=== PATIENT | female | born 1950 | race Caucasian/White ===

== ENCOUNTER → 2017-07-11 15:14 | Outpatient (CLI) | payer MEDICARE, OTHER, SELFPAY ==
--- NOTE | 2017-07-11 15:17 | RAD_ITS ---
STUDY: X-RAY CHEST REASON FOR EXAM: Female, 66 years old. COUGH X 10 WEEKS TECHNIQUE: Frontal and lateral views of the chest. COMPARISON: 03.20.08 FINDINGS: Chronic appearing increased interstitial lung markings. There is no demonstrated pleural abnormality. Scoliosis of the thoracic spine. Normal heart size. Normal mediastinum and kirill. Normal visualized pulmonary arteries. There is atherosclerotic calcification of the aortic arch with tortuosity. There are diffuse degenerative changes of the visualized thoracic spine. There is degenerative osteoarthritis of the bilateral shoulders. There is no demonstrated abnormality of the visualized soft tissue structures of the upper abdomen. RAD/Chest PA and Lateral IMPRESSION: There are no acute findings. Electronically Signed: Sumeet Maldonado MD at 17:58 EDT , Service support ,
== END ==
PROVIDERS: Family Provider Nurse Practitioner; PCP Nurse Practitioner; Visit Provider Nurse Practitioner Gerontology
DX: R05 Cough (principal)
CPT/HCPCS: 71046

== ENCOUNTER → 2017-08-17 14:48 | Outpatient (CLI) | payer MEDICARE, OTHER, SELFPAY ==
[2017-08-17 14:53] LABS: Bacteria 0 SEEN /hpf (None Seen); Mucous, Urine 0 SEEN /hpf (<or=2+)
[2017-08-17 15:44] LABS: Color, Urine Yellow (Yellow); Glucose, Dipstick Normal (Normal); Ketone-Dipstick Negative (Negative); Leukocyte Esterase-Dipstick 25 /ul (Negative); Nitrite-Dipstick Negative (Negative); Occult Blood-Urine 250 /ul (Negative); Protein-Dipstick 15 mg/dl (Negative); Urine Bilirubin Dipstick Negative (Negative); Urine Clarity Sl. Cloudy (Clear); Urine Urobilinogen Normal (Normal); Urine pH 6.5 (5.0 - 8.0)
[2017-08-17 15:51] LABS: Absolute Lymphocyte Count 1.35 X10^3/ul (0.83-4.51); Absolute Neutrophil Count 4.4 X10^3/uL (2.0-7.7); Basophil# 0.03 X10^3/uL; Basophil% 0.4 % (0-1); Eosinophil# 0.45 X10^3/uL; Eosinophils% 6.6 % (0-5); Hematocrit 39.9 % (37-47); Hemoglobin 13.8 g/dl (12.0-15.0); Lymphocyte # 1.35 X10^3/ul (4.0); Lymphocyte % 19.8 % (19-41); Mean Corp Hgb Conc 34.6 g/gl (32-36); Mean Corpuscular Hgb 33.1 pg (27.0-32.0); Mean Corpuscular Volume 95.7 fL (81-99); Mean Platelet Vol. 9.6 fl (6.2-12.0); Monocyte# 0.64 X10^3/uL; Monocyte% 9.4 % (0-10); Neutrophil # 4.35 X10^3/uL (2.7-7.7); Neutrophil % 63.7 % (47-70); Platelet Count 208 K/mm3 (150-450); RBC Distribution Width CV 12.1 % (11.6-14.6); RBC Distribution Width SD 41.2 fl (35.1-43.9); Red Blood Count 4.17 M/mm3 (4.2-5.4); White Blood Count 6.8 K/mm3 (4.4-11.0)
[2017-08-17 15:54] LABS: POSITIVE COUNT NO; POSITIVE DIFFERENTIAL NO; POSITIVE MORPHOLOGY NO
[2017-08-17 16:21] LABS: Red Blood Cells-Urine 25-50 SEEN /hpf (0-5); Squamous Epithelial Cells - UA 0-5 SEEN /hpf (5-10); White Blood Cells 0-5 SEEN /hpf (0-5)
[2017-08-17 16:24] LABS: ALB/GLOB Ratio 1.2 RATIO (0.9-2.4); AST(SGOT) 21 U/L (15-37); Alanine Aminotransfer ALT/SGPT 31 U/L (13-56); Albumin, Serum 3.8 g/dL (3.2-5.0); Alkaline Phosphatase 130 U/L (45-117); Anion Gap 8 (5-15); BUN 19 mg/dL (7-18); BUN/Creat Ratio 17.9 RATIO (10-20); Calcium,Total 8.7 mg/dL (8.5-10.1); Chloride 110 mmol/L (98-107); Cholesterol 211 mg/dL (200); Creatinine, Serum 1.06 mg/dL (0.55-1.02); EST Glomerular Filtration Rate 55 mL/min (>60); Est Glom Filt Rate - Afr Amer 66 mL/min (>60); Globulin 3.1 g/dL (2.2-4.2); Glucose 107 mg/dL (74-106); High Density Lipoprotein 41 mg/dL; Potassium 3.8 mmol/L (3.5-5.1); Protein, Total 6.9 g/dL (6.4-8.2); Sodium Level 143 mmol/L (136-145); Thyroid Stim Hormone (TSH) 1.17 uIU/mL (0.358-3.74); Triglycerides 268 mg/dL; Very Low Density Lipoprotein 54 mg/dL (5-40)
[2017-08-18 08:36] LABS: Vitamin D,25 Hydroxy 32.1 ng/mL (29.95-100.01)
== END ==
PROVIDERS: Family Provider Family Medicine; PCP Family Medicine; Visit Provider Family Medicine
DX: I10 Essential (primary) hypertension (principal); E55.9 Vitamin D deficiency, unspecified; E78.5 Hyperlipidemia, unspecified
CPT/HCPCS: 36415; 80053; 80061; 81001; 82306; 84443; 85025

== ENCOUNTER → 2017-09-14 14:00 | Outpatient (CLI) | payer MEDICARE, OTHER, SELFPAY ==
[2017-09-14 15:43] LABS: Anion Gap 5 (5-15); BUN 18 mg/dL (7-18); BUN/Creat Ratio 16.7 RATIO (10-20); Calcium,Total 8.6 mg/dL (8.5-10.1); Chloride 111 mmol/L (98-107); Creatinine, Serum 1.08 mg/dL (0.55-1.02); EST Glomerular Filtration Rate 54 mL/min (>60); Est Glom Filt Rate - Afr Amer 65 mL/min (>60); Glucose 111 mg/dL (74-106); Potassium 3.8 mmol/L (3.5-5.1); Sodium Level 143 mmol/L (136-145)
== END ==
PROVIDERS: Visit Provider Family Medicine
DX: R94.4 Abnormal results of kidney function studies (principal)
CPT/HCPCS: 36415; 80048

== ENCOUNTER → 2017-09-28 14:18 | Outpatient (CLI) | payer MEDICARE, OTHER, SELFPAY ==
[2017-09-28 15:42] LABS: Anion Gap 8 (5-15); BUN 15 mg/dL (7-18); BUN/Creat Ratio 12.1 RATIO (10-20); Calcium,Total 8.4 mg/dL (8.5-10.1); Chloride 109 mmol/L (98-107); Creatinine, Serum 1.24 mg/dL (0.55-1.02); EST Glomerular Filtration Rate 46 mL/min (>60); Est Glom Filt Rate - Afr Amer 55 mL/min (>60); Glucose 89 mg/dL (74-106); Potassium 3.9 mmol/L (3.5-5.1); Sodium Level 144 mmol/L (136-145)
[2017-09-28 15:57] LABS: Hemoglobin A1c 5.4 % (4.2-6.3)
== END ==
PROVIDERS: Family Provider Family Medicine; PCP Family Medicine; Visit Provider Family Medicine
DX: R73.09 Other abnormal glucose (principal); R94.4 Abnormal results of kidney function studies
CPT/HCPCS: 36415; 80048; 83036

== ENCOUNTER → 2017-10-10 07:43 | Outpatient (CLI) | payer MEDICARE, OTHER, SELFPAY ==
--- NOTE | 2017-10-10 07:46 | RDU_ITS ---
Reason For Study: HYPERTENSION Right Renal Artery Left Renal Artery Right renal artery ostium 76.4/18.3 Left renal artery ostium 113.0/29.2 RSV/EDV. PSV/EDV. Right renal artery proximal Left renal artery proximal PSV/EDV 112.0/32.8 PSV/EDV. 115.0/30.1 . Right renal artery mid 112.0/14.6 Left renal artery mid 109.0/30.5 PSV/EDV. PSV/EDV . Right renal artery distal Left renal artery distal 116.0/33.7 107.0/31.1 PSV/EDV. PSV/EDV. Right Renal Parenchyma Left Renal Parenchyma Upper Pole Medula 38.5/10.1 Left upper pole medulla 47.4/14.6 PSV/EDV. PSV/EDV . Right upper pole medulla EDR .26 . Left upper pole medulla EDR .31 . Right upper pole medulla R.I. .74 . Left upper pole medulla R.I. .69 . Upper Blake Cortx 27.5/6.4 PSV/EDV. UP Cortex 27.5/8.6 PSV/EDV. Right upper pole cortex EDR .23 . Left upper pole cortex EDR .31 . Right upper pole cortex R.I. .77 . Left upper pole cortex R.I. .69 . Right lower Pole medulla 22.2/5.6 Left lower Pole medulla 34.5/10.4 PSV/EDV . PSV/EDV . Right lower pole medulla EDR .25 . Left lower pole medulla EDR .30 . Right lower pole medulla R.I. .75 . Left lower pole medulla R.I. .70 . Lower Pole Cortex 21.3/6.9 PSV/EDV. Lower Pole Cortx 17.2/4.4 PSV/EDV. Right lower pole cortex EDR .32 . Left lower pole cortex EDR .26 . Right lower pole cortex R.I. .68 . Left lower pole cortex R.I. .74 . Right Renal Hilar Left Renal Hilar Right Hilar avg 70.2/19.6 PSV/EDV. LT Hilar avg 46.1/15.0 PSV/EDV . Right hilar acceleration time 66 Left hilar acceleration time 59 m/sec. m/sec. Right Renal Dimensions Left Renal Dimensions Right kidney size 10.3 cm . Left kidney size 9.3 cm . Right cortical dimension 1.6 cm . Left cortical dimension 1.5 cm . Aorta Proximal abdominal aorta 1.3 X 1.3 cm . Distal abdominal aorta 1.3 X 1.3 cm . Proximal abdominal aorta peak systolic velocity is 101.0 cm/sec . Distal abdominal aorta peak systolic velocity is 83.9 cm/sec . Interpretation Summary Dimensions of the intra-abdominal aorta appear normal, without evidence of aneurysmal dilatation. Renal artery velocities are bilaterally normal. Acceleration times are normal bilaterally. There is no evidence of hemodynamically significant renal artery stenosis on either side. The right cortical dimension is increased. The left cortical dimension is normal. Kidneys appear normal in size bilaterally. Ordering Physician: Umer Prajapati Referring Physician: Umer Prajapati Performed By: Neena Leal RVT
--- NOTE | 2017-10-10 08:31 | US_ITS ---
STUDY: RENAL ULTRASOUND - COMPLETE REASON FOR EXAM: Female, 66 years old. Hypertension. TECHNIQUE: Ultrasound evaluation of the kidneys was performed with real-time and static mancia-scale imaging. COMPARISON: None. FINDINGS: RIGHT KIDNEY: Normal location of the right kidney, which is normal in size. The right kidney measures 10.2 cm in length. There is a normal cortex of the right kidney. There is no right renal mass or cyst. There are no right renal calculi. There is no right hydronephrosis. DISTAL RIGHT URETER: There is a visualized right ureteral jet. LEFT KIDNEY: Normal location of the left kidney, which is normal in size. The left kidney measures 9.8 cm in length. There is a normal cortex of the left kidney. There is no left renal mass or cyst. There are no left renal calculi. There is no left hydronephrosis. DISTAL LEFT URETER: There is a visualized left ureteral jet. BLADDER: The distended urinary bladder has a volume of 100 ml. The empty urinary bladder has a volume of 2.5 ml. There is a normal wall thickness of the distended urinary bladder. There is no demonstrated mass within the urinary bladder. There are no demonstrated bladder calculi. US/Kidney and Bladder IMPRESSION: Within normal limits ultrasound of the kidneys and urinary bladder. Electronically Signed: Georgina Sabillon MD at 16:55 EDT Tel , Service support ,
== END ==
PROVIDERS: Family Provider Family Medicine; PCP Family Medicine; Visit Provider Family Medicine
DX: I10 Essential (primary) hypertension (principal)
CPT/HCPCS: 76770; 93975

== ENCOUNTER → 2017-11-08 14:55 | Outpatient (CLI) | payer MEDICARE, OTHER, SELFPAY ==
[2017-11-08 19:10] LABS: Anion Gap 7 (5-15); BUN 16 mg/dL (7-18); BUN/Creat Ratio 14.5 RATIO (10-20); Chloride 109 mmol/L (98-107); EST Glomerular Filtration Rate 52 mL/min (>60); Est Glom Filt Rate - Afr Amer 63 mL/min (>60); Glucose 197 mg/dL (74-106); Potassium 3.9 mmol/L (3.5-5.1); Sodium Level 141 mmol/L (136-145)
== END ==
PROVIDERS: Family Provider Family Medicine; PCP Family Medicine; Visit Provider Family Medicine
DX: R94.4 Abnormal results of kidney function studies (principal)
CPT/HCPCS: 36415; 80048

== ENCOUNTER → 2018-01-12 16:18 | Outpatient (CLI) | payer MEDICARE, OTHER, SELFPAY ==
[2018-01-12 17:33] LABS: Anion Gap 9 (5-15); BUN 17 mg/dL (7-18); BUN/Creat Ratio 14.5 RATIO (10-20); Chloride 108 mmol/L (98-107); Creatinine, Serum 1.17 mg/dL (0.55-1.02); EST Glomerular Filtration Rate 49 mL/min (>60); Est Glom Filt Rate - Afr Amer 59 mL/min (>60); Glucose 138 mg/dL (74-106); Potassium 3.7 mmol/L (3.5-5.1); Sodium Level 143 mmol/L (136-145)
== END ==
PROVIDERS: Family Provider Family Medicine; PCP Family Medicine; Visit Provider Family Medicine
DX: I10 Essential (primary) hypertension (principal)
CPT/HCPCS: 36415; 80048

== ENCOUNTER → 2018-01-18 09:01 | Outpatient (CLI) | payer MEDICARE, OTHER, SELFPAY ==
--- NOTE | 2018-01-18 09:04 | RAD_ITS ---
STUDY: X-RAY - LEFT HAND REASON FOR EXAM: Bilateral hand pain, no specific injury. TECHNIQUE: 3 view(s) of the hand. COMPARISON: None. FINDINGS: There is osteopenia. Normal radiocarpal articulation. Normal distal radioulnar joint. Normal visualized carpal bones. Normal carpal articulations Normal carpometacarpal articulation of the thumb. Normal second through fifth carpometacarpal joints. Normal metacarpi. Normal metacarpophalangeal joint of the thumb. Normal interphalangeal joint of the thumb. Normal proximal and distal phalanges of the thumb. Normal metacarpophalangeal joints of the second through fifth fingers. There is mild arthrosis of the second distal interphalangeal joint with small marginal osteophytes and mild joint space narrowing. Normal phalanges of the second through fifth fingers. There is a small bone island in the fourth distal phalangeal base. The soft tissue structures are unremarkable. 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 Osteopenia. Electronically Signed: Balta Serra MD at 9:32 EDT Tel , Service support ,
--- NOTE | 2018-01-18 09:04 | RAD_ITS ---
STUDY: X-RAY - RIGHT HAND REASON FOR EXAM: Bilateral hand pain, no specific injury. TECHNIQUE: 3 view(s) of the hand. COMPARISON: None. FINDINGS: There is osteopenia. Normal radiocarpal articulation. Normal distal radioulnar joint. Normal visualized carpal bones. Normal carpal articulations Normal carpometacarpal articulation of the thumb. Normal second through fifth carpometacarpal joints. Normal metacarpi. Normal metacarpophalangeal joint of the thumb. Normal interphalangeal joint of the thumb. Normal proximal and distal phalanges of the thumb. Normal metacarpophalangeal joints of the second through fifth fingers. There is mild arthrosis of the second distal interphalangeal joint with small marginal osteophytes and mild joint space narrowing. There is mild arthrosis of the third distal interphalangeal joint with mild joint space narrowing. Normal phalanges of the second through fifth fingers. The soft tissue structures are unremarkable. RAD/Hand Min 3 Views IMPRESSION: Mild arthrosis of the second and third distal interphalangeal joints. Osteopenia. Electronically Signed: Balta Serra MD at 9:33 EDT Tel , Service support ,
== END ==
PROVIDERS: Family Provider Family Medicine; PCP Family Medicine; Referring Provider Orthopaedic Surgery; Visit Provider Orthopaedic Surgery
DX: M79.641 Pain in right hand (principal); M79.642 Pain in left hand
CPT/HCPCS: 73130

== ENCOUNTER → 2018-03-14 14:15 | Outpatient (CLI) | payer MEDICARE, OTHER, SELFPAY ==
[2018-03-14 15:58] LABS: Absolute Lymphocyte Count 1.11 X10^3/ul (0.83-4.51); Absolute Neutrophil Count 3.5 X10^3/uL (2.0-7.7); Basophil# 0.03 X10^3/uL; Basophil% 0.6 % (0-1); Eosinophils% 3.7 % (0-5); Hematocrit 41.5 % (37-47); Lymphocyte # 1.11 X10^3/ul (4.0); Lymphocyte % 20.4 % (19-41); Mean Corp Hgb Conc 33.7 g/gl (32-36); Mean Corpuscular Hgb 32.6 pg (27.0-32.0); Mean Corpuscular Volume 96.7 fL (81-99); Mean Platelet Vol. 9.9 fl (6.2-12.0); Monocyte# 0.55 X10^3/uL; Monocyte% 10.1 % (0-10); Neutrophil # 3.53 X10^3/uL (2.7-7.7); Neutrophil % 64.8 % (47-70); Platelet Count 221 K/mm3 (150-450); RBC Distribution Width CV 12.1 % (11.6-14.6); RBC Distribution Width SD 41.6 fl (35.1-43.9); Red Blood Count 4.29 M/mm3 (4.2-5.4); White Blood Count 5.4 K/mm3 (4.4-11.0)
[2018-03-14 16:02] LABS: POSITIVE COUNT NO; POSITIVE DIFFERENTIAL NO; POSITIVE MORPHOLOGY NO
[2018-03-14 16:23] LABS: ALB/GLOB Ratio 1.2 RATIO (0.9-2.4); AST(SGOT) 22 U/L (15-37); Alanine Aminotransfer ALT/SGPT 32 U/L (13-56); Albumin, Serum 3.9 g/dL (3.2-5.0); Alkaline Phosphatase 158 U/L (45-117); Anion Gap 7 (5-15); BUN 15 mg/dL (7-18); Calcium,Total 8.6 mg/dL (8.5-10.1); Chloride 108 mmol/L (98-107); Cholesterol 225 mg/dL (200); Creatinine, Serum 1.07 mg/dL (0.55-1.02); EST Glomerular Filtration Rate 54 mL/min (>60); Est Glom Filt Rate - Afr Amer 65 mL/min (>60); Globulin 3.2 g/dL (2.2-4.2); Glucose 80 mg/dL (74-106); High Density Lipoprotein 58 mg/dL; Potassium 3.7 mmol/L (3.5-5.1); Protein, Total 7.1 g/dL (6.4-8.2); Sodium Level 141 mmol/L (136-145); Triglycerides 137 mg/dL; Very Low Density Lipoprotein 27 mg/dL (5-40)
[2018-03-14 16:35] LABS: Vitamin D,25 Hydroxy 35.6 ng/mL (29.95-100.01)
--- OUTSIDE RECORDS SUMMARY | 2018-05-09 23:54 | XMS RPT_ITS | Continuity of Care Document ---
:1950 Author Organization [facility] Address [facility] [address] Phone Care Team Providers Name Role Phone Minalveronica SILVIO Kaci Unavailable Edmundo Carrillo Unavailable Rocio Asher Unavailable Irma KIMBROUGH, Dr. Hillary Noriega Unavailable Denia KIMBROUGH, Jeremy Arzate Unavailable Dr. José Chang Unavailable Johnathan KIMBROUGH, Jairo Crow Unavailable Slarb SOLE FILLER, Emily Unavailable Unavailable Maria Guadalupe Baldwin Unavailable Unavailable Long SOLE FILLER, Luisa L Unavailable Unavailable Chantale Javier Unavailable Unavailable Unavailable Unavailable Problems Name Dates Details Abdominal pain, unspecified abdominal location (789.00) Status: Active Abnormal lung sounds (R09.89, 786.7) Status: Active Acute sinusitis (J01.90, 461.9) Comments: Acute sinusitis with asthma exacerbation.Rapid strep negative, cultureFlu test negative., cultureAlbuterol nebulizerDoxycyckline 14 days(on lexapro so cant do levaquin because of QT prolongationm)Predn isone taper.Albuterol INH PRNFolow up 2 days1 week h.o sore throat, runny nose clear nasal drainage, sinus aches,tooth aches, PND, nausea.2 days h/o worsening with dry cough, feelinmg warm, nausea, bod y aches, wheezing last night with SOBPreviously diagnosed with asthma, was put on INH (flovent, proventil and also singulair)but never used them.Vera and mucinx did not help Status: Active Allergic rhinitis (J30.9, 477.9) Comments: stable Status: Active Allergy to Penicillins (Renamed from Penicillins) Status: Active Anxiety (F41.9, 300.00) Status: Active 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, 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) Status: Active BMI 29.0-29.9,adult (Z68.29, V85.25) Status: Active BMI 30.0-30.9,adult (Z68.30, V85.30) Status: Active Bronchitis (J40, 490) Status: Active Bronchitis (J40, 490) Comments: stop wood burning change antibiotic Status: Active Carpal tunnel syndrome (G56.00, 354.0) Status: Active Constipation (K59.00, 564.00) Comments: miralax in apple juice Status: Active Cough (R05, 786.2) Status: Active Cystitis, acute (N30.00, 595.0) Status: Active Deliveries (Parity) Comments: 2 Status: Active Depression (F32.9, 311) Comments: PHQ 9: 14(11/03/15) now 6 (11/30Lexapro 10 mg once a day, incresed to 20 mg once a day 10/30, notices improvement but not completely better.Does not want to do counselling because of cost and does not want to talk to anybodylexapro 10 mg for 3 years ago after , cancer in liver and spine.trouble falling asleep, staying asleep( gomto sleep at 11 and wake up at 2) thinking about stuff.Wo rrying about things, guilt, lack of energy.Concentration: betterfeels sad and deprresed but not every dayExercise:water aerobics 3x/week.Cant work outside in the heat so when weather cools down Status: Active Dysuria (R30.0, 788.1) 7-Dec-2010 Status: Active Elevated blood-pressure reading without diagnosis of hypertension (R03.0, 796.2) Status: Active Encounter for screening mammogram for breast cancer (Renamed from Encounter for screening mammogram for malignant neoplasm of breast) (Z12.31, V76.12) Status: Active Epigastric pain (R10.13, 789.06) Comments: takes meloxicam daily for arthritis x 9months was on once daily protonix but this nothelping, will increase twice daily got BMX in office with some relief Status: Active Fatty liver (K76.0, 571.8) Comments: LFT and lipd panel Q6 monthsUS yearlyLP 120( was 115ALt 29 37(was 33) Status: Active Gall stones (K80.20, 574.20) Status: Active GENERAL SYMPTOMS, OTHER MALAISE AND FATIGUE (780.79) 16-Feb-2010 Status: Active Hypersomnia (G47.10, 780.54) Comments: get sleep study, with abnormal overnight pulse ox Status: Active Hypertension, accelerated (I10, 401.0) Comments: 138/78BP: 124/70 Status: Active Inner ear Status: Active Insomnia (G47.00, 780.52) Status: Active Irritable bowel syndrome (K58.9, 564.1) Status: Active Low Back Pain (Renamed from LBP (low back pain)) (M54.5, 724.2) Comments: Dr. 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 Status: Active Pregnancies () Comments: 2 Status: Active Reactive airway disease (J45.909, 493.90) Comments: reviewed chart with Dr. Castellon labs, tests, etc, 6 minute walk, normal looks like reactive airway disease Status: Active Reactive airway disease (J45.909, 493.90) Status: Active scfreening Status: Active Sciatica (M54.30, 724.3) Comments: left hip Status: Active Seasonal affective disorder (F33.9, 296.99) Comments: lite box, insurance doesnt cover, so cant use it Status: Active Shortness of breath (R06.02, 786.05) Status: Active Shortness of breath on exertion (R06.02, 786.05) Comments: has had cardiac test in past and stress testingneed overnight pulse ox and walk test Status: Active Skin tag (L91.8, 701.9) Comments: 2 removed right neck with scissor technique and 3 left2 treated with cryo for 45 sec - 1 on right on on left Status: Active Unspecified asthma, uncomplicated (J45.909, 493.90) Comments: Dont use flovent unless sick.Father of asthma attackHad acute asthma only once 06/30.SOB: noneWheeze: no Cough: noneGo up and down stair have SOB. Status: Active Unspecified Diagnosis Status: Active Urgency of micturition (R39.15, 788.63) Status: Active Vertigo (R42, 780.4) Status: Active Vertigo, benign positional (H81.10, 386.11) Status: Active Wheezing (R06.2, 786.07) Comments: use alegra and nosonex Status: Active Wheezing (R06.2, 786.07) Comments: suspect asthma component Status: Active Medications Name Dates Details Albuterol Sulfate (2.5 MG/3ML) 0.083% Inhalation Nebulization Solution 1 (one) Milliliter q6hrs prn for 0 days Quantity: 1 {Milliliter} Refills: 0 Ordered:19-Jul-2017 Alethea SILVIO Lani Rezaarleth ANGUIANO Lani Alvarez Start : 19-Jul-2017 Active ALEVE, 220MG (Oral Tablet) 4 Tablet PRN for 0 days Refills: 0 Ordered:03-Nov-2015 Long Luisa HARO Start : 30-Nov-2006 Active Vera 30 MG Oral Tablet 1 Tablet QD for 0 days Refills: 0 Ordered:03-Nov-2015 Maikel Guzman MD Start : 03-Nov-2015 Active Asmanex HFA 200 MCG/ACT Inhalation Aerosol 2 (two) Puff Puff q12 for 0 days Quantity: 1 {Inhalation} Refills: 0 Ordered:19-Jul-2017 Slarb Emily HARO Start : 12-Jul-2017 Active Benzonatate 200 MG Oral Capsule 1 (one) Capsule Capsule PO TID for 0 days Quantity: 21 {Capsule} Refills: 0 Ordered:11-Jul-2017 Jas Alicia Start : 11-Jul-2017 Active Flovent HFA 220 MCG/ACT Inhalation Aerosol 1 (one) Aerosol 2 puffs bid for 0 days Quantity: 3 {Inhalation} Refills: 3 Ordered:19-Jul-2017 Alethea SILVIO Lani Rezaarleth ANGUIANO Lani Alvarez Start : 19-Jul-2017 Active Lexapro 20 MG Oral Tablet 1 (one) Tablet daily for 30 days Quantity: 30 {Tablet} Refills: 11 Ordered:12-Mar-2017 Alethea SILVIO Lani Daniels SILVIO Lani Alvarez Start : 12-Mar-2017 Active Lexapro 20 MG Oral Tablet 1 (one) Tablet daily for 30 days Refills: 0 Ordered:12-Mar-2017 Minalveronica SILVIO Lani Rezaarleth ANGUIANO Lani Alvarez Start : 12-Mar-2017 Active Losartan Potassium 50 MG Oral Tablet 1 (one) Tablet daily for 0 days Quantity: 30 {Tablet} Refills: 2 Ordered:07-Jun-2017 Alethea SILVIO Lani Rezaarleth ANGUIANO Lani Alvarez Start : 07-Jun-2017 Active Meclizine HCl 12.5 MG Oral Tablet 1 (one) Tablet bid prn for 0 days Quantity: 90 {Tablet} Refills: 0 Ordered:10-May-2017 Alethea ANGUIANO, Lani Francis CNP Start : 10-May-2017 Active Nasonex 50 MCG/ACT Nasal Suspension 2 sprays each nostril, prn for 0 days Refills: 0 Ordered:03-Nov-2015 Maikel Guzman MD Start : 03-Nov-2015 Active PredniSONE 10 MG Oral Tablet daily UAD (10 MG) Active Comments:taper, 4x 3d, 3x 3d, 2x 3d, 1 x3d Protonix 20 MG Oral Tablet Delayed Release 1 (one) Tablet DR bid for 0 days Quantity: 60 {Tablet} Refills: 1 Ordered:12-Jul-2017 Alethea ANGUIANO, Lani Daniels CNP Lani Alvarez Start : 12-Jul-2017 Active Proventil HFA 108 (90 Base) MCG/ACT Inhalation Aerosol Solution 1 (one) Aerosol Soln every six hours, as needed for 14 days Quantity: 1 {Canister} Refills: 3 Ordered:13-Feb-2017 Alethea ANGUIANO, Lani Francis CNP Start : 13-Feb-2017 Active Comments:Medication taken as needed. TraZODone HCl 50 MG Oral Tablet 1/2-1 Tablet q hs, prn for 0 days Quantity: 30 {Tablet} Refills: 3 Ordered:13-Mar-2017 Alethea ANGUIANO, Lani Francis CNP Start : 13-Mar-2017 Active VITAMIN D3, 2000UNIT (Oral Capsule) 1 cap qd (2000 UNIT) Active AUGMENTIN, 875-125MG (Oral Tablet) 1 (one) Tablet Twice daily for 10 days Quantity: 20 {Tablet} Refills: 0 Ordered:25-Mar-2008 Ravinder DO, Irma A Start : 25-Mar-2008 End : 08-Apr-2008 Inactive BACTRIM DS, 800-160MG (Oral Tablet) 1 (one) Tablet bid for 3 days Quantity: 6 {Tablet} Refills: 0 Ordered:18-Mar-2008 Alethea ANGUIANO, Lani Francis CNP Start : 18-Mar-2008 End : 25-Mar-2008 Inactive Biaxin 500 MG Oral Tablet 1 (one) Tablet Tablet PO BID for 14 days Quantity: 28 {Tablet} Refills: 0 Ordered:19-Jul-2017 Emily Coombs LPN Start : 11-Jul-2017 End : 19-Jul-2017 Inactive Comments:Take with food BIAXIN XL, 500MG (Oral Tablet Extended Release 24 Hour) 2 (two) Tablet ER 24HR qd for 0 days Quantity: 20 {Tablet_ER_24HR} Refills: 0 Ordered:16-Feb-2010 Delon HARO Latrice Start : 02-Feb-2010 End : 16-Feb-2010 Inactive CIPRO, 500MG (Oral Tablet) 1 (one) Tablet Twice daily for 10 days Quantity: 20 {Tablet} Refills: 0 Ordered:03-Jul-2015 Ravinder DO, Irma A Start : 03-Jul-2015 End : 13-Jul-2015 Inactive Doxycycline Hyclate 100 MG Oral Capsule 1 (one) Capsule bid for 7 days Quantity: 14 {Capsule} Refills: 0 Ordered:12-Jul-2017 Minalharpreetarleth ANGUIANO, Lani Frances ANGUIANO, Kaci Start : 12-Jul-2017 End : 19-Jul-2017 Inactive DOXYCYCLINE HYCLATE, 100MG (Oral Tablet Delayed Release) 1 (one) Tablet DR Tablet DR two times daily for 14 days Quantity: 28 {Tablet} Refills: 0 Ordered:30-Sep-2015 Emily Coombs LPN Start : 30-Sep-2015 End : 14-Oct-2015 Inactive FLECTOR, 1.3% (Transdermal Patch) 1 Patch q12 hrs for 0 days Quantity: 15 {Patch} Refills: 0 Ordered:15-Jun-2012 Magy Winters Start : 30-Nov-2011 End : 15-Jun-2012 Inactive GLUCOSAMINE CHONDR 500 COMPLEX (Oral Capsule) 2 caps qd Inactive Hydrocodone-Acetaminophen 5-325 MG Oral Tablet 1 (one) Tablet q 12 hours prn for 0 days Quantity: 60 {Tablet} Refills: 0 Ordered:15-Feb-2017 Emily Coombs LPN Start : 09-Sep-2014 End : 15-Feb-2017 Inactive Lyrica 100 MG Oral Capsule 1 cap daily (100 MG) Inactive MEDROL (GINA), 4MG (Oral Tablet) 1 Tablet TAD for 0 days Quantity: 1 {Package(s)} Refills: 0 Ordered:15-Jun-2012 Magy Winters Start : 30-Nov-2011 End : 15-Jun-2012 Inactive MYCELEX, 10MG (Mouth/Throat Tony) 1 Tony 5 x daily for 10 days Quantity: 50 {Tony} Refills: 0 Ordered:16-Feb-2010 Alethea ANGUIANO, Lani Francis CNP Start : 16-Feb-2010 End : 26-Feb-2010 Inactive PREDNISONE (GINA), 10MG (Oral Tablet) 1 (one) Tablet Tablet UAD for 10 days Quantity: 20 {Tablet} Refills: 0 Ordered:30-Sep-2015 Emily Coombs LPN Start : 30-Sep-2015 End : 10-Oct-2015 Inactive Comments:20 mg BID 2 days,10 mg BID 4 days10 mg Qd 4 days then stop.20 pills PREDNISONE, 10MG (Oral Tablet) 1 Tablet as directed for 0 days Refills: 0 Ordered:16-Feb-2010 Latrice Jernigan LPN Start : 02-Feb-2010 End : 16-Feb-2010 Inactive Comments:3 pills for 5 days then 2 pills for 5 days then 1 pill for 5 days with food PREVPAC (Oral Miscellaneous) 1 Misc TAD for 14 days Quantity: 1 {Package(s)} Refills: 0 Ordered:09-Jun-2011 Alethea ANGUIANO, Lani Daniels CNP, Lani Alvarez Start : 09-Jun-2011 End : 23-Jun-2011 Inactive Comments:1 twice daily x 14 days PYRIDIUM, 100MG (Oral Tablet) 1 Tablet tid for 2 days Quantity: 6 {Tablet} Refills: 0 Ordered:11-Jan-2010 Alethea ANGUIANO, Lani Francis CNP Start : 11-Jan-2010 End : 13-Jan-2010 Inactive VICODIN, 5-500MG (Oral Tablet) 1 (one) Tablet q hs prn for 0 days Quantity: 30 {Tablet} Refills: 0 Ordered:22-Dec-2009 Latrice Jernigan LPN Start : 17-Mar-2009 Inactive Zithromax Z-Gina 250 MG Oral Tablet daily UAD (250 MG) Inactive Comments:one pack ADVAIR DISKUS, 250-50MCG/DOSE (Inhalation Aerosol Powder Breath Activated) 1 puff Aero Pow Br Act bid for 90 days Quantity: 3 {Aero_Pow_Br_Act} Refills: 3 Ordered:02-Apr-2013 Irma Castellon DO Start : 02-Apr-2013 End : 02-Apr-2013 Discontinued ADVAIR DISKUS, 250-50MCG/DOSE (Inhalation Miscellaneous) 1 (one) Misc 1 twice a day for 0 days Quantity: 1 {Misc} Refills: 3 Ordered:15-May-2009 Magy Winters Start : 15-May-2009 End : 10-Nov-2009 Discontinued Comments:This order discontinued per [facility]. ASMANEX 120 METERED DOSES, 220MCG/INH (Inhalation Aerosol Powder Breath Activated) Aero Pow Br Act 1 puff bid for 0 days Quantity: 1 {Aero_Pow_Br_Act} Refills: 0 Ordered:18-Feb-2008 Alethea ANGUIANO, Lani Daniels CNP, Kaci Start : 18-Feb-2008 End : 18-Feb-2008 Discontinued BUPROPION HCL ER (XL), 300MG (Oral Tablet Extended Release 24 Hour) 1 Tablet ER 24HR qday for 0 days Quantity: 90 {Tablet} Refills: 3 Ordered:24-Feb-2015 Irma Castellon DO Start : 24-Feb-2015 End : 24-Feb-2015 Discontinued Crestor 10 MG Oral Tablet 1 (one) Tablet daily for 30 days Quantity: 30 {Tablet} Refills: 2 Ordered:17-May-2016 Emily Coombs LPN Start : 03-Dec-2015 End : 17-May-2016 Discontinued DARVOCET-N 100, 100-650MG (Oral Tablet) 1 (one) Tablet QID/PRN for 0 days Quantity: 60 {Tablet} Refills: 0 Ordered:29-Dec-2005 Magy Winters Start : 29-Dec-2005 End : 18-Jul-2006 Discontinued Comments:watch for sedation and constipation GABAPENTIN, 100MG (Oral Capsule) 2 caps tid (100 MG) End : 20-Jan-2015 Discontinued LEXAPRO, 20MG (Oral Tablet) 1 (one) Tablet qhs for 0 days Quantity: 30 {Tablet} Refills: 3 Ordered:24-Feb-2015 Irma Castellon DO Start : 24-Feb-2015 End : 24-Feb-2015 Discontinued LEXAPRO, 20MG (Oral Tablet) 1 Tablet QD for 0 days Quantity: 60 {Tablet} Refills: 0 Ordered:18-Sep-2012 Irma Castellon DO Start : 18-Sep-2012 End : 18-Sep-2012 Discontinued Comments:Needs apt MELOXICAM, 7.5MG (Oral Tablet) 1 tab daily (7.5 MG) End : 20-Jan-2015 Discontinued MOBIC, 7.5MG (Oral Tablet) 1 (one) Tablet Twice daily for 0 days Quantity: 60 {Tablet} Refills: 0 Ordered:07-Jun-2006 Magy Winters Start : 07-Jun-2006 End : 18-Jul-2006 Discontinued Comments:with food NASACORT AQ, 55MCG/ACT (Nasal Aerosol Solution) 2 (two) Aerosol Soln PRN for 0 days Refills: 0 Ordered:18-Feb-2008 Magy Winters Start : 18-Feb-2008 End : 28-Apr-2008 Discontinued NEXIUM, 40MG (Oral Capsule Delayed Release) 1 (one) Capsule DR daily,prn for 0 days Quantity: 90 {Capsule} Refills: 3 Ordered:20-Jan-2015 Magy Winters Start : 20-Jan-2015 End : 20-Jan-2015 Discontinued PANTOPRAZOLE SODIUM, 40MG (Oral Tablet Delayed Release) 1 tab q am (40 MG) End : 20-Jan-2015 Discontinued Singulair 10 MG Oral Tablet 1 (one) Tablet daily, prn for 0 days Quantity: 90 {Tablet} Refills: 1 Ordered:17-May-2016 Emily Coombs LPN Start : 04-Apr-2014 End : 17-May-2016 Discontinued ZETIA, 10MG (Oral Tablet) 1 (one) Tablet QD or qod for 0 days Quantity: 90 {Tablet} Refills: 3 Ordered:02-Apr-2013 Irma Castellon DO Start : 02-Apr-2013 End : 02-Apr-2013 Discontinued ZITHROMAX Z-GINA, 250MG (Oral Tablet) 1 Tablet take 2 on day #1 then 1 daily for 0 days Quantity: 1 {Package(s)} Refills: 0 Ordered:06-Feb-2008 Anitha Hernadez Start : 06-Feb-2008 End : 18-Feb-2008 Discontinued ZYRTEC, 10MG (Oral Tablet) 1 QD for 0 days Refills: 0 Ordered:06-Feb-2008 Anitha Hernadez End : 06-Feb-2008 Discontinued Allergies and Adverse Reactions Name Dates Details Allergy to ADVAIR DISKUS, 100-50MCG/DOSE Status: Inactive (Inhalation Miscellaneous) (Renamed from Comments: didnt feel well ADVAIR DISKUS, 100-50MCG/DOSE (Inhalation Miscellaneous)) (Allergy) No Known Drug Allergies (Allergy) Onset: 02-Apr-2013 Status: Active Allergy to Penicillins (Renamed from Status: Inactive Penicillins) (Allergy) Comments: hives Penicillins (Allergy) Status: Active Sulfa Drugs (Allergy) Status: Active Past Medical History Name Dates Details Allergy to ADVAIR DISKUS, 100-50MCG/DOSE (Inhalation Miscellaneous) (Renamed from ADVAIR DISKUS, 100-50MCG/DOSE (Inhalation Miscellaneous)) Status: Inactive as of 15-Jun-2012 Asthma with acute exacerbation (J45.901, 493.92) Comments: was given proventil daily Status: Inactive as of 13-Mar-2017 Asthma, mild intermittent (J45.20, 493.90) Status: Inactive as of 13-Mar-2017 BMI 30.0-30.9,adult (Z68.30, V85.30) Status: Inactive as of 15-Feb-2017 Bronchitis, acute (J20.9, 466.0) Status: Inactive as of 16-Aug-2010 Candidiasis, mouth (B37.0, 112.0) Status: Inactive as of 15-Jun-2012 Chest pain (R07.9, 786.50) Comments: epigastric pain Status: Inactive as of 15-Feb-2017 Cough (R05, 786.2) Status: Resolved as of 22-Sep-2008 diastolic dysfunction Status: Inactive as of 15-Feb-2017 Dysuria (R30.0, 788.1) Status: Resolved as of 22-Sep-2008 hypoxia Status: Resolved as of 22-Sep-2008 INFECTION, BACTERIAL D/T HELICOBACTER PYLORI (041.86) Comments: will treat as if, daughter in law has this Status: Inactive as of 15-Jun-2012 Laryngitis (J04.0, 464.00) Status: Resolved as of 02-Apr-2013 Pain around eye, unspecified laterality (H57.10, 379.91) Comments: and face on right side, chikis rule out trigeminal nerualgia Status: Resolved as of 22-Sep-2008 Pain of toe, unspecified laterality (M79.676, 729.5) Status: Resolved as of 22-Sep-2008 partial tear of achilles/ gastroc- Status: Resolved as of 22-Sep-2008 recent uti- follow up ua Status: Resolved as of 22-Sep-2008 right eye and face pain Status: Resolved as of 22-Sep-2008 right shoulder pain Comments: offered pain meds , pt or ortho none of which she wished to do- she doesnt feel bad enough at this point Status: Resolved as of 22-Sep-2008 trochanteric bursitis Comments: gave stretching exercises- told not better can do pt Status: Resolved as of 23-Feb-2009 Tubal ligation Status: Inactive as of 15-Feb-2017 Unspecified Diagnosis Status: Inactive as of 22-Sep-2008 Upper respiratory infection (J06.9, 465.9) Status: Inactive as of 16-Aug-2010 Urinary frequency (R35.0, 788.41) Status: Resolved as of 22-Sep-2008 Urticaria (L50.9, 708.9) Status: Resolved as of 22-Sep-2008 Vaccine for okvumqkfkz-otidqaa-ekjmnfnji with poliomyelitis (Z23, V06.3) Status: Inactive as of 15-Jun-2012 voice change Comments: chronic hoarse voice Status: Resolved as of 22-Sep-2008 Well woman exam (Z00.00, V70.0) Status: Inactive as of 15-Jun-2012 Procedures Procedure Dates Details Gallbladder Surgery - Laparoscopic Completed Comments: 06/2016 tubal ligation Completed Date Value Details 11-Jul-2017 Chest PA and Lateral Result: Comments: See Note; NOTES: [facility] Imaging Services [address] [place] [address] Chest PA and Lateral MR#: [id number] Acct: [id number] Name: BEATRICE DOUGHERTY Rep #: [id number] : 1950 F 66 From: Sumeet Maldonado MD PCP: Lani Claire NP Status: REG CLI Study: Chest PA and Lateral Date of Exam: 07/11/17 Exam# [id number] Ordering Dr: Maribel Orta PAPER SLITTER-C STUDY: X-RAY CHEST REASON FOR EXAM: Female, 66 years old. COUGH X 10 WEEKS TECHNIQUE: Frontal and lateral views of the chest. COMPARISON: 03.20.08 FINDINGS: Chronic appearing increased interstitial lung markings. There is no demonstrated pleural abnormality. Scoliosis of the thoracic spine. Normal heart size. Normal mediastinum and kirill. Normal visualized pulmonary arterie s. There is atherosclerotic calcification of the aortic arch with tortuosity. There are diffuse degenerative changes of the visualized thoracic spine. There is degenerative osteoarthritis of the bilater al shoulders. There is no demonstrated abnormality of the visualized soft tissue structures of the upper abdomen. RAD/Chest PA and Lateral IMPRE SSION: There are no acute findings. Electronically Signed: Sumeet Maldonado MD at 17:58 EDT , Service support , CC: Lani Claire NP; PAPER SLITTERShawn Orta Mechanical Engineering Officer: Signed 08-Jul-2017 Urgent Care Visit Report Result: Comments: See Note; NOTES: [facility] [address] [place] [address] OFFICE VISIT Date of Service: 07/08/17 MR#: [id number] Acct: [id number] Name: BEATRICE DOUGHERTY Rep #: [id number] : 1950 Provider: Suma Taveras Age/Sex: 66/F Location: [facility] [place] Status: Signed Intake Vital Signs07/08/17 Height 5 ft 3 in 07/08/17 Weight: 159 lb 07/08/17 Body Mass Ind ex (BMI) 28.1 07/08/17 Blood Pressure 118/76 Intake Visit Reasons: COUGH, NAUSEA, ACHY Drapery Estimator Required: No Is patient in pain?: No Allergies Penicillins Allergy (Severe, Verified 07/08/17 10:22) Hives Medications azithromycin 250 mg tablet See Label Instructions PO .COMPLEX #6 tab 07/08/17 [Rx Confirmed 07/08/17] coenzyme Q10 10 mg capsule 10 mg PO ONCE 07/08/17 [History Confirmed 07/08/17] guaifenesin ER 1,200 mg tablet, extended release 12 hr 1,200 mg PO Q12H 07/08/17 [History Confirmed 07/08/17] ibuprofen 100 mg tablet PO 07/08/17 [History Confirmed 07/08/17] prednisone 10 mg tablet Se e Label Instructions PO .COMPLEX #30 tab 07/08/17 [Rx Confirmed 07/08/17] PFSH Medical History Reactive airway disease (Chronic) Other malaise and fatigu e (Chronic) Acute sinusitis (Chronic) Atypical Spitz nevus (Chronic) Hyperlipidemia (Chronic) Vertigo (Chronic) Osteopenia (Chronic) Depression (Chronic) IBS (irritable bowel syndrome) (Chronic) Hyperso mnia (Chronic) Asthma with acute exacerbation in adult (Chronic) Asthma, mild intermittent (Chronic) Shortness of breath on exertion (Chronic) Gall stones (Chronic) BMI 29.0-29.9,adult (Chronic) Fatty l iver (Chronic) Insomnia (Chronic) Anxiety (Chronic) Allergic rhinitis (Chronic) Seasonal affective disorder (Chronic) Low back pain potentially associated with radiculopathy (Chronic) Wheezing (Chronic) Accelerated hypertension (Chronic) Carpal tunnel syndrome (Chronic) 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) Sciatica (Chronic) Surgical History History of laparoscopic cholecystectomy (Resolved) H/O tubal ligation (Resolved) Family History Mother Hypertension Heart disease Thyroid dis order Father Asthma Social History Smoking Status: Former smoker second hand exposure: No alcohol intake: never substance use type: does not use caffeine: Yes (4/day) what type of physical activi ty do you participate in: none HPI HPI Details: BEATRICE DOUGHERTY, is a 66 F who presents to the office today for for an urgent appointment. Patient states that she started with an upper respirato ry infection approximately 3 weeks ago. She has been treating with [id number] medication and has not had any improvement. She does have a cough and chills. She does not think that she is a fever. Her cough is productive it is a clear to yellow sputum. She finds that she is wheezing. She also has a headache. She is also fatigued. She had does have some nausea at this point. She feels that this i s related to her cough. ROS Const Constitutional: Positive for body ache, fatigue, headache(s) and chills; no fever(s) Eyes Eyes: No light sensitivity, discharge or change in vision ENT ENT: Positive for headache(s); no nasal congestion, nasal discharge, sinus pressure, post nasal drip or sore throat Resp Respiratory: Positive for cough, chest congestion and wheezing Cardio Cardiology: No chest pain at rest, chest pain with exertion or shortness of breath Gastro GI: Positive for nausea/dyspepsia; no diarrhea or Vomiting blood/hematemesis Neuro Neurology: Positive for headache(s) Endo Endocrine: Po sitive for fatigue Aller/Imm Allergy/Immunologic: Positive for wheezing Exam Const General: cooperative, no acute distress Nutritional Appearance: average body habitus Orientation: alert, awake, orien pepito x3 HENMT Head: normal to inspection Ears: hearing grossly normal bilaterally Nose: mucous membranes and turbinates abnormal boggy Eyes General: appearance normal, both eyes and all related structure s Eyelids: eyelids normal Conjunctivae: conjunctivae normal Sclera: sclerae normal Cornea: corneas normal Pupils: PERRL Neck Neck: normal visual inspection, no lymphadenopathy Chest Chest palpation AND inspection: normal inspection of the chest Resp Effort AND Inspection: normal respiratory effort, cough Quality of cough: productive Auscultation: Bilateral: Diminished Lung Sounds, Inspiratory Wheezes Cardio Palpation: normal PMI Rate: regular rate Rhythm: regular rhythm Heart Sounds: S1 normal, S2 normal, no gallops, no murmurs, no rubs GI Auscultation: normal bowel sounds Percussion: normal to perc ussion Palpation: soft, no hepatosplenomegaly Neuro General: alert, awake, oriented x3 Cranial Nerves: CN's II-XI intact bilaterally Assessment AND Plan Problems 1. Bronchitis J40 Plan We will treat with antibiotic and steroid. Patient was advised to continue with adequate hydration. She was advised to continue use Advil or Tylenol for aches and chills. She was advised that if not any better she sh ould see her primary care doctor. Medications New: Coding Level of Care Code Off vis,new,level 3 Diagnoses Bronchitis J40 Intake Vital Signs07/08/17 Height 5 ft 3 in 07/08/17 Weight: 159 lb 07/08 Body Mass Index (BMI) 28.1 07/08/17 Blood Pressure 118/76 Intake Visit Reasons: COUGH, NAUSEA, ACHY Drapery Estimator Required: No Is patient in pain?: No Allergies Penicillins Allergy (Severe, Verifie d 07/08/17 10:22) Hives Medications azithromycin 250 mg tablet See Label Instructions PO .COMPLEX #6 tab 07/08/17 [Rx Confirmed 07/08/17] coenzyme Q10 10 mg capsule 10 mg PO ONCE 07/08/17 [History Co nfirmed 07/08/17] guaifenesin ER 1,200 mg tablet, extended release 12 hr 1,200 mg PO Q12H 07/08/17 [History Confirmed 07/08/17] ibuprofen 100 mg tablet PO 07/08/17 [History Confirmed 07/08/17] prednison e 10 mg tablet See Label Instructions PO .COMPLEX #30 tab 07/08/17 [Rx Confirmed 07/08/17] PFSH Medical History Reactive airway disease (Chronic) Other m alaise and fatigue (Chronic) Acute sinusitis (Chronic) Atypical Spitz nevus (Chronic) Hyperlipidemia (Chronic) Vertigo (Chronic) Osteopenia (Chronic) Depression (Chronic) IBS (irritable bowel syndrome) (Chronic) Hypersomnia (Chronic) Asthma with acute exacerbation in adult (Chronic) Asthma, mild intermittent (Chronic) Shortness of breath on exertion (Chronic) Gall stones (Chronic) BMI 29.0-29.9,adult (Chronic) Fatty liver (Chronic) Insomnia (Chronic) Anxiety (Chronic) Allergic rhinitis (Chronic) Seasonal affective disorder (Chronic) Low back pain potentially associated with radiculopathy (Chronic) W heezing (Chronic) Accelerated hypertension (Chronic) Carpal tunnel syndrome (Chronic) 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 Patient states that she started with a n upper respiratory infection approximately 3 weeks ago. She has been treating with sugp-tat-obiszna medication and has not had any improvement. She does have a cough and chills. She does not think felicia t she is a fever. Her cough is productive it is a clear to yellow sputum. She finds that she is wheezing. She also has a headache. She is also fatigued. She had does have some nausea at this point. She feels that this is related to her cough. ROS Const Constitutional: Positive for body ache, fatigue, headache(s) and chills; no fever(s) Eyes Eyes: No light sensitivity, discharge or change in vision E NT ENT: Positive for headache(s); no nasal congestion, nasal discharge, sinus pressure, post nasal drip or sore throat Resp Respiratory: Positive for cough, chest congestion and wheezing Cardio Cardiolo gy: No chest pain at rest, chest pain with exertion or shortness of breath Gastro GI: Positive for nausea/dyspepsia; no diarrhea or Vomiting blood/hematemesis Neuro Neurology: Positive for headache(s) E ndo Endocrine: Positive for fatigue Aller/Imm Allergy/Immunologic: Positive for wheezing Exam Const General: cooperative, no acute distress Nutritional Appearance: average body habitus Orientation: al ert, awake, oriented x3 HENMT Head: normal to inspection Ears: hearing grossly normal bilaterally Nose: mucous membranes and turbinates abnormal boggy Eyes General: appearance normal, both eyes and all related structures Eyelids: eyelids normal Conjunctivae: conjunctivae normal Sclera: sclerae normal Cornea: corneas normal Pupils: PERRL Neck Neck: normal visual inspection, no lymphadenopathy Chest Daphne st palpation AND inspection: normal inspection of the chest Resp Effort AND Inspection: normal respiratory effort, cough Quality of cough: productive Auscultation: Bilateral: Diminished Lung Sounds, Ins piratory Wheezes Cardio Palpation: normal PMI Rate: regular rate Rhythm: regular rhythm Heart Sounds: S1 normal, S2 normal, no gallops, no murmurs, no rubs GI Auscultation: normal bowel sounds Percussio n: normal to percussion Palpation: soft, no hepatosplenomegaly Neuro General: alert, awake, oriented x3 Cranial Nerves: CN's II-XI intact bilaterally Assessment AND Plan Problems 1. Bronchitis J40 Pl an We will treat with antibiotic and steroid. Patient was advised to continue with adequate hydration. She was advised to continue use Advil or Tylenol for aches and chills. She was advised that if not any better she should see her primary care doctor. Medications New: Coding Level of Care Code Off vis,new,level 3 Diagnoses Bronchitis J40 07/08/17 1039 <Electronically signed by Suma BLANCHARD> Date Suma BLANCHARD Cosigner Signature: Date (if applicable) CC: 23-Feb-2017 Pulmonary Function Test Result: Comments: See Note; NOTES: [facility] Pulmonary Services/Neurology [address] [place] [address] MR#: [id number] Acct: [id number] Name: BEATRICE DOUGHERTY Rep #: [id number] DO B: 1950 66 From: Cesar Mobley DO Referring Dr: Lani Claire Status: REG CLI Ordering Dr: Date: Location: [facility] Sex: F C INTRODUCTION: The patient is a 66-year-old female currently being seen by Lani Claire that presents for pulmonary function testing secondary to a diagnosis of asthma. Bronchodilators were used during testing. INTERPRETATION: Forced expiration spirometry demonstrates n o evidence of a large airways obstructive ventilatory defect. There was no significant response to aerosolized bronchodilators, based upon strict ATS criteria. Spirograms of good quality and plateau nor radha. The respiratory flow volume loop appears normal. Lung volumes were measured by determining the functional residual capacity in determining the lung divisions by a vital capacity maneuver (nitroge n washout). It should be noted that lung volumes may be underestimated by this technique in the setting of an obstructive ventilatory defect. The patient was unable to complete the maneuvers associated with obtaining accurate lung volumes, due to a feeling of suffocation. Diffusing capacity by single breath CO is at the lower limits of normal at 68% of predicted. IMPRESSION: Spirome try was normal. There was no significant bronchodilator response. Diffusing capacity is at the lower limits of normal. The patient was unable to complete the maneuvers associated with obtaining lung vol umes. There are no previous pulmonary function studies available for comparison. 02/23/17 1419 <Electronically signed by Cesar Mobley DO> Date Cesar Mobley DO CC: Lani Claire; Cesar Mobley D.O. Date Dictated: 02/23/171413 Date Transcribed: 02/23/171413 Mechanical Engineering Officer: DB Signed 12-Sep-2016 NCS and/or EMG Patient Result: Comments: See Note; NOTES: [facility] Pulmonary Services/Neurology [address] [place] [address] NCS and/or EMG Patient MR#: [id number] Acct: [id number] Name: BEATRICE DOUGHERTY Rep #: [id number] : 1950 65 From: Yunior Serrato MD Referring Dr: Linda Leung DPM Status: REG CLI Ordering Dr: Linda Leung DPM Date: 09/07/16 Location: N Sex: F C DATE OF SERVICE: 0 09/07/2016 The patient presents for electrodiagnostic testing of the lower limb. She has chief complaint of pain in both feet, primarily around the heel. ELECTRODIAGNOSTIC FINDINGS: On nerve conduction study, peroneal motor nerve demonstrates normal distal latency, amplitude, and conduction velocity bilaterally. Normal tibial motor response. Normal tibial and peroneal F wave. Normal H reflex bilatera lly. Sensory responses are within normal limits. On needle EMG, all muscles tested in the lower limbs show no evidence of denervation with normal motor unit action potentials. ELECTRODIAGNOSTIC IMPRES ARACELIS: This is a normal electrodiagnostic study of the lower limbs. There is no electrodiagnostic evidence for peripheral neuropathy or lumbosacral radiculopathy. If there are any questions in regard to this exam, please do not hesitate to contact me. Sincerely. MD Michelle Leavitt C: Dr. Cho T: NTS JOB: [id number] 09/12/16 1858 <Electronically signed by Yunior Serrato MD> Date ___ Yunior Serrato MD CC: Lani Claire; Yunior Serrato; Linda Madhu DPM Date Dictated: 09/07/161529 Date Transcribed: 09/07/161529 Mechanical Engineering Officer: Signed 27-Jun-2016 Esophagus Only Result: Comments: See Note; NOTES: [facility] Imaging Services [address] [place] [address] Verdana 4d Esophagus Only MR#: [id number] Acct: [id number] Name: BEATRICE DOUGHERTY Rep # : [id number] : 1950 F 65 From: Daniel Browning MD PCP: Irma Castellon DO Status: [facility] CL Study: Esophagus Only Date of Exam: 06/27/16 Exam# [id number] Ordering Dr: José Chang MD STUDY: X-R AY - ESOPHAGUS (BARIUM SWALLOW) WITH FLUOROSCOPY REASON FOR EXAM: Female, 65 years old. Chest pain and burning sensation. TECHNIQUE: 22 view(s) of the esophagus were obtained following swallowing of b arium. FLUOROSCOPY TIME (if supplied): (0:20) minutes/seconds COMPARISON: None. FINDINGS: There is no demonstrated esophageal foreign body. There is no demonstrate d stricture or mucosal abnormality. Normal gastroesophageal junction, without a demonstrated hiatal hernia. The patient ingested a 12 mm tablet of barium without difficulty. There is atherosclerotic ca lcification of the aortic arch with tortuosity of the descending aorta. Normal visualized pulmonary parenchyma. There are degenerative changes of the visualized thoracic spine. RAD/Esophagus Only IMPRESSION: Normal plain film x-ray examination (barium swallow) of the esophagus. Electronically Signed: Daniel Browning MD at 15:28 EDT Tel [phone], Service support [phone], CC: Irma Castellon DO; José Chang Mechanical Engineering Officer: Signed 19-May-2016 Gallbladder Result: Comments: See Note; NOTES: [facility] Imaging Services [address] [place] [address] Verdana 4d Gallbladder MR#: [id number] Acct: [id number] Name: BEATRICE DOUGHERTY Rep #: [id number] : 1950 F 65 From: Daniel Browning MD PCP: Irma Castellon DO Status: REG CLI Study: Gallbladder Date of Exam: 05/19/16 Exam# [id number] Ordering Dr: Lani Claire STUDY: ABDOMINAL ULTRAS OUND - RIGHT UPPER QUADRANT REASON FOR VISIT: Female, 65 years old. Epigastric pain. TECHNIQUE: Ultrasound evaluation of the right upper quadrant was performed with real-time and static velázquez-scale amie ging. TECHNICAL QUALITY: Adequate. COMPARISON: None. FINDINGS: Liver: The liver measures 15.1 cm. There is increased echogenicity consistent with fatty infiltrati on. The bile ducts are within normal limits. There is hepatic color flow. The direction of portal flow is hepatopetal. There is no demonstrated mass lesion. Gallbladder: Normal distended gallbladder. T he gallbladder wall is thickened and measures 3.9 mm. There is a negative sonographic Ford's sign. There is no pericholecystic fluid. There are multiple echogenic structures within the gallbladder, co nsistent with multiple gallstones. A small amount of sludge is seen within the gallbladder lumen. Common Bile Duct (C.B.D.): The common bile duct measures 2.0 mm. Pancreas: Normal size of the head, teresa dy and tail of the pancreas. There is normal echogenicity of the pancreas. There is no demonstrated pancreatic mass or cyst. Right Kidney: Normal size of the right kidney. The right kidney measures 9.8 cm x 4.6 cm x 4.9 cm. Normal renal cortex. The right cortex measures 1.6 cm. There is no demonstrated renal mass or cyst. There is no right hydronephrosis. ORDER # : [id number] US/Gallbladder IMPRESSION: Fatty infiltration of the liver. Multiple gallstones. Mild thickening of the gallbladder wall. Electronically Signed: Daniel Browning MD at 10:[address] Tel [phone], Service support [phone], CC: Lani Claire; Irma Castellon DO Mechanical Engineering Officer: Signed 28-May-2015 Bilat Scrn Digital AND CAD Result: Comments: See Note; NOTES: [facility] Imaging Services [address] [place] [address] Verdana 4d Bilat Scrn Digital AND CAD MR#: [id number] Acct: [id number] Name: BEATRICE DOUGHERTY Rep #: [id number] : 1950 F 64 From: Daniel Browning MD PCP: Irma Castellon DO Status: REG CLI Study: Bilat Scrn Digital AND CAD Date of Exam: 05/28/15 Exam# [id number] Ord ering Dr: Irma Castellon DO MAMMOGRAPHY - BILATERAL SCREENING REASON FOR EXAM: Female, 64 years old. Routine annual screening examination. PERTINENT HISTORY: Non-contributory. TECHNIQUE: Digital examination. Mediolateral oblique (MLO) and craniocaudad (CC) views of both breasts were obtained. CAD: CAD was performed on this study. COMPARISON: Comparison is made with prior study dated 2012 and November 09, 2011. FINDINGS: Breast Composition: There are scattered areas of fibroglandular density. There are no dominant masses or suspicious ca lcifications. No other significant abnormalities are identified. There has been no significant change since the prior study. IMPRESSION: Stable bilateral scree loulou mammogram. Yearly follow-up mammogram recommended. (A) ASSESSMENT CATEGORY: BIRADS Category 1: Negative. A letter regarding these results will be sent to the patient by the facility within 30 days. Approximately 10% of breast cancers are not detected by mammography. A normal mammogram should not delay biopsy of a clinically suspicious abnormality. [id number] Electronically Signed: Daniel Browning MD at 15:10 EST Tel [phone], Service support [phone], CC: Irma Castellon DO Mechanical Engineering Officer: Signed 28-May-2015 Dexa Bone Density Study (HP) Result: Comments: See Note; NOTES: [facility] Imaging Services [address] [place] [address] Verda 4d Dexa Bone Density Study (HP) MR#: [id number] Acct: [id number] Name : BEATRICE DOUGHERTY Rep #: [id number] : 1950 F 64 From: Daniel Browning MD PCP: Irma Castellon DO Status: [facility] CLI Study: Dexa Bone Density Study (HP) Date of Exam: 05/28/15 Exam# [id number] Ordering Dr: Irma Castellon DO STUDY: DUAL ENERGY X-RAY ABSORPTIOMETRY / DXA REASON FOR EXAM: Female, 64 years old. The patient is postmenopausal. Loss of height. TECHNIQUE: Bone Mineral Density (BMD) measurements of lumbar spine and bilateral hips were obtained. COMPARISON: Comparison is made with prior study dated November 09, 2011. FINDINGS: Lumbar Spi ne (L1-L4): g/cm2 (0.972) / T-score (-1.7) / Z-score (-0.1) Findings are suggestive of osteopenia with a moderate fracture risk. Left Femur Total: g/cm2 (0.922) / T-score (-0.7) / Z-score (0.6) Left Femoral Neck: g/cm2 (0.808) / T-score (-1.7) / Z-score (-0.1) Right Femur Total: g/cm2 (0.928) / T-score (-0.6) / Z-score (0.6) Right Femoral Neck: g/cm2 (0.877) / T-score (-1.2) / Z-score (0.4) Th e T-Scores on the most recent prior examination were: Lumbar Spine (L1-L4): There has been worsening of bone density since the previous examination. Left Femur Total: which represents a worsening o f 1.4%. Right Femur Total: which represents an improvement of 6.2%. IMPRESSION: The patient is considered osteopenic as outlined below according to World Stefan Organization (WHO) criteria with a moderate fracture risk. There has been worsening of bone density since the previous examination. Reference Information: The T -score is the number of standard deviations above or below the standard which is normal for young adults at their peak bone mineral density. The World Health Organization (WHO) interprets the T-scores as follows: Above -1 Normal bone density Between -1 and -2.5 Osteopenia Equal to / or below -2.5 Osteoporosis As a practical clinical guideline, osteopenia may be graded as follows: Mild -1 thr ough -1.5 Moderate -1.6 through -2.0 Severe -2.1 through -2.4 The Z-score is the number of standard deviations above or below age-matched controls. A Z- score of less than -1.5 would be considered a bnormal. References: 1. NIH Osteoporosis and Related Bone Diseases http://www.osteo.org 2. International Society for Clinical Densitometry http://www.iscd.org 3. National Osteoporosis Foundation ht tp://www.nof.org Electronically Signed: Daniel Browning MD at 11:33 EST Tel [phone], Service support [phone], CC: Irma Castellon DO Mechanical Engineering Officer: Signed 20-Jan-2015 ELECTROCARDIOGRAM, COMPLETE (ECG) (56044) Comments: ekg showed normal sinus rhythym, normal axis, no acute st/t wave changes Result: [MEASUREMENTS ANALYSIS] Date of Test: 01/20/2015 11:36:05; Heart Rate: 80; AK Interval: 180; QRS: 82; QT Interval: 356; Corrected QT Interval (QTc): 391; P Wave [place]: 37; QRS Wave [place]: -10; T Wave [place] : -1; Blood Pressure: 158/100 [ECG DIAGNOSTIC STATEMENTS] Date of Test: 01/20/2015 11:36:05; Summary: Sinus Rhythm WITHIN NORMAL LIMITS 27-May-2014 Spine Lumbar (Routine) Result: Comments: See Note; NOTES: [facility] Imaging Services [address] [place] [address] MRI Report MR#: [id number] Acct: [id number] Name: BEATRICE DOUGHERTY Rep #: [id number] : 1950 F 63 From: Ángela Sharma MD PCP: Irma Castellon DO Status: REG CLI Study: Spine Lumbar (Routine) Date of Exam: 05/27/14 Exam# [id number] Ordering Dr: Irma Castellon DO STUDY: MR I LUMBAR SPINE WITHOUT CONTRAST REASON FOR EXAM: Female, 63 years old low back pain radiation to both legs, right greater than left. TECHNIQUE: Standardized fat and water weighted pulse sequences w ere obtained in the sagittal and axial planes. COMPARISON: None FINDINGS: T12-L1: Normal endplates. Normal disc height, hydration and morphology. Normal bila teral facet joints. Normal central canal and bilateral lateral recesses. Normal bilateral intervertebral neural foramina. Normal lumbar lordosis. There are multilevel juxta cortical endplate Schmorl 's nodes deformities vertebral endplates. There is mild lumbar dextro scoliosis. Normal conus medullaris that terminates at the L1. L1-2: Normal endplates. Normal disc height, hydration and morpholog y. Normal bilateral facet joints. Normal central canal and bilateral lateral recesses. Normal bilateral intervertebral neural foramina. L2-3: There is disc desiccation and normal disc height, hydrat ion and morphology. Normal bilateral facet joints. Normal central canal and bilateral lateral recesses. Normal bilateral intervertebral neural foramina. L3-4: There is disc desiccation and normal d isc height, and morphology. There are degenerative changes of the facet joints. Normal central canal and bilateral lateral recesses. Normal bilateral intervertebral neural foramina. L4-5: Normal en dplates. Normal disc height, hydration and there is mild bulge. There are degenerative changes of the facet joints. Normal central canal and bilateral lateral recesses. Normal bilateral intervertebral neural foramina. L5-S1: There is disc desiccation and normal disc height, with mild bulge and degenerative changes of the facet joints. Normal central canal and bilateral lateral recesses. Normal bilateral intervertebral neural foramina. Normal visualized sacral ala. Normal visualized paraspinous soft tissue structures. IMPRESSION: Multilevel degenera tive facet arthrosis without focal herniation or significant stenosis in the lumbar spine. Electronically Signed: Ángela Sharma MD at 21:43 EST Tel , Service support [phone], CC: Irma Castellon DO Mechanical Engineering Officer: Signed 26-May-2014 PT Discharge Summary Result: Comments: See Note; NOTES: [facility] [address] [place] [address]. [address] [place] [address] Fax REHABILITATION SERVICES DISCHARGE SUMMARY MR#: [id number] Acct: [id number] Name: BEATRICE DOUGHERTY Rep #: [id number] : 1950 63 From: Jennifer Bah Referring Dr.: Irma Castellon DO Status: DIS RCR Eval Date: Disc har Date: 05/20/14 DATE OF SERVICE: 05/20/2014 This patient was referred to physical therapy with a diagnosis of low back pain and arthritis by Dr. Irma Castellon. She has been seen in our clinic times a total of 7 visits. Her physical therapy has mainly consisted of electrical stimulation/cold pack and therapeutic exercise for dynamic lumbar stabilization and lower extremity strengthening. Upon presentation to physical therapy today, she reports all of her pain is much better now. Lifting does still increase her back pain. She reports that she almost always has at least an ache in h er back and this started before physical therapy. She presents with 3/10 low back and right buttock pain and reports 85% improvement overall. She does still take a pain pill to sleep at night. Upon examination, her lumbar movement loss is as follows: Flexion -- nil, extension -- moderate, bilateral side glide -- minimal. She has a negative right Reynold test now. Right hip flexion strength is 4/5 . There is tenderness of the L4, L5, S1, right buttock, sacrum and coccyx areas, but improved compared to the initial evaluation. She has made good progress towards all physical therapy goals; how ever, she continues to have significant symptoms. She is independent with a home exercise program. I recommended followup with Dr. Castellon and she was agreeable. I am discharging her at this time to a [facility] exercise program and follow up with Dr. Castellon, but we would be happy to resume physical therapy in the future as needed/indicated. She was agreeable with discharge. Jennifer Bah, PT T: REED Galindo JOB: [id number] <Electronically signed by Jennifer Bah > 05/26/14 1721 CC: Signed 05-May-2014 Inital Evaluation - PT Result: Comments: See Note; NOTES: [facility] [address] [place] [address] [address] [place], [place] [address] Fax REHABILITATION SERVICES INITIAL EVALUATION MR#: [id number] Acct: [id number] Name: BEATRICE DOUGHERTY Rep #: [id number] : 1950 63 From: Jennifer Bah Referring Dr.: Irma Castellon DO Status: REG RCR Insurance: [facility] [employer] PPO Eval Date: DATE OF SERVICE: 04/18/2014 SUBJECTIVE: This patient was referred to physical therapy by Dr. Irma Castellon with diagnoses of low back pain and arthritis. She presents to physical therapy with complaint of intermittent low back pain 0-4/10, intermittent tail bone and right buttock pain 0-6/10, constant right groin pain 4-8/10, intermittent right anterior and poste rior thigh pain extending into the cifuentes 0-3/10 and intermittent right lateral foot pain 0-4/10. She reports that the pain started in January 2014 when she had a hard fall on concrete at home landing on her tail bone. She reports overall her symptoms are improving. Currently, sometimes sitting, rising from sitting, standing, lying down and walking increase her pain. The pain is disturbing her sleep. She reports decreased pain with heat, ____ and when still in sitting. She does have a history of intermittent low back pain and saw a chiropractor from approximately November 2012 to November and it helped her back. She has home exercises from the chiropractor. Currently, she denies increased pain from coughing, sneezing or straining. She reports abnormal gait ____ and inability to arminda e a full stride. 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 She states that she did have x- rays of her right hip and low back that revealed arthritis. She denies any recent or major surgery, having been in any accidents or any unexplained weight loss. OBJECTIVE: This patient ambulates independently into physical therapy with decreased zachariah and decreased bilateral stride length. She is not using any assistive devices. Her sitting posture is poor. Her standing posture is fair. S he has a reduced lumbar lordosis, but no relevant lateral shift. Active correction of her sitting posture has no effect on her symptoms. Her right hip strength equals 4/5 with manual muscle testing, and testing provokes mild right groin pain. Otherwise, bilateral lower extremity strength is 5/5 with manual muscle testing. Bilateral lower extremity light touch sensation is intact and symmetric al. Bilateral lower extremity dural signs are negative. She has fair core strength. Lumbar movement loss: Flexion -- nil, extension -- moderate, bilateral side gliding -- minimal. The patient has a p ositive Reynold test on the right and negative on the left. Bilateral hip range of motion is within functional limits. She has tenderness with palpation of the right sacrum, coccyx and right buttock r egion, but otherwise there is not tenderness with palpation. ASSESSMENT: This patient is a 63-year-old female with complaint of back and right lower extremity symptoms. She reports that her low b ack pain is intermittent and chronic; however, her hip, thigh, leg and foot symptoms are new since the hard fall on concrete in January 2014. GOALS: 1. Decrease complaint of low back pain. 2. Dec rease complaint of right lower extremity symptoms. 3. Improve sitting, rising from sitting, standing, walking and sleep function. 4. Instruct in prophylaxis. PLAN: We plan to see this patient 2-3 t imes a week x3-4 weeks for lumbosacral and coccyx and right hip modalities as needed, dynamic lumbar stabilization, right lower extremity range of motion, stretching and strengthening, posture corre ction/strengthening and instruction in proper body mechanics to help meet the above goals. She was agreeable with this plan of care. Jennifer Bah, PT T: NTS JOB: [id number] <[facility] signed by Jennifer Bah > 05/05/14 1514 CC: Signed For Medicare only, by signing this I certify the plan of care. Physicians Signature Date 04-Apr-2014 Hip min 2 Views Result: Comments: See Note; NOTES: [facility] Imaging Services [address] [place] [address] Radiology Report MR#: [id number] Acct: [id number] Name: BEATRICE DOUGHERTY Rep #: [id number] : 1950 F 63 From: Sammy Salazar MD PCP: Irma Castellon DO Status: REG CLI Study: Hip min 2 Views Date of Exam: 04/04/14 Exam# [id number] Ordering Dr: Irma Castellon DO STUDY: X-RAY - RIGHT HIP REASON FOR EXAM: Female, 63 years old. Right hip and leg pain, status post fall one month ago TECHNIQUE: 2 view(s) of the hip. COMPARISON: None. FINDINGS: Normal femoral head, neck, intertrochanteric region and visualized proximal femur. Normal acetabulum. Normal hip joint. Normal visualized superior and inferior pubic rami and ischial tub erosities. IMPRESSION: Normal x-ray examination of the hip. Electronically Signed: Sammy Salazar MD, FACR at 21:29 EST , Ser vice support [phone], RAD/Hip min 2 Views IMPRESSION: Normal x-ray examination of the hip. Electronically Signed: Sammy Salazar MD, FACR 9 at 21:29 EST , Service support [phone], CC: Irma Castellon DO Mechanical Engineering Officer: Signed 04-Apr-2014 Lumbar Spine 2 or 3 Views Result: Comments: See Note; NOTES: [facility] Imaging Services [address] [place] [id number] Radiology Report MR#: [id number] Acct: [id number] Name: BEATRICE DOUGHERTY Rep #: [id number] : 1950 F 63 From: Ángela Sharma MD PCP: Irma Castellon DO Status: REG CLI Study: Lumbar Spine 2 or 3 Views Date of Exam: 04/04/14 Exam# [id number] Ordering Dr: Irma Castellon DO STUDY: X-RAY - LUMBAR SPINE REASON FOR EXAM: Female, 63 years old back pain. TECHNIQUE: 3 view(s) of the lumbar spine were obtained. COMPARISON: None FINDING S: Normal lumbar lordosis. There is lumbar dextro scoliosis. There are small Schmorl's node in the lumbar endplates. There is a normal alignment of the vertebrae. Normal vertebral bodies and endpla david. There is multilevel facet arthrosis. Normal disc space heights. The soft tissue structures are unremarkable. IMPRESSION: No acute fracture or subluxation. If symptoms persist, followup exam is suggested. Electronically Signed: Ángela Sharma MD at 22:36 EST Tel , Service support [phone], CC : Irma Castellon DO Mechanical Engineering Officer: Signed Immunization Name Dates Details Pneumococcal (2 years and up) on: Jul-2015 Comments: patient reported Family History Unknown Family Member Name Dates Details Father Comments: Asthma Status: Active Mother Comments: MA, HTN, hypercholesterolemia, thyroid Status: Active Social History Name Dates Details Caffeine Use Comments: 4 QD Status: Active Non Drinker/No Alcohol Use Status: Active Tobacco Use: Former smoker. Comments: Remotely quit tobacco use Status: Active Smoking Status Name Dates Details Former smoker Vital Signs Date Test Result Details [id number] Temperature 97.6 f Pulse 60 /min Comments: Pattern: Regular Respiration Rate 17 /min Comments: Pattern: Unlabored O2 SAT 96 % Comments: Room air BP Systolic 102 mm[Hg] Comments: Patient Position: Sitting; Cuff Location: Left Arm; Cuff Size: Standard BP Diastolic 68 mm[Hg] Comments: Patient Position: Sitting; Cuff Location: Left Arm; Cuff Size: Standard Weight 159 lb Height 60.75 in Body Mass Index Calculated 30.29 kg/m2 Body Surface Area Calculated 1.71 m2 [id number] Temperature 98.6 f Pulse 104 /min Comments: Pattern: Regular Respiration Rate 18 /min Comments: Pattern: Unlabored O2 SAT 96 % Comments: Room air BP Systolic 106 mm[Hg] Comments: Patient Position: Sitting; Cuff Location: Left Arm; Cuff Size: Standard BP Diastolic 68 mm[Hg] Comments: Patient Position: Sitting; Cuff Location: Left Arm; Cuff Size: Standard Weight 159 lb Height 60.75 in Body Mass Index Calculated 30.29 kg/m2 Body Surface Area Calculated 1.71 m2 [id number] Temperature 98.2 f Pulse 107 /min Comments: Pattern: Regular Respiration Rate 18 /min Comments: Pattern: Unlabored O2 SAT 94 % Comments: Room air BP Systolic 128 mm[Hg] Comments: Patient Position: Sitting; Cuff Location: Left Arm; Cuff Size: Standard BP Diastolic 78 mm[Hg] Comments: Patient Position: Sitting; Cuff Location: Left Arm; Cuff Size: Standard Weight 159 lb Height 60.75 in Body Mass Index Calculated 30.29 kg/m2 Body Surface Area Calculated 1.71 m2 :47 Temperature 97.6 f Pulse 89 /min Comments: Pattern: Regular Respiration Rate 18 /min Comments: Pattern: Unlabored O2 SAT 96 % Comments: Room air BP Systolic 158 mm[Hg] Comments: Patient Position: Sitting; Cuff Location: Left Arm; Cuff Size: Standard BP Diastolic 74 mm[Hg] Comments: Patient Position: Sitting; Cuff Location: Left Arm; Cuff Size: Standard Weight 159 lb Height 60.75 in Body Mass Index Calculated 30.29 kg/m2 Body Surface Area Calculated 1.71 m2 :16 Comments: after - sandie scale 11/12 Pulse 84 /min Comments: Pattern: Regular Respiration Rate 16 /min Comments: Pattern: Unlabored O2 SAT 98 % Comments: Room air BP Systolic 128 mm[Hg] Comments: Patient Position: Sitting; Cuff Location: Left Arm; Cuff Size: Standard BP Diastolic 78 mm[Hg] Comments: Patient Position: Sitting; Cuff Location: Left Arm; Cuff Size: Standard Weight 157 lb Height 60.75 in Body Mass Index Calculated 29.91 kg/m2 Body Surface Area Calculated 1.7 m2 :00 Comments: before - sandie scale 8 Temperature 98.1 f Comments: Method: Temporal Pulse 78 /min Comments: Pattern: Regular Respiration Rate 16 /min Comments: Pattern: Unlabored O2 SAT 97 % Comments: Room air BP Systolic 120 mm[Hg] Comments: Patient Position: Sitting; Cuff Location: Left Arm; Cuff Size: Standard BP Diastolic 68 mm[Hg] Comments: Patient Position: Sitting; Cuff Location: Left Arm; Cuff Size: Standard Weight 157 lb Height 60.75 in Body Mass Index Calculated 29.91 kg/m2 Body Surface Area Calculated 1.7 m2 :32 Temperature 97.3 f Pulse 75 /min Comments: Pattern: Regular Respiration Rate 17 /min Comments: Pattern: Unlabored O2 SAT 98 % Comments: Room air BP Systolic 132 mm[Hg] Comments: Patient Position: Sitting; Cuff Location: Left Arm; Cuff Size: Standard BP Diastolic 82 mm[Hg] Comments: Patient Position: Sitting; Cuff Location: Left Arm; Cuff Size: Standard Weight 157 lb Height 60.75 in Body Mass Index Calculated 29.91 kg/m2 Body Surface Area Calculated 1.7 m2 :37 Pulse 102 /min Comments: Pattern: Regular Respiration Rate 16 /min Comments: Pattern: Unlabored BP Systolic 120 mm[Hg] Comments: Patient Position: Sitting; Cuff Location: Left Arm; Cuff Size: Standard BP Diastolic 70 mm[Hg] Comments: Patient Position: Sitting; Cuff Location: Left Arm; Cuff Size: Standard Weight 158 lb Height 60.75 in Body Mass Index Calculated 30.1 kg/m2 Body Surface Area Calculated 1.7 m2 :51 Temperature 97.8 f Pulse 90 /min Comments: Pattern: Regular Respiration Rate 17 /min Comments: Pattern: Unlabored O2 SAT 95 % Comments: Room air BP Systolic 124 mm[Hg] Comments: Patient Position: Sitting; Cuff Location: Left Arm; Cuff Size: Standard BP Diastolic 84 mm[Hg] Comments: Patient Position: Sitting; Cuff Location: Left Arm; Cuff Size: Standard Weight 158 lb Height 60.75 in Body Mass Index Calculated 30.1 kg/m2 Body Surface Area Calculated 1.7 m2 :02 Temperature 98.4 f Comments: Method: Temporal Pulse 72 /min Comments: Pattern: Regular Respiration Rate 16 /min Comments: Pattern: Unlabored O2 SAT 98 % Comments: Room air BP Systolic 134 mm[Hg] Comments: Patient Position: Sitting; Cuff Location: Left Arm; Cuff Size: Standard BP Diastolic 78 mm[Hg] Comments: Patient Position: Sitting; Cuff Location: Left Arm; Cuff Size: Standard Weight 159 lb Height 60.75 in Body Mass Index Calculated 30.29 kg/m2 Body Surface Area Calculated 1.71 m2 :28 Temperature 97.4 f Comments: Method: Tympanic Pulse 76 /min Comments: Pattern: Regular Respiration Rate 18 /min Comments: Pattern: Unlabored O2 SAT 98 % Comments: Room air BP Systolic 138 mm[Hg] Comments: Patient Position: Sitting; Cuff Location: Left Arm; Cuff Size: Standard BP Diastolic 78 mm[Hg] Comments: Patient Position: Sitting; Cuff Location: Left Arm; Cuff Size: Standard Weight 160 lb Height 60.75 in Body Mass Index Calculated 30.48 kg/m2 Body Surface Area Calculated 1.71 m2 :08 Weight 163 lb Height 60.75 in Body Mass Index Calculated 31.05 kg/m2 Body Surface Area Calculated 1.73 m2 :27 Temperature 97.1 f Pulse 83 /min Comments: Pattern: Regular Respiration Rate 18 /min Comments: Pattern: Unlabored O2 SAT 98 % Comments: Room air BP Systolic 122 mm[Hg] Comments: Patient Position: Sitting; Cuff Location: Left Arm; Cuff Size: Standard BP Diastolic 80 mm[Hg] Comments: Patient Position: Sitting; Cuff Location: Left Arm; Cuff Size: Standard Weight 163 lb Height 60.75 in Body Mass Index Calculated 31.05 kg/m2 Body Surface Area Calculated 1.73 m2 :20 Temperature 98.3 f Comments: Method: Temporal Respiration Rate 16 /min Comments: Pattern: Unlabored O2 SAT 97 % Comments: Room air BP Systolic 126 mm[Hg] Comments: Patient Position: Sitting; Cuff Location: Left Arm; Cuff Size: Standard BP Diastolic 74 mm[Hg] Comments: Patient Position: Sitting; Cuff Location: Left Arm; Cuff Size: Standard Weight 163 lb Height 60.75 in Body Mass Index Calculated 31.05 kg/m2 Body Surface Area Calculated 1.73 m2 :55 Temperature 98.9 f Comments: Method: Temporal Pulse 96 /min Comments: Pattern: Regular Respiration Rate 15 /min Comments: Pattern: Unlabored O2 SAT 96 % Comments: Room air BP Systolic 128 mm[Hg] Comments: Patient Position: Sitting; Cuff Location: Left Arm; Cuff Size: Standard BP Diastolic 84 mm[Hg] Comments: Patient Position: Sitting; Cuff Location: Left Arm; Cuff Size: Standard Weight 163 lb Height 60.75 in Body Mass Index Calculated 31.05 kg/m2 Body Surface Area Calculated 1.73 m2 :18 Temperature 98 f Comments: Method: Temporal Pulse 82 /min Comments: Pattern: Regular Respiration Rate 16 /min Comments: Pattern: Unlabored O2 SAT 96 % Comments: Room air BP Systolic 120 mm[Hg] Comments: Patient Position: Sitting; Cuff Location: Left Arm; Cuff Size: Standard BP Diastolic 68 mm[Hg] Comments: Patient Position: Sitting; Cuff Location: Left Arm; Cuff Size: Standard Weight 165 lb Height 60.75 in Body Mass Index Calculated 31.43 kg/m2 Body Surface Area Calculated 1.74 m2 :38 Temperature 96.6 f Comments: Method: Temporal Pulse 80 /min Comments: Pattern: Regular Respiration Rate 18 /min Comments: Pattern: Unlabored O2 SAT 97 % Comments: Room air BP Systolic 158 mm[Hg] Comments: Patient Position: Sitting; Cuff Location: Left Arm; Cuff Size: Large BP Diastolic 100 mm[Hg] Comments: Patient Position: Sitting; Cuff Location: Left Arm; Cuff Size: Large Weight 163 lb Height 60.75 in Body Mass Index Calculated 31.05 kg/m2 Body Surface Area Calculated 1.73 m2 :19 Temperature 97.8 f Comments: Method: Oral Pulse 94 /min Comments: Pattern: Regular Respiration Rate 16 /min Comments: Pattern: Unlabored BP Systolic 146 mm[Hg] Comments: Patient Position: Sitting; Cuff Location: Left Arm; Cuff Size: Large BP Diastolic 84 mm[Hg] Comments: Patient Position: Sitting; Cuff Location: Left Arm; Cuff Size: Large Weight 161 lb Height 60.75 in Body Mass Index Calculated 30.67 kg/m2 Body Surface Area Calculated 1.72 m2 :33 Temperature 98 f Comments: Method: Oral Pulse 96 /min Comments: Pattern: Regular Respiration Rate 16 /min Comments: Pattern: Unlabored BP Systolic 126 mm[Hg] Comments: Patient Position: Sitting; Cuff Location: Left Arm; Cuff Size: Standard BP Diastolic 70 mm[Hg] Comments: Patient Position: Sitting; Cuff Location: Left Arm; Cuff Size: Standard Height 60.75 in :31 Temperature 98.5 f Pulse 74 /min Comments: Pattern: Regular Respiration Rate 16 /min Comments: Pattern: Unlabored BP Systolic 126 mm[Hg] Comments: Patient Position: Sitting; Cuff Location: Left Arm; Cuff Size: Large BP Diastolic 72 mm[Hg] Comments: Patient Position: Sitting; Cuff Location: Left Arm; Cuff Size: Large Weight 147 lb Height 60.75 in Body Mass Index Calculated 28 kg/m2 Body Surface Area Calculated 1.65 m2 :11 Pulse 78 /min Comments: Pattern: Regular Respiration Rate 18 /min Comments: Pattern: Unlabored O2 SAT 97 % Comments: Room air BP Systolic 120 mm[Hg] Comments: Patient Position: Sitting; Cuff Location: Left Arm; Cuff Size: Large BP Diastolic 80 mm[Hg] Comments: Patient Position: Sitting; Cuff Location: Left Arm; Cuff Size: Large Weight 147 lb Height 60.75 in Body Mass Index Calculated 28 kg/m2 Body Surface Area Calculated 1.65 m2 :03 Temperature 97.3 f Pulse 74 /min Comments: Pattern: Regular Respiration Rate 16 /min Comments: Pattern: Unlabored BP Systolic 128 mm[Hg] Comments: Patient Position: Sitting; Cuff Location: Left Arm; Cuff Size: Large BP Diastolic 84 mm[Hg] Comments: Patient Position: Sitting; Cuff Location: Left Arm; Cuff Size: Large Weight 147 lb Height 60.75 in Body Mass Index Calculated 28 kg/m2 Body Surface Area Calculated 1.65 m2 :11 Temperature 97.1 f Pulse 92 /min Comments: Pattern: Regular Respiration Rate 18 /min Comments: Pattern: Unlabored BP Systolic 114 mm[Hg] Comments: Patient Position: Sitting; Cuff Location: Left Arm; Cuff Size: Large BP Diastolic 76 mm[Hg] Comments: Patient Position: Sitting; Cuff Location: Left Arm; Cuff Size: Large Weight 144 lb Height 60.75 in Body Mass Index Calculated 27.43 kg/m2 Body Surface Area Calculated 1.64 m2 :16 Temperature 96.4 f Pulse 80 /min Comments: Pattern: Regular Respiration Rate 16 /min Comments: Pattern: Unlabored BP Systolic 124 mm[Hg] Comments: Patient Position: Sitting; Cuff Location: Left Arm; Cuff Size: Large BP Diastolic 76 mm[Hg] Comments: Patient Position: Sitting; Cuff Location: Left Arm; Cuff Size: Large Weight 146 lb Height 60.75 in Body Mass Index Calculated 27.81 kg/m2 Body Surface Area Calculated 1.65 m2 :01 Temperature 96.8 f Pulse 80 /min Comments: Pattern: Regular Respiration Rate 16 /min Comments: Pattern: Unlabored BP Systolic 120 mm[Hg] Comments: Patient Position: Sitting; Cuff Location: Left Arm; Cuff Size: Large BP Diastolic 80 mm[Hg] Comments: Patient Position: Sitting; Cuff Location: Left Arm; Cuff Size: Large Weight 149 lb Height 60.75 in Body Mass Index Calculated 28.39 kg/m2 Body Surface Area Calculated 1.66 m2 :44 Temperature 97.8 f Pulse 72 /min Comments: Pattern: Regular Respiration Rate 16 /min Comments: Pattern: Unlabored BP Systolic 110 mm[Hg] Comments: Patient Position: Sitting; Cuff Location: Left Arm; Cuff Size: Large BP Diastolic 72 mm[Hg] Comments: Patient Position: Sitting; Cuff Location: Left Arm; Cuff Size: Large Weight 150 lb Height 60.75 in Body Mass Index Calculated 28.58 kg/m2 Body Surface Area Calculated 1.67 m2 :31 Temperature 97.6 f Pulse 72 /min Comments: Pattern: Regular Respiration Rate 16 /min Comments: Pattern: Unlabored BP Systolic 118 mm[Hg] Comments: Patient Position: Sitting; Cuff Location: Left Arm; Cuff Size: Large BP Diastolic 80 mm[Hg] Comments: Patient Position: Sitting; Cuff Location: Left Arm; Cuff Size: Large Weight 152 lb Height 60.75 in Body Mass Index Calculated 28.96 kg/m2 Body Surface Area Calculated 1.68 m2 :38 Temperature 97.8 f Pulse 72 /min Comments: Pattern: Regular Respiration Rate 16 /min Comments: Pattern: Unlabored BP Systolic 126 mm[Hg] Comments: Patient Position: Sitting; Cuff Location: Left Arm; Cuff Size: Large BP Diastolic 74 mm[Hg] Comments: Patient Position: Sitting; Cuff Location: Left Arm; Cuff Size: Large Weight 150 lb Height 60.75 in Body Mass Index Calculated 28.58 kg/m2 Body Surface Area Calculated 1.67 m2 :15 Temperature 98.5 f Comments: Method: Oral Pulse 72 /min Comments: Pattern: Regular Respiration Rate 17 /min Comments: Pattern: Unlabored BP Systolic 116 mm[Hg] Comments: Patient Position: Sitting; Cuff Location: Left Arm; Cuff Size: Standard BP Diastolic 78 mm[Hg] Comments: Patient Position: Sitting; Cuff Location: Left Arm; Cuff Size: Standard Weight 142 lb Height 60.75 in Body Mass Index Calculated 27.05 kg/m2 Body Surface Area Calculated 1.63 m2 :29 Temperature 97.6 f Pulse 68 /min Comments: Pattern: Regular Respiration Rate 16 /min Comments: Pattern: Unlabored BP Systolic 120 mm[Hg] Comments: Patient Position: Sitting; Cuff Location: Left Arm; Cuff Size: Standard BP Diastolic 72 mm[Hg] Comments: Patient Position: Sitting; Cuff Location: Left Arm; Cuff Size: Standard Weight 142 lb Height 60.75 in Body Mass Index Calculated 27.05 kg/m2 Body Surface Area Calculated 1.63 m2 :30 Temperature 97.9 f Pulse 78 /min Comments: Pattern: Regular Respiration Rate 16 /min Comments: Pattern: Unlabored BP Systolic 118 mm[Hg] Comments: Patient Position: Sitting; Cuff Location: Left Arm; Cuff Size: Standard BP Diastolic 80 mm[Hg] Comments: Patient Position: Sitting; Cuff Location: Left Arm; Cuff Size: Standard Weight 141.4375 lb Height 60.75 in Body Mass Index Calculated 26.94 kg/m2 Body Surface Area Calculated 1.63 m2 :49 Comments: patient declines weight today Temperature 98 f Comments: Method: Oral Pulse 74 /min Comments: Pattern: Regular Respiration Rate 16 /min BP Systolic 116 mm[Hg] Comments: Patient Position: Sitting; Cuff Location: Left Arm; Cuff Size: Standard BP Diastolic 74 mm[Hg] Comments: Patient Position: Sitting; Cuff Location: Left Arm; Cuff Size: Standard Weight 134 lb Height 60.75 in Body Mass Index Calculated 25.53 kg/m2 Body Surface Area Calculated 1.59 m2 :35 Temperature 99.4 f Comments: Method: Oral Pulse 76 /min Comments: Pattern: Regular Respiration Rate 94 /min Comments: Pattern: Unlabored BP Systolic 108 mm[Hg] Comments: Patient Position: Sitting; Cuff Location: Left Arm; Cuff Size: Standard BP Diastolic 62 mm[Hg] Comments: Patient Position: Sitting; Cuff Location: Left Arm; Cuff Size: Standard Weight 134 lb Height 60.75 in Body Mass Index Calculated 25.53 kg/m2 Body Surface Area Calculated 1.59 m2 :50 Temperature 98.4 f Pulse 72 /min Comments: Pattern: Regular Respiration Rate 16 /min Comments: Pattern: Unlabored BP Systolic 116 mm[Hg] Comments: Patient Position: Sitting; Cuff Location: Left Arm; Cuff Size: Large BP Diastolic 64 mm[Hg] Comments: Patient Position: Sitting; Cuff Location: Left Arm; Cuff Size: Large Weight 134 lb Height 60.75 in Body Mass Index Calculated 25.53 kg/m2 Body Surface Area Calculated 1.59 m2 :14 Temperature 97.4 f Comments: Method: Oral Pulse 78 /min Comments: Pattern: Regular Respiration Rate 16 /min Comments: Pattern: Unlabored O2 SAT 99 % Comments: Room air BP Systolic 116 mm[Hg] Comments: Patient Position: Sitting; Cuff Location: Left Arm; Cuff Size: Standard BP Diastolic 74 mm[Hg] Comments: Patient Position: Sitting; Cuff Location: Left Arm; Cuff Size: Standard Weight 128.6 lb Height 61 in Body Mass Index Calculated 24.3 kg/m2 Body Surface Area Calculated 1.57 m2 :08 Temperature 98 f Comments: Method: Oral Pulse 70 /min Comments: Pattern: Regular Respiration Rate 18 /min Comments: Pattern: Unlabored BP Systolic 120 mm[Hg] Comments: Patient Position: Sitting; Cuff Location: Left Arm; Cuff Size: Standard BP Diastolic 66 mm[Hg] Comments: Patient Position: Sitting; Cuff Location: Left Arm; Cuff Size: Standard Weight 128.6 lb Height 61 in Body Mass Index Calculated 24.3 kg/m2 Body Surface Area Calculated 1.57 m2 :32 Temperature 96.8 f Comments: Method: Oral Pulse 74 /min Comments: Pattern: Regular Respiration Rate 16 /min Comments: Pattern: Unlabored BP Systolic 110 mm[Hg] Comments: Patient Position: Sitting; Cuff Location: Left Arm; Cuff Size: Standard BP Diastolic 72 mm[Hg] Comments: Patient Position: Sitting; Cuff Location: Left Arm; Cuff Size: Standard Weight 128 lb :42 Temperature 95.5 f Comments: Method: Oral Pulse 72 /min Comments: Pattern: Regular Respiration Rate 16 /min Comments: Pattern: Unlabored BP Systolic 118 mm[Hg] Comments: Patient Position: Sitting; Cuff Location: Left Arm; Cuff Size: Standard BP Diastolic 74 mm[Hg] Comments: Patient Position: Sitting; Cuff Location: Left Arm; Cuff Size: Standard Weight 128 lb :37 Temperature 98 f Pulse 72 /min Comments: Pattern: Regular Respiration Rate 18 /min Comments: Pattern: Unlabored BP Systolic 114 mm[Hg] Comments: Patient Position: Sitting; Cuff Location: Left Arm; Cuff Size: Large BP Diastolic 72 mm[Hg] Comments: Patient Position: Sitting; Cuff Location: Left Arm; Cuff Size: Large Weight 128 lb :28 Temperature 97.5 f Pulse 82 /min Comments: Pattern: Regular Respiration Rate 18 /min Comments: Pattern: Unlabored BP Systolic 130 mm[Hg] Comments: Patient Position: Sitting; Cuff Location: Left Arm; Cuff Size: Standard BP Diastolic 74 mm[Hg] Comments: Patient Position: Sitting; Cuff Location: Left Arm; Cuff Size: Standard Weight 134 lb :20 Temperature 98.3 f Comments: Method: Oral Pulse 84 /min Comments: Pattern: Regular Respiration Rate 14 /min Comments: Pattern: Unlabored BP Systolic 100 mm[Hg] Comments: Patient Position: Sitting; Cuff Location: Left Arm; Cuff Size: Standard BP Diastolic 64 mm[Hg] Comments: Patient Position: Sitting; Cuff Location: Left Arm; Cuff Size: Standard Weight 0 lb Height 0 in Head Circumference 0.00 cm :47 Temperature 97.7 f Comments: Method: Undefined Pulse 72 /min Comments: Pattern: Regular Respiration Rate 18 /min Comments: Pattern: Undefined BP Systolic 126 mm[Hg] Comments: Patient Position: Sitting; Cuff Location: Left Arm; Cuff Size: Standard BP Diastolic 80 mm[Hg] Comments: Patient Position: Sitting; Cuff Location: Left Arm; Cuff Size: Standard Weight 142 lb Height 60.5 in Body Mass Index Calculated 27.28 kg/m2 Body Surface Area Calculated 1.62 m2 Head Circumference 0.00 cm :02 Temperature 96.5 f Comments: Method: Undefined Pulse 66 /min Comments: Pattern: Regular Respiration Rate 16 /min Comments: Pattern: Undefined BP Systolic 126 mm[Hg] Comments: Patient Position: Sitting; Cuff Location: Left Arm; Cuff Size: Standard BP Diastolic 90 mm[Hg] Comments: Patient Position: Sitting; Cuff Location: Left Arm; Cuff Size: Standard Weight 155 lb Height 61 in Body Mass Index Calculated 29.29 kg/m2 Body Surface Area Calculated 1.7 m2 Head Circumference 0.00 cm :46 Temperature 98.1 f Comments: Method: Oral Pulse 78 /min Comments: Pattern: Regular Respiration Rate 18 /min Comments: Pattern: Unlabored BP Systolic 122 mm[Hg] Comments: Patient Position: Sitting; Cuff Location: Left Arm; Cuff Size: Standard BP Diastolic 78 mm[Hg] Comments: Patient Position: Sitting; Cuff Location: Left Arm; Cuff Size: Standard Weight 175 lb Height 0 in Head Circumference 0.00 cm :21 Temperature 98.1 f Comments: Method: Undefined Pulse 84 /min Comments: Pattern: Regular Respiration Rate 16 /min Comments: Pattern: Undefined BP Systolic 122 mm[Hg] Comments: Patient Position: Sitting; Cuff Location: Right Arm; Cuff Size: Large BP Diastolic 60 mm[Hg] Comments: Patient Position: Sitting; Cuff Location: Right Arm; Cuff Size: Large Weight 175 lb Height 0 in Head Circumference 0.00 cm :37 Pulse 78 /min Comments: Pattern: Regular Respiration Rate 16 /min Comments: Pattern: Unlabored BP Systolic 134 mm[Hg] Comments: Patient Position: Sitting; Cuff Location: Left Arm; Cuff Size: Standard BP Diastolic 82 mm[Hg] Comments: Patient Position: Sitting; Cuff Location: Left Arm; Cuff Size: Standard Weight 170 lb Height 0 in Head Circumference 0.00 cm :21 Temperature 96.4 f Comments: Method: Undefined Pulse 76 /min Comments: Pattern: Regular Respiration Rate 16 /min Comments: Pattern: Undefined BP Systolic 138 mm[Hg] Comments: Patient Position: Sitting; Cuff Location: Right Arm; Cuff Size: Large BP Diastolic 86 mm[Hg] Comments: Patient Position: Sitting; Cuff Location: Right Arm; Cuff Size: Large Weight 0 lb Height 0 in Head Circumference 0.00 cm :11 Temperature 97.6 f Comments: Method: Undefined Pulse 84 /min Comments: Pattern: Regular Respiration Rate 18 /min Comments: Pattern: Undefined BP Systolic 126 mm[Hg] Comments: Patient Position: Sitting; Cuff Location: Left Arm; Cuff Size: Large BP Diastolic 84 mm[Hg] Comments: Patient Position: Sitting; Cuff Location: Left Arm; Cuff Size: Large Weight 0 lb Height 0 in Head Circumference 0.00 cm :10 Temperature 96.7 f Comments: Method: Undefined Pulse 84 /min Comments: Pattern: Regular Respiration Rate 16 /min Comments: Pattern: Undefined BP Systolic 118 mm[Hg] Comments: Patient Position: Sitting; Cuff Location: Right Arm; Cuff Size: Large BP Diastolic 72 mm[Hg] Comments: Patient Position: Sitting; Cuff Location: Right Arm; Cuff Size: Large Weight 170 lb Height 0 in Head Circumference 0.00 cm :56 Temperature 97.6 f Comments: Method: Oral Pulse 80 /min Comments: Pattern: Regular Respiration Rate 18 /min Comments: Pattern: Unlabored BP Systolic 128 mm[Hg] Comments: Patient Position: Sitting; Cuff Location: Left Arm; Cuff Size: Standard BP Diastolic 78 mm[Hg] Comments: Patient Position: Sitting; Cuff Location: Left Arm; Cuff Size: Standard Weight 173 lb Height 0 in Head Circumference 0.00 cm :20 Temperature 98.2 f Comments: Method: Oral Pulse 82 /min Comments: Pattern: Regular Respiration Rate 18 /min Comments: Pattern: Unlabored BP Systolic 110 mm[Hg] Comments: Patient Position: Sitting; Cuff Location: Left Arm; Cuff Size: Standard BP Diastolic 72 mm[Hg] Comments: Patient Position: Sitting; Cuff Location: Left Arm; Cuff Size: Standard Weight 173 lb Height 0 in Head Circumference 0.00 cm :07 Temperature 98.3 f Comments: Method: Oral Pulse 84 /min Comments: Pattern: Regular Respiration Rate 20 /min Comments: Pattern: Unlabored BP Systolic 120 mm[Hg] Comments: Patient Position: Sitting; Cuff Location: Left Arm; Cuff Size: Standard BP Diastolic 72 mm[Hg] Comments: Patient Position: Sitting; Cuff Location: Left Arm; Cuff Size: Standard Weight 173 lb Height 0 in Head Circumference 0.00 cm :25 Temperature 98.1 f Comments: Method: Oral Pulse 86 /min Comments: Pattern: Regular Respiration Rate 18 /min Comments: Pattern: Unlabored O2 SAT 98 % Comments: Room air BP Systolic 122 mm[Hg] Comments: Patient Position: Sitting; Cuff Location: Left Arm; Cuff Size: Standard BP Diastolic 82 mm[Hg] Comments: Patient Position: Sitting; Cuff Location: Left Arm; Cuff Size: Standard Weight 173 lb Height 0 in Head Circumference 0.00 cm :00 Temperature 98.3 f Comments: Method: Oral Pulse 82 /min Comments: Pattern: Regular Respiration Rate 18 /min Comments: Pattern: Unlabored BP Systolic 122 mm[Hg] Comments: Patient Position: Sitting; Cuff Location: Left Arm; Cuff Size: Standard BP Diastolic 78 mm[Hg] Comments: Patient Position: Sitting; Cuff Location: Left Arm; Cuff Size: Standard Weight 173.25 lb Height 0 in Head Circumference 0.00 cm :57 Temperature 98.1 f Comments: Method: Oral Pulse 84 /min Comments: Pattern: Regular Respiration Rate 16 /min Comments: Pattern: Unlabored BP Systolic 112 mm[Hg] Comments: Patient Position: Sitting; Cuff Location: Right Arm; Cuff Size: Standard BP Diastolic 76 mm[Hg] Comments: Patient Position: Sitting; Cuff Location: Right Arm; Cuff Size: Standard Weight 0 lb Height 0 in Head Circumference 0.00 cm :59 Temperature 97.8 f Comments: Method: Oral Pulse 84 /min Comments: Pattern: Regular Respiration Rate 20 /min Comments: Pattern: Unlabored BP Systolic 128 mm[Hg] Comments: Patient Position: Sitting; Cuff Location: Right Arm; Cuff Size: Small BP Diastolic 70 mm[Hg] Comments: Patient Position: Sitting; Cuff Location: Right Arm; Cuff Size: Small Weight 160 lb Height 61 in Body Mass Index Calculated 30.23 kg/m2 Body Surface Area Calculated 1.72 m2 Head Circumference 0.00 cm :45 Temperature 97.8 f Comments: Method: Oral Pulse 80 /min Comments: Pattern: Regular Respiration Rate 16 /min Comments: Pattern: Unlabored BP Systolic 108 mm[Hg] Comments: Patient Position: Sitting; Cuff Location: Left Arm; Cuff Size: Standard BP Diastolic 70 mm[Hg] Comments: Patient Position: Sitting; Cuff Location: Left Arm; Cuff Size: Standard Weight 160 lb Height 61 in Body Mass Index Calculated 30.23 kg/m2 Body Surface Area Calculated 1.72 m2 Head Circumference 0.00 cm :29 Temperature 97.5 f Comments: Method: Oral Pulse 84 /min Comments: Pattern: Regular Respiration Rate 16 /min Comments: Pattern: Unlabored BP Systolic 116 mm[Hg] Comments: Patient Position: Sitting; Cuff Location: Left Arm; Cuff Size: Standard BP Diastolic 82 mm[Hg] Comments: Patient Position: Sitting; Cuff Location: Left Arm; Cuff Size: Standard Weight 163 lb Height 0 in Head Circumference 0.00 cm :38 Pulse 60 /min Comments: Pattern: Regular Respiration Rate 16 /min Comments: Pattern: Unlabored BP Systolic 120 mm[Hg] Comments: Patient Position: Sitting; Cuff Location: Left Arm; Cuff Size: Standard BP Diastolic 66 mm[Hg] Comments: Patient Position: Sitting; Cuff Location: Left Arm; Cuff Size: Standard Weight 160 lb Height 0 in Head Circumference 0.00 cm :45 Temperature 98.3 f Comments: Method: Oral Pulse 84 /min Comments: Pattern: Regular Respiration Rate 16 /min Comments: Pattern: Unlabored BP Systolic 118 mm[Hg] Comments: Patient Position: Sitting; Cuff Location: Left Arm; Cuff Size: Standard BP Diastolic 80 mm[Hg] Comments: Patient Position: Sitting; Cuff Location: Left Arm; Cuff Size: Standard Weight 0 lb Height 0 in Head Circumference 0.00 cm :35 Temperature 97.9 f Comments: Method: Oral Pulse 68 /min Comments: Pattern: Regular Respiration Rate 15 /min Comments: Pattern: Unlabored BP Systolic 110 mm[Hg] Comments: Patient Position: Sitting; Cuff Location: Right Arm; Cuff Size: Standard BP Diastolic 70 mm[Hg] Comments: Patient Position: Sitting; Cuff Location: Right Arm; Cuff Size: Standard Weight 160 lb Height 0 in Head Circumference 0.00 cm Results Date Description Value Details :27 AFP, Serum, Tumor 2.4 ng/mL Comments: PATIENT NOT FASTINGPERFORMED BY: [facility]noteJeff[facility][id number] [facility] [id number] Marker (Normal) Range: 0.0-8.3 Comments: Christopher ECLIA methodology :27 Hepatitis Panel (4) Comments: PATIENT NOT FASTINGPERFORMED BY: [facility]Jeff[facility])[id number] [facility] [id number] Hep C Virus Ab <0.1 {s/co_ratio} (Normal) Range: 0.0-0.9 Comments: Negative: < 0.8 Indeterminate: 0.8 - 0.9 Positive: > 0.9 . The CDC recommends that a positive HCV antibody result be followed up with a HCV Nucleic Acid Amplification test (010410). Hep B Core Ab, IgM Negative (Normal) HBsAg Screen Negative (Normal) Hep A Ab, IgM Negative (Normal) 98-Dql-285674:14 URINE PROSPER CULTURE (KIMMIE Comments: PATIENT NOT FASTINGPERFORMED BY: [email or web address] [id number] Information: SRC:AXEL COL COUNT) ([id number]) Result 1 MUG (Normal) Comments: Mixed urogenital flora2,000 Colonies/mL Urine Culture,Comprehensive Final report (Normal) 24-Alj-624689:32 Urinalysis, Office (77325) UA - LEUKOCYTE ESTERASE Small (Normal) UA - NITRITE Negative (Normal) URINE UROBILINGN KIMMIE TIMED Normal mg/dL (Normal) UA - PROTEIN Negative mg/dL (Normal) UA - PH 6.0 (Normal) Comments: 5.5 UA - BLOOD Negative (Normal) UA - SPECIFIC GRAVITY 1.020 (Normal) UA - KETONES Negative mg/dL (Normal) UA - BILIRUBIN Negative (Normal) UA - GLUCOSE Negative (Normal) 32-Tmt-415517:27 MICROALBUMIN: CREATININE RATIO Comments: PATIENT WAS FASTINGPERFORMED BY: [facility] [id number] ([id number]) AND (74783) Microalb/Creat Ratio 7.1 {mg/g_creat} (Normal) Range: 0.0-30.0 Microalbumin, Urine 12.7 ug/mL (Normal) Creatinine, Urine 179.0 mg/dL (Normal) 90-Xtr-952827:27 VITAMIN B12 AND FOLATES Comments: PATIENT WAS FASTINGPERFORMED BY: [email or web address] [id number] (35112) Folate (Folic Acid), Serum 15.8 ng/mL (Normal) Comments: A serum folate concentration of less than 3.1 ng/mL isconsidered to represent clinical deficiency. Vitamin B12 513 pg/mL (Normal) Range: 211-946 47-Uhl-691066:27 CALCIFEDIOL (79009) Comments: PATIENT WAS FASTINGPERFORMED BY: [email or web address] [facility] [id number] Vitamin D, 25-Hydroxy 43.3 ng/mL (Normal) Range: 30.0-100.0 Comments: Vitamin D deficiency has been defined by the [place] ofMedicine and an Endocrine Society practice guideline as alevel of serum 25-OH vitamin D less than 20 ng/mL (1,2).The Endocrine Society went on to further define vitamin Dinsufficiency as a level between 21 and 29 ng/mL (2).1. IOM ([place] of Medicine). 2010. Dietary reference intakes for calcium and D. [place]: The National Academies Press.2. Kendrick MF, Sarah VALDEZ, Sharif MORA, et al. Evaluation, treatment, and prevention of vitamin D deficiency: an Endocrine Society clinical practice guideline. JCEM. 2010; 96(7):1911-30. 09-Maf-867003:27 TSH (THYROID STIMULATING Comments: PATIENT WAS FASTINGPERFORMED BY: [email or web address] [id number] HORMONE) (63890) TSH 2.430 {uIU/mL} (Normal) Range: 0.450-4.500 22-Yfw-244510:27 LIPID PANEL (38045) Comments: PATIENT WAS FASTINGPERFORMED BY: [email or web address] [id number] LDL/HDL Ratio 3.0 {ratio_units} (Normal) Range: 0.0-3.2 Comments: LDL/HDL Ratio Men Women 1/2 Avg.Risk 1.0 1.5 Av g.Risk 3.6 3.2 2X Avg.Risk 6.2 5.0 3X Avg.Risk 8.0 6.1 LDL Cholesterol Calc 133 mg/dL (Abnormal) Range: 0-99 VLDL Cholesterol Ousmane 32 mg/dL (Normal) Range: 5-40 HDL Cholesterol 44 mg/dL (Normal) Triglycerides 158 mg/dL (Abnormal) Range: 0-149 Cholesterol, Total 209 mg/dL (Abnormal) Range: 100-199 57-Jma-852629:27 METABOLIC PANEL, COMPREHENSIVE Comments: PATIENT WAS FASTINGPERFORMED BY: [email or web address] [id number] (45108) ALT (SGPT) 29 [iU]/L (Normal) Range: 0-32 AST (SGOT) 24 [iU]/L (Normal) Range: 0-40 Alkaline Phosphatase, S 109 [iU]/L (Normal) Range: 39-117 Bilirubin, Total 0.5 mg/dL (Normal) Range: 0.0-1.2 A/G Ratio 2.3 (Normal) Range: 1.1-2.5 Globulin, Total 1.9 g/dL (Normal) Range: 1.5-4.5 Albumin, Serum 4.3 g/dL (Normal) Range: 3.6-4.8 Protein, Total, Serum 6.2 g/dL (Normal) Range: 6.0-8.5 Calcium, Serum 9.3 mg/dL (Normal) Range: 8.7-10.3 Carbon Dioxide, Total 24 mmol/L (Normal) Range: 18-29 Chloride, Serum 107 mmol/L (Abnormal) Range: 96-106 Potassium, Serum 4.0 mmol/L (Normal) Range: 3.5-5.2 Sodium, Serum 146 mmol/L (Abnormal) Range: 134-144 BUN/Creatinine Ratio 10 (Abnormal) Range: 11-26 eGFR If Africn Am 81 mL/min/1.73 (Normal) eGFR If NonAfricn Am 70 mL/min/1.73 (Normal) Creatinine, Serum 0.86 mg/dL (Normal) Range: 0.57-1.00 BUN 9 mg/dL (Normal) Range: 8-27 Glucose, Serum 95 mg/dL (Normal) Range: 65-99 56-Pnu-013421:27 CBC, PLATELETS & AUT DIFF Comments: PATIENT WAS FASTINGPERFORMED BY: LabCoJeff[facility])[id number] [facility] [id number] (72891) Immature Grans (Abs) 0.0 {x10E3/uL} (Normal) Range: 0.0-0.1 Immature Granulocytes 0 % (Normal) Baso (Absolute) 0.0 {x10E3/uL} (Normal) Range: 0.0-0.2 Eos (Absolute) 0.2 {x10E3/uL} (Normal) Range: 0.0-0.4 Monocytes(Absolute) 0.4 {x10E3/uL} (Normal) Range: 0.1-0.9 Lymphs (Absolute) 1.1 {x10E3/uL} (Normal) Range: 0.7-3.1 Neutrophils (Absolute) 2.6 {x10E3/uL} (Normal) Range: 1.4-7.0 Basos 1 % (Normal) Eos 6 % (Normal) Monocytes 8 % (Normal) Lymphs 26 % (Normal) Neutrophils 59 % (Normal) Platelets 191 {x10E3/uL} (Normal) Range: 150-379 RDW 12.9 % (Normal) Range: 12.3-15.4 MCHC 34.7 g/dL (Normal) Range: 31.5-35.7 MCH 32.3 pg (Normal) Range: 26.6-33.0 MCV 93 fL (Normal) Range: 79-97 Hematocrit 40.9 % (Normal) Range: 34.0-46.6 Hemoglobin 14.2 g/dL (Normal) Range: 11.1-15.9 RBC 4.39 {x10E6/uL} (Normal) Range: 3.77-5.28 WBC 4.3 {x10E3/uL} (Normal) Range: 3.4-10.8 98-Kvu-481266:05 HgA1C , Office (43122) HgA1C , Office 5.4 % (Normal) Range: 4.6 - 7.1 91-Epb-622782:23 METABOLIC PANEL, Comments: end of november; PATIENT WAS FASTINGPERFORMED BY: LabCoApril [place] [id number] [facility] [id number] Information: [id number] FEE [id number] COMPREHENSIVE (54870) ALT (SGPT) 33 [iU]/L (Abnormal) Range: 0-32 AST (SGOT) 25 [iU]/L (Normal) Range: 0-40 Alkaline Phosphatase, S 101 [iU]/L (Normal) Range: 39-117 Bilirubin, Total 0.5 mg/dL (Normal) Range: 0.0-1.2 A/G Ratio 2.4 (Normal) Range: 1.1-2.5 Globulin, Total 1.8 g/dL (Normal) Range: 1.5-4.5 Albumin, Serum 4.4 g/dL (Normal) Range: 3.6-4.8 Protein, Total, Serum 6.2 g/dL (Normal) Range: 6.0-8.5 Calcium, Serum 9.4 mg/dL (Normal) Range: 8.7-10.3 Carbon Dioxide, Total 24 mmol/L (Normal) Range: 18-29 Chloride, Serum 106 mmol/L (Normal) Range: 97-108 Potassium, Serum 4.4 mmol/L (Normal) Range: 3.5-5.2 Sodium, Serum 146 mmol/L (Abnormal) Range: 134-144 BUN/Creatinine Ratio 12 (Normal) Range: 11-26 eGFR If Africn Am 76 mL/min/1.73 (Normal) eGFR If NonAfricn Am 65 mL/min/1.73 (Normal) Creatinine, Serum 0.91 mg/dL (Normal) Range: 0.57-1.00 BUN 11 mg/dL (Normal) Range: 8-27 Glucose, Serum 94 mg/dL (Normal) Range: 65-99 43-Kke-248590:23 LIPID PANEL (75020) Comments: end november; PATIENT WAS FASTINGPERFORMED BY: [email or web address] [facility]Saint [facility] [id number] LDL/HDL Ratio 0.9 {ratio_units} (Normal) Range: 0.0-3.2 Comments: LDL/HDL Ratio Men Women 1/2 Avg.Risk 1.0 1.5 Av g.Risk 3.6 3.2 2X Avg.Risk 6.2 5.0 3X Avg.Risk 8.0 6.1 LDL Cholesterol Calc 50 mg/dL (Normal) Range: 0-99 VLDL Cholesterol Ousmane 21 mg/dL (Normal) Range: 5-40 HDL Cholesterol 56 mg/dL (Normal) Comments: According to ATP-III Guidelines, HDL-C >59 mg/dL is considered anegative risk factor for CHD. Triglycerides 103 mg/dL (Normal) Range: 0-149 Cholesterol, Total 127 mg/dL (Normal) Range: 100-199 94-Kfu-992452:29 URINE PROSPER CULTURE (KIMMIE Comments: PATIENT NOT FASTINGPERFORMED BY: J[facility]noteJeff[facility])[id number] [facility] [id number] Information: SRC:URC [id number] COL COUNT) (86407) Result 1 MUG (Normal) Comments: Mixed urogenital flora10,000-25,000 colony forming units per mL Urine Final report (Normal) Culture,Comprehensive 06-Xop-947346:22 Influenza A&B Viral Culture (76626) 73-Jiu-117864:14 Throat Culture (58184) Comments: PATIENT NOT FASTINGPERFORMED BY: LabDuane L. Waters Hospital6370 [facility] [id number] Information: SRC:THRT [id number] Result 1 RRF (Normal) Comments: Routine respiratory vivi Upper Respiratory Culture Final report (Normal) 36-Oyf-695920:19 Rapid Flu (25100 x 2) Influenza A Ag neg a and b (Normal) 61-Xca-401771:19 Rapid Strep Test, Office (56704) Rapid Strep Test, Office Negative (Normal) 45-Iot-408893:03 URINE PROSPER CULTURE (KIMMIE Comments: PATIENT NOT FASTINGPERFORMED BY: LabAmanda Ville [id number] [facility] [id number] Information: SRC:URC [id number] COL COUNT) (36276) Result 1 NG36 (Normal) Comments: No growth in 36 - 48 hours. Urine Culture,Comprehensive Final report (Normal) 88-Qqb-553578:17 CBC W/AUTO DIFF WBC Comments: PATIENT WAS FASTINGPERFORMED BY: LabDuane L. [facility] Hospital6370 [facility] [id number] Information: [id number] (88395) Immature Grans (Abs) 0.0 {x10E3/uL} (Normal) Range: 0.0-0.1 Immature Granulocytes 0 % (Normal) Baso (Absolute) 0.0 {x10E3/uL} (Normal) Range: 0.0-0.2 Eos (Absolute) 0.2 {x10E3/uL} (Normal) Range: 0.0-0.4 Monocytes(Absolute) 0.6 {x10E3/uL} (Normal) Range: 0.1-0.9 Lymphs (Absolute) 1.4 {x10E3/uL} (Normal) Range: 0.7-3.1 Neutrophils (Absolute) 4.0 {x10E3/uL} (Normal) Range: 1.4-7.0 Basos 1 % (Normal) Eos 3 % (Normal) Monocytes 10 % (Normal) Lymphs 22 % (Normal) Neutrophils 64 % (Normal) Platelets 215 {x10E3/uL} (Normal) Range: 150-379 RDW 13.2 % (Normal) Range: 12.3-15.4 MCHC 33.7 g/dL (Normal) Range: 31.5-35.7 MCH 32.2 pg (Normal) Range: 26.6-33.0 MCV 96 fL (Normal) Range: 79-97 Hematocrit 43.9 % (Normal) Range: 34.0-46.6 Hemoglobin 14.8 g/dL (Normal) Range: 11.1-15.9 RBC 4.59 {x10E6/uL} (Normal) Range: 3.77-5.28 WBC 6.3 {x10E3/uL} (Normal) Range: 3.4-10.8 20-Bwu-919828:17 METABOLIC PANEL, COMPREHENSIVE Comments: PATIENT WAS FASTINGPERFORMED BY: [facility]CoJeff[facility])[id number] [facility] [id number] (09871) ALT (SGPT) 37 [iU]/L (Abnormal) Range: 0-32 AST (SGOT) 22 [iU]/L (Normal) Range: 0-40 Alkaline Phosphatase, S 120 [iU]/L (Abnormal) Range: 39-117 Bilirubin, Total 0.5 mg/dL (Normal) Range: 0.0-1.2 A/G Ratio 1.9 (Normal) Range: 1.1-2.5 Globulin, Total 2.4 g/dL (Normal) Range: 1.5-4.5 Albumin, Serum 4.5 g/dL (Normal) Range: 3.6-4.8 Protein, Total, Serum 6.9 g/dL (Normal) Range: 6.0-8.5 Calcium, Serum 9.5 mg/dL (Normal) Range: 8.7-10.3 Carbon Dioxide, Total 24 mmol/L (Normal) Range: 18-29 Chloride, Serum 103 mmol/L (Normal) Range: 97-108 Potassium, Serum 4.4 mmol/L (Normal) Range: 3.5-5.2 Sodium, Serum 146 mmol/L (Abnormal) Range: 134-144 BUN/Creatinine Ratio 12 (Normal) Range: 11-26 eGFR If Africn Am 70 mL/min/1.73 (Normal) eGFR If NonAfricn Am 61 mL/min/1.73 (Normal) Creatinine, Serum 0.97 mg/dL (Normal) Range: 0.57-1.00 BUN 12 mg/dL (Normal) Range: 8-27 Glucose, Serum 83 mg/dL (Normal) Range: 65-99 85-Uum-707375:17 LIPID PANEL (98040) Comments: PATIENT WAS FASTINGPERFORMED BY: LetTuba City Regional Health Care CorporationRepeib5155 [facility] [id number] LDL/HDL Ratio 3.3 {ratio_units} (Abnormal) Range: 0.0-3.2 Comments: LDL/HDL Ratio Men Women 1/2 Avg.Risk 1.0 1.5 Av g.Risk 3.6 3.2 2X Avg.Risk 6.2 5.0 3X Avg.Risk 8.0 6.1 LDL Cholesterol Calc 192 mg/dL (Abnormal) Range: 0-99 VLDL Cholesterol Ousmane 34 mg/dL (Normal) Range: 5-40 HDL Cholesterol 59 mg/dL (Normal) Comments: According to ATP-III Guidelines, HDL-C >59 mg/dL is considered anegative risk factor for CHD. Triglycerides 172 mg/dL (Abnormal) Range: 0-149 Cholesterol, Total 285 mg/dL (Abnormal) Range: 100-199 16-Jun-20158:04 Microscopic Examination Comments: PATIENT WAS FASTINGPERFORMED BY: LetJeff[facility])[id number] [facility] [id number] Bacteria Moderate (Abnormal) Mucus Threads Present (Normal) Crystal Type Calcium Oxalate (Normal) Crystals Present (Abnormal) Epithelial Cells (non renal) 0-10 {/hpf} (Normal) Range: 0 - 10 RBC 0-2 {/hpf} (Normal) Range: 0 - 2 WBC 11-30 {/hpf} (Abnormal) Range: 0 - 5 :04 CBC with auto diff Comments: PATIENT WAS FASTINGPERFORMED BY: LetJeff[facility])[id number] [facility] [id number] Information: [id number] (64709) Immature Grans (Abs) 0.0 {x10E3/uL} (Normal) Range: 0.0-0.1 Immature Granulocytes 0 % (Normal) Baso (Absolute) 0.0 {x10E3/uL} (Normal) Range: 0.0-0.2 Eos (Absolute) 0.4 {x10E3/uL} (Normal) Range: 0.0-0.4 Monocytes(Absolute) 0.4 {x10E3/uL} (Normal) Range: 0.1-0.9 Lymphs (Absolute) 0.7 {x10E3/uL} (Normal) Range: 0.7-3.1 Neutrophils (Absolute) 2.7 {x10E3/uL} (Normal) Range: 1.4-7.0 Basos 1 % (Normal) Eos 9 % (Normal) Monocytes 8 % (Normal) Lymphs 17 % (Normal) Neutrophils 65 % (Normal) Platelets 168 {x10E3/uL} (Normal) Range: 150-379 RDW 13.1 % (Normal) Range: 12.3-15.4 MCHC 33.9 g/dL (Normal) Range: 31.5-35.7 MCH 32.4 pg (Normal) Range: 26.6-33.0 MCV 96 fL (Normal) Range: 79-97 Hematocrit 40.4 % (Normal) Range: 34.0-46.6 Hemoglobin 13.7 g/dL (Normal) Range: 11.1-15.9 RBC 4.23 {x10E6/uL} (Normal) Range: 3.77-5.28 WBC 4.2 {x10E3/uL} (Normal) Range: 3.4-10.8 :04 URINALYSIS, W/ MICRO (71647) Comments: PATIENT WAS FASTINGPERFORMED BY: [facility]6370 [facility] [id number] Microscopic Examination See below: (Normal) Comments: Microscopic was indicated and was performed. Nitrite, Urine Negative (Normal) Urobilinogen,Semi-Qn 0.2 mg/dL (Normal) Range: 0.2-1.0 Bilirubin Negative (Normal) Occult Blood Negative (Normal) Ketones Negative (Normal) Glucose Negative (Normal) Protein Negative (Normal) WBC Esterase 2+ (Abnormal) Appearance Clear (Normal) Urine-Color Yellow (Normal) pH 6.0 (Normal) Range: 5.0-7.5 Specific [place] 1.022 (Normal) Range: 1.005-1.030 :04 TSH (82846) Comments: PATIENT WAS FASTINGPERFORMED BY: [facility]6370 [facility] [id number] TSH 1.680 {uIU/mL} (Normal) Range: 0.450-4.500 :04 LIPID PANEL (24610) Comments: PATIENT WAS FASTINGPERFORMED BY: [facility]6370 [facility] [id number] LDL/HDL Ratio 2.5 {ratio_units} (Normal) Range: 0.0-3.2 Comments: LDL/HDL Ratio Men Women 1/2 Avg.Risk 1.0 1.5 Av g.Risk 3.6 3.2 2X Avg.Risk 6.2 5.0 3X Avg.Risk 8.0 6.1 LDL Cholesterol Calc 138 mg/dL (Abnormal) Range: 0-99 VLDL Cholesterol Ousmane 22 mg/dL (Normal) Range: 5-40 HDL Cholesterol 56 mg/dL (Normal) Comments: According to ATP-III Guidelines, HDL-C >59 mg/dL is considered anegative risk factor for CHD. Triglycerides 109 mg/dL (Normal) Range: 0-149 Cholesterol, Total 216 mg/dL (Abnormal) Range: 100-199 :04 METABOLIC PANEL, COMPREHENSIVE Comments: PATIENT WAS FASTINGPERFORMED BY: LabAmanda Ville [id number] [facility] [id number]; non- emergent till apt (18930) ALT (SGPT) 33 [iU]/L (Abnormal) Range: 0-32 AST (SGOT) 19 [iU]/L (Normal) Range: 0-40 Alkaline Phosphatase, S 115 [iU]/L (Normal) Range: 39-117 Bilirubin, Total 0.6 mg/dL (Normal) Range: 0.0-1.2 A/G Ratio 2.2 (Normal) Range: 1.1-2.5 Globulin, Total 1.9 g/dL (Normal) Range: 1.5-4.5 Albumin, Serum 4.2 g/dL (Normal) Range: 3.6-4.8 Protein, Total, Serum 6.1 g/dL (Normal) Range: 6.0-8.5 Calcium, Serum 9.1 mg/dL (Normal) Range: 8.7-10.3 Carbon Dioxide, Total 26 mmol/L (Normal) Range: 18-29 Chloride, Serum 108 mmol/L (Normal) Range: 97-108 Potassium, Serum 4.1 mmol/L (Normal) Range: 3.5-5.2 Sodium, Serum 146 mmol/L (Abnormal) Range: 134-144 BUN/Creatinine Ratio 14 (Normal) Range: 11-26 eGFR If Africn Am 70 mL/min/1.73 (Normal) eGFR If NonAfricn Am 61 mL/min/1.73 (Normal) Creatinine, Serum 0.97 mg/dL (Normal) Range: 0.57-1.00 BUN 14 mg/dL (Normal) Range: 8-27 Glucose, Serum 87 mg/dL (Normal) Range: 65-99 :24 Vitamin D Hydroxy (80410) Comments: PATIENT WAS FASTINGPERFORMED BY: [email or web address] [id number] Vitamin D, 25-Hydroxy 44.5 ng/mL (Normal) Range: 30.0-100.0 Comments: Vitamin D deficiency has been defined by the [place] ofMedicine and an Endocrine Society practice guideline as alevel of serum 25-OH vitamin D less than 20 ng/mL (1,2).The Endocrine Society went on to further define vitamin Dinsufficiency as a level between 21 and 29 ng/mL (2).1. IOM ([place] of Medicine). 2010. Dietary reference intakes for calcium and D. [place]: The National Academies Press.2. Kendrick MF, Sarah NC, Sharif MORA, et al. Evaluation, treatment, and prevention of vitamin D deficiency: an Endocrine Society clinical practice guideline. JCEM. 2010; 96(7):1911-30. :24 TSH (00369) Comments: PATIENT WAS FASTINGPERFORMED BY: [email or web address] [id number] TSH 3.380 {uIU/mL} (Normal) Range: 0.450-4.500 :24 CBC W/AUTO DIFF WBC Comments: PATIENT WAS FASTINGPERFORMED BY: Jellynoterp GrockitCape [facility] [id number] Information: [id number] ([id number]) Immature Grans (Abs) 0.0 {x10E3/uL} (Normal) Range: 0.0-0.1 Immature Granulocytes 0 % (Normal) Baso (Absolute) 0.0 {x10E3/uL} (Normal) Range: 0.0-0.2 Eos (Absolute) 0.8 {x10E3/uL} (Abnormal) Range: 0.0-0.4 Monocytes(Absolute) 0.4 {x10E3/uL} (Normal) Range: 0.1-0.9 Lymphs (Absolute) 1.0 {x10E3/uL} (Normal) Range: 0.7-3.1 Neutrophils (Absolute) 2.9 {x10E3/uL} (Normal) Range: 1.4-7.0 Basos 1 % (Normal) Eos 15 % (Normal) Monocytes 8 % (Normal) Lymphs 20 % (Normal) Neutrophils 56 % (Normal) Platelets 171 {x10E3/uL} (Normal) Range: 150-379 RDW 12.6 % (Normal) Range: 12.3-15.4 MCHC 34.6 g/dL (Normal) Range: 31.5-35.7 MCH 32.8 pg (Normal) Range: 26.6-33.0 MCV 95 fL (Normal) Range: 79-97 Hematocrit 40.5 % (Normal) Range: 34.0-46.6 Hemoglobin 14.0 g/dL (Normal) Range: 11.1-15.9 RBC 4.27 {x10E6/uL} (Normal) Range: 3.77-5.28 WBC 5.1 {x10E3/uL} (Normal) Range: 3.4-10.8 19-Dec-20149:24 LIPID PANEL ([id number]) Comments: PATIENT WAS FASTINGPERFORMED BY: [facility]Pvlrdp1964 [facility] [id number] LDL/HDL Ratio 3.4 {ratio_units} (Abnormal) Range: 0.0-3.2 Comments: LDL/HDL Ratio Men Women 1/2 Avg.Risk 1.0 1.5 Av g.Risk 3.6 3.2 2X Avg.Risk 6.2 5.0 3X Avg.Risk 8.0 6.1 LDL Cholesterol Calc 154 mg/dL (Abnormal) Range: 0-99 VLDL Cholesterol Ousmane 34 mg/dL (Normal) Range: 5-40 HDL Cholesterol 45 mg/dL (Normal) Comments: According to ATP-III Guidelines, HDL-C >59 mg/dL is considered anegative risk factor for CHD. Triglycerides 171 mg/dL (Abnormal) Range: 0-149 Cholesterol, Total 233 mg/dL (Abnormal) Range: 100-199 19-Dec-20149:24 METABOLIC PANEL, COMPREHENSIVE Comments: PATIENT WAS FASTINGPERFORMED BY: [facility][id number] [facility] [id number] ([id number]) ALT (SGPT) 26 [iU]/L (Normal) Range: 0-32 AST (SGOT) 25 [iU]/L (Normal) Range: 0-40 Alkaline Phosphatase, S 117 [iU]/L (Normal) Range: 39-117 Bilirubin, Total 0.4 mg/dL (Normal) Range: 0.0-1.2 A/G Ratio 2.4 (Normal) Range: 1.1-2.5 Globulin, Total 1.8 g/dL (Normal) Range: 1.5-4.5 Albumin, Serum 4.3 g/dL (Normal) Range: 3.6-4.8 Protein, Total, Serum 6.1 g/dL (Normal) Range: 6.0-8.5 Calcium, Serum 9.3 mg/dL (Normal) Range: 8.7-10.3 Carbon Dioxide, Total 24 mmol/L (Normal) Range: 18-29 Chloride, Serum 105 mmol/L (Normal) Range: 97-108 Potassium, Serum 4.3 mmol/L (Normal) Range: 3.5-5.2 Sodium, Serum 146 mmol/L (Abnormal) Range: 134-144 BUN/Creatinine Ratio 15 (Normal) Range: 11-26 eGFR If Africn Am 76 mL/min/1.73 (Normal) eGFR If NonAfricn Am 66 mL/min/1.73 (Normal) Creatinine, Serum 0.91 mg/dL (Normal) Range: 0.57-1.00 BUN 14 mg/dL (Normal) Range: 8-27 Glucose, Serum 87 mg/dL (Normal) Range: 65-99 18-Ntn-036641:36 URINE PROSPER CULTURE (KIMMIE Comments: PATIENT NOT FASTINGPERFORMED BY: BRUNA [facility] Vmczdt0266 Maryse Mcke[place] [id number] Information: SRC:UR [id number] COL COUNT) ([id number]) Result 1 MUG (Normal) Comments: Mixed urogenital flora10,000-25,000 colony forming units per mL Urine Final report (Normal) Culture,Comprehensive 12-Des-035042:11 Urinalysis, Office ([id number]) UA - LEUKOCYTE ESTERASE Negative (Normal) UA - NITRITE Positive (Normal) URINE UROBILINGN KIMMIE TIMED Normal mg/dL (Normal) UA - PROTEIN Negative mg/dL (Normal) UA - PH 5 (Abnormal) UA - BLOOD Negative (Normal) UA - SPECIFIC GRAVITY 1.005 (Normal) UA - KETONES Negative mg/dL (Normal) UA - BILIRUBIN Negative (Normal) UA - GLUCOSE Negative (Normal) 23-Sep-20137:30 CBCD ALC 1.08 {X10_3/ul} (Normal) Range: 0.83-4.51 ANC 3.5 {X10_3/uL} (Normal) Range: 2.0-7.7 IG% 0.200 % (Normal) Range: 0.0-0.9 Comments: IG% - Immature Granulocytes (promyelocytes, myelocytes andmetamyelocytes) > 1% indicates that a LEFT SHIFT is Present. B% 0.5 % (Normal) Range: 0-1 E% 9.3 % (Abnormal) Range: 0-5 M% 8.4 % (Normal) Range: 0-10 L% 19.3 % (Normal) Range: 19-41 N% 62.3 % (Normal) Range: 47-70 MPV 9.3 fL (Normal) Range: 6.2-12.0 PLT 200 K/mm3 (Normal) Range: 150-450 RDWCV 12.7 % (Normal) Range: 11.6-14.6 RDWSD 43.5 fL (Normal) Range: 35.1-43.9 MCHC 35.0 {g/gl} (Normal) Range: 32-36 MCH 33.0 pg (Abnormal) Range: 27.0-32.0 MCV 94.3 fL (Normal) Range: 81-99 HCT 41.4 % (Normal) Range: 37-47 HGB 14.5 g/dL (Normal) Range: 12.0-15.0 RBC 4.39 {M/mm3} (Normal) Range: 4.2-5.4 WBC 5.6 K/mm3 (Normal) Range: 4.4-11.0 :30 CMP GAP 7 (Normal) Range: 5-15 CO2 25.0 mmol/L (Normal) Range: 21.0-32.0 CL 110 mmol/L (Abnormal) Range: 98-107 K 4.0 mmol/L (Normal) Range: 3.5-5.1 NA 142 mmol/L (Normal) Range: 136-145 BIT 0.40 mg/dL (Normal) Range: 0.00-1.00 ALK 121 U/L (Abnormal) Range: 45-117 ALT 28 U/L (Normal) Range: 12-78 AST 20 U/L (Normal) Range: 15-37 CA 8.7 mg/dL (Normal) Range: 8.5-10.1 AG 1.6 {RATIO} (Normal) Range: 0.9-2.4 ALB 4.1 g/dL (Normal) Range: 3.4-5.0 GLOB 2.6 g/dL (Abnormal) Range: 2.7-4.2 TPROT 6.7 g/dL (Normal) Range: 6.4-8.2 BC 20.0 {RATIO} (Normal) Range: 10-20 GFR 67 mL/min (Normal) GFRAA 81 mL/min (Normal) CREAT 0.9 mg/dL (Normal) Range: 0.6-1.0 BUN 18 mg/dL (Normal) Range: 7-18 GLU 86 mg/dL (Normal) Range: 70-110 :21 CMP GAP 7 (Normal) Range: 5-15 CL 110 mmol/L (Abnormal) Range: 98-107 CO2 25.0 mmol/L (Normal) Range: 21.0-32.0 K 4.0 mmol/L (Normal) Range: 3.5-5.1 NA 142 mmol/L (Normal) Range: 136-145 BIT 0.40 mg/dL (Normal) Range: 0.00-1.00 ALT 28 U/L (Normal) Range: 12-78 ALK 121 U/L (Abnormal) Range: 45-117 AST 20 U/L (Normal) Range: 15-37 CA 8.7 mg/dL (Normal) Range: 8.5-10.1 AG 1.6 {RATIO} (Normal) Range: 0.9-2.4 GLOB 2.6 g/dL (Abnormal) Range: 2.7-4.2 ALB 4.1 g/dL (Normal) Range: 3.4-5.0 BC 20.0 {RATIO} (Normal) Range: 10-20 TPROT 6.7 g/dL (Normal) Range: 6.4-8.2 GFRAA 81 mL/min (Normal) GFR 67 mL/min (Normal) CREAT 0.9 mg/dL (Normal) Range: 0.6-1.0 BUN 18 mg/dL (Normal) Range: 7-18 GLU 86 mg/dL (Normal) Range: 70-110 :30 LIPID VLDL 22 mg/dL (Normal) Range: 5-40 HDL 52 mg/dL (Normal) Comments: Reference RangeHDL <40 mg/dL Low HDL CholesterolHDL >or= 60 mg/dL High HDL Cholesterol LDL 138 mg/dL (Abnormal) Range: 0-130 TRIG 112 mg/dL (Normal) Range: 0-199 Comments: Serum Triglycerides Reference IntervalNormal <150 mg/dLBorderline high 150 - 199 mg/dLHigh 200 - 499 mg/ dLVery High > or = 500 mg/dL CHOL 212 mg/dL (Abnormal) Comments: <200 mg/dL Ggncagnef704-530 mg/dL Borderline>240 mg/dL High Risk :30 TSH WCTSH 1.88 {uIU/mL} (Normal) Range: 0.358-3.74 4-Naa-644520:21 VITD 42.7 mg/mL (Normal) Comments: Vitamin D 25(OH) Status RangeDeficiency <20 ng/mL (50nmol/L)Insuffciency 20 - 30 ng/mL (50 - 75 nmol/L)Sufficiency 30 - 100 ng/mL (75 - 250 nmol/L)Toxicity >100 ng/mL (>250 nmol/L) :57 CMP GAP 4 (Abnormal) Range: 5-15 CL 109 mmol/L (Abnormal) Range: 98-107 CO2 28.0 mmol/L (Normal) Range: 21.0-32.0 K 4.0 mmol/L (Normal) Range: 3.5-5.1 BIT 0.40 mg/dL (Normal) Range: 0.00-1.00 NA 141 mmol/L (Normal) Range: 136-145 ALT 34 U/L (Normal) Range: 12-78 ALK 135 U/L (Normal) Range: 50-136 AST 22 U/L (Normal) Range: 15-37 CA 9.1 mg/dL (Normal) Range: 8.5-10.1 AG 1.5 {RATIO} (Normal) Range: 0.9-2.4 GLOB 2.7 g/dL (Normal) Range: 2.7-4.2 ALB 4.0 g/dL (Normal) Range: 3.4-5.0 TPROT 6.7 g/dL (Normal) Range: 6.4-8.2 BC 16.7 {RATIO} (Normal) Range: 10-20 GFRAA 81 mL/min (Normal) CREAT 0.9 mg/dL (Normal) Range: 0.6-1.0 GFR 67 mL/min (Normal) BUN 15 mg/dL (Normal) Range: 7-18 GLU 91 mg/dL (Normal) Range: 70-110 19-Dec-20126:55 BILAT SCRN DIGITAL & CAD Radiology Report See Note Comments: MAMMOGRAPHY - BILATERAL SCREENING REASON FOR EXAM: Female, 62 years old. Routine annual screeningexamination. PERTINENT HISTORY: Non-contributory. TECHNIQUE: Digital examination. Med iolateral ob (Normal) lique (MLO) andcraniocaudad (CC) views of both breasts were obtained. CAD: CAD wasperformed on this study. COMPARISON: Comparison is made with prior study dated November 09, 2011 andSeptember 30, 2010. FINDINGS:The breast composition is heterogeneously dense - ranging from 51% to 75%of the breast tissue. There are no dominant masses or suspicious calcifications. No other si gnificant abnormalities are identified. There has been nosignificant change since the prior study. IMPRESSION:Stable bilateral screening mammogram. Yearly follow-up recommended. (A) ASSESSMENT CATEGORY:BIRADS Category 2: Benign finding(s). A letter regarding these resultswill be sent to the patient by the facility within 30 da ys. Approximately 10% of breast cancers are not detected by mammography. Anormal mammogram should not delay biopsy of a clinically suspiciousabnormality. Signed:Daniel Browning M.D.December 19 at 8:04:49 AM [id number] Signed GP/GP If you are the referring physician and would like to consult with theradiologist who provided this interpretation, please contact Jay olson M.D. at [phone]. If this radiologist is unavailable, youwill be directed to another radiologist to assist. If you are a patient with a question regarding this report, pleasecontactyour referr ing physician directly. Professional Interpretation Provided By: [employer], Phone , These documents contain legally protected and confidential healthinformation intended only for the use of the individual or entity namedabove. If you are not the intended recipient, you are hereby notifiedthatany disclosure, copying, distribution, or other use of these documents isstrict ly prohibited. If you have received this information in error,pleasenotify the sender immediately and arrange for the return or destructionofthese documents. Dictated on 12/19/12803 by Eric Browning MDscribed on 12/19/12809 by ITS IMPORTSign by Daniel Browning MD on 12/19/1211 Sign by: Daniel Browning MD :45 Vitamin D Hydroxy (98933) Comments: PATIENT NOT FASTINGPERFORMED BY: [facility]6370 [facility] [id number] Vitamin D, 25-Hydroxy 77.2 ng/mL (Normal) Range: 30.0-100.0 Comments: Vitamin D deficiency has been defined by the [place] of[place]icine and an Endocrine Society practice guideline as alevel of serum 25-OH vitamin D less than 20 ng/mL (1,2).The Endocrine Society went on to further define vitamin Dinsufficiency as a level between 21 and 29 ng/mL (2).1. IOM ([place] of Medicine). 2010. Dietary reference intakes for calcium and D. [place]: The National Academies Press.2. Kendrick MF, Sarah NC, Sharif MORA, et al. Evaluation, treatment, and prevention of vitamin D deficiency: an Endocrine Society clinical practice guideline. JCEM. 2010; 96(7):1911-30. :45 CBC WITH MANUAL DIFF Comments: PATIENT NOT FASTINGPERFORMED BY: BRUNA [facility] [id number] [facility] [id number] Information: [id number] ([id number]) Immature Grans (Abs) 0.0 {x10E3/uL} (Normal) Range: 0.0-0.1 Immature Granulocytes 0 % (Normal) Range: 0-2 Baso (Absolute) 0.0 {x10E3/uL} (Normal) Range: 0.0-0.2 Eos (Absolute) 0.3 {x10E3/uL} (Normal) Range: 0.0-0.4 Monocytes(Absolute) 0.5 {x10E3/uL} (Normal) Range: 0.1-1.0 Lymphs (Absolute) 0.8 {x10E3/uL} (Normal) Range: 0.7-4.5 Neutrophils (Absolute) 2.7 {x10E3/uL} (Normal) Range: 1.8-7.8 Basos 1 % (Normal) Range: 0-3 Eos 6 % (Normal) Range: 0-7 Monocytes 11 % (Normal) Range: 4-13 Lymphs 18 % (Normal) Range: 14-46 Neutrophils 64 % (Normal) Range: 40-74 Platelets 152 {x10E3/uL} (Normal) Range: 140-415 RDW 12.7 % (Normal) Range: 12.3-15.4 MCHC 33.4 g/dL (Normal) Range: 31.5-35.7 MCH 32.0 pg (Normal) Range: 26.6-33.0 MCV 96 fL (Normal) Range: 79-97 Hematocrit 41.9 % (Normal) Range: 34.0-46.6 Hemoglobin 14.0 g/dL (Normal) Range: 11.1-15.9 RBC 4.38 {x10E6/uL} (Normal) Range: 3.77-5.28 WBC 4.3 {x10E3/uL} (Normal) Range: 4.0-10.5 :45 LIPID PANEL ([id number]) Comments: PATIENT NOT FASTINGPERFORMED BY: [facility][id number] [facility] [id number] LDL/HDL Ratio 1.9 {ratio_units} (Normal) Range: 0.0-3.2 LDL Cholesterol Calc 112 mg/dL (Abnormal) Range: 0-99 VLDL Cholesterol Ousmane 17 mg/dL (Normal) Range: 5-40 HDL Cholesterol 59 mg/dL (Normal) Comments: According to ATP-III Guidelines, HDL-C >59 mg/dL is considered anegative risk factor for CHD. Triglycerides 83 mg/dL (Normal) Range: 0-149 Cholesterol, Total 188 mg/dL (Normal) Range: 100-199 :45 METABOLIC PANEL, COMPREHENSIVE Comments: PATIENT NOT FASTINGPERFORMED BY: [facility][id number] [facility] [id number] ([id number]) ALT (SGPT) 27 [iU]/L (Normal) Range: 0-32 AST (SGOT) 22 [iU]/L (Normal) Range: 0-40 Alkaline Phosphatase, S 106 [iU]/L (Normal) Range: 25-165 Bilirubin, Total 0.6 mg/dL (Normal) Range: 0.0-1.2 A/G Ratio 2.3 (Normal) Range: 1.1-2.5 Globulin, Total 1.9 g/dL (Normal) Range: 1.5-4.5 Albumin, Serum 4.4 g/dL (Normal) Range: 3.6-4.8 Protein, Total, Serum 6.3 g/dL (Normal) Range: 6.0-8.5 Calcium, Serum 9.0 mg/dL (Normal) Range: 8.6-10.2 Carbon Dioxide, Total 24 mmol/L (Normal) Range: 20-32 Chloride, Serum 106 mmol/L (Normal) Range: 97-108 Potassium, Serum 4.2 mmol/L (Normal) Range: 3.5-5.2 Sodium, Serum 143 mmol/L (Normal) Range: 134-144 BUN/Creatinine Ratio 16 (Normal) Range: 11-26 eGFR If Africn Am 82 mL/min/1.73 (Normal) eGFR If NonAfricn Am 71 mL/min/1.73 (Normal) Creatinine, Serum 0.87 mg/dL (Normal) Range: 0.57-1.00 BUN 14 mg/dL (Normal) Range: 8-27 Glucose, Serum 88 mg/dL (Normal) Range: 65-99 34-Yzm-489302:28 FECAL OCCULT HGB ASSAY- tubes sent home (35216) FECAL OCCULT HGB ASSAY, QUAL, 1-3 SIMULTANEOU negative (Normal) 40-Daf-066705:28 HIP, MIN 2 VIEWS Radiology Report See Note (Normal) Comments: PROCEDURE: X-RAY - LEFT HIP REASON FOR EXAM: Female, 61 years old. Pain TECHNIQUE: Two views of the hip. COMPARISON: None. FINDINGS: Normal femoral head, neck, intertrochanteric region and visu alizedproximalfemur. Normal acetabulum. Normal hip joint. Normal visualized superior and inferior pubic rami and ischialtuberosities. IMPRESSION:Normal x- ray examination of the hip. Signed:Melquiades Jiang M.D.December 05, 2011 at 12:10:04 PM [id number] Signed MV/MV If you are the referring physician and would like to consult with theradiologist who provided this interpretation, please contact Melquiades Nye M.D. at . If this radiologist is unavailable, youwillbe directed to another radiologist to assist. If you are a patient with a question regarding this rep ort, pleasecontactyour referring physician directly. Professional Interpretation Provided By: [employer], Phone , These documents contain legally protected and confidentia l healthinformation intended only for the use of the individual or entity namedabove. If you are not the intended recipient, you are hereby notifiedthatany disclosure, copying, distribution, or other us e of these documents isstrictly prohibited. If you have received this information in error,pleasenotify the sender immediately and arrange for the return or destructionofthese documents. Dictated on 12/05/11 1056 by RENEA NYE MDUSTranscribed on 12/05/11 1230 by ITS IMPORTSign by MELQUIADES NYE MD on 12/05/11 1231 Sign by: MELQUIADES NYE MD 18-Nov-2011 VITD 54.3 ng/mL Range: 30.0-100.0 8:00 (Normal) Comments: Vitamin D deficiency has been defined by the [place] of[place]icine and an Endocrine Society practice guideline as alevel of serum 25-OH vitamin D less than 20 ng/mL (1,2).The Endocrine Society went on to further define vitamin Dinsufficiency as a level between 21 and 29 ng/mL (2).1. IOM ([place] of Medicine). 2010. Dietary reference intakes for calcium and D. [place]: The National Academies Press.2. Kendrick MF, Sarah [place], Sharif MORA, et al. Evaluation, treatment, and prevention of vitamin D deficiency: an Endocrine Society clinical practice guideline. JCEM. 2010; 96(7): 1911-30.Performed at: [address] [id number] Director: Lashaun Giron MD, Phone: [phone] 99-Jih-27982:25 BILRUBY SCRN DIGITAL & CAD Radiology Report See Note (Normal) Comments: MAMMOGRAPHY - BILATERAL SCREENING REASON FOR EXAM: Female, 60 years old. Routine annual screeningexamination. PERTINENT HISTORY: Non-contributory. TECHNIQUE: Digital examination. Med iolateral ob lique (MLO) andcraniocaudad (CC) views of both breasts were obtained. CAD: CAD wasperformed on this study. COMPARISON: September 30, 2010, August 13, 2009 FINDINGS:The breast composition is heterogeneously dense. There are no dominant masses or suspicious calcifications. No other significant abnormalities are identified. IMPRESSION:Stable bilateral screening mammogram. Yearly follow-up recommended. (A) ASSESSMENT CATEGORY:BIRADS Category 2: Benign finding(s). A letter regarding these resultswill be sent to the patient by the facility within 30 days. Approximately 10% of breast cancers are not detec pepito by mammography. Anormal mammogram should not delay biopsy of a clinically suspiciousabnormality. Signed:Milagro Jimenez MDJuly 2011 at 12:56:15 PM [id number] Signed TP/TP If you are the referring physician and would like to consult with theradiologist who provided this interpretation, please contact Milagro Jimenez MD at [phone]. If this radiologist is unavailable, you will b edirected to another radiologist to assist. If you are a patient with a question regarding this report, pleasecontactyour referring physician directly. Professional Interpretation Provided By: Marisa shanks, Phone , Dictated on 11/09/11 0954 by Milagro Jimenez MDTranscribed on 11/09/11 161 by ITS IMPORTSign by Milagro Jimenez MD on 11/09/11 161 Sign by: Milagro Jimenez MD 45-Api-78435:00 DEXA BONE DENSITY STUDY (HP) Radiology Report See Note (Normal) Comments: PROCEDURE: DUAL ENERGY X-RAY ABSORPTIOMETRY / DEXA. REASON FOR EXAM: Female, 60 years old. Postmenopausal female. TECHNIQUE: Bone Mineral Density (BMD) measurements of lumbar spine and bilateral hi ps were obtained. COMPARISON: 04/01/2009 FINDINGS: Lumbar Spine (L1-L4): g/cm2 (1.03) / T-score (-1.2) Left Femur Total: g/cm2 (0.892) / T-score (-1.1)Right Femur Total: g/cm2 (0.8) / T-score -1.7 Additional Abnormal T-Scores: L1 T score of -2. IMPRESSION:The patient is considered osteopenic, as outlined below according toWorldHealth Organization (WHO) criteria. Fracture risk is low. The re isworsening of the BMD, as compared to the prior examination. Reference Information:The T-score is the number of standard deviations above or below thestandard which is normal for young adults at the ir peak bone mineraldensity. The World Health Organization (WHO) interprets the T-scores asfollows: Above -1 Normal bone densityBetween -1 and - 2.5 OsteopeniaEqual to / or below -2.5 Osteo porosis As a practical clinical guideline, osteopenia may be graded as follows:Mild -1 through -1.5Moderate -1.6 through -2.0Severe -2.1 through -2.4 The Z- score is the number of standard deviations above or below age-matchedcontrols. A Z-score of less than -1.5 would be considered abnormal. References:1. NIH Osteoporosis and Related Bone Diseases http://www.osteo.org2. International Society for Clinical Densitometry http://www.iscd.org3. National Osteoporosis Foundation http://www.nof.org Signed:Dyllan Aquino M.D.November 09, 2011 at 3:59:07 PM [id number] Signed RB/RB If you are the referring physician and would like to consult with theradiologist who provided this interpretation, please contact Dyllan Aquino M.D. at . If this radiologist is unavailable, you wi ll bedirected to another radiologist to assist. If you are a patient with a question regarding this report, pleasecontactyour referring physician directly. Professional Interpretation Provided By: [employer], Phone , Dictated on 11/09/11922 by Anny Aquino MDribed on 11/09/111699 by ITS IMPORTSign by Dyllan Aquino MD on 11/09/11 170 Sign by: Dyllan Aquino MD 23-Tlx-69233:21 URINE PROSPER CULTURE-KIMMIE COL Comments: PATIENT NOT FASTINGPERFORMED BY: [facility][id number] [facility] [id number] Information: SRC:SANDIP [id number] COUNT ([id number]) Result 1 NG36 (Normal) Comments: No growth in 36 - 48 hours. Urine Culture,Comprehensive Final report (Normal) :34 Urinalysis, Office (85741) UA - BILIRUBIN Small (Normal) UA - BLOOD Negative (Normal) UA - GLUCOSE Negative (Normal) UA - KETONES Negative mg/dL (Normal) UA - LEUKOCYTE ESTERASE Trace (Normal) UA - NITRITE Negative (Normal) UA - PH 6.0 (Normal) UA - PROTEIN Negative mg/dL (Normal) UA - SPECIFIC GRAVITY 1.025 (Normal) URINE UROBILINGN KIMMIE TIMED Normal mg/dL (Normal) 61-Kgv-289884:03 H pylori, IgM, IgG, IgA Ab Comments: PERFORMED BY: [place] [facility] [id number] H.pylori, IgM ABS <0.80 {index} (Normal) Range: 0.00-0.79 Comments: Negative <0.80 Equivocal 0.80 - 1.19 Positive >1.19 . Current studies suggest that H. pylori IgM testing should be performed concomitantly with H. pylori IgA and/or IgG tests to support a diagnosis of Helicobacter pylori infection. . For research use only, not for use in clinical diagnostic procedures. H. pylori, IgA ABS 1.36 {index} (Abnormal) Range: 0.00-0.88 Comments: Negative <0.89 Equivocal 0.89 - 0.99 Positive >0.99 H. pylori IgG, Abs >8.0 U/mL (Abnormal) Range: 0.0-0.8 Comments: Negative <0.9 Indeterminate 0.9 - 1.0 Positive >1.0 10-Fmv-656136:51 BILAT SCRN DIGITAL & CAD Radiology Report See Note (Normal) Comments: MAMMOGRAPHY - BILATERAL SCREENING INDICATION:Female, 59 years old. Routine annual screening examination. PERTINENT HISTORY:Non-contributory. TECHNIQUE:Digital examination. Mediolateral oblique (MLO) a nd craniocaudad (CC)views of both breasts were obtained. CAD: CAD was performed on thisstudy. COMPARISON:Comparison is made with prior study dated August 13, 2009. FINDINGS:The breast composition is hete rogeneously dense. There are no masses or suspicious microcalcifications. No other significant abnormalities are identified. There has been nosignificant change since the prior study. IMPRESSION:Normal bilateral screening mammogram. One year follow-up recommended. (1) ASSESSMENT CATEGORY:BIRADS Category 2: Benign finding(s). A letter regarding these resultswill be sent to the patient [facility] within [facility] days. Approximately 10% of breast cancers are not detected by mammography. Anormal mammogram should not delay biopsy of a clinically suspiciousabnormality. Dictated on 09/30/10 1602 by Loida Browning MDranscribed on 10/01/10 0809 by ITS IMPORTSign by Daniel Browning MD on 10/01/10 0810 Sign by: Daniel Browning MD :44 Vitamin D Hydroxy (73803) Comments: PATIENT WAS FASTINGPERFORMED BY: LabAdataorp [id number] [facility] [id number] Vitamin D, 25-Hydroxy 68.3 ng/mL (Normal) Range: 30.0-100.0 Comments: Vitamin D deficiency has been defined by the [place] of[place]icine and an Endocrine Society practice guideline as alevel of serum 25-OH vitamin D less than 20 ng/mL (1,2).The Endocrine Society went on to further define vitamin Dinsufficiency as a level between 21 and 29 ng/mL (2).1. IOM ([place] of Medicine). 2011. Dietary reference intakes for calcium and D. [place]: The National Academies Press.2. Kendrick MF, Sarah NC, Sharif MORA, et al. Evaluation, treatment, and prevention of vitamin D deficiency: an Endocrine Society clinical practice guideline. JCEM. 2010; 96(7):1911-30. :44 LIPID PANEL (81370) Comments: PATIENT WAS FASTINGPERFORMED BY: [facility] [id number] [facility] [id number] Information: [id number] LDL/HDL Ratio 1.7 {ratio_units} (Normal) Range: 0.0-3.2 LDL Cholesterol Calc 104 mg/dL (Abnormal) Range: 0-99 VLDL Cholesterol Ousmane 17 mg/dL (Normal) Range: 5-40 HDL Cholesterol 63 mg/dL (Normal) Comments: According to ATP-III Guidelines, HDL-C >59 mg/dL is considered anegative risk factor for CHD. Triglycerides 86 mg/dL (Normal) Range: 0-149 Cholesterol, Total 184 mg/dL (Normal) Range: 100-199 5-Fdl-926895:44 FECAL OCCULT HGB ASSAY- tubes sent home (46500) FECAL OCCULT HGB ASSAY, QUAL, 1-3 SIMULTANEOU neg (Normal) 7-Fzb-266929:43 Thin prep Pap Comments: Source.............Cervical;EndocervicalNo. of containers..01 CYTYC Thin Prep VialPATIENT NOT FASTINGPERFORMED BY: Lab[address] [id number] Information: [id number] ([id number]) Note: PAPSMR (Normal) Comments: The Pap smear is a screening test designed to aid in the detection ofpremalignant and malignant conditions of the uterine cervix. It is not adiagnostic procedure and should not be used as the sole mean s of detectingcervical cancer. Both false-positive and false-negative reports do occur. .This liquid based ThinPrep(R) pap test w as screened with theuse of an image guided system.The HPV DNA reflex criteria were not met with this specimen resulttherefore, no HPV testing was performed. . See Note . (Normal) DIAGNOSIS: SPRCS (Normal) Comments: NEGATIVE FOR INTRAEPITHELIAL LESION AND MALIGNANCY.CELLULAR CHANGES ASSOCIATED WITH ATROPHY ARE PRESENT.Satisfactory for evaluation. Endocervical component may not bedistinguished in cases of atrophy.V 72.31 ; Routine gynecological examinationSvicky La Case Hardener (ASCP) :20 COMP METABOLIC GAP 9 (Normal) Range: 5-15 CL 107 mmol/L (Normal) Range: 98-107 CO2 27.0 mmol/L (Normal) Range: 21.0-32.0 K 4.2 mmol/L (Normal) Range: 3.5-5.1 NA 143 mmol/L (Normal) Range: 136-145 T BILI 0.70 mg/dL (Normal) Range: 0.00-1.00 ALT 37 U/L (Normal) Range: 12-78 ALK P 104 U/L (Normal) Range: 50-136 A/G 1.5 {RATIO} (Normal) Range: 0.9-2.4 AST 26 U/L (Normal) Range: 15-37 CA 9.5 mg/dL (Normal) Range: 8.5-10.1 ALB 4.1 g/dL (Normal) Range: 3.4-5.0 BUN/CRE 16.3 {RATIO} (Normal) Range: 10-20 GLOB 2.7 g/dL (Normal) Range: 2.7-4.2 T PROT 6.8 g/dL (Normal) Range: 6.4-8.2 EST GFR - AA 95 mL/min (Normal) EST GFR 78 mL/min (Normal) CREAT,SERUM 0.8 mg/dL (Normal) Range: 0.6-1.0 BUN 13 mg/dL (Normal) Range: 7-18 GLU 82 mg/dL (Normal) Range: 70-110 :20 COMPLETE UA BACTERIA 0 SEEN {/hpf} (Normal) MUCUS, URINE 0 SEEN {/hpf} (Normal) SQUAM EPI SeeNote {/hpf} (Normal) Range: 5-10 Comments: Result: 0-5 SEEN RBC-UA 0 SEEN {/hpf} (Normal) Range: 0-5 WBC SeeNote {/hpf} (Normal) Range: 0-5 Comments: Result: 0-5 SEEN LEUK ESTERASE 2+ (Abnormal) NITRITE UR SeeNote (Normal) Comments: Result: NEGATIVE OCCULT BLOOD-UR SeeNote (Normal) Comments: Result: NEGATIVE PROT DIPSTX SeeNote (Normal) Comments: Result: NEGATIVE UROBILI 0.2 EU/dl (Normal) Range: 0.2 - 1.0 KETONE UR SeeNote mg/dL (Normal) Comments: Result: NEGATIVE pH UR 6.5 (Normal) Range: 5.0-8.0 SP.GR. DIPSTX <=1.005 (Normal) Range: 1.002-1.030 BILIRUBIN URINE SeeNote (Normal) Comments: Result: NEGATIVE GLUCOSE, UR SeeNote (Normal) Comments: Result: NEGATIVE CLARITY CLEAR (Normal) COLOR YELLOW (Normal) 23-Jul-20107:20 VIT D,25 90031 53.7 ng/mL (Normal) Range: 32.0-100.0 Comments: Recent studies consider the lower limit of 32.0 ng/mL to agueda threshold for optimal health.Osiel BONNER. J Nutr. 2004;135(2):317-22.Performed at: [facility] LabDeanna [place] [address]Lab Director: Lashaun Giron MD, Phone: [phone] 1-Dta-686531:27 TRANSVAGINAL NON-PREG US () Radiology Report See Note (Normal) Comments: Exam Number: [id number] LINICAL:Pain, burning during urination. PELVIC ULTRASOUND - COMPLETE TECHNIQUE:Transabdominal and Transvaginal COMPARISON:02/17/05. FINDINGS:Normal urinary bladder contour, without focal or diffuse wall thickening. There are no bladder calculi or intracystic masses. Normal uterine size, measuring 4.9 cm in maximum craniocaudal dimension. There are no myometrial masses. The cher-ae heights daniela is retroverted. The endometrium is mildly heterogeneous, measuring 5 mm.. Some color flow to the endometrium. Normal right ovary measuring 1.8 x 1.2 x 1.2 cm. There are no cystic or solid adnexal masses. Left ovary not visualized. No left adnexal mass. There is no free fluid within the pelvis. IMPRESSION:Mildly heterogeneous endometrium with color flow. No thickening in its unclear. Uterus is retroverted. Right ovary, within normal limits. Left ovary not visualized. Reported By: AVI EH M.D. 4-Zva-993431:50 PELVIC PAPER SLITTER WITH ARTERIAL FLOW Radiology Report See Note (Normal) Comments: Exam Number: [id number] LINICAL:Pain, burning during urination. PELVIC ULTRASOUND - COMPLETE TECHNIQUE:Transabdominal and Transvaginal COMPARISON:02/17/05. FINDINGS:Normal urinary bladder contour, without focal or diffuse wall thickening. There are no bladder calculi or intracystic masses. Normal uterine size, measuring 4.9 cm in maximum craniocaudal dimension. There are no myometrial masses. The cher-ae heights daniela is retroverted. The endometrium is mildly heterogeneous, measuring 5 mm.. Some color flow to the endometrium. Normal right ovary measuring 1.8 x 1.2 x 1.2 cm. There are no cystic or solid adnexal masses. Left ovary not visualized. No left adnexal mass. There is no free fluid within the pelvis. IMPRESSION:Mildly heterogeneous endometrium with color flow. No thickening in its unclear. Uterus is retroverted. Right ovary, within normal limits. Left ovary not visualized. Reported By: AVI HE M.D. 52-Adj-527420:39 URINE PROSPER CULTURE-KIMMIE COL Comments: PATIENT NOT FASTINGPERFORMED BY: Jellynote [id number] SendinBlueNov[facility] [id number] Information: SRC:UR [id number] COUNT ([id number]) Result 1 NG36 (Normal) Comments: No growth in 36 - 48 hours. Urine Culture,Comprehensive Final report (Normal) 39-Igx-234602:21 Urinalysis, Office (53911) UA - LEUKOCYTE ESTERASE Negative (Normal) UA - NITRITE Negative (Normal) URINE UROBILINGN KIMMIE TIMED Normal mg/dL (Normal) UA - PROTEIN Negative mg/dL (Normal) UA - PH 6.5 (Normal) UA - BLOOD Negative (Normal) UA - SPECIFIC GRAVITY 1.010 (Normal) UA - KETONES Negative mg/dL (Normal) UA - BILIRUBIN Negative (Normal) UA - GLUCOSE Negative (Normal) 9-Hxd-222293:10 URINE PROSPER CULTURE-KIMMIE COL Comments: PATIENT NOT FASTINGPERFORMED BY: Let Lgtyhy5441 [facility] [id number] Information: SRC:UR [id number] COUNT ([id number]) Antimicrobial MIHEAD (Normal) Comments: S = Susceptible; I = Intermediate; R = Resistant P = Positive; N = NegativeMICS are expressed in micrograms per mLAntibiotic RSLT#1 RSLT#2 RSLT#3 RSLT#4Am oxicillin/Cl Susceptibility avulanic Acid SAmpicillin SCefepime SCeftriaxone SCefuroxime SCephalothin SCiprofloxacin SESBL NGentamicin SImipenem SLevofloxacin SNitrofurantoin SPiperacillin/Tazobactam Krupa tracycline STobramycin STrimethoprim/Sulfa S Result 1 Escherichia coli Comments: 1,000 Colonies/mL (Normal) Urine Final report (Normal) Culture,Comprehensive 5-Kxn-609424:37 Urinalysis, Office (30088) UA - LEUKOCYTE ESTERASE Moderate (Normal) UA - NITRITE Negative (Normal) URINE UROBILINGN KIMMIE TIMED Normal mg/dL (Normal) UA - PROTEIN Negative mg/dL (Normal) UA - PH 5.0 (Normal) UA - BLOOD Hemolyzed Large (Normal) UA - SPECIFIC GRAVITY 1.005 (Normal) UA - KETONES Negative mg/dL (Normal) UA - BILIRUBIN Negative (Normal) UA - GLUCOSE Negative (Normal) 82-Oau-95705:18 LIPID HDL 52 mg/dL (Normal) Comments: Reference RangeHDL <40 mg/dL Low HDL CholesterolHDL >or= 60 mg/dL High HDL Cholesterol LDL 106 mg/dL (Normal) Range: 0-130 TRIG 61 mg/dL (Normal) Comments: Serum Triglycerides Reference IntervalNormal <150 mg/dLBorderline high 150 - 199 mg/dLHigh 200 - 499 mg/ dLVery High > or = 500 mg/dL VLDL 12 mg/dL (Normal) Range: 5-40 CHOL 170 mg/dL (Normal) Comments: <200 mg/dL Ulhxsumur887-851 mg/dL Borderline>240 mg/dL High Risk :18 VIT D,25 11773 60.5 ng/mL (Normal) Range: 32.0-100.0 Comments: Recent studies consider the lower limit of 32.0 ng/mL to agueda threshold for optimal health.Osiel BONNER. J Nutr. 2004;135(2):317-22.Performed at: - [address] [id number]Lab Director: Lashaun Giron MD, Phone: [phone] 86-Fvo-473447:46 BILAT SCRN DIGITAL & CAD Radiology Report See Note (Normal) Comments: Exam Number: [id number] DIGITAL BILATERAL MAMMOGRAM Digital oblique and craniocaudal views were obtained. Comparison ismade with the prior examination dated July 15, 2008.Interpretation was made with t he benefit of the CAD system. HISTORYThigiuliano is a 58-year-old female patient with history of routine annualscreening. FINDINGSThere is a moderate amount of fibroglandular tissue. No dominant masslesion is seen. No cluster of microcalcification is present. Theoverlying skin is not thickened. There has been no change since priorexamination. IMPRESSION1. There has been no change since prior examination. 2. Routine annual mammographic followup is suggested.3. Negative. BIRADS Category 1. A letter regarding the results has been sent to the patient. This interpretation was rendered by a radiologist cer tified under theMammography Quality Standards Act of 1992 (MQSA). The mammograms werealso examined with computer-aided detection software (ImageCerapedics, StrangeLogic, Atooma.). Reported By: DANIEL BROWNING 22-Xqn-475884:01 Thin prep Pap Comments: Source.............Cervical;EndocervicalNo. of containers..01 CYTYC Thin Prep VialPATIENT NOT FASTINGPERFORMED BY: LabCo[address] [id number] Information: [id number] ([id number]) Note: PAPSMR (Normal) Comments: The Pap smear is a screening test designed to aid in the detection ofpremalignant and malignant conditions of the uterine cervix. It is not adiagnostic procedure and should not be used as the sole mean s of detectingcervical cancer. Both false-positive and false-negative reports do occur..The HPV DNA reflex criteria were not met with this specimen resulttherefore, no HPV testing was performed.. See Note . (Normal) DIAGNOSIS: SPRCS (Normal) Comments: NEGATIVE FOR INTRAEPITHELIAL LESION AND MALIGNANCY.CELLULAR CHANGES ASSOCIATED WITH ATROPHY ARE PRESENT.THIS SPECIMEN WAS RESCREENED PART OF OUR SERVICE ATTENDANT CAFETERIA PROGRAM.Satisfactory for e valuation. Endocervical component may not bedistinguished in cases of atrophy.V72.31 ; Routine gynecological examinationLacey Rojas, Case Hardener ([facility])Judith Maciel, Supervisory Case Hardener ([facility]) 16-Jsb-022511:36 DEXA BONE DENSITY STUDY () Radiology Report See Note (Normal) Comments: Exam Number: [id number] DEXA BONE DENSITY STUDY A dexa study was performed. At the level of the lumbar spine, thepatient's bone mineral density measures 1.069 g per cm2. This givesthe patie nt a T-score of -0.9 and a Z-score of 0.3. This is withinnormal limits. Since prior examination dated February 16, 2004, therehas been a decrease of 3%. At the level of the left femoral neck, the patient's bone m ineraldensity measures 1.015 g per cm2. This gives the patient a T-scoreof 0.1 and a Z-score of 1. This is within normal limits. This isessentially unchanged since prior study. IMPRESSIONNo signifi cant osteopenia. Reported By: DANIEL BROWNING :30 CBCD,SMEAR DIFF CELLS COUNTED 100 (Normal) EOS 10 % (Abnormal) Range: 0-5 HCT 39.0 % (Normal) Range: 37-47 HGB 13.6 g/dL (Normal) Range: 12.0-16.0 LYMPH 30 % (Normal) Range: 19-41 MCH 32.8 pg (Abnormal) Range: 27.0-32.0 MCHC 35.0 g/dL (Normal) Range: 32-36 MCV 93.9 fL (Normal) Range: 81-99 MONOCYTE 1 % (Normal) Range: 0-10 PLT 188 K/mm3 (Normal) Range: 150-450 PLT EST SeeNote (Normal) Comments: Result: ADEQUATE RBC 4.15 {M/mm3} (Abnormal) Range: 4.2-5.4 RDW 12.0 % (Normal) Range: 11.6-14.6 RED CELL MORPH SeeNote {NORMAL} (Normal) Comments: Result: NORM C+C SEGS 59 % (Normal) Range: 47-70 WBC 4.7 K/mm3 (Normal) Range: 4.4-11.0 :30 COMP METABOLIC A/G 1.3 {RATIO} (Normal) Range: 0.9-2.4 ALB 3.7 g/dL (Normal) Range: 3.4-5.0 ALK P 124 U/L (Normal) Range: 50-136 ALT 32 U/L (Normal) Range: 30-65 AST 21 U/L (Normal) Range: 15-37 BUN 11 mg/dL (Normal) Range: 7-18 BUN/CRE 15.7 {RATIO} (Normal) Range: 10-20 CA 8.8 mg/dL (Normal) Range: 8.5-10.1 CL 111 mmol/L (Abnormal) Range: 98-107 CO2 29.0 mmol/L (Normal) Range: 21.0-32.0 CREAT,SERUM 0.7 mg/dL (Normal) Range: 0.6-1.0 EST GFR 91 mL/min (Normal) EST GFR - AA 110 mL/min (Normal) GAP 6 (Normal) Range: 5-15 GLOB 2.9 g/dL (Normal) Range: 2.7-4.2 GLU 84 mg/dL (Normal) Range: 70-110 K 4.0 mmol/L (Normal) Range: 3.5-5.1 NA 146 mmol/L (Abnormal) Range: 136-145 T BILI 0.60 mg/dL (Normal) Range: 0.00-1.00 T PROT 6.6 g/dL (Normal) Range: 6.4-8.2 :30 D BILI 0.16 mg/dL (Normal) Range: 0.00-0.30 :30 LIPID CHOL 157 mg/dL (Normal) Comments: <200 mg/dL Desirable 200-240 mg/dL Borderline >240 mg/dL High Risk HDL 41 mg/dL (Normal) Comments: Reference Range HDL <40 mg/dL Low HDL Cholesterol HDL >or= 60 mg/dL High HDL Cholesterol LDL 95 mg/dL (Normal) Range: 0-130 TRIG 106 mg/dL (Normal) Comments: Serum Triglycerides Reference Interval Normal <150 mg/dL Borderline high 150 - 199 mg/dL High 200 - 499 mg/dL Very High > or = 500 mg/dL VLDL 21 mg/dL (Normal) Range: 5-40 :30 VIT D,25 40484 54.5 ng/mL (Normal) Range: 32.0-100.0 Comments: Recent studies consider the lower limit of 32.0 ng/mL to agueda threshold for optimal health.Osiel BONNER. J Nutr. 2004;135(2):317-22.Performed At: [facility] [place], [place] [id number] 17-Sep-20089:56 URINE PROSPER CULTURE (KIMMIE COL Comments: PATIENT NOT FASTINGClinical Information: SRC:URT ADD [id number] PERFORMED BY: CB [facility] Nckkmj5167 [place] [id number] COUNT) ([id number]) Antimicrobial MIHEAD (Normal) Comments: S = Susceptible; I = Intermediate; R = Resistant P = Positive; N = Negative MICS are expressed in micrograms per mL Antibiotic RSLT#1 RSLT#2 Susceptibility RSLT#3 RSLT#4Amoxicillin/Clavulanic Acid SAmpicillin RCefepime SCeftriaxone SCefuroxime SCephalothin SCiprofloxacin SESBL NGentamicin SImipenem SLevofloxacin SNitrofurantoin S Piperacillin/Tazobactam STetracycline RTobramycin STrimethoprim/Sulfa R Result 1 Escherichia coli Comments: Greater than 100,000 colony forming units per mL (Normal) Urine Final report Culture,Comprehensive (Normal) :42 Urinalysis, Office (31389) Comments: done BC UA - BILIRUBIN Negative (Normal) UA - BLOOD Hemolyzed Large (Normal) UA - GLUCOSE Negative (Normal) UA - KETONES Negative mg/dL (Normal) UA - LEUKOCYTE ESTERASE Moderate (Normal) UA - NITRITE Negative (Normal) UA - PH 6.0 (Normal) UA - PROTEIN Trace mg/dL (Normal) UA - SPECIFIC GRAVITY 1.000 (Normal) URINE UROBILINGN KIMMIE TIMED Normal mg/dL (Normal) 98-Dew-011572:13 BILAT SCRN DIGITAL & CAD Radiology Report See Note (Normal) Comments: Exam Number: [id number] MAMMOGRAM, BILATERAL SCREENING DIGITAL AND CAD HISTORYRoutine screening. Full field digital images were obtained in mediolateral oblique andcraniocaudal projections. CAD images w ere reviewed. A small metalmarker was placed on a mole which projects of the right. The current study is compared to the examinations of March, and September 18, 2006. There is moderately dense fibroglandular parenchyma present. No skinthickening or retraction, architectural distortion, or cluster ofsuspicious microcalcifications is identified. There is no dominantmass or significant interval change seen. If there is no suspiciouspalpable abnormality, followup mammogram in 1 year is recommended. IMPRESSIONThere is no radiographic evidence of malignancy identified. FINAL ASSESSMENTBIRADS cat egory 1 - Negative. A letter regarding these results has been sent to the patient. This interpretation was rendered by a radiologist certified under theMammography Quality Standards Act of 1992 (MQSA). The mammograms werealso examined with computer-aided detection software (BriefMe.). Reported By: CECILIA BRITT M.D. 26-Tbd-61030:21 METABOLIC PANEL, COMPREHENSIVE Comments: PATIENT WAS FASTINGClinical Information: ADD DRAW FEE [id number] ADD J [id number] PERFORMED BY: [facility]Du[facility]6370 [facility] [id number] ([id number]) A/G Ratio 2.0 (Normal) Range: 1.1-2.5 Albumin, Serum 4.3 g/dL (Normal) Range: 3.5-5.5 Alkaline Phosphatase, S 114 [iU]/L (Normal) Range: 25-150 ALT (SGPT) 24 [iU]/L (Normal) Range: 0-40 AST (SGOT) 25 [iU]/L (Normal) Range: 0-40 Bilirubin, Total 0.5 mg/dL (Normal) Range: 0.1-1.2 BUN/Creatinine Ratio 15 (Normal) Range: 8-27 Calcium, Serum 9.4 mg/dL (Normal) Range: 8.5-10.6 Carbon Dioxide, Total 24 mmol/L (Normal) Range: 20-32 Chloride, Serum 110 mmol/L (Abnormal) Range: 97-108 Creatinine, Serum 0.87 mg/dL (Normal) Range: 0.57-1.00 eGFR >59 mL/min/1.73 (Normal) eGFR AfricanAmerican >59 mL/min/1.73 Comments: Note: Persistent reduction for 3 months or more in an eGFR<60 mL/min/1.73 m2 defines CKD. Patients with eGFR values>/=60 mL/min/1.73 m2 may also have CKD if evidence of persistentproteinuria is (Normal) present. Additional information may be found [email or web address]. Globulin, Total 2.2 g/dL (Normal) Range: 1.5-4.5 Potassium, Serum 4.2 mmol/L (Normal) Range: 3.5-5.2 Protein, Total, Serum 6.5 g/dL (Normal) Range: 6.0-8.5 Sodium, Serum 146 mmol/L (Abnormal) Range: 135-145 BUN 13 mg/dL (Normal) Range: 5-26 Glucose, Serum 87 mg/dL (Normal) Range: 65-99 :21 TSH (88545) Comments: PATIENT WAS FASTINGPERFORMED BY: Let Qsswzy0947 [facility] [id number] TSH 1.370 {uIU/mL} (Normal) Range: 0.450-4.500 :21 Vitamin D Hydroxy (25566) Comments: PATIENT WAS FASTINGPERFORMED BY: [facility]Jefferson [facility]Owggit7461 [facility] [id number] Vitamin D, 25-Hydroxy 37.4 ng/mL (Normal) Range: 32.0-100.0 Comments: Recent studies consider the lower limit of 32.0 ng/mL to be athreshold for optimal health.Osiel BONNER. J Nutr. 2004;135(2):317-22. :21 HEPATIC FUNCTION PANEL Comments: PATIENT WAS FASTINGPERFORMED BY: Let Epcpis8609 [facility] [id number] ([id number]) Bilirubin, Direct 0.14 mg/dL (Normal) Range: 0.00-0.40 :21 LIPID PANEL (97690) Comments: PATIENT WAS FASTINGPERFORMED BY: [facility]Jeff[facility]Qykydq5793 [facility] [id number] Cholesterol, Total 167 mg/dL (Normal) Range: 100-199 Comment SPRCS (Normal) Comments: If initial LDL-cholesterol result is >100 mg/dL, assess forrisk factors. HDL Cholesterol 41 mg/dL (Normal) Comments: According to ATP-III Guidelines, HDL-C >59 mg/dL is considered anegative risk factor for CHD. LDL Cholesterol Calc 107 mg/dL (Abnormal) Range: 0-99 LDL/HDL Ratio 2.6 {ratio_units} (Normal) Range: 0.0-3.2 Triglycerides 96 mg/dL (Normal) Range: 0-149 VLDL Cholesterol Ousmane 19 mg/dL (Normal) Range: 5-40 0-Pzo-788442:30 URINE PROSPER CULTURE (KIMMIE COL Comments: PATIENT NOT FASTINGClinical Information: SRC:UR ADD [id number] PERFORMED BY: BRUNA [facility] Yvstfe9935 [facility] [id number] COUNT) ([id number]) Result 1 Lactobacillus species (Normal) Comments: 1,000 Colonies/mL Urine Final report (Normal) Culture,Comprehensive 5-Jqf-399471:25 Urinalysis, Office (52695) UA - BILIRUBIN Negative (Normal) UA - BLOOD Negative (Normal) UA - GLUCOSE Negative (Normal) UA - KETONES Negative mg/dL (Normal) UA - LEUKOCYTE ESTERASE Trace (Normal) UA - NITRITE Negative (Normal) UA - PH 7.0 (Normal) UA - PROTEIN Negative mg/dL (Normal) UA - SPECIFIC GRAVITY 1.010 (Normal) URINE UROBILINGN KIMMIE TIMED Normal mg/dL (Normal) 18-Mar-20087:52 Urinalysis, Office (31192) UA - BILIRUBIN Negative (Normal) UA - BLOOD Hemolyzed Large (Normal) UA - GLUCOSE Negative (Normal) UA - KETONES Negative mg/dL (Normal) UA - LEUKOCYTE ESTERASE Moderate (Normal) UA - NITRITE Negative (Normal) UA - PH 6.5 (Normal) UA - PROTEIN Negative mg/dL (Normal) UA - SPECIFIC GRAVITY 1.000 (Normal) URINE UROBILINGN KIMMIE TIMED Normal mg/dL (Normal) 25-Hss-13168:55 BRAIN/HEAD W/WO CONTRAST Radiology Report See Note (Normal) Comments: Exam Number: [id number] CT SCAN OF BRAIN WITH AND WITHOUT INTRAVENOUS CONTRAST REASON FOR EXAMINATIONTrigeminal neuralgia. TECHNIQUEHelical CT acquisition of the brain both before and after t heintravenou s administration of 100 cc of low osmolar contrast. Imagesare formatted in the axial projection. COMPARISONComparison is made to prior CT scan of brain on August 11, 2007, andCT scan of the brain withou t and with intravenous contrast onMarch 01, 2007. FINDINGSThere is no intracranial hemorrhage, mass effect, or midline shift. No CT scan evidence for acute cerebral infarction. No depressed skullfra cture is demonstrated. There is no abnormal intra or extraaxialfluid collection. No focal abnormal area of contrast enhancement isdemonstrated. An incidental note is made of dense calcificationswithi n the basal ganglia unchanged from the prior studies. IMPRESSIONNo acute intracranial process is demonstrated. Reported By: AVI ANTOINE MD :55 CORONALS,SAG,MULTI,OBL,3-D REC Radiology Report See Note (Normal) Comments: Exam Number: [id number] CT SCAN OF PARANASAL SINUSES WITHOUT INTRAVENOUS CONTRAST REASON FOR EXAMINATIONSinusitis. TECHNIQUEHelical CT acquisition of the paranasal sinuses without intravenouscontrast. I mages are formatted in the axial projection and coronalprojection. COMPARISONComparison is made to prior study of March 01, 2007. FINDINGSThe sphenoid sinuses, ethmoid sinuses, frontal sinuses, and m axillarysinuses are clear. The ostiomeatal complexes are intact bilaterally. There is right convex nasal septal deviation, unchanged from the priorstudy. Pneumatizationof the superior turbinates bilat erally ispresent and unchanged. No bone destruction or expansion is present. IMPRESSIONStable right convex septal deviation. Reported By: AVI ANTOINE MD :55 SINUS/FACIAL BONE WITHOUT CONT Radiology Report See Note (Normal) Comments: Exam Number: [id number] CT SCAN OF PARANASAL SINUSES WITHOUT INTRAVENOUS CONTRAST REASON FOR EXAMINATIONSinusitis. TECHNIQUEHelical CT acquisition of the paranasal sinuses without intravenouscontrast. I mages are formatted in the axial projection and coronalprojection. COMPARISONComparison is made to prior study of March 01, 2007. FINDINGSThe sphenoid sinuses, ethmoid sinuses, frontal sinuses, and m axillarysinuses are clear. The ostiomeatal complexes are intact bilaterally. There is right convex nasal septal deviation, unchanged from the priorstudy. Pneumatizationof the superior turbinates bilat erally ispresent and unchanged. No bone destruction or expansion is present. IMPRESSIONStable right convex septal deviation. Reported By: AVI ANTOINE MD 54-Hep-261681:54 C-Reactive Protein ([id number]) Comments: PATIENT NOT FASTINGPERFORMED BY: [facility] Ksehoj5052 [facility] [id number] C-Reactive Protein, Quant 1.3 mg/L (Normal) Range: 0.0-4.9 06-Jvy-466498:54 Sed Rate Erythrocyte (85447) Comments: PATIENT NOT FASTINGPERFORMED BY: [facility]Jeff[facility]Epohwj3183 [facility] [id number] Sedimentation Rate-Westergren 5 mm/h (Normal) Range: 0-30 :54 CBC with manual diff ([id number]) Comments: PATIENT NOT FASTINGClinical Information: ADD DRAW FEE [id number] ADD J [id number] PERFORMED BY: Let [email or web address] [facility] [id number] Baso (Absolute) 0.0 {x10E3/uL} (Normal) Range: 0.0-0.2 Basos 0 % (Normal) Range: 0-3 Eos 6 % (Normal) Range: 0-7 Eos (Absolute) 0.3 {x10E3/uL} (Normal) Range: 0.0-0.4 Hematocrit 41.9 % (Normal) Range: 34.0-44.0 Hemoglobin 14.5 g/dL (Normal) Range: 11.5-15.0 Lymphs 27 % (Normal) Range: 14-46 Lymphs (Absolute) 1.6 {x10E3/uL} (Normal) Range: 0.7-4.5 MCH 32.8 pg (Normal) Range: 27.0-34.0 MCHC 34.7 g/dL (Normal) Range: 32.0-36.0 MCV 95 fL (Normal) Range: 80-98 Monocytes 7 % (Normal) Range: 4-13 Monocytes(Absolute) 0.4 {x10E3/uL} (Normal) Range: 0.1-1.0 Neutrophils 60 % (Normal) Range: 40-74 Neutrophils (Absolute) 3.5 {x10E3/uL} (Normal) Range: 1.8-7.8 Platelets 227 {x10E3/uL} (Normal) Range: 140-415 RBC 4.43 {x10E6/uL} (Normal) Range: 3.80-5.10 RDW 12.4 % (Normal) Range: 11.7-15.0 WBC 5.8 {x10E3/uL} (Normal) Range: 4.0-10.5 :39 CORONALS,SAG,MULTI,OBL,3-D REC Radiology Report See Note (Normal) Comments: Exam Number: [id number] CT SCAN OF BRAIN HISTORYRight eye and face pain. Scans were obtained at 2.5-mm intervals through the posterior fossaand 5-mm intervals through the remainder of the brain. The s corky wasperformed with and without the intravenous administration of 100milliliters of Isovue 300. There is very dense calcification in the basal ganglia. This isphysiologic for the patient's age. No o ther area of alteredattenuation is seen within the brain parenchyma. Sulci and ventriclesare within normal limits. No shift of midline, mass effect,extra-axial collection or enhancing lesion is identif ied. Bonystructures are grossly intact. IMPRESSIONNo CT abnormality is identified. CT SCAN OF SINUSES AND FACIAL BONES Axial and coronal sections were obtained at 2.5-mm intervals throughthe sinuses and orbits. There is no bony abnormality identified. The paranasal sinuses areclear. There is no focal soft tissue density or air-fluid levelidentified. 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 There i s deviationof the nasal septum to the right. There is evidence of an oldfracture of the left nasal bone with offset of the proximal fragmentmedially. The optic globes, optic nerves and extraocular mus cles aresymmetric and within normal limits. IMPRESSION1. The paranasal sinuses are clear. 2. 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 3. There is deviation of the nasal septum to the right.4. There i s a remote fracture of the left nasal bone. Reported By: CECILIA BRITT M.D. 03-Ndm-[id number]:39 SINUS/FACIAL BONE WITHOUT CONT Radiology Report See Note (Normal) Comments: Exam Number: [id number] CT SCAN OF BRAIN HISTORYRight eye and face pain. Scans were obtained at 2.5-mm intervals through the posterior fossaand 5-mm intervals through the remainder of the brain. The s corky wasperformed with and without the intravenous administration of 100milliliters of Isovue 300. There is very dense calcification in the basal ganglia. This isphysiologic for the patient's age. No o ther area of alteredattenuation is seen within the brain parenchyma. Sulci and ventriclesare within normal limits. No shift of midline, mass effect,extra-axial collection or enhancing lesion is identif ied. Bonystructures are grossly intact. IMPRESSIONNo CT abnormality is identified. CT SCAN OF SINUSES AND FACIAL BONES Axial and coronal sections were obtained at 2.5-mm intervals throughthe sinuses and orbits. There is no bony abnormality identified. The paranasal sinuses areclear. There is no focal soft tissue density or air-fluid levelidentified. 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 There i s deviationof the nasal septum to the right. There is evidence of an oldfracture of the left nasal bone with offset of the proximal fragmentmedially. The optic globes, optic nerves and extraocular mus cles aresymmetric and within normal limits. IMPRESSION1. The paranasal sinuses are clear. 2. 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 3. There is deviation of the nasal septum to the right.4. There i s a remote fracture of the left nasal bone. Reported By: CECILIA BRITT M.D. 78-Sts-[id number]:38 BRAIN/HEAD W/WO CONTRAST Radiology Report See Note (Normal) Comments: Exam Number: [id number] CT SCAN OF BRAIN HISTORYRight eye and face pain. Scans were obtained at 2.5-mm intervals through the posterior fossaand 5-mm intervals through the remainder of the brain. The s tudy wasperformed with and without the intravenous administration of 100milliliters of Isovue 300. There is very dense calcification in the basal ganglia. This isphysiologic for the patient's age. No o ther area of alteredattenuation is seen within the brain parenchyma. Sulci and ventriclesare within normal limits. No shift of midline, mass effect,extra-axial collection or enhancing lesion is identif ied. Bonystructures are grossly intact. IMPRESSIONNo CT abnormality is identified. CT SCAN OF SINUSES AND FACIAL BONES Axial and coronal sections were obtained at 2.5-mm intervals throughthe sinuses and orbits. There is no bony abnormality identified. The paranasal sinuses areclear. There is no focal soft tissue density or air-fluid levelidentified. 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 There i s deviationof the nasal septum to the right. There is evidence of an oldfracture of the left nasal bone with offset of the proximal fragmentmedially. The optic globes, optic nerves and extraocular mus cles aresymmetric and within normal limits. IMPRESSION1. The paranasal sinuses are clear. 2. 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 3. There is deviation of the nasal septum to the right.4. There i s a remote fracture of the left nasal bone. Reported By: CECILIA BRITT M.D. :26 MAMM, BILAT SCRN DIGITAL & CAD Radiology Report See Note (Normal) Comments: Exam Number: [id number] BILATERAL SCREENING MAMMOGRAPHY HISTORYRoutine screening. COMPARISONComparison is made to prior studies of March 29, 2005, andFebruary 19, 2004. TECHNIQUERoutine MLO and CC view s were acquired. FINDINGSThe breast parenchyma is heterogeneously dense. There is a benigncalcification and a benign density associated with the right breastunchanged. No suspicious cluster of microca lcifications, area ofdistortion, or three-dimensional spiculated masses are shown. IMPRESSION1. No mammographic evidence for malignancy.2. BIRADS Code 2. Benign findings.3. Follow up in 1 year. A le tter regarding these results has been sent to the patient. This interpretation was rendered by a radiologist certified underthe Mammography Quality Standards Act of 1992 (MQSA). The mammogramswere also examined with computer-aided detection software(Simphatic.). Reported By: MILAGRO CRABTREE M.D. :33 CBCD,SMEAR DIFF CELLS COUNTED 100 (Normal) EOS 11 % (Abnormal) Range: 0-5 HCT 39.2 % (Normal) Range: 37-47 HGB 13.8 g/dL (Normal) Range: 12.0-16.0 LYMPH 31 % (Normal) Range: 19-41 MCH 32.9 pg (Abnormal) Range: 27.0-32.0 MCHC 35.3 g/dL (Normal) Range: 32-36 MCV 93.3 fL (Normal) Range: 81-99 MONOCYTE 5 % (Normal) Range: 0-10 PLT 200 K/mm3 (Normal) Range: 150-450 PLT EST SeeNote (Normal) Comments: Result: ADEQUATE RBC 4.20 {M/mm3} (Normal) Range: 4.2-5.4 RDW 11.9 % (Normal) Range: 11.6-14.6 RED CELL MORPH SeeNote {NORMAL} (Normal) Comments: Result: NORM C&C SEGS 53 % (Normal) Range: 47-70 WBC 4.2 K/mm3 (Abnormal) Range: 4.4-11.0 :33 COMP METABOLIC A/G 1.3 {RATIO} (Normal) Range: 0.9-2.4 ALB 3.6 g/dL (Normal) Range: 3.4-5.0 ALK P 111 U/L (Normal) Range: 50-136 ALT 45 [iU]/L (Normal) Range: 30-65 AST 22 U/L (Normal) Range: 15-37 BUN 10 mg/dL (Normal) Range: 7-18 BUN/CRE 12.5 {RATIO} (Normal) Range: 10-20 CA 8.4 mg/dL (Abnormal) Range: 8.5-10.1 CL 109 mmol/L (Abnormal) Range: 98-107 CO2 28.1 mmol/L (Normal) Range: 22.0-29.0 CREAT,SERUM 0.8 mg/dL (Normal) Range: 0.6-1.0 GAP 8 (Normal) Range: 5-15 GLOB 2.8 g/dL (Normal) Range: 2.3-3.5 GLU 84 mg/dL (Normal) Range: 70-110 K 3.9 mmol/L (Normal) Range: 3.5-5.1 NA 145 mmol/L (Normal) Range: 136-145 T BILI 0.42 mg/dL (Normal) Range: 0.00-1.00 T PROT 6.4 g/dL (Normal) Range: 6.4-8.2 :33 LIPID CHOL 158 mg/dL (Normal) Comments: <200 mg/dL Desirable 200-240 mg/dL Borderline >240 mg/dL High Risk HDL 39 mg/dL (Normal) Comments: Reference Range HDL <40 mg/dL Low HDL Cholesterol HDL >or= 60 mg/dL High HDL Cholesterol LDL 88 mg/dL (Normal) Range: 0-130 TRIG 153 mg/dL (Normal) Comments: Serum Triglycerides Reference Interval Normal <150 mg/dL Borderline high 150 - 199 mg/dL High 200 - 499 mg/dL Very High > or = 500 mg/dL VLDL 31 mg/dL (Normal) Range: 5-40 :33 ROUTINE UA BILIRUBIN URINE SeeNote (Normal) Comments: Result: NEGATIVE CLARITY CLOUDY (Normal) COLOR YELLOW (Normal) GLUCOSE, UR SeeNote (Normal) Comments: Result: NEGATIVE KETONE UR SeeNote mg/dL (Normal) Comments: Result: NEGATIVE LEUK ESTERASE 1+ (Abnormal) NITRITE UR SeeNote (Normal) Comments: Result: NEGATIVE OCCULT BLOOD-UR SeeNote (Normal) Comments: Result: NEGATIVE pH UR 5.0 (Normal) Range: 5.0-8.0 PROT DIPSTX SeeNote (Normal) Comments: Result: NEGATIVE SP.GR. DIPSTX >=1.030 (Normal) Range: 1.002-1.030 UROBILI 0.2 EU/dl (Normal) Range: 0.2 - 1.0 :33 TSH 2.01 {uIU/mL} (Normal) Range: 0.34-4.82 :23 Urinalysis, Office ([id number]) UA - BILIRUBIN Negative (Normal) UA - BLOOD Negative (Normal) UA - GLUCOSE Negative (Normal) UA - KETONES Negative mg/dL (Normal) UA - LEUKOCYTE ESTERASE Small (Normal) UA - NITRITE Negative (Normal) UA - PH 6.0 (Normal) UA - PROTEIN Negative mg/dL (Normal) UA - SPECIFIC GRAVITY 1.005 (Normal) URINE UROBILINGN KIMMIE TIMED Normal mg/dL (Normal) :20 CULTURE, URINE URINE CULTURE See Note {CFU/mL} (Normal) Comments: COLONY COUNT 1000-10,000 ORGANISM 1: MIXED GRAM POSITIVE ORGANISMS :39 Urinalysis, Office (85660) UA - BILIRUBIN Negative (Normal) UA - BLOOD Negative (Normal) UA - GLUCOSE Negative (Normal) UA - KETONES Negative mg/dL (Normal) UA - LEUKOCYTE ESTERASE Trace (Normal) UA - NITRITE Negative (Normal) UA - PH 5.0 (Normal) UA - PROTEIN Negative mg/dL (Normal) UA - SPECIFIC GRAVITY 1.005 (Normal) URINE UROBILINGN KIMMIE TIMED 2 mg/dL (Normal) :00 CULTURE, URINE URINE CULTURE See Note {CFU/mL} Comments: COLONY COUNT 25,000- 50,000 ORGANISM 1: MIXED GRAM POSITIVE ORGANISMS (Normal) 36-Uyt-23117:00 CULTURE, THROAT See Note (Normal) Comments: Normal throat vivi isolated. No beta-hemolyticstreptococcus isolated. Plan of Care Name Dates Details Instructions BMI 30.0-30.9,adult : Follow up if no improvement or if symptoms worsen Indication: BMI 30.0-30.9,adult Cough : Eprescribed prescriptions (G8553) Indication: Cough Bronchitis : Follow up if no improvement or if symptoms worsen Indication: Bronchitis Wheezing : Eprescribed prescriptions (G8553) Indication: Wheezing Shortness of breath : Follow up tomorrow, as needed Indication: Shortness of breath Cough : Continue Current Prescription(s) Indication: Cough BMI 30.0-30.9,adult : Eprescribed prescriptions (G8553) Indication: BMI 30.0-30.9,adult Nonsmoker : Follow up if no improvement or if symptoms worsen Indication: Nonsmoker Reactive airway disease : Eprescribed prescriptions (G8553) Indication: Reactive airway disease Asthma with acute exacerbation : Eprescribed prescriptions (G8553) Indication: Asthma with acute exacerbation BMI 29.0-29.9,adult : Follow up in 3 weeks Indication: BMI 29.0-29.9,adult Asthma with acute exacerbation : Eprescribed prescriptions (G8553) Indication: Asthma with acute exacerbation BMI 30.0-30.9,adult : Follow up after consult Indication: BMI 30.0-30.9,adult BMI 30.0-30.9,adult : Eprescribed prescriptions (G8553) Indication: BMI 30.0-30.9,adult Epigastric pain : Follow up in 2 weeks Indication: Epigastric pain Epigastric pain : Gastritis *: dyspepsia Indication: Epigastric pain Chest pain : Eprescribed prescriptions (G8553) Indication: Chest pain Depression : Follow up in 4 months Indication: Depression Other hyperlipidemia : Eprescribed prescriptions (G8553) Indication: Other hyperlipidemia Depression : Follow up in 1 month Indication: Depression Depression : Eprescribed prescriptions (G8553) Indication: Depression Asthma with acute exacerbation : Follow up if no improvement or if symptoms worsen Indication: Asthma with acute exacerbation Asthma with acute exacerbation : Follow up in 3 days Indication: Asthma with acute exacerbation Acute sinusitis : Eprescribed prescriptions (G8553) Indication: Acute sinusitis Hypertension, 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) Indication: Hypertension, accelerated Other hyperlipidemia : Diet, Exercise, and Wt loss Indication: Other hyperlipidemia Other hyperlipidemia : Eprescribed prescriptions (G8553) Indication: Other hyperlipidemia Low back pain potentially associated with radiculopathy : Low Back Pain Exercises *: back exercises Indication: Low back pain potentially associated with radiculopathy Low Back Pain (Renamed from LBP (low back pain)) : Eprescribed prescriptions (G8553) Indication: Low Back Pain (Renamed from LBP (low back pain)) Cystitis, acute : Water in diet, brief version Indication: Cystitis, acute Dysuria : Eprescribed prescriptions (G8553) Indication: Dysuria Dysuria : Urinary Tract Infection in Women *: bladder infection Indication: Dysuria Other hyperlipidemia : Diet, Exercise, and Wt loss Indication: Other hyperlipidemia Other hyperlipidemia : Diet, Exercise, and Wt loss Indication: Other hyperlipidemia Depression : Depression: Brief Version *: depression Indication: Depression Depression : *Antidepressant Usage Indication: Depression Epigastric pain : Abdominal Pain: symptoms Indication: Epigastric pain Sciatica : Follow up if no improvement or if symptoms worsen Indication: Sciatica Well woman exam : *Well Female Maintenance (KF) Indication: Well woman exam Well woman exam : /Pelvic/Bimanual/Rectal/Breast Exam was done. Indication: Well woman exam Epigastric pain : follow up for recheck urine 1 week after complete antibiotic Indication: Epigastric pain Epigastric pain : Follow up in 3 weeks Indication: Epigastric pain INFECTION, BACTERIAL D/T HELICOBACTER PYLORI : Helicobacter Pylori *: helicobacter pylori Indication: INFECTION, BACTERIAL D/T HELICOBACTER PYLORI INFECTION, BACTERIAL D/T HELICOBACTER PYLORI : Reviewed Lab Indication: INFECTION, BACTERIAL D/T HELICOBACTER PYLORI Vaccine for kjtoxusitn-qxhovhl-iayrxlydw with poliomyelitis : Follow up in 2 weeks Indication: Vaccine for bwtvivyibp-pcghlwa-ioxffpkdd with poliomyelitis Well woman exam : *Well Female Maintenance (KF) Indication: Well woman exam Well woman exam : Pap/Pelvic/Bimanual/Rectal/Breast Exam was done. Indication: Well woman exam GENERAL SYMPTOMS, OTHER MALAISE AND FATIGUE : *fatigue education Indication: GENERAL SYMPTOMS, OTHER MALAISE AND FATIGUE Upper respiratory infection : *Antibiotic Usage Education - Female Indication: Upper respiratory infection Abdominal pain, unspecified abdominal location : FOLLOW UP IN 2 WEEKS Indication: Abdominal pain, unspecified abdominal location Dysuria : follow up for recheck urine 1 week after complete antibiotic Indication: Dysuria Dysuria : follow up for recheck urine 1 week after complete antibiotic Indication: Dysuria Well woman exam : *Well Female Maintenance (KF) Indication: Well woman exam Well woman exam : Pap/Pelvic/Bimanual/Rectal/Breast Exam was done. Indication: Well woman exam Dysuria : Antibiotic Usage Education - Female Indication: Dysuria Dysuria : Antibiotic Usage Education - Female Indication: Dysuria Dysuria : Follow up for recheck urine 1 week after complete antibiotic Indication: Dysuria Unspecified asthma, uncomplicated : FOLLOW UP IN 2 WEEKS Indication: Unspecified asthma, uncomplicated Unspecified asthma, uncomplicated : FOLLOW UP IN 1 WEEK Indication: Unspecified asthma, uncomplicated Bronchitis : *Antibiotic Usage Education - Female Indication: Bronchitis Bronchitis : *URI Treatment Indication: Bronchitis Bronchitis : URI Symptoms Indication: Bronchitis Pain around eye, unspecified laterality : FOLLOW UP IN 1 WEEK Indication: Pain around eye, unspecified laterality Acute sinusitis : *URI Treatment Indication: Acute sinusitis Acute sinusitis : URI Symptoms Indication: Acute sinusitis Acute sinusitis : Antibiotic Usage Education - Female Indication: Acute sinusitis Acute sinusitis : URI Symptoms Indication: Acute sinusitis Acute sinusitis : Antibiotic Usage Education - Female Indication: Acute sinusitis Urinary frequency : increase fluids and decrease caffiene Indication: Urinary frequency Urinary frequency : follow up for recheck urine 1 week after complete antibiotic Indication: Urinary frequency GENERAL SYMPTOMS, OTHER MALAISE AND FATIGUE : FOLLOW UP IN 3 WEEKS Indication: GENERAL SYMPTOMS, OTHER MALAISE AND FATIGUE Planned Observations FECAL OCCULT- Tubes sent home (36262)Indication: Fatty liver On: :13 Request HEPATITIS PANEL (74147)Indication: Fatty liver On: :10 Request UNCMO-BPDKGBGABRF-WGZOE (30957)Indication: Fatty liver On: :09 Request FECAL OCCULT- Tubes sent home (64743)Indication: Epigastric pain On: 17-Ywn-741023:54 Request Influenza A&B Viral Culture (97229)Indication: Acute sinusitis On: 84-Apd-649952:22 Request URINALYSIS, W/ MICRO (58462)Indication: Elevated blood-pressure reading without diagnosis of hypertension On: 41-Evv-172844:48 Request TSH (10444)Indication: Osteopenia On: :35 Request CBC WITH MANUAL DIFF (87099)Indication: Osteopenia On: :34 Request METABOLIC PANEL, COMPREHENSIVE (47907)Indication: Osteopenia On: :34 Request LIPID PANEL (61762)Indication: Other hyperlipidemia On: :34 Request Vitamin D Hydroxy (82322)Indication: Osteopenia On: :34 Request TSH (71380)Indication: Osteopenia On: :43 Request CBC WITH MANUAL DIFF (80973)Indication: Abdominal pain, unspecified abdominal location On: :42 Request METABOLIC PANEL, COMPREHENSIVE (97155)Indication: Abdominal pain, unspecified abdominal location On: :42 Request LIPID PANEL (55404)Indication: Other hyperlipidemia On: :42 Request CALCIFEDIOL (32517)Indication: Osteopenia On: 22-Zww-03255:51 Request Vitamin D Hydroxy (40176)Indication: Osteopenia On: 6-Wnn-495619:56 Request TSH (10762)Indication: Depression On: 6-Bzv-952632:55 Request METABOLIC PANEL, COMPREHENSIVE (34723)Indication: Osteopenia On: 1-Fjs-304580:55 Request LIPID PANEL (19169)Indication: Other hyperlipidemia On: 8-Duq-267036:55 Request FECAL OCCULT HGB ASSAY- tubes sent home (60117)Indication: Well woman exam On: 4-Dpw-712804:26 Request H. PYLORI ANALYSIS UREASE ACTIVITY (07530)Indication: Epigastric pain On: 59-Fdv-209437:58 Request URINALYSIS, W/ MICRO (98889)Indication: Osteopenia On: :57 Request TSH (65354)Indication: Osteopenia On: 5-Omn-553105:57 Request CBC WITH MANUAL DIFF (92566)Indication: Osteopenia On: 9-Szp-888961:57 Request METABOLIC PANEL, COMPREHENSIVE (56797)Indication: Osteopenia On: :57 Request Vitamin D Hydroxy (04809)Indication: Osteopenia On: 1-Qpf-966431:57 Request LIPID PANEL (69940)Indication: Other hyperlipidemia On: 1-Lru-126186:57 Request Vitamin D Hydroxy (73920)Indication: Osteopenia On: 01-Wzv-123766:10 Request LIPID PANEL (88280)Indication: Other hyperlipidemia On: 53-Tqh-091738:10 Request METABOLIC PANEL, COMPREHENSIVE (82143)Indication: diastolic dysfunction On: :28 Request CBC WITH MANUAL DIFF (07436)Indication: diastolic dysfunction On: :27 Request Vitamin D Hydroxy (99588)Indication: Osteopenia On: :27 Request HEPATIC FUNCTION PANEL (62602)Indication: Other hyperlipidemia On: : Request LIPID PANEL (02964)Indication: Other hyperlipidemia On: : Request URINE PROSPER CULTURE (KIMMIE COL COUNT) (36495)Indication: recent uti- follow up ua On: :29 Request URINE PROSPER CULTURE-IDENTIFICATN (44978)Indication: Dysuria On: 91-Lsv-40473:52 Request Planned Procedures Aerosol Treatment (45840)By: Alethea On: 19-Jul-2017 Intent Lani ANGUIANO CNP, Mary E AEROSOL THERAPY (41931)By: Ravin On: 12-Jul-2017 Intent Jas Solu -Medrol Injection, 125 mg On: 11-Jul-2017 Intent (J2930)By: Maribel Orta Comments: solumedrol 125mg injection lot:[id number]: GM pt tolerated well MSMITH,SOLE FILLER CHEST XRAY, PA & LATERAL (61341)By: On: 11-Jul-2017 Intent Maribel Orta Aerosol Treatment (23930)By: On: 11-Jul-2017 Intent Maribel Orta Comments: After aerosol treatment inspiratory and expiratory wheeze both lungs. ATTENDED SLEEP STUDY (55798)By: On: 13-Mar-2017 Intent Lani Claire CNP, CNP, Mary E Spirometry (54337)By: Visit, Nurse On: 07-Mar-2017 Intent Spirometry (05146)By: Visit, Nurse On: 07-Mar-2017 Intent Six Minute Walk Assessment On: 07-Mar-2017 Intent (60672)By: Visit, Nurse ELECTROCARDIOGRAM, COMPLETE (ECG) On: 15-Feb-2017 Intent (06744)By: Lani Claire CNP Comments: normal Lani ANGUIANO SIX MINUTE WALK TEST (19870)By: On: 15-Feb-2017 Intent Alethea UNDER PRESSERLani Minalharpreetarleth ANGUIANO Lani Alvarez Comments: Please schedule CONTINUOUS OVERNIGHT PULSE OXIMETRY On: 15-Feb-2017 Intent (07590)By: Alethea ANGUIANO KaciAntonio Claire CNP Kaci PFT - CompleteBy: Lani Claire CNP On: 15-Feb-2017 Intent Alethea ANGUIANOLani SPIROMETRY (21558)By: Alethea ANGUIANO, On: 15-Feb-2017 Intent Lani Alvarez Alethea ANGUIANO Kaci Comments: normal Ultrasound - GallbladderBy: Alethea On: 17-May-2016 Intent SILVIO Lani Alvarez Alethea ANGUIANO Kaci Endoscopy - Small Bowel SeriesBy: On: 17-May-2016 Intent Alethea ANGUIANO Lani Alvarez Alethea ANGUIANO Kaci ELECTROCARDIOGRAM, COMPLETE (ECG) On: 17-May-2016 Intent (86936)By: Alethea ANGUIANO KaciAntonio Claire CNP Lani Alvarez Aerosol Treatment (27410)By: Alethea On: 02-Oct-2015 Intent SILVIO Lani Alvarez Alethea ANGUIANO Lani Alvarez Solu -Medrol Injection, 125 mg On: 02-Oct-2015 Intent (J2930)By: Alethea ANGUIANO Kaci Ciesarleth Comments: lot: [id number]: 05/05site/route: RGM/IMamt: 2mLVIS signed when applicableCECILE Lerma CNP Lani Alvarez Aerosol Treatment (26172)By: Megan On: 30-Sep-2015 Intent Maikel KIMBROUGH DEXA SCAN AXIAL SKELETON (09743)By: On: 24-Feb-2015 Intent Irma Castellon DO MAMMOGRAM, SCREENING, BOTH BREAST On: 24-Feb-2015 Intent (11336)By: Irma Castellon DO Flu Vaccine (Quadrivalent) 39940Eg: On: 20-Jan-2015 Intent Irma Castellon DO Comments: Lot #:[id number] date: 09/2015Amount given:prefilled syringeSite given:L Dltd, IMGiven by: ALISSA Mccabe and ABN signed ADMINISTRATION OF INFLUENZA VIRUS On: 20-Jan-2015 Intent VACCINE (G0008)By: Irma Castellon DO MRI - Lumbar SpineBy: Ravinder MARSH, On: 23-May-2014 Intent Irma A Radiology - Hip - RightBy: Ravinder MARSH, On: 04-Apr-2014 Intent Irma Murdock Radiology - Lumbar SpineBy: Fast On: 04-Apr-2014 Irma Abreu DO Comments: sacrum and coccyx as well Eprescribed prescriptions On: 05-Jul-2013 Intent (G8553)By: Irma Casetllon DO DXA, BONE DENSITY, AXIAL SKELETON On: 05-Jul-2013 Intent (13374)By: Irma Castellon DO Comments: october Eprescribed prescriptions On: 17-May-2013 Intent (G8553)By: Magy Winters Eprescribed prescriptions On: 07-Dec-2012 Intent (G8553)By: Irma Castellon DO MAMMOGRAM, SCREENING, BOTH BREASTS On: 07-Dec-2012 Intent (25401)By: Irma Castellon DO Eprescribed prescriptions On: 18-Sep-2012 Intent (G8553)By: Magy Winters Eprescribed prescriptions On: 07-Aug-2012 Intent (G8553)By: Magy Winters Eprescribed prescriptions On: 15-Jun-2012 Intent (G8553)By: Magy Winters Toradol Injection, 30 mg On: 30-Nov-2011 Intent (J1885)By: Lani Claire CNP Comments: Lot: [id number]: mt: .75ml/22.5mg (only available dose in office)Route: IMSite: L GlutealGiven by: ESTRELLITA Posey CNP, Mary E Radiology - Hip - LeftBy: Alethea On: 30-Nov-2011 Intent Lani ANGUIANO CNP, Mary E DXA, BONE DENSITY, AXIAL SKELETON On: 24-Aug-2011 Intent ([id number])By: Irma Castellon DO Comments: september MAMMOGRAM, SCREENING, BOTH BREASTS On: 24-Aug-2011 Intent (32328)By: Irma Castellon DO Comments: september TDAP VACCINE >7 IM (93406)By: Rodrick On: 07-Jun-2011 Intent Luisa HARO Comments: Lot:[id number]:03/10/13Route:IMSite:LT DeltoidAmt: Prefilled syringeARiding SOLE FILLER MAMMOGRAM, SCREENING, BOTH BREASTS On: 16-Aug-2010 Intent (56539)By: Magy Winters Aerosol Treatment (70170)By: Ravinder On: 02-Feb-2010 Intent Irma MARSH Ultrasound - PelvisBy: Alethea ANGUIANO, On: 18-Jan-2010 Intent Lani Hodges CNP Ultrasound - Abdomen (Limited Area On: 11-Jan-2010 Intent or Organs)By: Lani Claire CNP Comments: pelvic ultrasound Lani Claire CNP MAMMOGRAM, SCREENING, BOTH BREASTS On: 11-Aug-2009 Intent ([id number])By: Magy Winters DXA, BONE DENSITY, AXIAL SKELETON On: 23-Feb-2009 Intent ([id number])By: Irma Castellon DO EKG ([id number])By: Magy Winters On: 23-Feb-2009 Intent Comments: ekg showed normal sinus rhythym, normal axis, no acute st/t wave changes MAMMOGRAM, SCREENING, BOTH BREASTS On: 18-Jun-2008 Intent ([id number])By: Luz Weaver Overnight pulse ox([id number])By: Delon On: 19-May-2008 Intent ESTRELLITA, Latrice Echo CompleteBy: Irma Castellon DO On: 28-Apr-2008 Intent Solu -Medrol Injection, 125 mg On: 08-Apr-2008 Intent ([id number])By: Irma Castellon DO Comments: Amt: 2mlLot: [id number]: 10/2010Route: IMSite: right hipTolerated: wellGiven By: ESTRELLITA Benoit Solu -Medrol Injection, 125 mg On: 06-Feb-2008 Intent ([id number])By: Lani Claire CNP Comments: Amt: 2mlLot: [id number]: 09/2010Route: IMSite: left deltoidTolerated: wellGiven By: ESTRELLITA Benoit CNP, Mary E Spirometry with Bronchodilator On: 06-Feb-2008 Intent ([id number])By: Lani Claire CNP, CNP, Mary E Inhaler Demonstration ([id number])By: On: 06-Feb-2008 Intent Lani Claire CNP, CNP, Mary E Pulse Oximetry ([id number])By: Alethea On: 06-Feb-2008 Intent Lani ANGUIANO CNP Lani Alvarez Comments: done BC Aerosol Treatment ([id number])By: Alethea On: 06-Feb-2008 Intent Lani ANGUIANO CNP, Mary E Comments: done BC CT - Sinuses CompleteBy: Alethea ANGUIANO, On: 30-Jan-2008 Intent Lani Fuchsarleth ANGUIANO Lani Alvarez CT - Brain/HeadBy: Alethea ANGUIANOLani On: 30-Jan-2008 [address] - Sinuses CompleteBy: Fast DO, On: 28-Feb-[address] - Brain/HeadBy: Fast DO, Irma A On: 28-Feb-2007 Intent EKG ([id number])By: Magy Winters On: 07-Sep-2006 Intent Comments: ekg showed normal sinus rhythym, normal axis, no acute st/t wave changes Planned Medications INJECTION, KETOROLAC TROMETHAMINE, PER 15 MG Ordered: 30-Nov-2011 Pending Jefarleth ANGUIANO Lani Claire CNP Lani Alvarez INJECTION, METHYLPREDNISOLONE SODIUM SUCCINATE, UP TO 125 MG Ordered: 02-Oct-2015 Pending Jefarleth ANGUIANO Lani Hodges CNP INJECTION, METHYLPREDNISOLONE SODIUM SUCCINATE, UP TO 125 MG Ordered: 11-Jul-2017 Pending Maribel Orta Instructions Name Dates Details Cough : How to access health information online Indication: Cough Cough : How to access health information online - Detail Indication: Cough Cough : Patient Instructions Indication: Cough Wheezing : How to access health information online Indication: Wheezing Wheezing : How to access health information online - Detail Indication: Wheezing Wheezing : Patient Instructions Indication: Wheezing BMI 30.0-30.9,adult : How to access health information online Indication: BMI 30.0-30.9,adult BMI 30.0-30.9,adult : How to access health information online - Detail Indication: BMI 30.0-30.9,adult Wheezing : Patient Instructions Indication: Wheezing Reactive airway disease : How to access health information online Indication: Reactive airway disease Reactive airway disease : How to access health information online - Detail Indication: Reactive airway disease Reactive airway disease : Patient Instructions Indication: Reactive airway disease Asthma with acute exacerbation : How to access health information online Indication: Asthma with acute exacerbation Asthma with acute exacerbation : How to access health information online - Detail Indication: Asthma with acute exacerbation Asthma with acute exacerbation : Patient Instructions Indication: Asthma with acute exacerbation Asthma with acute exacerbation : How to access health information online Indication: Asthma with acute exacerbation Asthma with acute exacerbation : How to access health information online - Detail Indication: Asthma with acute exacerbation Asthma with acute exacerbation : Patient Instructions Indication: Asthma with acute exacerbation BMI 30.0-30.9,adult : How to access health information online Indication: BMI 30.0-30.9,adult BMI 30.0-30.9,adult : How to access health information online - Detail Indication: BMI 30.0-30.9,adult BMI 30.0-30.9,adult : Patient Instructions Indication: BMI 30.0-30.9,adult Epigastric pain : Patient Instructions Indication: Epigastric pain Chest pain : How to access health information online Indication: Chest pain Chest pain : How to access health information online - Detail Indication: Chest pain Chest pain : Patient Instructions Indication: Chest pain Other hyperlipidemia : How to access health information online Indication: Other hyperlipidemia Other hyperlipidemia : How to access health information online - Detail Indication: Other hyperlipidemia Other hyperlipidemia : Patient Instructions Indication: Other hyperlipidemia Depression : How to access health information online Indication: Depression Depression : How to access health information online - Detail Indication: Depression Depression : Patient Instructions Indication: Depression Acute sinusitis : How to access health information online Indication: Acute sinusitis Acute sinusitis : How to access health information online - Detail Indication: Acute sinusitis Acute sinusitis : Patient Instructions Indication: Acute sinusitis Hypertension, accelerated : How to access health information online Indication: Hypertension, accelerated Hypertension, accelerated : How to access health information online - Detail Indication: Hypertension, accelerated Hypertension, accelerated : Patient Instructions Indication: Hypertension, accelerated Hypertension, accelerated : How to access health information online Indication: Hypertension, accelerated Hypertension, accelerated : How to access health information online - Detail Indication: Hypertension, accelerated Hypertension, accelerated : Patient Instructions Indication: Hypertension, accelerated Other hyperlipidemia : How to access health information online Indication: Other hyperlipidemia Other hyperlipidemia : How to access health information online - Detail Indication: Other hyperlipidemia Other hyperlipidemia : Patient Instructions Indication: Other hyperlipidemia Skin tag : How to access health information online Indication: Skin tag Skin tag : How to access health information online - Detail Indication: Skin tag Skin tag : Patient Instructions Indication: Skin tag Low back pain potentially associated with radiculopathy : How to access health information online Indication: Low back pain potentially associated with radiculopathy Low back pain potentially associated with radiculopathy : How to access health information online - Detail Indication: Low back pain potentially associated with radiculopathy Low back pain potentially associated with radiculopathy : Patient Instructions Indication: Low back pain potentially associated with radiculopathy Low Back Pain (Renamed from LBP (low back pain)) : Patient Instructions Indication: Low Back Pain (Renamed from LBP (low back pain)) Dysuria : Patient Instructions Indication: Dysuria Anxiety : Patient Instructions Indication: Anxiety GENERAL SYMPTOMS, OTHER MALAISE AND FATIGUE : Patient Instructions Indication: GENERAL SYMPTOMS, OTHER MALAISE AND FATIGUE Abdominal pain, unspecified abdominal location : Patient Instructions Indication: Abdominal pain, unspecified abdominal location scfreening : Patient Instructions Indication: scfreening Depression : Patient Instructions Indication: Depression Epigastric pain : Patient Instructions Indication: Epigastric pain Epigastric pain : Patient Instructions Indication: Epigastric pain Encounters Review On: 30-Jan-2018 10:52 [facility] Visit On: 19-Jul-2017 11:11 Encounter Reason: Cough - Management changes made at the last visit include adding medication. Symptoms include cough, dyspnea and wheezing, while symptoms do not include chills or fever. The cough is described as barky End: 19-Jul-2017 12:48 and moist. Cough onset was sudden 10 day(s) ago. Symptoms are described as worsening. Note for Cough: Symptoms started about 17 days ago with cough, chills, nasal drainage-clear, states she feels like she had a fever, facial pressure, wheezing, SOB, chest tightness. ??No headaches, ??pressure or pain in ears, CP. Went to urgent care 4 days ago- was put on zpack, prednisone, and has inhaler at home-n othing working and states feels like getting worse.on nasocort, inhaler, antibiotic, prednisoneOld inhaler helped more vs asthmanexEncounter Diagnosis: Cough, Nonsmoker, BMI 30.0-30.9,adult, Bronchitis [facility] Office Visit On: 12-Jul-2017 10:37 Encounter Reason: Cough - Symptoms include cough, dyspnea and wheezing, while symptoms do not include chills or fever. The cough is described as barky and moist. Cough onset was sudden 10 day(s) ago. Symptoms are describ End: 12-Jul-2017 11:33 ed as worsening. Associated symptoms include eye itching and headache (and sinus pain). Note for Cough: Symptoms started about 10 days ago with cough, chills, nasal drainage-clear, states she feels li ke she had a fever, facial pressure, wheezing, SOB, chest tightness. ??No headaches, ??pressure or pain in ears, CP. Went to urgent care 4 days ago- was put on zpack, prednisone, and has inhaler at home -nothing working and states feels like getting worse.on nasocort, inhaler, antibiotic, prednisoneEncounter Diagnosis: Cough, BMI 30.0-30.9,adult, Nonsmoker, Wheezing, Bronchitis [facility] Office Visit On: 11-Jul-2017 14:24 Encounter Reason: Cough - Symptoms include cough, dyspnea, wheezing, runny nose and stuffy nose, while symptoms do not include chills or fever. The cough is described as barky and moist. Cough onset was sudden 10 day(s) End: 11-Jul-2017 15:19 ago. Symptoms are described as worsening. Associated symptoms include eye itching and headache (and sinus pain). Note for Cough: Symptoms started about 10 days ago with cough, chills, nasal drainage-c lear, states she feels like she had a fever, facial pressure, wheezing, SOB, chest tightness. No headaches, pressure or pain in ears, CP. Went to urgent care 4 days ago- was put on zpack, prednisone, and has inhaler at home-nothing working and states feels like getting worse.Encounter Diagnosis: Nonsmoker, BMI 30.0-30.9,adult, Wheezing, Shortness of breath, Abnormal lung sounds, Cough, Reactive airway disease [facility] Office Visit On: 13-Mar-2017 14:37 Encounter Reason: Follow up acute care visit - The medical issues the patient is following up for include URI., [ADDITIONAL REASON] Follow up tests - Diagnostic tests include overnight pulse ox (6 min. walk assessment) and PFTS. End: 13-Mar-2017 15:12 Encounter Diagnosis: Shortness of breath on exertion, Nonsmoker, Reactive airway disease, Hypersomnia [facility] Annotation/Addendum On: 07-Mar-2017 12:59 Encounter Reason: Nurse procedure visitEncounter Diagnosis: Asthma with acute exacerbation, Reactive airway disease End: 07-Mar-2017 14:54 [facility] Annotation/Addendum On: 24-Feb-2017 15:36 Encounter Diagnosis: Hypersomnia, Reactive airway disease End: 24-Feb-2017 15:39 [facility] Annotation/Addendum On: 20-Feb-2017 9:39 Encounter Diagnosis: Asthma, mild intermittent End: 20-Feb-2017 9:41 [facility] Office Visit On: 15-Feb-2017 10:24 Encounter Reason: Asthma - Note for Asthma : Here to clarify asthma vs reactive airway wtih URI. But nightly has whistling sound. Has ongoing SOB with exertion. Has had stress test and cath.Had testing for novelty lui End: 15-Feb-2017 12:11 dy on Monday and started coughing used inhalerEncounter Diagnosis: Nonsmoker, BMI 29.0-29.9,adult, Asthma with acute exacerbation, Shortness of breath on exertion [facility] Office Visit On: 25-May-2016 14:36 Encounter Reason: Follow up tests - Date: (05/19/16 abdomen).Encounter Diagnosis: Nonsmoker, BMI 30.0-30.9,adult, Fatty liver, Gall stones End: 25-May-2016 15:14 [facility] Office Visit On: 17-May-2016 9:53 Encounter Reason: Follow up for chronic medical issues - The patient does not feel well (getting epigastric and shoulder pains with vomiting), has good energy level and is sleeping poorly. Patient has been compliant with End: 17-May-2016 11:56 instructions. Current medication use: compliant with dosing regimen and not considered effective by patient. Patient sleeps 4 hours per night. Impact of disease: emotional impact-moderate. Nutrition: b alanced diet, supplemental vitamins and low salt diet. The medical issues the patient is following up for include All identified problems below, asthma, depression, high cholesterol, osteoporosis/osteopenia and other (vertigo-inner ear). weight :., [ADDITIONAL REASON] Chest Pain - Symptoms include chest pain. The pain is located in the epigastrium. The pain radiates to the back. The patient describes the pain as sharp. The symptoms occur constant ly. Note for Chest pain: At 2 im am 2 weeks ago terrible chest pain midsternal extreme like driving a nail, vomited than felt better. Encounter Diagnosis: BMI 30.0-30.9,adult, Nonsmoker, Chest pain, Vertigo, benign positional, Epigastric pain (789.06), Urgency of micturition [facility] Office Visit On: 03-Dec-2015 11:01 Encounter Reason: Follow up acute care visitEncounter Diagnosis: Other hyperlipidemia, Depression, Fatty liver End: 03-Dec-2015 16:07 [facility] Office Visit On: 03-Nov-2015 11:08 Encounter Reason: Follow up tests - Diagnostic tests include other (labs). Date: (10.24.15). There is no family history of breast cancer, cardiovascular disease, cystic fibrosis, Down's syndrome, mental retardation or myoc End: 03-Nov-2015 22:38 ardial infarction before age 55. Past medical history includes asthma, emotional problems (depression) and other (CHO)., [ADDITIONAL REASON] Follow up for chronic medical issues - The patient feels well with no complaints , has good energy level and is sleeping well. Patient has been compliant with instructions. Current medication use: compliant with dosing regimen and not considered effective by patient. Patient sleeps 6 hours per night. Nutrition: balanced diet, supplemental vitamins and low salt diet. The medical issues the patient is following up for include All identified problems below, asthma, depression, high c holesterol, osteoporosis/osteopenia and other (vertigo-inner ear). weight : (127). Encounter Diagnosis: Depression, Nonsmoker, BMI 30.0-30.9,adult, Hypertension, accelerated, Other hyperlipidemia, Unspecified asthma, uncomplicated, Allergic rhinitis , Seasonal affective disorder, Osteopenia (733.90), Vertigo, benign positional, diastolic dysfunction, Fatty liver, Sciatica (724.3), Low Back Pain (Renamed from LBP (low back pain)), Insomnia, Constipation [facility] Phone Encounter On: 29-Oct-2015 11:24 Encounter Diagnosis: Dysuria (788.1) End: 29-Oct-2015 11:26 [facility] Office Visit On: 02-Oct-2015 11:22 Encounter Reason: Follow up acute care visit - The patient feeling better since last seen (improved but not completely better). Patient has been compliant with instructions. Current medication use: no side effects (tired End: 02-Oct-2015 14:19 ). The medical issues the patient is following up for include asthma.Encounter Diagnosis: Asthma with acute exacerbation, Wheezing (786.07) [facility] Office Visit On: 30-Sep-2015 10:20 Encounter Reason: Cold Symptoms - Onset was 1 week(s) ago (with sore throat).Encounter Diagnosis: Acute sinusitis (461.9), Asthma with acute exacerbation End: 30-Sep-2015 14:49 [facility] Phone Encounter On: 16-Sep-2015 15:30 [facility] End: 16-Sep-2015 15:33 Office Visit On: 03-Jul-2015 13:32 Encounter Reason: Follow up for chronic medical issues - The patient feels well with minor complaints (losartan causing her dizziness and fatigue so has been taking it at hs), has good energy level and is sleeping well ( End: 05-Jul-2015 20:27 not always but most of the time). Patient has been compliant with instructions. Current medication use: experiencing side effects (dizziness and fatigue from losartan) and compliant with dosing regimen. Patient sleeps 7 hours per night. Nutrition: balanced diet, supplemental vitamins and low salt diet. The medical issues the patient is following up for include All identified problems below, asthma, de pression, high cholesterol, osteoporosis/osteopenia and other (vertigo-inner ear). weight : (127). Note for Follow up for chronic medical issues: she tolerates much better if takes losarten at night a nd bp is good - and mood is ok- her back is doing better and sheis doing more exercise ===saw Dr Cho and these have helped- breathing pretty good -will get vertigo with weather change but ok now, [ADDITIONAL REASON] Follow up, Laboratory Test Results - Date: (06/16/15). Encounter Diagnosis: Hypertension, accelerated, Anxiety, Dysuria (788.1), Other hyperlipidemia, Depression [facility] Office Visit On: 24-Feb-2015 11:14 Encounter Reason: Follow up Hypertension - The patient has experienced follow up hypertension for weeks. The symptoms have been associated with anxiety and family history of hypertension, while the symptoms have not been End: 24-Feb-2015 21:49 associated with excessive caffeine intake, obesity, use of nasal decongestants or use of steroids. blood pressure range : (reading high at home: 120's/80's are the average). Note for Follow up Hyperte nsion: she is doing aquaaerobics at [facility] in [facility]- and thinks this is helping and she feels good- she is tolerating meds acceptable maybe little lightheaded- and so discussed 1/2 bid if wishes -- mood is good and likes lexapro and just feels goodEncounter Diagnosis: Hypertension, accelerated, Depression, Hyperlipemia, Encounter for screening mammogram for breast cancer (Renamed from Encounter for screening mammogram f or malignant neoplasm of breast), Osteopenia (733.90) [facility] Office Visit On: 20-Jan-2015 10:33 Encounter Reason: Follow up for chronic medical issues - The patient feels well with no complaints, has good energy level and is sleeping well. Patient has been compliant with instructions. Current medication use: no dean End: 20-Jan-2015 19:18 e effects and compliant with dosing regimen. Patient sleeps 8 hours per night. Nutrition: balanced diet, supplemental vitamins and low salt diet. The medical issues the patient is following up for inclu de All identified problems below, asthma, depression, high cholesterol, osteoporosis/osteopenia and other (vertigo-inner ear). weight : (127). Note for Follow up for chronic medical issues: she starte d taking lyrica and has helped some but seeingmarkerian end of month-skin tag healed- getting steroid shots in ack month ago- she noteating good and not walking due to back and bp is up- feelingmore hea dache and feels warm- no cp sob - no leg swelling- she having alot of anxiety off the anxiety meds so wants to go back on -, [ADDITIONAL REASON] Follow up, Laboratory Test Results - Date: (01/08/15). Encounter Diagnosis: Hyperlipemia, Need for prophylactic vaccination and inoculation against influenza (Renamed from Need for immunization against influenza), Hypertension, accelerated, Anxiety, Vertigo, benign positional [facility] Office Visit On: 01-Dec-2014 14:15 Encounter Reason: Skin Tag Removal - several skin tags on neck to be removed, [ADDITIONAL REASON] Back Pain - Note for Back pain: she did pt then did pain managment and not bet End: 01-Dec-2014 22:11 ter she thiks this hy bp up also needs to get rid of caffeine but willing to get surgical opinion- Encounter Diagnosis: Skin Tag, Irritated (701.9), LOW BACK PAIN WITH RADICULOPATHY (724.4), Elevated Blood Pressure without diagnosis of Hypertension (796.2), Hyperlipidemia, Unspecified (272.4), Osteopenia (733.90) [facility] Office Visit On: 23-May-2014 7:29 Encounter Reason: Follow up acute care visit - The patient feeling better since last seen (Feeling better after the physical therapy, completed 6 weeks, but the back is still pretty painful. The pain in the leg is much b End: 23-May-2014 8:07 jose miguel. Still having to take the pain meds. ) and improving. Patient has been compliant with instructions. Current medication use: no side effects, compliant with dosing regimen and considered effective by patient (has to take 2 at a time, takes before bed). The medical issues the patient is following up for include other (back pain). Note for Follow up acute care visit: taking aleve may or may not h elp - had therapy and had some improvemnt not having the hip pain like was - still low back and depending on activiity sometimes right leg pain- right leg feels heavy not weak or numb- still needing pain meds at [facility] Diagnosis: LOW BACK PAIN WITH RADICULOPATHY (724.4) [facility] Office Visit On: 04-Apr-2014 12:26 Encounter Reason: Falls, Geriatric - Symptoms include recent fall. The patient describes the symptoms as moderate in severity and worsening. Associated symptoms include pain from the injury. The patient is not currently End: 06-Apr-2014 21:49 being treated for this problem. Note for Falls: Pt was in the garage with a wheel barrel and it tipped and then she fell on her tailbone. Now buttocks and groin hurting on right, radiates down right l eg.- this was mechanical fall- going all the way down right - both buttocks hurt- worse with laying- - not as bad standing and walking- she has been doing therapy exercises at home for sciatic- no weak or numb in leg - takes aleve not much help Encounter Diagnosis: Depression (311.), Inner ear, Low Back Pain (Renamed from LBP (low back pain)), LOW BACK PAIN WITH RADICULOPATHY (724.4) [facility] Office Visit On: 09-Jan-2014 11:09 Encounter Reason: UTI - The urinary symptoms are described as painful urination, frequency and burning. The symptoms have been occurring for 2 days and have been constant. The urine is described as clear. The symptoms h End: 09-Jan-2014 12:07 ave been associated with abdominal pain and low back pain. There is a medical history of recurrent urinary tract infections, while there is no history of diabetes or kidney stones. The patient has been using pyridium/uristat, while the patient denies the use of oral contraceptives, antibiotics or hormone replacement therapy.Encounter Diagnosis: Dysuria (788.1), Cystitis,Acute (595.0) [facility] Office Visit On: 05-Jul-2013 7:57 Encounter Reason: Follow up Meds - The patient feels well with no complaints (lexapro is helping a lot with her anxiety. Still has it off and on but much improved.), has good energy level and is sleeping well. Patient mora End: 07-Jul-2013 22:19 s been compliant with instructions. Current medication use: no side effects and compliant with dosing regimen. Patient sleeps 6 hours per night. Note for Follow up Meds: she feels like better but stil l could be improved- she is going to reconsider going back to counseling she feels like still grieveing issues and stress at workEncounter Diagnosis: Anxiety, Depression (311.), Osteopenia (733.90), Hyperlipidemia, Unspecified (272.4) [facility] Office Visit On: 17-May-2013 7:06 Encounter Reason: Follow up Meds - The patient feels well with minor complaints (stomach still bothers her a little but the ache is gone in her throat. Had colonoscopy yesterday.), has good energy level and is sleeping w End: 17-May-2013 7:39 ell. Patient has been compliant with instructions. Current medication use: no side effects and compliant with dosing regimen. Patient sleeps 6 hours per night. Note for Follow up Meds: stomach is bett er in general and chol up off zetia- hoarseness better - mood still issue alot of anger and difficutly with anxiety and feels like weather and seasonplaying role- she wants to try diet and ex for cholEncounter Diagnosis: GENERAL SYMPTOMS, OTHER MALAISE AND FATIGUE (780.79), Hyperlipidemia, Unspecified (272.4), Depression (311.), Anxiety, Seasonal affective disorder, Osteopenia (733.90) [facility] Office Visit On: 02-Apr-2013 8:15 Encounter Reason: Follow up Meds - The patient feels well with minor complaints (pt thinks the zetia is causing her gastric issues, dry mouth, muscle pain and hoarseness. Pt seen Tala and he did a esoophagram and cooki End: 02-Apr-2013 23:08 e swallow which came out normal. ), has good energy level and is sleeping well. Patient has been compliant with instructions. Current medication use: experiencing side effects and compliant with dosing regimen. Patient sleeps 6 hours per night. Note for Follow up Meds: she saw Johnathan and he scoped her -no find anything and suggested speech therapy- her laryngitis is better- still having abd bloating and wonders Encounter Diagnosis: Abdominal Pain,Unspecified Site (789.00), Hyperlipidemia, Unspecified (272.4), Laryngitis (464.00), Osteopenia (733.90) [facility] Office Visit On: 07-Dec-2012 9:56 Encounter Reason: Follow up Meds - The patient feels well with minor complaints (still taking wellbutrin, off lexapro- doesnt want to go back on it either), has good energy level and is sleeping poorly. Patient has been End: 07-Dec-2012 10:38 compliant with instructions. Current medication use: no side effects, compliant with dosing regimen and considered effective by patient. Patient sleeps 6 hours per night. Note for Follow up Meds: Pt a lso needs an order for mammogram. doing fine off lexapro and doesnt want to go back on but struggling with laryngitis intermittently and her ashtma- saw jalil- when her allergies flare gets her vertigo so wants antivertEncounter Diagnosis: Allergic Rhinitis(477.9), Laryngitis (464.00), Asthma, unspecified type, without mention of status asthmaticus (493.90), Vertigo (780.4), Depression (311.), scfreening [facility] Office Visit On: 18-Sep-2012 11:44 Encounter Reason: Follow up Meds - The patient feels well with minor complaints (no better no worse on the increase of wellbutrin- weaned off the lexapro), has decreased energy level (maybe a little better) and is sleepi End: 18-Sep-2012 23:31 ng poorly. Patient has been compliant with instructions. Current medication use: no side effects, compliant with dosing regimen and considered effective by patient. Patient sleeps 6 hours per night. Not e for Follow up Meds: she has done some counseling- just finished up - did some grief counselor with hospice- and feel this helped- but not sleeping well- cant stay asleep- mood thinks would be better if not tired in the am- her epigastric pain gone - she wants to try to get off lexapro, [ADDITIONAL REASON] Follow up, Laboratory Test Results - Date: (08/16/12). Encounter Diagnosis: Depression (311.), Hyperlipidemia, Unspecified (272.4), Epigastric pain (789.06) [facility] Office Visit On: 07-Aug-2012 9:27 Encounter Reason: Follow up Meds - The patient feels well with minor complaints (epigastric pain has resolved and depression has improved but not resolved), has decreased energy level and is sleeping poorly. Patient has End: 07-Aug-2012 10:13 been compliant with instructions. Current medication use: no side effects, compliant with dosing regimen and considered effective by patient. Patient sleeps 6 hours per night. Note for Follow up Meds: still waking up in middle of night- - not alot more motivation- less feelings of blue- she is doing counseling with hospice and really helping feels like could go up on buproprion-- no major side effects from medEncounter Diagnosis: Depression (311.), Epigastric pain (789.06), Hyperlipidemia, Unspecified (272.4), Osteopenia (733.90) [facility] Office Visit On: 15-Jun-2012 11:15 Encounter Reason: Abdominal pain - The onset of the pain has been gradual and has been occurring in a persistent pattern for 4 months. The course has been increasing. The pain is described as burning and dull ache. The p End: 17-Jun-2012 16:20 ain is described as being located in the epigastrium. The pain radiates to the periumbilical area. The symptoms are aggravated by coughing (and caffeine and ibuprofen). The symptoms are relieved by anta cids. The symptoms have been associated with heartburn and nausea, while the symptoms have not been associated with bloating, bloody stools, chest pain, constipation, dark urine, diarrhea, dysuria, fev er or vomiting. Note for Pain: a month ago - had cancer- her kids are around- son is supportive- he was in hospice - feels down and doing cousneling- taking lexapro- no anxiety- mora s to avoid coffee and whole grains- sometimes food comes back up- food doesnt always irritate it though- maalox hleps=not tkaing the nexium- no blood in stool or relation to exertion Encounter Diagnosis: Epigastric pain (789.06), Depression (311.) [facility] Office Visit On: 02-May-2012 17:26 Encounter Diagnosis: Well Woman Exam (V72.31) (Pap,Mammo,Routine Female) (Renamed from Well Woman V72.31 (p,m)) End: 03-May-2012 19:24 [facility] Office Visit On: 30-Nov-2011 11:03 Encounter Reason: Hip Problem - Symptoms include hip problem. The symptoms are located in the left hip. The patient describes the hip problem as difficulty bearing weight and difficulty ambulating. Onset was gradual. The End: 30-Nov-2011 12:16 symptoms occur constantly. The patient describes symptoms as moderate in severity and worsening. Symptoms are exacerbated by weight bearing, walking, sitting and lying on the affected side. Associated symptoms do not include numbness in the leg. Encounter Diagnosis: Sciatica (724.3) [facility] Annotation/Addendum On: 11-Nov-2011 7:44 Encounter Diagnosis: Osteopenia (733.90) End: 11-Nov-2011 12:32 [facility] Office Visit On: 24-Aug-2011 10:24 Encounter Reason: Well Women Exam - The patient feels well with no complaints, has good energy level and is sleeping well. Pap smear: date of last pap: (08/16/2010). Contraceptive history: The patient is not using any meth End: 25-Aug-2011 22:03 od of contraception at this time. Patient exercises a weekly. The patient's libido is absent. The patient reports that she performs monthly self breast exam. Calcium intake includes 1200 mg with Vit D d aily supplement. Previous evaluations: cervical treatment (unspecified) (cauterized something in vaginal area many many years ago but dont remember the name of procedure). The patient denies the use of oral contraceptives or hormone replacement therapy. Menstruation: Last menstrual period date: (post-ofelia).Encounter Diagnosis: Well Woman Exam (V72.31) (Pap,Mammo,Routine Female) (Renamed from Well Woman V72.31 (p,m)), Hyperlipidemia, Unspecified (272.4), Depression (311.), Osteopenia (733.90), Atypical Nevus(238.2) [facility] Office Visit On: 01-Jul-2011 7:24 Encounter Reason: Follow up acute care visit - The patient feeling better since last seen. Patient has been compliant with instructions. Current medication use: experiencing side effects (bitter taste in mouth) and compl End: 01-Jul-2011 13:35 iant with dosing regimen. Patient sleeps 7 hours per night. Impact of disease: no overall impact. Nutrition: balanced diet. The medical issues the patient is following up for include UTI (beginning stages).Encounter Diagnosis: Epigastric pain (789.06), INFECTION, BACTERIAL D/T HELICOBACTER PYLORI (041.86), Dysuria (788.1) [facility] Phone Encounter On: 10-Jun-2011 15:15 [facility] End: 10-Jun-2011 15:17 Office Visit On: 09-Jun-2011 8:44 Encounter Reason: Follow up tests - Diagnostic tests include other (labs). Date: (06/07/11). Follow up visit with no current symptoms. There is no family history of breast cancer, cardiovascular disease, cystic fibrosis, End: 09-Jun-2011 14:24 Down's syndrome, mental retardation or myocardial infarction before age 55. Past medical history includes asthma, emotional problems (depression) and other (CHO).Encounter Diagnosis: INFECTION, BACTERIAL D/T HELICOBACTER PYLORI (041.86), Epigastric pain (789.06) [facility] Office Visit On: 07-Jun-2011 10:35 Encounter Reason: Abdominal pain - The pain has been occurring for 1 week (bad for the last week or so and nauseating and then just goes away but kind of on and off over all for the last few months just been bad these last few weeks or week or so). End: 07-Jun-2011 11:10 Encounter Diagnosis: Epigastric pain (789.06), PREVENTION OF TETANUS (V03.7) [facility] Office Visit On: 30-Dec-2010 14:00 [facility] End: 30-Dec-2010 22:23 Office Visit On: 16-Aug-2010 10:42 Encounter Reason: Well Women Exam - The patient feels well with no complaints, has good energy level and is sleeping well. Pap smear: date of last pap: (08/11/09). Contraceptive history: The patient is not using any metho End: 16-Aug-2010 11:24 d of contraception at this time. Patient exercises every other day. The patient's libido is absent. The patient reports that she performs monthly self breast exam. Calcium intake includes 1200 mg with V it D daily supplement. Previous evaluations: cervical treatment (unspecified) (cauterized something in vaginal area many many years ago but dont remember the name of procedure). The patient denies the u se of oral contraceptives or hormone replacement therapy. Menstruation: Last menstrual period date: (post-ofelia)., [ADDITIONAL REASON] Follow up, Laboratory Test Results - Date: (07/23/10). Note for Follow up, Damien lai Test Results: chol went up and ist due tolack of exercise so she will get back on bandwagn Encounter Diagnosis: Well Woman Exam (V72.31) (Pap,Mammo,Routine Female) (Renamed from Well Woman V72.31 (p,m)), Hyperlipidemia, Unspecified (272.4), Osteopenia (733.90) [facility] Office Visit On: 16-Feb-2010 11:10 Encounter Reason: Follow up acute care visit - The patient does not feel well, has decreased energy level and worsening. Patient has been compliant with instructions. Current medication use: no side effects, compliant wi End: 16-Feb-2010 11:35 th dosing regimen and not considered effective by patient. Patient sleeps 4 hours per night. Nutrition: balanced diet. The medical issues the patient is following up for include All identified problems below and URI.Encounter Diagnosis: CANDIDIASIS, MOUTH (THRUSH) (112.0), GENERAL SYMPTOMS, OTHER MALAISE AND FATIGUE (780.79) [facility] Office Visit On: 02-Feb-2010 8:02 Encounter Reason: Cold Symptoms - Symptoms include sneezing, nasal congestion, runny nose, postnasal drainage, scratchy throat, sore throat, hoarseness, productive cough (clear), facial pressure, facial pain and headache End: 02-Feb-2010 9:39 . Onset was sudden 5 day(s) ago. The symptoms occur constantly. Note for Cold Symptoms: no fever no body aches- using advair daily- and proventilEncounter Diagnosis: Upper respiratory infection (465.9), Bronchitis,Acute (466.0) [facility] Historical Summary On: 18-Jan-2010 17:10 Encounter Diagnosis: Abdominal Pain,Unspecified Site (789.00) End: 18-Jan-2010 17:17 [facility] Office Visit On: 11-Jan-2010 11:21 Encounter Reason: Follow up acute care visit - The patient does not feel well ,has decreased energy level and worsening. Patient has been compliant with instructions. Current medication use: no side effects ,compliant wi End: 11-Jan-2010 12:16 th dosing regimen and considered effective by patient. Nutrition: balanced diet. The medical issues the patient is following up for include All identified problems below and UTI. Encounter Diagnosis: Dysuria (788.1), Abdominal Pain,Unspecified Site (789.00) [facility] Office Visit On: 22-Dec-2009 11:32 Encounter Reason: Dysuria - The onset of the dysuria has been sudden and has been occurring in a persistent pattern for 1 days. The course has been increasing. The dysuria is described as moderate. The quality of the nazario End: 22-Dec-2009 12:04 n is described as a burning sensation The dysuria radiates to the left flank and right flank. The symptoms have been associated with flank pain ,frequency ,hematuria and nocturia, while the symptoms hav e not been associated with chills ,fever ,history of passing a stone or incontinence. Encounter Diagnosis: Dysuria (788.1) [facility] Office Visit On: 16-Nov-2009 15:31 Encounter Reason: Follow up for chronic medical issues - The patient feels well with no complaints ,has good energy level and is sleeping well. Patient has been compliant with instructions. Current medication use: no dean End: 16-Nov-2009 16:02 e effects and compliant with dosing regimen. Patient sleeps 8 hours per night. Nutrition: balanced diet ,supplemental vitamins and low salt diet. The medical issues the patient is following up for inclu de All identified problems below ,asthma ,depression ,high cholesterol ,osteoporosis/osteopenia and other (vertigo-inner ear). weight : (127). Note for Follow up for chronic medical issues: not sob - not isues- no back issues- weight still coming down and trying- and mood is good- - bp is great- not using advair routinely and doesnt feel needs to, [ADDITIONAL REASON] Follow up, Laboratory Test Results - Date: (10/05/09). Encounter Diagnosis: Hyperlipidemia, Unspecified (272.4), Depression (311.), Osteopenia (733.90), LOW BACK PAIN WITH RADICULOPATHY (724.4), Irritable bowel syndrome (564.1), Asthma, unspecified type, without mention of status asthmaticus (493.90) [facility] Historical Summary On: 10-Nov-2009 17:23 [facility] End: 10-Nov-2009 17:24 Office Visit On: 11-Aug-2009 10:28 Encounter Reason: Well Women Exam - The patient feels well with no complaints ,has good energy level and is sleeping well. Pap smear: date of last pap: (over 4 years ago). Contraceptive history: The patient is not using End: 11-Aug-2009 11:12 any method of contraception at this time. Patient exercises every other day. The patient's libido is absent. The patient reports that she performs monthly self breast exam. Calcium intake includes 1200 mg with Vit D daily supplement. Previous evaluations: cervical treatment (unspecified) (cauterized something in vaginal area many many years ago but dont remember the name of procedure). The patient den ies the use of oral contraceptives or hormone replacement therapy. Encounter Diagnosis: Well Woman Exam (V72.31) (Pap,Mammo,Routine Female) (Renamed from Well Woman V72.31 (p,m)), Hyperlipidemia, Unspecified (272.4), Osteopenia (733.90) [facility] Office Visit On: 17-Mar-2009 10:16 Encounter Reason: Knee Pain - The onset of the knee pain has been acute and has been occurring in a persistent pattern for 2 weeks. The course has been increasing. The knee pain is severe. The knee pain is characterized End: 19-Mar-2009 22:20 as a dull aching. The knee pain is described as being located in the anterior knee and entire leg (left hip down through knee (says that the pain is the worse in the knee/anterior patella)). The knee pa in is aggravated by physical activity. The knee pain is relieved by medications (Advil). The symptoms have been associated with painful ROM. There were no previous diagnostic tests. There were no previo us evaluations. Previous physical therapy includes stretching exercises and active range of motion exercises. There has been no previous surgeries. Assistive devices include bracing. Previous medication s include Ibuprofen. Note for Knee Pain: leg hurts all the time - hurts when sitting - not worse with laying on - steps hurts hip - knee hurts inferior to patella- - she doesnt want pt- taking 4-6 adv il a day- leg is deep and achey and leg feels heavy no weakness- not losing bowel or bladder controlEncounter Diagnosis: LOW BACK PAIN WITH RADICULOPATHY (724.4) [facility] Office Visit On: 23-Feb-2009 15:42 Encounter Reason: Follow up for chronic medical issues - The patient feels well with no complaints ,has good energy level and is sleeping well. Patient has been compliant with instructions. Current medication use: no dean End: 23-Feb-2009 16:42 e effects and compliant with dosing regimen. Patient sleeps 8 hours per night. Nutrition: balanced diet ,supplemental vitamins and low salt diet. The medical issues the patient is following up for inclu de All identified problems below ,asthma ,depression ,high cholesterol ,osteoporosis/osteopenia and other (vertigo-inner ear). blood pressure range : and weight :. Note for Follow up for chronic medica l issues: she is doing well- really working hard on diet and exercise and has lost 30 pounds and feels really good- her breathing issues are better significantly- and her bp is good- bursitis is improved with stretching exercises, [ADDITIONAL REASON] Follow up, Laboratory Test Results - Date: (01/08/09). Encounter Diagnosis: Hyperlipidemia, Unspecified (272.4), Depression (311.), Inner ear, Osteopenia (733.90), Skin Tag, Irritated (701.9), Asthma, unspecified type, without mention of status asthmaticus (493.90) [facility] Office Visit On: 22-Sep-2008 17:03 Encounter Reason: Follow up for chronic medical issues - The patient feels well with no complaints ,has good energy level and is sleeping well. Patient has been compliant with instructions. Current medication use: no dean End: 22-Sep-2008 21:31 e effects and compliant with dosing regimen. Patient sleeps 8 hours per night. Nutrition: balanced diet ,supplemental vitamins and low salt diet. The medical issues the patient is following up for inclu de All identified problems below ,asthma ,depression ,high cholesterol ,osteoporosis/osteopenia and other (ibs, fatigue, allergic rhinitis). blood pressure range : (110's/70's) and weight :. Note for Chelo brown up for chronic medical issues: she did some bps in am- and were good- but concerned still -so will do variable times during the day- and send in to- flovent doing well and no cough- less sob with exertion- really has helped-- and mood is good and her uti sx are gone- has been really working on weight loss and has really helped her mood-- she says she feels the best she has in along time- also c omplains of left hip pain- hurts to sleep on or walk- no trauma, [ADDITIONAL REASON] Follow up, Laboratory Test Results - Date: (09/12/08). Encounter Diagnosis: Hyperlipidemia, Unspecified (272.4), trochanteric bursitis, Osteopenia (733.90), Asthma, unspecified type, without mention of status asthmaticus (493.90), diastolic dysfunction, Toe pain (729.5), GENERAL SYMPTOMS, OTHER MALAISE AND FATIGUE (780.79), Urticaria (708.9), hypoxia, partial tear of achilles/ gastroc- [facility] Office Visit On: 17-Sep-2008 8:41 Encounter Reason: Dysuria - The onset of the dysuria has been acute and has been occurring in a persistent pattern for 6 hours. The course has been constant. The dysuria is described as moderate. The quality of the pain End: 17-Sep-2008 9:14 is described as a burning sensation The dysuria is described as being located in the vaginal area. The dysuria does not radiate. The symptoms have been associated with frequency ,hematuria and urgency. Note for Dysuria: urinating after intercourse- and wiping front to back- not wearing pads or soaking in tub- weight down 15 pounds and tryingEncounter Diagnosis: Dysuria (788.1) [facility] Phone Encounter On: 18-Jun-2008 8:44 Encounter Diagnosis: Unspecified Diagnosis End: 18-Jun-2008 8:47 [facility] Office Visit On: 17-Jun-2008 15:21 Encounter Reason: Follow up, Diagnostic Procedure Results - Diagnostic tests include ECHO. Date: (05/06/08). Note for Follow up, Diagnostic Procedure Results: she decided to stay on lexapro because she really was short End: 17-Jun-2008 15:46 fused on lower dose- and adv didnt agree with her made her sick- so went back to flovent-- she is instructed to take daily Encounter Diagnosis: Asthma, unspecified type, without mention of status asthmaticus (493.90), diastolic dysfunction, Hyperlipidemia, Unspecified (272.4), Osteopenia (733.90), hypoxia [facility] Office Visit On: 19-May-2008 16:34 Encounter Diagnosis: hypoxia End: 19-May-2008 17:24 [facility] Office Visit On: 28-Apr-2008 17:21 Encounter Reason: Follow up, Diagnostic Procedure Results - Diagnostic tests include other (sleep study- on paper). Date: (04/24/08). Note for Follow up, Diagnostic Procedure Results: hives 95 % gone- occ still on feet-- End: 28-Apr-2008 21:15 didnt finish the pred because hurt her esophagus-it was gone with some tagamet- she saw Sibilia- and he did chest xray- he agreed with flovent- - and he did pfts-- father from asthma-- she feels good moodwise and wants to wean her lexapro Encounter Diagnosis: Hyperlipidemia, Unspecified (272.4), Depression (311.), Asthma, unspecified type, without mention of status asthmaticus (493.90), hypoxia [facility] Office Visit On: 08-Apr-2008 15:11 Encounter Diagnosis: Urticaria (708.9) End: 08-Apr-2008 22:04 [facility] Office Visit On: 25-Mar-2008 13:10 Encounter Reason: Follow up acute care visit - The patient does not feel well (still dysuria and frequency) and feels the same. Patient has been compliant with instructions. Current medication use: no side effects and co End: 25-Mar-2008 13:50 mpliant with dosing regimen. The medical issues the patient is following up for include UTI. Note for Follow up acute care visit: not much caffeine-- -- no fever- some low back pain- got some better n ever went away- urinating after intercourse- no pads - not sitting in bathtub- anf wiping front to back-- breathing is not too bad-- she saw Jalil- and had pfts which she said was normal- and had cxr- - the inhalers have helped significantly - she is having snoring and apnea-- with daytime fatigue - the inhalers have helped a littleEncounter Diagnosis: Dysuria (788.1), GENERAL SYMPTOMS, OTHER MALAISE AND FATIGUE (780.79), Asthma, unspecified type, without mention of status asthmaticus (493.90) [facility] Office Visit On: 18-Mar-2008 7:49 Encounter Reason: Dysuria - The onset of the dysuria has been acute and has been occurring in a persistent pattern for 1 days. The course has been constant. The dysuria is described as moderate. The quality of the pain i End: 18-Mar-2008 8:05 s described as a burning sensation (pressure) The dysuria is described as being located in the vaginal area. The dysuria does not radiate. The symptoms have been associated with frequency ,nocturia ,pas t history of urinary tract infections and urgency, while the symptoms have not been associated with chills ,fever ,flank pain or hematuria. Encounter Diagnosis: Dysuria (788.1) [facility] Office Visit On: 25-Feb-2008 12:03 Encounter Reason: Follow up acute care visit - The patient feeling better since last seen. Patient has been compliant with instructions. Current medication use: no side effects and compliant with dosing regimen. Patient End: 25-Feb-2008 13:59 sleeps 7 hours per night. Nutrition: balanced diet. The medical issues the patient is following up for include other (bronchitis, asthma). Encounter Diagnosis: voice change, Asthma, unspecified type, without mention of status asthmaticus (493.90) [facility] Historical Summary On: 18-Feb-2008 16:41 [facility] End: 18-Feb-2008 16:43 Office Visit On: 18-Feb-2008 15:00 Encounter Reason: Follow up acute care visit - The patient feels the same. Patient has been compliant with instructions. Current medication use: no side effects and compliant with dosing regimen. Patient sleeps 8 hours p End: 18-Feb-2008 16:36 er night. Nutrition: balanced diet. The medical issues the patient is following up for include other (bronchitis, wheezing, cough, asthma). Encounter Diagnosis: BRONCHITIS, NOT SPECIFIED ACUTE OR CHRONIC (490.), Allergic Rhinitis(477.9), Asthma, unspecified type, without mention of status asthmaticus (493.90) [facility] Office Visit On: 06-Feb-2008 8:39 Encounter Reason: Follow up acute care visit - The patient does not feel well. Patient has been compliant with instructions. Current medication use: no side effects and compliant with dosing regimen. Patient sleeps 4 chinyere End: 06-Feb-2008 12:02 rs per night. Nutrition: balanced diet. The medical issues the patient is following up for include other (acute sinusitis, pain around eye). Encounter Diagnosis: BRONCHITIS, NOT SPECIFIED ACUTE OR CHRONIC (490.), Allergic Rhinitis(477.9), Wheezing (786.07), Cough (786.2), Asthma, unspecified type, without mention of status asthmaticus (493.90) [facility] Office Visit On: 30-Jan-2008 9:32 Encounter Reason: Facial Pain - The onset of the pain has been acute and has been occurring in a persistent pattern for 3 weeks. The course has been increasing. The pain is described as severe. Encounter Diagnosis: Acute sinusitis (461.9), End: 30-Jan-2008 11:26 Pain in or around eye (379.91) [facility] Office Visit On: 28-Feb-2007 11:56 Encounter Reason: Eye pain - The onset of the pain has been gradual and has been occurring in a persistent pattern for weeks. The course has been increasing. The pain is described as severe. Note for Eye pain: Pt also End: 01-Mar-2007 22:12 having cheek pain and pain above eye.- was on plain amoxil and didnt help-- pain is behind the eye-- no change in vision- and mora above the eye--- no temporal pain-- but pain in the right cheek and sometimes cheek feels numby - no wear contacts Encounter Diagnosis: right eye and face pain [facility] Historical Summary On: 30-Nov-2006 10:02 Encounter Diagnosis: Toe pain (729.5) End: 30-Nov-2006 10:04 [facility] Office Visit On: 30-Nov-2006 8:59 Encounter Reason: Follow up ER - Reason for hospitalization note: (went sat to er I slipped and fell off of the ladder 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 They said I sprained my right ankle really bad. I was told to follow up End: 30-Nov-2006 9:52 and I have alot of pain. They gave me Vicodin but it made me sick. I take Advil and it dulls the pain.). Hospitalization details include: fall Patient has been compliant with instructions. Current medi cation use: experiencing side effects (nausea). The patient feels well with minor complaints ,has good energy level and is sleeping poorly. Nutrition: balanced diet. Encounter Diagnosis: Toe pain (729.5) [facility] Office Visit On: 06-Sep-2006 11:45 Encounter Reason: Follow up for chronic medical issues - The patient feels well with minor complaints (shoulder pain) ,has decreased energy level and is sleeping well. Patient has been compliant with instructions. Dayami End: 07-Sep-2006 21:55 t medication use: no side effects and compliant with dosing regimen. Nutrition: balanced diet and no supplemental vitamins & iron. The medical issues the patient is following up for include All iden tified problems below ,depression ,high cholesterol ,osteoporosis/osteopenia and other (sciatica, allergic rhinitis, ibs). weight :. Note for Follow up for chronic medical issues: ankle better -- sinu s better and urine no sx--mood not great the last couple weeks-- feels more nervous about whatever- she doesnt want to change or add meds, [ADDITIONAL REASON] Follow up, Laboratory Test Results - Date: (08/14/06- on face sheet). Note for F kevin up, Laboratory Test Results: hasnt been exercising due to ankle- so get back on track , [ADDITIONAL REASON] Shoulder Pain - The onset of the shoulder pain has been gradual following no spe cific incident and has been occurring in a persistent pattern for months. The course has been gradually worsening. The shoulder pain is moderate. The shoulder pain is characterized as a dull aching (and sharp). The shoulder pain is described as being located in the right shoulder and right side of the neck. The shoulder pain is aggravated by physical activity ,overhead activity and lifting. Relieving factors include heat. Associated features include: painful ROM ,difficulty overhead activities ,difficulty with pulling and difficulty with lifting, but not muscle stiffness ,muscle swelling ,joint swel ling ,decreased ROM ,difficulty dressing oneself ,difficulty combing hairs ,difficulty hooking bra or difficulty with pushing. Note for Shoulder Pain: advil some help but urts stomach- last week painf ul to sleep on --no radicular pain or weakness- but a little numbness in 2 lat fingers- neck some pain Encounter Diagnosis: Hyperlipidemia, Unspecified (272.4), Depression (311.), right shoulder pain, partial tear of achilles/ gastroc- , Osteopenia (733.90), Irritable bowel syndrome (564.1) [facility] Office Visit On: 18-Jul-2006 16:29 Encounter Reason: Sinus pain - The onset of the pain has been gradual and has been occurring in a persistent pattern for 3 weeks. The course has been recurrent and increasing in severity. The pain is characterized as a d End: 18-Jul-2006 22:14 ull ache ,tightness ,a pressure sensation and burning (nasal). The pain is experienced any time of the day (no diurnal variation). The pain is described as being located in the frontal area. The symptom s have been associated with eye pain (pressure) and nausea, while the symptoms have not been associated with ear pain ,fever ,nasal discharge/stuffy nose ,sore throat or vomiting. Note for Sinus pain: alot of facial pressure and chills Encounter Diagnosis: partial tear of achilles/ gastroc- , Acute sinusitis (461.9), recent uti- follow up [facility] Refill Request On: 06-Jul-2006 15:42 [facility] End: 06-Jul-2006 15:44 Office Visit On: 13-Jun-2006 9:37 Encounter Reason: UTI nurse visit - for days. There has been associated frequency and dysuria. Note for UTI nurse visit: no fever or flank painEncounter Diagnosis: URINARY FREQUENCY (788.41), DYSURIA, NOS (788.1) End: 13-Jun-2006 9:54 [facility] Office Visit On: 07-Jun-2006 14:45 Encounter Reason: Leg pain - The leg pain began suddenly and has been occurring for 1 days. The symptoms are described as a burning sensation ,discomfort ,tightness ,ache and sharp, stabbing pain and are severe. The symp End: 07-Jun-2006 15:27 toms occur at rest (noticable discomfort all the time). There is involvement of the left lower extremity and buttocks. Precipitating factors include exertion (exercising). There are no relieving factors . Note for Leg pain: felt a pop and severe pain in calf- cant walk now - no bruiseEncounter Diagnosis: partial tear of achilles/ gastroc- [facility] Historical Summary On: 03-Feb-2006 14:31 [facility] End: 03-Feb-2006 14:32 Historical Summary On: 02-Feb-2006 11:47 [facility] End: 02-Feb-2006 11:52 Office Visit On: 29-Dec-2005 10:35 Encounter Reason: Back pain - The onset of the pain has been gradual and has been occurring in a persistent pattern for months (2 months). The course has been increasing. The pain is characterized as a dull ache and burn End: 29-Dec-2005 22:40 ing. The pain is described as being located in the lower back. The pain radiates to the right thigh. The pain is precipitated by heavy weight lifting (pt thinks may be d/t lifting heavy weight, though s he cannot actually pinpoint any one incident.). The symptoms are aggravated by exertion. The symptoms are relieved by anti-inflammatory use (takes Aleve prn). , [ADDITIONAL REASON] Paresthesia - The onset of the paresthesia has been gradual and has been occurring in an intermittent pattern for 2 months. The course has been recurrent. The paresthesia is describ ed as mild. Note for Paresthesia: notes sx of the right hand 4th-5th digit,left hand 2nd-3rd digit primarily in the morning and can shake it out - no arm pain or weakness Encounter Diagnosis: Other and unspecified disc disorder of lumbar region (722.93), Carpal tunnel syndrome (354.0), GENERAL SYMPTOMS, OTHER MALAISE AND FATIGUE (780.79) [facility] Payers MedicareHum[employer]/Supplement Dominick murdock guarantor
--- OUTSIDE RECORDS SUMMARY | 2018-05-09 23:55 | XMS RPT_ITS ---
:1950 Author Organization [place] Support Name Relationship Address Phone JOHNNY JACOB Unavailable [address] + [place] [address] R Unavailable Unavailable Unavailable JACOB TURNER Unavailable [address] + [place] [address] R Unavailable Unavailable Unavailable JACOB TURNER Unavailable [address] + [place] [address] R Unavailable Unavailable Unavailable JACOB TURNER Unavailable [address] + [place] [address] R Unavailable Unavailable Unavailable JACOB TURNER Unavailable [address] + [place] [address] R Unavailable Unavailable Unavailable JACOB TURNER Unavailable [address] + [place] [address] R Unavailable Unavailable Unavailable JACOB TURNER Unavailable [address] + [place] [address] R Unavailable Unavailable Unavailable JACOB TURNER Unavailable [address] [phone] [place] [address] R Unavailable Unavailable Unavailable JACOB TURNER Unavailable [address] [phone] [place] [address] R Unavailable Unavailable Unavailable JACOB TURNER Unavailable [address] [phone] [place] [address] R Unavailable Unavailable Unavailable JACOB TURNER Unavailable [address] [phone] [place] [address] R Unavailable Unavailable Unavailable JACOB TURNER Unavailable [address] [phone] [place] [address] R Unavailable Unavailable Unavailable Care Team Providers Name Role Phone Suma Taveras Attending Unavailable Lani Claire Referring Unavailable Lani Claier Primary Care Unavailable Maribel Orta AIRCRAFT MAINTENANCE MANAGER-C Attending Unavailable Jefa, Lani Primary Care Unavailable Schinner, Umer E Attending Unavailable Schinner, Umer E Primary Care Unavailable Schinner, Umer E Attending Unavailable Schinner, Umer E Attending Unavailable Schinner, Umer E Primary Care Unavailable Schinner, Umer E Attending Unavailable Schinner, Umer E Referring Unavailable Schinner, Umer E Primary Care Unavailable Schinner, Umer E Attending Unavailable Schinner, Umer E Primary Care Unavailable Schinner, Umer E Attending Unavailable Schinner, Umer E Primary Care Unavailable Schinner, Umer E Attending Unavailable Schinner, Umer E Primary Care Unavailable Schinner, Umer E Referring Unavailable ChicorelliAngelae Attending Unavailable Schinner, Umer E Referring Unavailable ChicorelliAngelae Attending Unavailable Chicorelli, Winnie Referring Unavailable Schinner, Umer E Primary Care Unavailable Schinner, Umer E Attending Unavailable Schinner, Umer E Primary Care Unavailable PROBLEMS PROBLEMS DATE TYPE CONDITION / CODE ATTENDING STATUS SOURCE 03/30/2018 Unknown H81.10 - Benign Umer Prajapati Active [place] paroxysmal E [facility] vertigo, Hospital unspecified ear / Repository H81.10(ICD-10) 01/18/2018 Unknown M79.641 - [facility] [place] right hand / [facility] M79.641(ICD-10) Hospital Repository 01/18/2018 Unknown M79.642 - Pain in [facility], Active [place] left hand / [facility] M79.642(ICD-10) Hospital Repository 01/18/2018 Unknown M65.332 - Trigger Chicorelli, Active [place] finger, left [facility] middle finger / Hospital M65.332(ICD-10) Repository 01/18/2018 Unknown M65.331 - Trigger Chicorelli, Active [place] finger, right [facility] middle finger / Hospital M65.331(ICD-10) Repository 07/31/2017 Unknown R05 - Cough / Maribel Orta Active [place] R05(ICD-10) AIRCRAFT MAINTENANCE MANAGER-C [facility] Hospital Repository 08/15/2017 Unknown J40 - Bronchitis, Nitin, Active [place] not specified as Suma Noriega [facility] acute or chronic Hospital / J40(ICD-10) Repository PROCEDURES PROCEDURES No Procedure Records FoundRESULTS RESULTS CBC W/DIFF, AUTOMATED Collected: 03/14/2018 Status: F Source: [place] 2:16 PM [facility] REPOSITORY TYPE CODE TESTS RESULT OUT OF RANGE REFERENCE UNITS LAB L100.1000 4.4-11.0 K/mm3 Normal WBC 5.4 LAB L100.1200 4.2-5.4 M/mm3 Normal RBC 4.29 LAB L100.1300 12.0-15.0 g/dl Normal HGB 14.0 LAB L100.1400 37-47 % Normal HCT 41.5 LAB L100.1500 81-99 fL Normal MCV 96.7 LAB L100.1600 27.0-32.0 pg High MCH 32.6 LAB L100.1700 32-36 g/gl Normal MCHC 33.7 LAB L100.1810 11.6-14.6 % Normal RDW CV 12.1 LAB L100.1820 35.1-43.9 fl Normal RDW SD 41.6 LAB L100.1900 150-450 K/mm3 Normal PLT 221 LAB L100.2000 6.2-12.0 fl Normal MPV 9.9 LAB L100.2100 47-70 % Normal NEUT% 64.8 LAB L100.2200 19-41 % Normal LY% 20.4 LAB L100.2300 0-10 % High MONO% 10.1 LAB L100.2400 0-5 % Normal EO% 3.7 LAB L100.2500 0-1 % Normal BASO% 0.6 LAB L100.2550 0.0-0.9 % Normal IM GRAN % 0.400 Result Comment: IG% - Immature Granulocytes (promyelocytes, myelocytes and metamyelocytes) > 1% indicates that a LEFT SHIFT is Present. LAB L100.2620 2.0-7.7 X10 3/uL Normal Absolute Neut 3.5 LAB L100.2720 0.83-4.51 X10 3/ul Normal Absolute Lymph 1.11 Performed By: #### L100.0100, L500.4050, L500.4100, L506.1000 #### [facility] [address] [place], [address] COMPREHENSIVE METABOLIC Collected: 03/14/2018 Status: F Source: [place] VELEZ 2:16 PM [facility] REPOSITORY TYPE CODE TESTS RESULT OUT OF RANGE REFERENCE UNITS LAB L501.0100 74-106 mg/dL Normal GLU 80 Result Comment: Please note revised GLUCOSE reference range effective 2017. LAB L501.1000 7-18 mg/dL Normal BUN 15 LAB L501.1100 0.55-1.02 mg/dL High CREAT,SERUM 1.07 Result Comment: The validity of the calculated GFR AND GFRAA in patients over 70 years has not been determined. Clinical correlation is essential. LAB L501.1110 >60 mL/min Low EST GFR 54 Result Comment: Non- GFR Calc LAB L501.1115 >60 mL/min Normal EST GFR - AA 65 Result Comment: GFR Calc LAB L501.1300 10-20 RATIO Normal BUN/CRE 14.0 LAB L501.1500 6.4-8.2 g/dL T Normal PROT 7.1 LAB L501.1800 3.2-5.0 g/dL Normal ALB 3.9 LAB L501.1950 2.2-4.2 g/dL Normal GLOB 3.2 LAB L501.2000 0.9-2.4 RATIO Normal A/G 1.2 LAB L501.2200 8.5-10.1 mg/dL CA Normal 8.6 LAB L501.4100 15-37 U/L Normal AST 22 LAB L501.4305 45-117 U/L High ALK P 158 LAB L501.4405 13-56 U/L Normal ALT 32 LAB L501.4600 0.20-1.00 mg/dL T Normal BILI 0.30 LAB L501.5300 136-145 mmol/L NA Normal 141 LAB L501.5600 3.5-5.1 mmol/L K Normal 3.7 LAB L501.5900 98-107 mmol/L High CL 108 LAB L501.6100 21.0-32.0 mmol/L Normal CO2 26.0 LAB L501.6200 5-15 Normal GAP 7 Performed By: #### L100.0100, L500.4050, L500.4100, L506.1000 #### [facility] [address] [place], [place], [id number] LIPID PROFILE Collected: 03/14/2018 Status: F Source: [place] 2:16 PM [facility] REPOSITORY TYPE CODE TESTS RESULT OUT OF RANGE REFERENCE UNITS LAB L501.4900 200 mg/dL High CHOL 225 Result Comment: <200 mg/dL Desirable 200-240 mg/dL Borderline >240 mg/dL High Risk LAB L501.5000 mg/dL Normal TRIG 137 Result Comment: The drugs N-Acetylcysteine and Metamizole may falsely depress this assay. Serum Triglycerides Reference Interval Normal <150 mg/dL Borderline high 150 - 199 mg/dL High 200 - 499 mg/dL Very High > or = 500 mg/dL LAB L501.6400 mg/dL Normal HDL 58 Result Comment: The drugs N-Acetylcysteine and Metamizole may falsely depress this assay. Reference Range HDL <40 mg/dL Low HDL Cholesterol HDL >or= 60 mg/dL High HDL Cholesterol LAB L501.6500 0-130 mg/dL High LDL 140 LAB L501.6600 5-40 mg/dL Normal VLDL 27 Performed By: #### L100.0100, L500.4050, L500.4100, L506.1000 #### [facility] [address] [place], [place], [id number] VITAMIN D,25 HYDROXY Collected: 03/14/2018 Status: F Source: [place] 2:16 PM [facility] REPOSITORY TYPE CODE TESTS RESULT OUT OF RANGE REFERENCE UNITS LAB L506.1000 29.95-100.01 ng/mL Normal Vitamin D 35.6 25-OH Result Comment: Vitamin D 25(OH) Status Range Deficiency <20 ng/mL (50nmol/L) Insuffciency 20 - 30 ng/mL (50 - 75 nmol/L) Sufficiency 30 - 100 ng/mL (75 - 250 nmol/L) Toxicity >100 ng/mL (>250 nmol/L) Performed By: #### L100.0100, L500.4050, L500.4100, L506.1000 #### [facility] [address] [place], [address] Observed: 03/14/2018 Status: F Source: [place] CULTURE, URINE 2:16 PM [facility] REPOSITORY Urine Culture ORGANISM 1: Mixed Gram Pos AND Gram Neg Org [place] Count 1000-10,000 MIX CULTURE Mixed contaminants. Submit a new specimen if indicated. Performed By: #### M100.0650 #### [facility] [address] [place], [address] INITAL EVALUATION (1) Observed: 02/14/2018 Status: F Source: [place] - PT 5:02 PM [facility] REPOSITORY [facility] [address] [place] [address] Fax REHABILITATION SERVICES INITIAL EVALUATION MR#: [id number] Acct: [id number] Name: LORENZO TURNER Rep #: [id number] : 1950 67 From: Emily Khan MPT Referring Dr.: Umer Prajapati MD Status: REG RCR Insurance: MEDICARE PART A B [employer] Patient's Visit Information LORENZO TURNER is a 67 year old F referred to Physical Therapy by Umer Prajapati MD with a diagnosis of BPPV. Date of Evaluation: 02/14/18 Physical Therapist: Emily Khan - Visit Plan Frequency: 1-2x /Week Duration: 4-6 Weeks Plan: 1-2X/ week for 4-8 weeks for re-testing and treatment for positional vertigo, VOR and balance screen and treatment based upon any residula symptoms with HEP - Subjective Subjective: Pt reports that she is dizzy. It started 30 years ago. It is constant but sometimes it is worse than others. She describes it If she lays down, turns her head, or stands up she will get dizzy to the point that she will throw up. Sometimes it can last for hours and other times it could last minutes. It can be rolling either direction in bed that can cause the dizziness. There are times if she stands and turns her head the room will spin. She has been seen by a specialist that she had an inner ear disturbance and does not go anywhere without Meclazene. Sometimes it can be bad enough that she has to sit all day. When the seasons change it gets really bad. She reports that her balance is ok. She has a sore neck currently cause she was doing somethings she was not able to do. She has some trouble with some stores with the lights or the carpet. Pt says that she can not walk and turn her head to say hi to someone. She reports that she has to stop and turn body. - Pain neck pain Pain Intensity (Out of 10): 2 - Objective + L Hallpike for positive upward torsional nystagmus that lasted approx 25 seconds. Treated from that position with the Eply. -L Hallpike on second attempt for nystagmus but pt felt a slight weird feeling but subsided quickly. Did the L Eply again and pt did have a little dizziness when rolled pts head from the L Hallpike position to the R. Pt left feeling a little foggy in her head. - Goals Goal 1:: I HEP Goal Time Frame: 4-6 Weeks Goal 2:: Abolish dizziness when rolling over in bed Goal Time Frame: 4-6 Weeks Goal 3:: Test VOR ability Goal Time Frame: 4-6 Weeks Goal 4:: Subjective dizziness improved to be able to walk and turn head without dizziness - Rehabilitation Potential Rehabilitation Potential: Good - Anticipated Interventions Patient/Client Instruction: Educate patient on: Condition, Plan of Care For the Purpose of:: To improve nutrient delivery to tissue, To improve muscle performance and motor function, To improve ability to perform ADL's, To increase tolerance to activity/condition/position, To improve performance and independence with ADL's Therapeutic Exercise to Include: Strength training, Balance training, Coordination, Postural training, Flexibilty training, Gait and locomotor training, Neuromotor development, via Neurocom Balance Mas For the Purpose of:: To improve nutrient delivery to tissue, To improve muscle performance and motor function, To improve ability to perform ADL's, To increase tolerance to activity/condition/position, To improve performance and independence with ADL's, To improve ability of physical actions for home/community/work/leisure Manual Therapy Techniques to Include: Other For the Purpose of:: To improve ability to perform ADL's, To increase tolerance to activity/condition/position Thank you for the opportunity to evaluate your patient. For Medicare and Medicare HMO plans, please review the plan of care and approve it. It will need to be FAXED BACK to us at [phone] for Medicare purposes. Please let me know if there are questions or concerns regarding this plan of care. Physician Signature: Date: <Electronically signed by Emily Khan MPT> 02/14/18 1702 CC: Umer Prajapati MD Signed For Medicare only, by signing this I certify the plan of care. Physicians Signature Date ORTHOPEDIC VISIT Observed: 01/18/2018 Status: F Source: [place] REPORT 12:43 PM [facility] REPOSITORY [facility] [address] [place] [address] OFFICE VISIT Date of Service: 01/18/18 MR#: [id number] Acct: [id number] Name: LORENZO TURNER Rep #: [id number] : 1950 Provider: Winnie De La O DO Age/Sex: 67/F Location: [facility] [place].[facility] [place] Status: Signed Intake Intake Visit Reasons: RT AND LT TRIGGER FINGERS Is patient in pain?: Yes Allergies Penicillins Allergy (Severe, Verified 01/18/18 08:57) Hives Sulfa (Sulfonamide Antibiotics) Allergy (Verified 01/18/18 08:57) Unknown Medications azithromycin 250 mg tablet See Rx Instructions PO .COMPLEX #6 tab 07/08/17 [Rx Confirmed 07/08/17] coenzyme Q 10 10 mg capsule 10 mg PO ONCE 07/08/17 [History Confirmed 07/08/17] guaifenesin ER 1,200 mg tablet, extended release 12 hr 1,200 mg PO Q12H 07/08/17 [History Confirmed 07/08/17] ibuprofen 100 mg tablet PO 07/08/17 [History Confirmed 07/08/17] prednisone 10 mg tablet See Rx Instructions PO .COMPLEX #30 tab 07/08/17 [Rx Confirmed 07/08/17] PFSH Medical History Reactive airway disease (Chronic) Other malaise and fatigue (Chronic) Acute sinusitis (Chronic) Atypical [...] disorder of lumbar region (Chronic) Sciatica (Chronic) Histoplasmosis (Chronic) Surgical History History of laparoscopic cholecystectomy (Resolved) H/O tubal ligation (Resolved) Family History Mother Hypertension Heart disease Thyroid disorder Father Asthma Social History Smoking Status: Former smoker second hand exposure: No alcohol intake: never substance use type: does not use caffeine: Yes (4/day) what type of physical activity do you participate in: none HPI RT AND LT TRIGGER FINGERS: Details: LORENZO TURNER is a 67 year old F here today for left and right middle fingers. Patient notes that she has had right triggering for many years and her left hand started a few months ago. Patient notes that she has had 2 injections on her right hand which was helpful. Her most recent injection was about 3 years ago. Patient notes that her right hand locks and she has to physically move her finger to straighten. She notes that her left hand is painful. Patient had xrays which she did not bring with her.She denies any therapy. ROS Const Reports system reviewed and no additional complaints, except as docu Eyes Reports system reviewed and no additional complaints, except as docu ENT Reports system reviewed and no additional complaints, except as docu Card Reports system reviewed and no additional complaints, except as docu Resp Reports system reviewed and no additional complaints, except as docu GI Reports system reviewed and no additional complaints, except as docu Reports system reviewed and no additional complaints, except as docu Musc Reports joint pain, Reports stiffness Skin/Breast Reports system reviewed and no additional complaints, except as docu Neuro Yes system reviewed and no additional complaints, except as docu Psych Reports system reviewed and no additional complaints, except as docu Endo Reports system reviewed and no additional complaints, except as docu Ortho Exam Right Wrist/Hand Skin/Wound: Yes CDI Contralateral Normal: No A1 troy trigger: Yes (3rd) Right Wrist: Yes ROM-Extension 0-60, ROM-Supination 0-90, ROM-Flexion 0-80 and ROM-Pronation 0-80 Left Wrist/Hand Skin/Wound: Yes CDI Contralateral Normal: No A1 troy trigger: Yes (3rd) Left Wrist: Yes ROM-Extension 0-60, Yes ROM-Supination 0-90, Yes ROM-Flexion 0-80 and Yes ROM-Pronation 0-80 Office Procedures Ortho Injections Injections Yes Trigger Finger Injection (3rd) Bilateral Details: Obtained consent for injection. Under sterile conditions, injected the patients bilat 3rd A1 pulleys with 1cc bupivacaine and 1/2cc kenalog. The patient tolerated the injection well without any noted complication. Patient should call our office if redness develops, pain worsens or if they have any concerns. Office Meds Kenalog Performing Provider: Winnie De La O DO Administered by: Winnie De La O DO on 01/18/18 09:21 Dose Route Admin Location Lot Number Expiration DateNDC [employer]usement [employer] Card Checker 20 mg Tendon Sheath Ibilat 3rd A1 [id number] 03/17/19 [id number] [facility]. daisy FRANCES Assessment AND Plan 1. Trigger finger, left middle finger M65.332 Plan Personally reviewed the patient's medical history, medications, surgeries and recent exams if available. X-rays were reviewed. There is no obvious fracture, dislocation, or lucency noted. Educated on the anatomy of the hand and troy system. Explained that there is a release procedure that can be done if the injections fail to limit the locking. If she needs more than 2 injections in a 6month period we would want to release. Today treatment option is injection into A1 troy. She can also try band aids over the joint at night to limit locking. Follow up in 3-4 months prn or sooner if pain, swelling, numbness or associated symptoms, or concerns develop. All questions answered. Patient in agreement of plan. Orders Orders: Medications Discontinued: Kenalog (triamcinolone acetonide) Mgsrskzb35 mg (0.5 mL) Tendon Sheath Inj. ONCE 0.5 mL nued Reason: Office Medication has been Docu 0RF NS mented as given 2. Trigger finger, right middle finger M65.331 Orders Orders: Medications Discontinued: Kenalog (triamcinolone acetonide) Leourzlm70 mg (0.5 mL) Tendon Sheath Inj. ONCE 0.5 mL nued Reason: Office Medication has been Docu 0RF NS mented as given Plan Detail Other Orders Orders: Coding Level of Care Code Off vis,new,level 3 Diagnoses Trigger finger, left middle finger M65.332 Trigger finger, right middle finger M65.331 Additional Codes playground director.trig ([id number]) 01/18/18 1243 <Electronically signed by Winnie De La O DO> Date Winnie De La O DO Cosigner Signature: Date (if applicable) CC: HAND MIN 3 VIEWS Observed: 01/18/2018 Status: F Source: [place] 9:04 AM [facility] REPOSITORY [facility] Imaging Services [address] [place] [address] Hand Min 3 Views MR#: [id number] Acct: [id number] Name: LORENZO TURNER Rep #: [id number] : 1950 F 67 From: Balta Serra MD PCP: Umer Prajapati MD Status: REG CLI Study: Hand Min 3 Views Date of Exam: 01/18/18 Exam# [id number] Ordering Dr: Winnie De La O DO STUDY: X-RAY - LEFT HAND REASON FOR EXAM: Bilateral hand pain, no specific injury. TECHNIQUE: 3 view(s) of the hand. COMPARISON: None. FINDINGS: There is osteopenia. Normal radiocarpal articulation. Normal distal radioulnar joint. Normal visualized carpal bones. Normal carpal articulations Normal carpometacarpal articulation of the thumb. Normal second through fifth carpometacarpal joints. Normal metacarpi. Normal metacarpophalangeal joint of the thumb. Normal interphalangeal joint of the thumb. Normal proximal and distal phalanges of the thumb. Normal metacarpophalangeal joints of the second through fifth fingers. There is mild arthrosis of the second distal interphalangeal joint with small marginal osteophytes and mild joint space narrowing. Normal phalanges of the second through fifth fingers. There is a small bone island in the fourth distal phalangeal base. The soft tissue structures are unremarkable. 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 Osteopenia. Electronically Signed: Balta Serra MD at 9:32 EDT Tel , Service support , CC: Winnie De La O DO; Umer Prajapati MD Orange Picker: Signed HAND MIN 3 VIEWS Observed: 01/18/2018 Status: F Source: [place] 9:04 AM [facility] REPOSITORY [facility] Imaging Services [address] [place] [address] Hand Min 3 Views MR#: [id number] Acct: [id number] Name: LORENZO TURNER Rep #: [id number] : 1950 F 67 From: Balta Serra MD PCP: Umer Prajapati MD Status: REG CLI Study: Hand Min 3 Views Date of Exam: 01/18/18 Exam# [id number] Ordering Dr: Winnie De La O DO STUDY: X-RAY - RIGHT HAND REASON FOR EXAM: Bilateral hand pain, no specific injury. TECHNIQUE: 3 view(s) of the hand. COMPARISON: None. FINDINGS: There is osteopenia. Normal radiocarpal articulation. Normal distal radioulnar joint. Normal visualized carpal bones. Normal carpal articulations Normal carpometacarpal articulation of the thumb. Normal second through fifth carpometacarpal joints. Normal metacarpi. Normal metacarpophalangeal joint of the thumb. Normal interphalangeal joint of the thumb. Normal proximal and distal phalanges of the thumb. Normal metacarpophalangeal joints of the second through fifth fingers. There is mild arthrosis of the second distal interphalangeal joint with small marginal osteophytes and mild joint space narrowing. There is mild arthrosis of the third distal interphalangeal joint with mild joint space narrowing. Normal phalanges of the second through fifth fingers. The soft tissue structures are unremarkable. RAD/Hand Min 3 Views IMPRESSION: Mild arthrosis of the second and third distal interphalangeal joints. Osteopenia. Electronically Signed: Balta Serra MD at 9:33 EDT Tel , Service support , CC: Winnie De La O DO; Umer Prajapati MD Orange Picker: Signed BASIC METABOLIC Collected: 01/12/2018 Status: F Source: [place] PROFILE (BMP) 4:19 PM [facility] REPOSITORY TYPE CODE TESTS RESULT OUT OF RANGE REFERENCE UNITS LAB L501.0100 74-106 mg/dL High GLU 138 Result Comment: Fasting Glucose result greater than or equal to 126 mg/dL suggests DIABETES MELLITUS per A.D.A. criteria. Please note revised GLUCOSE reference range effective 2017. LAB L501.1000 7-18 mg/dL Normal BUN 17 LAB L501.1100 0.55-1.02 mg/dL High CREAT,SERUM 1.17 Result Comment: The validity of the calculated GFR AND GFRAA in patients over 70 years has not been determined. Clinical correlation is essential. LAB L501.1110 >60 mL/min Low EST GFR 49 Result Comment: Non- GFR Calc LAB L501.1115 >60 mL/min Low EST GFR - AA 59 Result Comment: GFR Calc LAB L501.1300 10-20 RATIO Normal BUN/CRE 14.5 LAB L501.2200 8.5-10.1 mg/dL CA Normal 9.0 LAB L501.5300 136-145 mmol/L NA Normal 143 LAB L501.5600 3.5-5.1 mmol/L K Normal 3.7 LAB L501.5900 98-107 mmol/L High CL 108 LAB L501.6100 21.0-32.0 mmol/L Normal CO2 26.0 LAB L501.6200 5-15 Normal GAP 9 Performed By: #### L500.2500 #### [facility] [address] [place], [address] BASIC METABOLIC Collected: 11/08/2017 Status: F Source: [place] PROFILE (BMP) 2:57 PM [facility] REPOSITORY Order Comment: Order Date: 11/08/17 Order Info: 0667-1 - [facility] TYPE CODE TESTS RESULT OUT OF RANGE REFERENCE UNITS LAB L501.0100 74-106 mg/dL High GLU 197 Result Comment: Fasting Glucose result greater than or equal to 126 mg/dL suggests DIABETES MELLITUS per A.D.A. criteria. Please note revised GLUCOSE reference range effective 2017. LAB L501.1000 7-18 mg/dL Normal BUN 16 LAB L501.1100 0.55-1.02 mg/dL High CREAT,SERUM 1.10 Result Comment: The validity of the calculated GFR AND GFRAA in patients over 70 years has not been determined. Clinical correlation is essential. LAB L501.1110 >60 mL/min Low EST GFR 52 Result Comment: Non- GFR Calc LAB L501.1115 >60 mL/min Normal EST GFR - AA 63 Result Comment: GFR Calc LAB L501.1300 10-20 RATIO Normal BUN/CRE 14.5 LAB L501.2200 8.5-10.1 mg/dL CA Normal 9.0 LAB L501.5300 136-145 mmol/L NA Normal 141 LAB L501.5600 3.5-5.1 mmol/L K Normal 3.9 LAB L501.5900 98-107 mmol/L High CL 109 LAB L501.6100 21.0-32.0 mmol/L Normal CO2 25.0 LAB L501.6200 5-15 Normal GAP 7 Performed By: #### L500.2500 #### [facility] [address] [place], [address] RENAL ARTERY DUPLEX Observed: 10/10/2017 Status: F Source: ANCHORAGE 2:25 PM [facility] REPOSITORY [facility] Cardiovascular Services [address] [place] [address] Renal Artery Duplex Ultrasound 10/10/17 0758 MR#: [id number] Acct: [id number] Name: LORENZO TURNER Rep #: [id number] : 1950 66 From: Kishan Ho MD Attending Dr: Umer Prajapati MD Status: REG CLI Ordering Dr: Umer Prajapati MD Date: 10/10/17 Location: CVS Sex: F C Admitted: Reason For Study: HYPERTENSION Right Renal Artery Left Renal Artery Right renal artery ostium 76.4/18.3 Left renal artery ostium 113.0/29.2 RSV/EDV. PSV/EDV. Right renal artery proximal Left renal artery proximal PSV/EDV 112.0/32.8 PSV/EDV. 115.0/30.1 . Right renal artery mid 112.0/14.6 Left renal artery mid 109.0/30.5 PSV/EDV. PSV/EDV . Right renal artery distal Left renal artery distal 116.0/33.7 107.0/31.1 PSV/EDV. PSV/EDV. Right Renal Parenchyma Left Renal Parenchyma Upper Pole Medula 38.5/10.1 Left upper pole medulla 47.4/14.6 PSV/EDV. PSV/EDV . Right upper pole medulla EDR .26 . Left upper pole medulla EDR .31 . Right upper pole medulla R.I. .74 . Left upper pole medulla R.I. .69 . Upper Blake Cortx 27.5/6.4 PSV/EDV. UP Cortex 27.5/8.6 PSV/EDV. Right upper pole cortex EDR .23 . Left upper pole cortex EDR .31 . Right upper pole cortex R.I. .77 . Left upper pole cortex R.I. .69 . Right lower Pole medulla 22.2/5.6 Left lower Pole medulla 34.5/10.4 PSV/EDV . PSV/EDV . Right lower pole medulla EDR .25 . Left lower pole medulla EDR .30 . Right lower pole medulla R.I. .75 . Left lower pole medulla R.I. .70 . Lower Pole Cortex 21.3/6.9 PSV/EDV. Lower Pole Cortx 17.2/4.4 PSV/EDV. Right lower pole cortex EDR .32 . Left lower pole cortex EDR .26 . Right lower pole cortex R.I. .68 . Left lower pole cortex R.I. .74 . Right Renal Hilar Left Renal Hilar Right Hilar avg 70.2/19.6 PSV/EDV. LT Hilar avg 46.1/15.0 PSV/EDV . Right hilar acceleration time 66 Left hilar acceleration time 59 m/sec. m/sec. Right Renal Dimensions Left Renal Dimensions Right kidney size 10.3 cm . Left kidney size 9.3 cm . Right cortical dimension 1.6 cm . Left cortical dimension 1.5 cm . Aorta Proximal abdominal aorta 1.3 X 1.3 cm . Distal abdominal aorta 1.3 X 1.3 cm . Proximal abdominal aorta peak systolic velocity is 101.0 cm/sec . Distal abdominal aorta peak systolic velocity is 83.9 cm/sec . Interpretation Summary Dimensions of the intra-abdominal aorta appear normal, without evidence of aneurysmal dilatation. Renal artery velocities are bilaterally normal. Acceleration times are normal bilaterally. There is no evidence of hemodynamically significant renal artery stenosis on either side. The right cortical dimension is increased. The left cortical dimension is normal. Kidneys appear normal in size bilaterally. Ordering Physician: Umer Prajapati Referring Physician: Umer Prajapati Performed By: Neena Leal RVT 10/10/17 1425 Date Kishan Ho MD CC: Umer Prajapati MD Date Dictated: 10/10/17 0758 Date Transcribed: 10/10/171424 Orange Picker: Signed KIDNEY AND BLADDER Observed: 10/10/2017 Status: F Source: ANCHORAGE 8:31 AM [facility] REPOSITORY [facility] Imaging Services [address] [place] [address] [place] [address] Kidney and Bladder MR#: [id number] Acct: [id number] Name: LORENZO TURNER Rep #: [id number] : 1950 F 66 From: Georgina Sabillon MD PCP: Umer Prajapati MD Status: REG CLI Study: Kidney and Bladder Date of Exam: 10/10/17 Exam# [id number] Ordering Dr: Umer Prajapati MD STUDY: RENAL ULTRASOUND - COMPLETE REASON FOR EXAM: Female, 66 years old. Hypertension. TECHNIQUE: Ultrasound evaluation of the kidneys was performed with real-time and static mancia-scale imaging. COMPARISON: None. FINDINGS: RIGHT KIDNEY: Normal location of the right kidney, which is normal in size. The right kidney measures 10.2 cm in length. There is a normal cortex of the right kidney. There is no right renal mass or cyst. There are no right renal calculi. There is no right hydronephrosis. DISTAL RIGHT URETER: There is a visualized right ureteral jet. LEFT KIDNEY: Normal location of the left kidney, which is normal in size. The left kidney measures 9.8 cm in length. There is a normal cortex of the left kidney. There is no left renal mass or cyst. There are no left renal calculi. There is no left hydronephrosis. DISTAL LEFT URETER: There is a visualized left ureteral jet. BLADDER: The distended urinary bladder has a volume of 100 ml. The empty urinary bladder has a volume of 2.5 ml. There is a normal wall thickness of the distended urinary bladder. There is no demonstrated mass within the urinary bladder. There are no demonstrated bladder calculi. US/Kidney and Bladder IMPRESSION: Within normal limits ultrasound of the kidneys and urinary bladder. Electronically Signed: Georgina Sabillon MD at 16:55 EDT Tel , Service support , CC: Umer Prajapati MD Orange Picker: Signed BASIC METABOLIC Collected: 09/28/2017 Status: F Source: DEBBIE PROFILE (BMP) 2:19 PM [facility] REPOSITORY TYPE CODE TESTS RESULT OUT OF RANGE REFERENCE UNITS LAB L501.0100 74-106 mg/dL Normal GLU 89 Result Comment: Please note revised GLUCOSE reference range effective 2017. LAB L501.1000 7-18 mg/dL Normal BUN 15 LAB L501.1100 0.55-1.02 mg/dL High CREAT,SERUM 1.24 Result Comment: The validity of the calculated GFR AND GFRAA in patients over 70 years has not been determined. Clinical correlation is essential. LAB L501.1110 >60 mL/min Low EST GFR 46 Result Comment: Non- GFR Calc LAB L501.1115 >60 mL/min Low EST GFR - AA 55 Result Comment: GFR Calc LAB L501.1300 10-20 RATIO Normal BUN/CRE 12.1 LAB L501.2200 8.5-10.1 mg/dL Low CA 8.4 LAB L501.5300 136-145 mmol/L NA Normal 144 LAB L501.5600 3.5-5.1 mmol/L K Normal 3.9 LAB L501.5900 98-107 mmol/L High CL 109 LAB L501.6100 21.0-32.0 mmol/L Normal CO2 27.0 LAB L501.6200 5-15 Normal GAP 8 Performed By: #### L500.2500 #### [facility] [address] [place], [address] HEMOGLOBIN A1C Collected: 09/28/2017 Status: F Source: DEBBIE 2:19 PM [facility] REPOSITORY TYPE CODE TESTS RESULT OUT OF RANGE REFERENCE UNITS LAB L501.9985 4.2-6.3 % Normal HGB A1C 5.4 Performed By: #### L501.9985 #### [facility] [address] [place], [address] BASIC METABOLIC Collected: 09/14/2017 Status: F Source: DEBBIE PROFILE (BMP) 2:02 PM [facility] REPOSITORY Order Comment: EXTRA LAVENDER AND SST DRAWN Order Date: 09/14/17 Order Info: 0667-1 - BMP TYPE CODE TESTS RESULT OUT OF RANGE REFERENCE UNITS LAB L501.0100 74-106 mg/dL High GLU 111 Result Comment: Fasting Glucose result from 100 to 125 mg/dL suggests IMPAIRED HOMEOSTASIS per A.D.A. criteria. Please note revised GLUCOSE reference range effective 2017. LAB L501.1000 7-18 mg/dL Normal BUN 18 LAB L501.1100 0.55-1.02 mg/dL High CREAT,SERUM 1.08 Result Comment: The validity of the calculated GFR AND GFRAA in patients over 70 years has not been determined. Clinical correlation is essential. LAB L501.1110 >60 mL/min Low EST GFR 54 Result Comment: Non- GFR Calc LAB L501.1115 >60 mL/min Normal EST GFR - AA 65 Result Comment: GFR Calc LAB L501.1300 10-20 RATIO Normal BUN/CRE 16.7 LAB L501.2200 8.5-10.1 mg/dL CA Normal 8.6 LAB L501.5300 136-145 mmol/L NA Normal 143 LAB L501.5600 3.5-5.1 mmol/L K Normal 3.8 LAB L501.5900 98-107 mmol/L High CL 111 LAB L501.6100 21.0-32.0 mmol/L Normal CO2 27.0 LAB L501.6200 5-15 Normal GAP 5 Performed By: #### L500.2499 #### [facility] [address] [place], [address] CBC W/DIFF, AUTOMATED Collected: 08/17/2017 Status: F Source: DEBBIE 2:50 PM [facility] REPOSITORY Order Comment: Order Date: 08/17/17 Order Info: 0184-1 - CBCD TYPE CODE TESTS RESULT OUT OF RANGE REFERENCE UNITS LAB L100.1000 4.4-11.0 K/mm3 Normal WBC 6.8 LAB L100.1200 4.2-5.4 M/mm3 Low RBC 4.17 LAB L100.1300 12.0-15.0 g/dl Normal HGB 13.8 LAB L100.1400 37-47 % Normal HCT 39.9 LAB L100.1500 81-99 fL Normal MCV 95.7 LAB L100.1600 27.0-32.0 pg High MCH 33.1 LAB L100.1700 32-36 g/gl Normal MCHC 34.6 LAB L100.1810 11.6-14.6 % Normal RDW CV 12.1 LAB L100.1820 35.1-43.9 fl Normal RDW SD 41.2 LAB L100.1900 150-450 K/mm3 Normal PLT 208 LAB L100.2000 6.2-12.0 fl Normal MPV 9.6 LAB L100.2100 47-70 % Normal NEUT% 63.7 LAB L100.2200 19-41 % Normal LY% 19.8 LAB L100.2300 0-10 % Normal MONO% 9.4 LAB L100.2400 0-5 % High EO% 6.6 LAB L100.2500 0-1 % Normal BASO% 0.4 LAB L100.2550 0.0-0.9 % Normal IM GRAN % 0.100 Result Comment: IG% - Immature Granulocytes (promyelocytes, myelocytes and metamyelocytes) > 1% indicates that a LEFT SHIFT is Present. LAB L100.2620 2.0-7.7 X10 3/uL Normal Absolute Neut 4.4 LAB L100.2720 0.83-4.51 X10 3/ul Normal Absolute Lymph 1.35 Performed By: #### L100.0100, L500.4050, L500.4100, L501.9520, L506.1000 #### [facility] [address] [place], [address] COMPREHENSIVE METABOLIC Collected: 08/17/2017 Status: F Source: DEBBIE VELEZ 2:50 PM [facility] REPOSITORY Order Comment: Order Date: 08/17/17 Order Info: 0786-1 - CMP Order Info: 86739-2 - LIPID Order Info: 3016-3 - TSH TYPE CODE TESTS RESULT OUT OF RANGE REFERENCE UNITS LAB L501.0100 74-106 mg/dL High GLU 107 Result Comment: Fasting Glucose result from 100 to 125 mg/dL suggests IMPAIRED HOMEOSTASIS per A.D.A. criteria. Please note revised GLUCOSE reference range effective 2017. LAB L501.1000 7-18 mg/dL High BUN 19 LAB L501.1100 0.55-1.02 mg/dL High CREAT,SERUM 1.06 Result Comment: The validity of the calculated GFR AND GFRAA in patients over 70 years has not been determined. Clinical correlation is essential. LAB L501.1110 >60 mL/min Low EST GFR 55 Result Comment: Non- GFR Calc LAB L501.1115 >60 mL/min Normal EST GFR - AA 66 Result Comment: GFR Calc LAB L501.1300 10-20 RATIO Normal BUN/CRE 17.9 LAB L501.1500 6.4-8.2 g/dL T Normal PROT 6.9 LAB L501.1800 3.2-5.0 g/dL Normal ALB 3.8 LAB L501.1950 2.2-4.2 g/dL Normal GLOB 3.1 LAB L501.2000 0.9-2.4 RATIO Normal A/G 1.2 LAB L501.2200 8.5-10.1 mg/dL CA Normal 8.7 LAB L501.4100 15-37 U/L Normal AST 21 LAB L501.4305 45-117 U/L High ALK P 130 LAB L501.4405 13-56 U/L Normal ALT 31 LAB L501.4600 0.20-1.00 mg/dL T Normal BILI 0.30 LAB L501.5300 136-145 mmol/L NA Normal 143 LAB L501.5600 3.5-5.1 mmol/L K Normal 3.8 LAB L501.5900 98-107 mmol/L High CL 110 LAB L501.6100 21.0-32.0 mmol/L Normal CO2 25.0 LAB L501.6200 5-15 Normal GAP 8 Performed By: #### L100.0100, L500.4050, L500.4100, L501.9520, L506.1000 #### [facility] [address] [place], [place], [address] LIPID PROFILE Collected: 08/17/2017 Status: F Source: DEBBIE 2:50 PM [facility] REPOSITORY Order Comment: Order Date: 08/17/17 Order Info: 0786-1 - CMP Order Info: 40873-5 - LIPID Order Info: 3016-3 - TSH TYPE CODE TESTS RESULT OUT OF RANGE REFERENCE UNITS LAB L501.4900 200 mg/dL High CHOL 211 Result Comment: <200 mg/dL Desirable 200-240 mg/dL Borderline >240 mg/dL High Risk LAB L501.5000 mg/dL High TRIG 268 Result Comment: The drugs N-Acetylcysteine and Metamizole may falsely depress this assay. Serum Triglycerides Reference Interval Normal <150 mg/dL Borderline high 150 - 199 mg/dL High 200 - 499 mg/dL Very High > or = 500 mg/dL LAB L501.6400 mg/dL Normal HDL 41 Result Comment: The drugs N-Acetylcysteine and Metamizole may falsely depress this assay. Reference Range HDL <40 mg/dL Low HDL Cholesterol HDL >or= 60 mg/dL High HDL Cholesterol LAB L501.6500 0-130 mg/dL Normal LDL 116 LAB L501.6600 5-40 mg/dL High VLDL 54 Performed By: #### L100.0100, L500.4050, L500.4100, L501.9520, L506.1000 #### [facility] [address] [place], [place], [address] THYROID STIM HORMONE Collected: 08/17/2017 Status: F Source: DEBBIE (TSH) 2:50 PM [facility] REPOSITORY Order Comment: Order Date: 08/17/17 Order Info: 0786-1 - CMP Order Info: [id number] - LIPID Order Info: 3016-3 - TSH TYPE CODE TESTS RESULT OUT OF RANGE REFERENCE UNITS LAB L501.9520 0.358-3.74 uIU/mL Normal TSH 1.17 Performed By: #### L100.0100, L500.4050, L500.4100, L501.9520, L506.1000 #### [facility] [address] [place], [address] VITAMIN D,25 HYDROXY Collected: 08/17/2017 Status: F Source: ANCHORAGE 2:50 PM [facility] REPOSITORY Order Comment: Order Date: 08/17/17 Order Info: 35082-0 - VITD25 TYPE CODE TESTS RESULT OUT OF RANGE REFERENCE UNITS LAB L506.1000 29.95-100.01 ng/mL Normal Vitamin D 32.1 25-OH Result Comment: Vitamin D 25(OH) Status Range Deficiency <20 ng/mL (50nmol/L) Insuffciency 20 - 30 ng/mL (50 - 75 nmol/L) Sufficiency 30 - 100 ng/mL (75 - 250 nmol/L) Toxicity >100 ng/mL (>250 nmol/L) Performed By: #### L100.0100, L500.4050, L500.4100, L501.9520, L506.1000 #### [facility] [address] [place], [address] URINALYSIS, COMPLETE Collected: 08/17/2017 Status: F Source: ANCHORAGE 2:50 PM [facility] REPOSITORY Order Comment: How was Urine Obtained? CLEAN CATCH TYPE CODE TESTS RESULT OUT OF RANGE REFERENCE UNITS LAB L400.3000 Yellow COLOR Normal Yellow LAB L400.3050 Clear Normal CLARITY Sl. Cloudy LAB L400.3200 Normal mg/dl Normal GLUCOSE, UR Normal LAB L400.3300 Negative mg/dL Normal BILIRUBIN URINE Negative LAB L400.3400 Negative mg/dl Normal KETONE UR Negative LAB L400.3465 1.002-1.030 Normal SP.GR. DIPSTX 1.020 LAB L400.3550 5.0 - 8.0 pH UR Normal 6.5 LAB L400.3600 Negative mg/dl High PROT 15 DIPSTX LAB L400.3700 Normal mg/dl Normal UROBILI Normal LAB L400.3750 Negative Normal NITRITE UR Negative LAB L400.3780 Negative /ul High OCCULT BLOOD-UR 250 LAB L400.3800 Negative /ul High LEUK 25 ESTERASE LAB L400.4050 0-5 /hpf WBC Normal 0-5 SEEN LAB L400.4100 0-5 /hpf Normal RBC-UA 25-50 SEEN LAB L400.4150 5-10 /hpf SQUAM Normal EPI 0-5 SEEN LAB L400.4300 None Seen /hpf 0 Normal BACTERIA SEEN LAB L400.4350 <or=2+ /hpf 0 Normal MUCUS, URINE SEEN Performed By: #### L400.0001 #### [facility] [address] [facility] [place], [address] CHEST PA AND LATERAL Observed: 07/11/2017 Status: F Source: ANCHORAGE 3:17 PM [facility] REPOSITORY [facility] Imaging Services [address] [place] [address] Chest PA and Lateral MR#: [id number] Acct: [id number] Name: KEAGANANAColletteLORENZO Hari Rep #: [id number] : 1950 F 66 From: Sumeet Maldonado MD PCP: Lani Claire NP Status: REG CLI Study: Chest PA and Lateral Date of Exam: 07/11/17 Exam# [id number] Ordering Dr: Maribel Orta AIRCRAFT MAINTENANCE MANAGER-C STUDY: X-RAY CHEST REASON FOR EXAM: Female, 66 years old. COUGH X 10 WEEKS TECHNIQUE: Frontal and lateral views of the chest. COMPARISON: 03.20.08 FINDINGS: Chronic appearing increased interstitial lung markings. There is no demonstrated pleural abnormality. Scoliosis of the thoracic spine. Normal heart size. Normal mediastinum and kirill. Normal visualized pulmonary arteries. There is atherosclerotic calcification of the aortic arch with tortuosity. There are diffuse degenerative changes of the visualized thoracic spine. There is degenerative osteoarthritis of the bilateral shoulders. There is no demonstrated abnormality of the visualized soft tissue structures of the upper abdomen. RAD/Chest PA and Lateral IMPRESSION: There are no acute findings. Electronically Signed: Sumeet Maldonado MD at 17:58 EDT , Service support , CC: Lani Claire NP; TERRY Orta Orange Picker: Signed URGENT CARE VISIT Observed: 07/08/2017 Status: F Source: ANCHORAGE REPORT 10:39 AM [facility] REPOSITORY [facility] [address] [place] [address] [address] [place] [address] OFFICE VISIT Date of Service: 07/08/17 MR#: [id number] Acct: [id number] Name: LORENZO TURNER Rep #: [id number] : 1950 Provider: Suma Taveras Age/Sex: 66/F Location: [facility] Status: Signed Intake Vital Signs07/08/17 Height 5 ft 3 in 07/08/17 Weight: 159 lb 07/08/17 Body Mass Index (BMI) 28.1 07/08/17 Blood Pressure 118/76 Intake Visit Reasons: COUGH, NAUSEA, ACHY Visitor Service Assistant Required: No Is patient in pain?: No [...] [History Confirmed 07/08/17] prednisone 10 mg tablet See Label Instructions PO .COMPLEX #30 tab 07/08/17 [Rx Confirmed 07/08/17] PFSH Medical History Reactive airway disease (Chronic) Other malaise and fatigue (Chronic) Acute sinusitis (Chronic) Atypical [...] Family History Mother Hypertension Heart disease Thyroid disorder Father Asthma Social History Smoking Status: Former smoker second hand exposure: No alcohol intake: never substance use type: does not use caffeine: Yes (4/day) what type of physical activity do you participate in: none HPI HPI Details: LORENZO TURNER, is a 66 F who presents to the office today for for an urgent appointment. Patient states that she started with an upper respiratory infection approximately 3 weeks ago. She has been treating with acsq-zde-skyxxju medication and has not had any improvement. [...] Neuro Neurology: Positive for headache(s) Endo Endocrine: Positive for fatigue Aller/Imm Allergy/Immunologic: Positive for wheezing Exam Const General: cooperative, no acute distress Nutritional Appearance: average body habitus Orientation: alert, awake, oriented x3 HENMT Head: normal to [...] Auscultation: normal bowel sounds Percussion: normal to percussion Palpation: soft, no hepatosplenomegaly [...] 07/08/17 Weight: 159 lb 07/08/17 Body Mass Index (BMI) 28.1 07/08/17 Blood Pressure 118/76 Intake Visit Reasons: COUGH, NAUSEA, ACHY Visitor Service Assistant Required: No Is patient in pain?: No [...] [History Confirmed 07/08/17] prednisone 10 mg tablet See Label Instructions PO .COMPLEX #30 tab 07/08/17 [Rx Confirmed 07/08/17] [facility] Medical History Reactive airway disease (Chronic) Other malaise and fatigue (Chronic) Acute sinusitis (Chronic) Atypical [...] Family History Mother Hypertension Heart disease Thyroid disorder Father Asthma Social History Smoking Status: Former smoker second hand exposure: No alcohol intake: never substance use type: does not use caffeine: Yes (4/day) what type of physical activity do you participate in: none HPI HPI Details: LORENZO TURNER, is a 66 F who presents to the office today for for an urgent appointment. Patient states that she started with an upper respiratory infection approximately 3 weeks ago. She has been treating with ncca-zqf-vkemveh medication and has not had any improvement. [...] Neuro Neurology: Positive for headache(s) Endo Endocrine: Positive for fatigue Aller/Imm Allergy/Immunologic: Positive for wheezing Exam Const General: cooperative, no acute distress Nutritional Appearance: average body habitus Orientation: alert, awake, oriented x3 HENMT Head: normal to [...] Auscultation: normal bowel sounds Percussion: normal to percussion Palpation: soft, no hepatosplenomegaly [...] BLANCHARD Cosigner Signature: Date (if applicable) CC: ALLERGIES ALLERGIES DATE TYPE / CODE NAME / CODE REACTION SEVERITY SOURCE 01/18/2018 Drug Penicillins/F Hives [facility] [place] [facility] All[facility]160 [id number](RXN [facility] [address](SNOMED ORM) Repository CT) 01/18/2018 Drug Sulfa Unknown Unknown [place] [facility] Allergy/4160 (Sulfonamide Hospital 04016(SNOMED Antibiotics)/ Repository CT) [id number](RX NORM) ENCOUNTERS ENCOUNTERS ADMIT/DISCHARGE ACCOUNT ADMITTING ENCOUNTER LOCATION SOURCE NUMBER CLASS 03/28/2018 [id number] Ambulatory [place] 3 [facility] ing:PT Repository 03/14/2018 [id number] Ambulatory [place] 6 [facility] ing:MFPLAB Repository 01/18/2018 [id number] Ambulatory [place] 7 [facility] ing:HPRAD Repository 01/18/2018/ [id number] Ambulatory BMSBuilding:B [place] [facility] 1 [facility] Repository 01/12/2018 [id number] Ambulatory [place] 4 [facility] ing:MFPLAB Repository 11/08/2017 [id number] Ambulatory [place] 0 [facility] ing:MFPLAB Repository 10/10/2017 [id number] [facility] [place] [facility] Repository 09/28/2017 [id number] Ambulatory [place] 4 [facility] ing:MFPLAB Repository 09/14/2017 [id number] Ambulatory [place] 2 [facility] ing:MFPLAB Repository 08/17/2017 [id number] Ambulatory [place] 5 [facility] ing:MFPLAB Repository 07/11/2017 [id number] Ambulatory [place] 4 [facility] ing:HPRAD Repository 07/08/2017/ [id number] Ambulatory BMSBuilding:B [place] [address] 6 [facility] Repository PAYERS PAYERS ENCOUNTER GUARANTOR PAYER SUBSCRIBER SOURCE 03/28/2018 L[place]ZO M Primary LORENZO M [place] [id number] Insurance:MEDICARE CHIZMADIADOB: Community [facility] PART [facility] BPolicy Number: [id number] [id number] Repository 90265Drp: (330) Date:2013-10-15 [id number] () 03/28/2018 Secondary LORENZO M [place] Insurance:HUMANA CHIZMADIADOB: [facility] COMMERCIALPolicy [id number] Hospital Number: Repository [id number] Date:[id number] [address] [place] [id number]: 03/28/2018 Tertiary NOT GIVENUNK [place] Insurance:SELF PAY [facility] Number: Effective Repository Date:2018-01-17 03/14/2018 LORENZO M Primary LORENZO M [place] [id number] Insurance:MEDICARE CHIZMADIADOB: [facility] PART A BPolicy Number: [id number], [place] [id number] Repository [address]Brc: 330) Date:2018-03-14 [id number] () 03/14/2018 Secondary LORENZO M [place] Insurance:HUMANA CHIZMADIADOB: [facility] [id number] Hospital Number: Repository [id number] Date:[id number] [address] [place] [phone]: 03/14/2018 Tertiary NOT GIVENUNK [place] Insurance:SELF PAY [facility] Number: Effective Repository Date:2018-03-14 01/18/2018 LORENZO M Primary LORENZO M [place] [id number] Insurance:MEDICARE CHIZMADIADOB: [facility] PART A BPolicy Number: [id number], [place] [id number] Repository [address]Grz: (330) Date:2018-01-18 [id number] () 01/18/2018 Secondary LORENZO M [place] Insurance:HUMANA CHIZMADIADOB: [facility] COMMERCIALPolicy [id number] Hospital Number: Repository [id number] Date:1970-76-17LP [address] [phone]: 01/18/2018 Tertiary NOT GIVENUNK [place] Insurance:SELF PAY [facility] Number: Effective Repository Date:2018-01-18 01/18/2018 LORENZO M Primary LORENZO M [place] [id number] Insurance:MEDICARE CHIZMADIADOB: Community [facility] PART A BPolicy Number: [id number], [place] [id number] Repository [address]Vvp: 330) Date:2018-01-02 [phone] () 01/18/2018 Secondary LORENZO M [place] Insurance:HUMANA CHIZMADIADOB: [facility] [id number] Hospital Number: Repository [id number] Date:[id number] [address] [address]DK: 01/18/2018 Tertiary NOT GIVENUNK [place] Insurance:SELF PAY [facility] Number: Effective Repository Date:2018-01-18 01/12/2018 LORENZO M Primary LORENZO M [place] [id number] Insurance:MEDICARE CHIZMADIADOB: [facility] PART A BPolicy Number: [id number], [place] [id number] Repository [address]Tja: 330) Date:2018-01-12 [phone] () 01/12/2018 Secondary LORENZO M [place] Insurance:HUMANA CHIZMADIADOB: [facility] [id number] Hospital Number: Repository [id number] Date:[id number] [address] [address]MA: 01/12/2018 Tertiary NOT GIVENUNK [place] Insurance:SELF PAY [facility] Hospital Number: Effective Repository Date:2018-01-12 11/08/2017 LORENZO M Primary LORENZO M Debbie [id number] Insurance:MEDICARE CHIZMADIADOB: Community [facility] PART [facility] BPolicy Number: [id number], [place] [id number] Repository [address]58[address]Ksl: (330) Date:2017-11-08 46 () 11/08/2017 Secondary LORENZO M [place] Insurance:HUMANA CHIZMADIADOB: [facility] COMMERCIALPolicy [id number] Hospital Number: Repository [id number] Date:9849-23-05ER [address] [place] [id number]: 11/08/2017 Tertiary NOT GIVENUNK [place] Insurance:SELF PAY [facility] Number: Effective Repository Date:2017-11-08 10/10/2017 LORENZO M Primary LORENZO M [place] [id number] Insurance:MEDICARE CHIZMADIADOB: [facility] PART [facility] BPolicy Number: [id number], [place] [id number] Repository [address]Cwe: 330) Date:2017-10-02 46 () 10/10/2017 Secondary LORENZO M [place] Insurance:HUMANA CHIZMADIADOB: [facility] [id number] Hospital Number: Repository [id number] Date:[id number] [address] [place] [id number]: 10/10/2017 Tertiary NOT GIVENUNK [place] Insurance:SELF PAY [facility] Hospital Number: Effective Repository Date:2017-10-02 09/28/2017 LORENZO M Primary LORENZO M [place] [id number] Insurance:MEDICARE CHIZMADIADOB: [facility] PART [facility] BPolicy Number: [id number], [place] [id number] Repository [address]Hcc: (330) Date:2017-09-28 46 () 09/28/2017 Secondary LORENZO M [place] Insurance:HUMANA CHIZMADIADOB: Community COMMERCIALPolicy [id number] Hospital Number: Repository [id number] Date:[id number] [address]EW: 09/28/2017 Tertiary NOT GIVENUNK Debbie Insurance:SELF PAY [facility] Number: Effective Repository Date:2017-09-28 09/14/2017 LORENZO M Primary LORENZO M Debbie [id number] Insurance:MEDICARE CHIZMADIADOB: Community [facility] PART [facility] BPolicy Number: [id number], [place] [id number] Repository [address]Jbr: 330) Date:2017-09-14 461 () 09/14/2017 Secondary LORENZO M [place] Insurance:HUMANA CHIZMADIADOB: [facility] [id number] Hospital Number: Repository [id number] Date:[id number] [address] [address]VQ: 09/14/2017 Tertiary NOT GIVENUNK Debbie Insurance:SELF PAY [facility] Hospital Number: Effective Repository Date:2017-09-14 08/17/2017 LORENZO M Primary LORENZO M Debbie [id number] Insurance:MEDICARE CHIZMADIADOB: [facility] PART [facility] BPolicy Number: [id number], [place] [id number] Repository [address]Jit: 330) Date:2017-08-17 468 (HP) 08/17/2017 Secondary LORENZO M Debbie Insurance:HUMANA CHIZMADIADOB: [facility] [id number] Hospital Number: Repository [id number] Date:[id number] [address]EC: 08/17/2017 Tertiary NOT GIVENUNK [place] Insurance:SELF PAY [facility] Hospital Number: Effective Repository Date:2017-08-17 07/11/2017 LORENZO M Primary LORENZO M Debbie [id number] Insurance:MEDICARE CHIZMADIADOB: Community [facility] PART [facility] BPolicy Number: [id number], [place] [id number] Repository [address]Qha: (330) Date:2017-07-11 46 () 07/11/2017 Secondary LORENZO M [place] Insurance:HUMANA CHIZMADIADOB: Community COMMERCIALPolicy [id number] Hospital Number: Repository [id number] Date:6630-02-14SL [address] [place] [address]DQ: 07/11/2017 Tertiary NOT GIVENUNK Debbie Insurance:SELF PAY [facility] Hospital Number: Effective Repository Date:2017-07-11 07/08/2017 LORENZO M Primary LORENZO M Debbie [id number] Insurance:MEDICARE CHIZMADIADOB: Community [facility] PART [facility] BPolicy Number: [id number], [place] [id number] Repository [address]Moe: (330) Date:2017-07-08 46 () 07/08/2017 Secondary LORENZO M Debbie Insurance:HUMANA CHIZMADIADOB: [facility] COMMERCIALPolicy [id number] Hospital Number: Repository [id number] Date:[id number] [address] [place] [id number]: 07/08/2017 Tertiary NOT GIVENUNK [place] Insurance:SELF PAY [facility] Number: Effective Repository Date:2017-07-08
== END ==
PROVIDERS: Family Provider Family Medicine; PCP Family Medicine; Visit Provider Family Medicine
DX: E55.9 Vitamin D deficiency, unspecified (principal); N39.0 Urinary tract infection, site not specified; I10 Essential (primary) hypertension; E78.5 Hyperlipidemia, unspecified
CPT/HCPCS: 36415; 80053; 80061; 82306; 85025; 87086; 87088

== ENCOUNTER 2018-06-04 11:07 | Emergency (ER) | payer MEDICARE, OTHER, SELFPAY ==
[2018-06-04 11:08] VITALS: BP 116/79; PULSE 113; RESP 16; TEMP 36.7; O2SAT 95; BMI 28.8
--- NOTE | 2018-06-04 11:50 | CT_ITS ---
STUDY: CT ABDOMEN AND PELVIS WITH CONTRAST REASON FOR EXAM: Female, 67 years old. RADIATION DOSAGE (If Supplied By Facility): CTDIvol = ( 14.01 ) mGy, DLP = ( 738.69 ) mGycm TECHNIQUE: Transaxial images were obtained from the dome of the diaphragm to the symphysis pubis without oral contrast. Isovue 300 100 IV was administered. Sagittal and coronal images were reconstructed. Individualized dose optimization techniques were used for this CT. COMPARISON: None. FINDINGS: The visualized lung bases are unremarkable. The visualized portions of the heart are within normal limits. Normal liver. There is non-visualization of the gallbladder, which may be secondary to either contraction or a prior cholecystectomy. There are multiple benign calcified granulomata of the spleen. Normal pancreas. Normal bilateral adrenal glands. Normal right kidney. Normal left kidney. Normal visualized stomach. Normal small intestine. There are a few scattered sigmoid diverticula without acute diverticulitis. Appendix best seen on coronal recon image 60. Normal abdominal aorta. Normal inferior vena cava. Normal retroperitoneum. Normal urinary bladder. Uterus is still present, there is a suggestion of endometrial thickening on coronal recon image 89 measuring 1.1 cm. but this would need to be confirmed with dedicated pelvic ultrasound. Normal abdominal wall. Normal osseous structures. CT/Abdomen/Pelvis W IV Cont ONLY IMPRESSION: Uterus is still present, there is a suggestion on coronal recon image 89 of endometrial stripe thickening at 1.1 cm. Dedicated pelvic ultrasound needed for more thorough evaluation. Sigmoid diverticulosis Electronically Signed: Marlo Weathers MD at 14:13 EST , Service support ,
--- NOTE | 2018-06-04 11:54 | ED.VISSUMM ---
- ER Visit Summary Date of Service: 06/04/18 Chief Complaint: Vomiting and diarrhea History of Present Illness: The patient is a 67 F who presents for 4 days of vomiting and diarrhea. Patient has had multiple episodes of vomiting and diarrhea over the last 4 days. Her last oral intake was 2 days ago and was a saltine cracker. She has been unable to tolerate even water. She has associated cough and nausea. Patient denies any abdominal pain. Also subjective fever, as patient states she has been hot and sweaty but has not taken her temperature. Last vomiting and diarrhea over this morning. There is no blood in it. Patient has hypertension and cholecystectomy. Physical Examination: Vital signs: afebrile, hemodynamically stable, tachycardic, no hypoxia on room air General: well nourished, well developed, in no distress Skin: warm, dry, no rash, no pallor HEENT: normocephalic and atraumatic; PERRL, EOMI, dry mucous membranes Cardiovascular: Tachycardic rate and rhythm without murmurs, no peripheral edema, 2+ pulses all distal extremities Respiratory: No increased work of breathing, lungs are clear to auscultation bilaterally, no rales, rhonchi or wheezing Abdominal: Abdomen is soft, nontender with normoactive bowel sounds, no guarding or rebound, no masses MSK: Moves all extremities, no deformities, normal strength Neuro: Awake and alert, oriented ?4. No facial droop, sensation and motor function intact and symmetric Test Results: Abnormal Lab Results 06/04/18 06/04/18 06/04/18 12:10 12:10 12:10 WBC 6.8 RBC 5.14 Hgb 16.1 H Hct 48.8 H MCV 94.9 MCH 31.3 MCHC 33.0 RDW 12.2 RDW Differential 42.0 Plt Count 176 MPV 9.7 Immature Gran % (Auto) 0.300 Neut % (Auto) 78.5 H Lymph % (Auto) 14.2 L Worth % (Auto) 5.1 Eos % (Auto) 1.8 Baso % (Auto) 0.1 Absolute Neuts (auto) 5.4 Absolute Lymphs (auto) 0.97 Total Counted Not Reportable Sodium 139 Potassium 3.7 Chloride 108 H Carbon Dioxide 23.0 Anion Gap 8 BUN 16 Creatinine 1.16 H Estim Creat Clear Calc 34.54 Est GFR (MDRD) Af Amer 60 Est GFR (MDRD) Non-Af 49 L BUN/Creatinine Ratio 13.8 Glucose 94 Lactic Acid 1.2 Calcium 9.1 Total Bilirubin 0.70 AST 35 ALT 51 Alkaline Phosphatase 161 H Total Protein 7.9 Albumin 4.2 Globulin 3.7 Albumin/Globulin Ratio 1.1 Lipase 143 Urine Color Urine Clarity Urine pH Ur Specific [place] Urine Protein Urine Glucose (UA) Urine Ketones Urine Occult Blood Urine Nitrite Urine Bilirubin Urine Urobilinogen Ur Leukocyte Esterase Urine RBC Urine WBC Ur Squamous Epith Cells Urine Bacteria Hyaline Casts Urine Mucus 06/04/18 13:25 WBC RBC Hgb Hct MCV MCH MCHC RDW RDW Differential Plt Count MPV Immature Gran % (Auto) Neut % (Auto) Lymph % (Auto) Worth % (Auto) Eos % (Auto) Baso % (Auto) Absolute Neuts (auto) Absolute Lymphs (auto) Total Counted Sodium Potassium Chloride Carbon Dioxide Anion Gap BUN Creatinine Estim Creat Clear Calc Est GFR (MDRD) Af Amer Est GFR (MDRD) Non-Af BUN/Creatinine Ratio Glucose Lactic Acid Calcium Total Bilirubin AST ALT Alkaline Phosphatase Total Protein Albumin Globulin Albumin/Globulin Ratio Lipase Urine Color Yellow Urine Clarity Clear Urine pH 5.0 Ur Specific [place] 1.020 Urine Protein 15 H Urine Glucose (UA) Normal Urine Ketones 50 H Urine Occult Blood Negative Urine Nitrite Negative Urine Bilirubin Negative Urine Urobilinogen Normal Ur Leukocyte Esterase 25 H Urine RBC 0 SEEN Urine WBC 0-5 SEEN Ur Squamous Epith Cells 0-5 SEEN Urine Bacteria RARE Hyaline Casts 25-50 SEEN Urine Mucus 1+ Clinical Impression(s) from Imaging Studies Abdomen/Pelvis CT 06/04/18 11:50 IMPRESSION: Uterus is still present, there is a suggestion on coronal recon image 89 of endometrial stripe thickening at 1.1 cm. Dedicated pelvic ultrasound needed for more thorough evaluation. Sigmoid diverticulosis Electronically Signed: Marlo Weathers MD at 14:13 EST , Service support , Medications Given Discontinued Medications Sodium Chloride () 1,000 mls @ 1,000 mls/hr IV .Q1H ONE Stop: 06/04/18 12:49 Last Admin: 06/04/18 12:15 Dose: 1,000 mls/hr Ondansetron HCl (Zofran) 4 mg IV X1 ONE Stop: 06/04/18 11:51 Last Admin: 06/04/18 12:15 Dose: 4 mg Emergency Department Course and Treatment: Patient was given Zofran and IV fluids. Because of her age, and duration of symptoms, workup was performed to look for underlying pathology causing her vomiting and diarrhea. Patient's urine was positive for ketones, concerning for dehydration. Labs showed no leukocytosis. Patient had renal function at baseline. Hepatic function was within normal limits with nonspecific mild elevation of the alkaline phosphatase at 161. CT of the abdomen and pelvis was performed that showed diverticulosis without diverticulitis. There was also no other acute findings to explain patient's symptoms. After receiving IV hydration, patient felt much better and felt well enough to go home. She was given a prescription for Zofran to help her with nausea and to help her tolerate fluids at home. Patient discharged in improved condition. Treatment Plan: [] Disposition: [] Impression: Dehydration, diarrheal illness This note was generated with [employer] dictation software. It may contain incorrect words, spelling, and punctuation that were not noted in review of the chart prior to signing ED Disposition - Plan for ED Patient: Disposition: Home or Assisted Living Instructions: ED Dehydration, ED Vomiting Diarrhea Nonspecific Ad Prescriptions: Ondansetron [Zofran Odt] 4 mg PO Q8H PRN PRN #10 tab PRN Reason: Nausea Referrals: Umer Prajapati MD [Primary Care Provider] - 3-5 Days if not improving Additional Instructions: Use ondansetron as needed to help with nausea. Make sure to drink plenty of fluids to stay hydrated. Gatorade and Powerade are good choices if you are not eating or drinking much of anything else. If you have any worsening of your condition or any new concerning symptoms, please return immediately to the emergency department for another evaluation.
[2018-06-04] MEDS: 0.9% Normal Saline 1,000 ML 1000 ML IV (12:15)
[2018-06-04] MEDS: Ondansetron 4 MG/2 ML Vial IV (12:15)
[2018-06-04 12:25] LABS: Absolute Lymphocyte Count 0.97 X10^3/ul (0.83-4.51); Absolute Neutrophil Count 5.4 X10^3/uL (2.0-7.7); Basophil# 0.01 X10^3/uL; Basophil% 0.1 % (0-1); Eosinophil# 0.12 X10^3/uL; Eosinophils% 1.8 % (0-5); Hematocrit 48.8 % (37-47); Hemoglobin 16.1 g/dl (12.0-15.0); Lymphocyte # 0.97 X10^3/ul (4.0); Lymphocyte % 14.2 % (19-41); Mean Corpuscular Hgb 31.3 pg (27.0-32.0); Mean Corpuscular Volume 94.9 fL (81-99); Mean Platelet Vol. 9.7 fl (6.2-12.0); Monocyte# 0.35 X10^3/uL; Monocyte% 5.1 % (0-10); Neutrophil # 5.36 X10^3/uL (2.7-7.7); Neutrophil % 78.5 % (47-70); POSITIVE COUNT NO; POSITIVE DIFFERENTIAL NO; POSITIVE MORPHOLOGY NO; Platelet Count 176 K/mm3 (150-450); RBC Distribution Width CV 12.2 % (11.6-14.6); Red Blood Count 5.14 M/mm3 (4.2-5.4); White Blood Count 6.8 K/mm3 (4.4-11.0)
[2018-06-04 12:41] LABS: ALB/GLOB Ratio 1.1 RATIO (0.9-2.4); AST(SGOT) 35 U/L (15-37); Alanine Aminotransfer ALT/SGPT 51 U/L (13-56); Albumin, Serum 4.2 g/dL (3.2-5.0); Alkaline Phosphatase 161 U/L (45-117); Anion Gap 8 (5-15); BUN 16 mg/dL (7-18); BUN/Creat Ratio 13.8 RATIO (10-20); Calcium,Total 9.1 mg/dL (8.5-10.1); Chloride 108 mmol/L (98-107); Creatinine, Serum 1.16 mg/dL (0.55-1.02); EST Glomerular Filtration Rate 49 mL/min (>60); Est Glom Filt Rate - Afr Amer 60 mL/min (>60); Estimated Creatinine Clearance 34.54 ml/min; Globulin 3.7 g/dL (2.2-4.2); Glucose 94 mg/dL (74-106); Lipase 143 U/L (73-393); Potassium 3.7 mmol/L (3.5-5.1); Protein, Total 7.9 g/dL (6.4-8.2); Sodium Level 139 mmol/L (136-145)
[2018-06-04 12:49] LABS: Lactic Acid 1.2 mmol/L (0.4-2.0)
[2018-06-04 13:32] LABS: Red Blood Cells-Urine 0 SEEN /hpf (0-5)
[2018-06-04 13:36] LABS: Color, Urine Yellow (Yellow); Glucose, Dipstick Normal (Normal); Ketone-Dipstick 50 mg/dl (Negative); Leukocyte Esterase-Dipstick 25 /ul (Negative); Nitrite-Dipstick Negative (Negative); Occult Blood-Urine Negative /ul (Negative); Protein-Dipstick 15 mg/dl (Negative); Urine Bilirubin Dipstick Negative (Negative); Urine Clarity Clear (Clear); Urine Urobilinogen Normal (Normal)
[2018-06-04 13:37] VITALS: BP 129/73; PULSE 96
[2018-06-04 13:50] LABS: White Blood Cells 0-5 SEEN /hpf (0-5)
[2018-06-04 13:51] LABS: Bacteria RARE /hpf (None Seen); Hyaline Cast 25-50 SEEN /lpf (0-5); Mucous, Urine 1+ /hpf (<or=2+); Squamous Epithelial Cells - UA 0-5 SEEN /hpf (5-10)
== END 2018-06-04 15:17 | disposition home or self-care (01) ==
PROVIDERS: Emergency Provider Emergency Medicine; Family Provider Family Medicine; PCP Family Medicine
DX: E86.0 Dehydration (principal); R19.7 Diarrhea, unspecified; K57.30 Diverticulosis of large intestine without perforation or abscess without bleeding; I10 Essential (primary) hypertension; Z90.49 Acquired absence of other specified parts of digestive tract
CPT/HCPCS: 74177; 80053; 81001; 83605; 83690; 85025; 87040; 96361; 96374; 99283; J7030; Q9967; A4216; J2405

== ENCOUNTER 2018-06-13 10:00 | Outpatient (RCR) | payer MEDICARE, OTHER, SELFPAY ==
--- NOTE | 2018-02-14 17:01 | HP.PTEVAL_ITS ---
Patient's Visit Information LORENZO TURNER is a 67 year old F referred to Physical Therapy by Umer Parjapati MD with a diagnosis of BPPV. Date of Evaluation: 02/14/18 Physical Therapist: Emily Khan - Visit Plan Frequency: 1-2x /Week Duration: 4-6 Weeks Plan: 1-2X/ week for 4-8 weeks for re-testing and treatment for positional vertigo, VOR and balance screen and treatment based upon any residula symptoms with HEP - Subjective Subjective: Pt reports that she is dizzy. It started 30 years ago. It is constant but sometimes it is worse than others. She describes it If she lays down, turns her head, or stands up she will get dizzy to the point that she will throw up. Sometimes it can last for hours and other times it could last minutes. It can be rolling either direction in bed that can cause the d izziness. There are times if she stands and turns her head the room will spin. She has been seen by a specialist that she had an inner ear disturbance and does not go anywhere without Meclazene. Sometimes it can be bad enough that she has to sit all day. When the seasons change it gets really bad. She reports that her balance is ok. She has a sore neck currently cause she was doing somethings she was not able to do. She has some trouble with some stores with the lights or the carpet. Pt says that she can not walk and turn her head to say hi to someone. She reports that she has to stop and turn body. - Pain neck pain Pain Intensity (Out of 10): 2 - Objective + L Hallpike for positive upward torsional nystagmus that lasted approx 25 seconds. Treated from that position with the Eply. -L Hallpike on second attempt for nystagmus but pt felt a slight weird feeling but subsided quickly. Did the L Eply again and pt did have a little dizziness when rolled pts head from the L Hallpike position to the R. Pt left feeling a little foggy in her head. - Goals Goal 1:: I HEP Goal Time Frame: 4-6 Weeks Goal 2:: Abolish dizziness when rolling over in bed Goal Time Frame: 4-6 Weeks Goal 3:: Test VOR ability Goal Time Frame: 4-6 Weeks Goal 4:: Subjective dizziness improved to be able to walk and turn head without dizziness - Rehabilitation Potential Rehabilitation Potential: Good - Anticipated Interventions Patient/Client Instruction: Educate patient on: Condition, Plan of Care For the Purpose of:: To improve nutrient delivery to tissue, To improve muscle performance and motor function, To improve ability to perform ADL's, To increase tolerance to activity/condition/position, To improve performance and independence with ADL's Therapeutic Exercise to Include: Strength training, Balance training, Coordination, Postural training, Flexibilty training, Gait and locomotor training, Neuromotor development, via [employer] Balance Mas For the Purpose of:: To improve nutrient delivery to tissue, To improve muscle performance and motor function, To improve ability to perform ADL's, To increase tolerance to activity/condition/position, To improve performance and independence with ADL's, To improve ability of physical actions for home/community/work/leisure Manual Therapy Techniques to Include: Other For the Purpose of:: To improve ability to perform ADL's, To increase tolerance to activity/condition/position Thank you for the opportunity to evaluate your patient. For Medicare and Medicare HMO plans, please review the plan of care and approve it. It will need to be FAXED BACK to us at [phone] for Medicare purposes. Please let me know if there are questions or concerns regarding this plan of care. Physician Signature: Date:
--- NOTE | 2018-05-16 15:44 | HP.PTREVAL_ITS ---
Umer Prajapati MD, It has been my pleasure to treat LORENZO TURNER over the last 10 visits for BPPV. Please see the progress note below for an update on the physical therapy plan of care! Subjective: Pt reports that she felt good at the time of the with the Hallpike correction but she started to not feel good Monday when she woke up....she was a little dizzy a couple of times in bed but not bad. Bending down or turning her head quick made her dizzy. She took a meclazene on Monday and it settled it down a little. When it comes on it, it is pretty strong and then when that goes away she has a little bit of dizzy. Objective/Function: Pt felt off after treatment but the longer that she sat there, the better she felt. Plan Plan: Re-Check R and L Hallpike next visit. If no symptoms, start head turns and VOR exercises. Goals Goal 1:: I HEP Goal Time Frame: 4-6 Weeks Goal 2:: Abolish dizziness when rolling over in bed Goal Time Frame: 4-6 Weeks Goal 3:: Test VOR ability Goal Time Frame: 4-6 Weeks Goal 4:: Subjective dizziness improved to be able to walk and turn head without dizziness Anticipated Interventions Patient/Client Instruction: Educate patient on: Condition, Plan of Care For the Purpose of:: To improve nutrient delivery to tissue, To improve muscle performance and motor function, To improve ability to perform ADL's, To increase tolerance to activity/condition/position, To improve performance and independence with ADL's Therapeutic Exercise to Include: Strength training, Balance training, Coordination, Postural training, Flexibilty training, Gait and locomotor ronald loulou, Neuromotor development, via Neurocom Balance Mas For the Purpose of:: To improve nutrient delivery to tissue, To improve muscle performance and motor function, To improve ability to perform ADL's, To increase tolerance to activity/condition/position, To improve performance and independence with ADL's, To improve ability of physical actions for home/community/work/leisure Manual Therapy Techniques to Include: Other For the Purpose of:: To improve ability to perform ADL's, To increase tolerance to activity/condition/position Please do not hesitate to contact me at [phone] by phone or if you have questions or concerns regarding this new plan of care! Sincerely, Emily Khan, MPT
--- NOTE | 2018-06-13 10:35 | HP.PTDCSUM ---
HP - PT D/C Summary It has been my pleasure to treat LORENZO TURNER under orders from Umer Prajapati MD, for the diagnosis of BPPV for a total of 12 visit(s). Discharge Date: 06/13/18 Please see the following information for a summary of their discharge status. - Subjective Subjective: Doing head movements twice a day and eye movements and has not made her dizzy. Balance she is doing good. Pt reports that she can read much easier as well. - Pain neck pain Pain Intensity (Out of 10): 8 FITZPATRICK Pain Intensity (Out of 10): 8 - Overall Improvement % Improvement: 99 - Objective Objective/Function: + R hallpike for some spinning dizziness lasted less than 20 seconds... very slight nystagmus seen if any. Second attempt at R Hallpike was negative for nystagmus and dizziness. -L Hallpike was negative for nystagmus and dizziness. FGA: - Goals Goal 1:: I HEP Goal Progress: Goal Met Goal 2:: Abolish dizziness when rolling over in bed Goal Progress: Goal Met Goal 3:: Test VOR ability Goal Progress: Goal Met Goal 4:: Subjective dizziness improved to be able to walk and turn head without dizziness Goal Progress: Goal Met - Plan Plan: DC PT to HEP - D/C Information Discharge Comments: DC PT to HEP If there are questions or concerns regarding this patient's physical therapy, please feel free to call me at [phone]. Thank you for the referral of this patient. Sincerely, Emily Khan, MPT
== END 2018-06-13 17:52 | disposition home or self-care (01) ==
LOC: PT 10:00
PROVIDERS: Family Provider Family Medicine; PCP Family Medicine; Referring Provider Family Medicine; Visit Provider Family Medicine
DX: H81.10 Benign paroxysmal vertigo, unspecified ear (principal)
CPT/HCPCS: 97162; 97530

== ENCOUNTER → 2018-06-27 11:15 | Outpatient (CLI) | payer MEDICARE, OTHER, SELFPAY ==
[2018-06-04 11:08] VITALS: BMI 28.8
== END ==
PROVIDERS: Family Provider Family Medicine; PCP Family Medicine; Referring Provider Family Medicine; Visit Provider Family Medicine
DX: Z00.00 Encounter for general adult medical examination without abnormal findings (principal)

== ENCOUNTER → 2018-07-04 07:23 | Outpatient (CLI) | payer MEDICARE, OTHER, SELFPAY ==
[2018-06-27 14:32] VITALS: BMI 28.8
--- NOTE | 2018-07-04 07:27 | US_ITS ---
STUDY: ULTRASOUND OF THE FEMALE PELVIS - COMPLETE REASON FOR EXAM: Female, 67 years old. Suspicious endometrium on CT scan. LMP: TECHNIQUE: Transabdominal and Transvaginal TECHNICAL QUALITY: Adequate. COMPARISON: CT scan 06/04/2018. FINDINGS: The uterus is retroverted and is in a midline position. The uterus measures 5.2 x 4.3 x 2.7 cm. Normal uterine cervix. The endometrium measures 11 mm in thickness, and is heterogeneous and has tiny cystic structures. There is no demonstrated endometrial mass. There is no demonstrated myometrial mass. The right ovary is visualized. The right ovary measures 1.6 x 1.5 x 0.8 cm. There is no right ovarian cyst or ovarian mass. There is no visualized right adnexal mass or complex lesion. There is normal arterial and normal venous vascularity. The left ovary is visualized. The left ovary measures 1.5 x 1.3 x 1.0 cm. There is no left ovarian cyst or ovarian mass. There is no visualized left adnexal mass or complex lesion. There is normal arterial and normal venous vascularity. There is no fluid in the cul-de-sac. The pre void volume of the bladder was 453 ml. US/Pelvic (Non ) IMPRESSION: Endometrial echoes are thickened and heterogeneous for a patient of this age. Consider further evaluation including sampling. No other significant findings. Electronically Signed: Willam García MD at 13:33 EDT , Service support ,
--- NOTE | 2018-07-04 07:27 | US_ITS ---
STUDY: ULTRASOUND OF THE FEMALE PELVIS - COMPLETE REASON FOR EXAM: Female, 67 years old. Suspicious endometrium on CT scan. LMP: TECHNIQUE: Transabdominal and Transvaginal TECHNICAL QUALITY: Adequate. COMPARISON: CT scan 06/04/2018. FINDINGS: The uterus is retroverted and is in a midline position. The uterus measures 5.2 x 4.3 x 2.7 cm. Normal uterine cervix. The endometrium measures 11 mm in thickness, and is heterogeneous and has tiny cystic structures. There is no demonstrated endometrial mass. There is no demonstrated myometrial mass. The right ovary is visualized. The right ovary measures 1.6 x 1.5 x 0.8 cm. There is no right ovarian cyst or ovarian mass. There is no visualized right adnexal mass or complex lesion. There is normal arterial and normal venous vascularity. The left ovary is visualized. The left ovary measures 1.5 x 1.3 x 1.0 cm. There is no left ovarian cyst or ovarian mass. There is no visualized left adnexal mass or complex lesion. There is normal arterial and normal venous vascularity. There is no fluid in the cul-de-sac. The pre void volume of the bladder was 453 ml. US/Transvaginal Non- IMPRESSION: Endometrial echoes are thickened and heterogeneous for a patient of this age. Consider further evaluation including sampling. No other significant findings. Electronically Signed: Willam García MD at 13:33 EDT , Service support ,
--- NOTE | 2018-07-04 07:29 | BI_ITS ---
MAMMOGRAPHY - BILATERAL SCREENING 3-D MIKE SYNTHESIS REASON FOR EXAM: Female, 67 years old. Bilateral Screening 3-D tomosynthesis PERTINENT HISTORY: No significant family history. TECHNIQUE: 2-D mammograms and 3-D Mike synthesis of the breast (s) were performed. CAD was performed. COMPARISON: May 28, 2015, December 19, 2012 FINDINGS: The breast composition is almost entirely fat. Scattered benign calcifications are stable. There are normal-appearing lymph nodes bilaterally unchanged. No dense spiculated masses or suspicious microcalcifications are identified. No architectural distortion is identified. There is no skin thickening or retraction. There has been no significant change since the prior study. BI/SCREENING MAMM (CAD), BILAT IMPRESSION: No mammographic signs of malignancy. Routine yearly mammograms recommended. ASSESSMENT CATEGORY: BIRADS Category 2: Benign. A letter regarding these results will be sent to the patient by the facility within 30 days. FOLLOW UP RECOMMENDATION: Yearly follow up mammogram recommended. (A) Approximately 10% of breast cancers are not detected by mammography. A normal mammogram should not delay biopsy of a clinically suspicious abnormality. Electronically Signed: Yo Jimenez MD at 12:55 EDT , Service support ,
--- NOTE | 2018-07-04 08:51 | BD_ITS ---
STUDY: DUAL ENERGY X-RAY ABSORPTIOMETRY / DXA REASON FOR EXAM: Female, 67 years old. The patient is postmenopausal. Loss of height. TECHNIQUE: Bone Mineral Density (BMD) measurements of lumbar spine and bilateral hips were obtained. COMPARISON: Comparison is made with prior study dated May 28, 2015. FINDINGS: Lumbar Spine (L1-L4): g/cm2 (0.911) / T-score (-2.2) / Z-score (-0.6) Findings are suggestive of osteopenia with a moderate fracture risk. Left Femur Total: g/cm2 (0.889) / T-score (-0.9) / Z-score (0.5) Left Femoral Neck: g/cm2 (0.823) / T-score (-1.5) / Z-score (0.1) Right Femur Total: g/cm2 (0.895) / T-score (-0.9) / Z-score (0.5) Right Femoral Neck: g/cm2 (0.837) / T-score (-1.4) / Z-score (0.2) The T-Scores on the most recent prior examination were: Lumbar Spine (L1-L4): There has been worsening of bone density since the previous examination. Left Femur Total: which represents a worsening of 3.6%. Right Femur Total: which represents a worsening of 3.6%. BD/Dexa Bone Density Study IMPRESSION: The patient is considered osteopenic as outlined below according to World Stefan Organization (WHO) criteria with a moderate fracture risk. There has been worsening of bone density since the previous examination. Reference Information: The T-score is the number of standard deviations above or below the standard which is normal for young adults at their peak bone mineral density. The World Health Organization (WHO) interprets the T-scores as follows: Above -1 Normal bone density Between -1 and -2.5 Osteopenia Equal to / or below -2.5 Osteoporosis As a practical clinical guideline, osteopenia may be graded as follows: Mild -1 through -1.5 Moderate -1.6 through -2.0 Severe -2.1 through -2.4 The Z-score is the number of standard deviations above or below age-matched controls. A Z-score of less than -1.5 would be considered abnormal. References: 1. NIH Osteoporosis and Related Bone Diseases http://www.osteo.org 2. International Society for Clinical Densitometry http://www.iscd.org 3. National Osteoporosis Foundation http://www.nof.org Electronically Signed: Daniel Medina, at 10:46 EDT , Service support ,
== END ==
PROVIDERS: Family Provider Family Medicine; PCP Family Medicine; Referring Provider Nurse Practitioner Women's Health; Visit Provider Family Medicine
DX: Z12.31 Encounter for screening mammogram for malignant neoplasm of breast (principal); R93.89 Abnormal findings on diagnostic imaging of other specified body structures; M85.89 Other specified disorders of bone density and structure, multiple sites
CPT/HCPCS: 76830; 76856; 77063; 77067; 77080

== ENCOUNTER → 2018-07-05 15:48 | Outpatient (CLI) | payer MEDICARE, OTHER, SELFPAY ==
--- NOTE | 2018-07-05 | EMB_PTH ---
PATIENT: LORENZO TURNER LOC: [facility] U#:[id number] AGE/SX: 74/F ROOM: RE07/05/[address]: TERRY Houser : 1950 BED: DIS: SPEC #: [id number] RECD: 07/05/18 15:41 STATUS: PRATEEK JOSELIN #: [id number] YAQUELIN: 07/05/18 00:[address]: Blanka Desir NP DEPT: SURGICAL PATHOLOGY RECD BY: Rajan Mosher ENTERED: 07/06/18 10:00 SP TYPE: ENDOM BX/C PAIGE DR: Dr. Umer Prajapati MD Tissues: Endometrium, NOS Procedures: Surgery Specimen Level IV HEADER OPERATION: Endometrial biopsy PRE-OP DIAGNOSIS: Thickened endometrium TISSUE SUBMITTED: Endometrial biopsy MICROSCOPIC DIAGNOSIS Endometrium, biopsy: Scant strips of benign glandular mucosa. AM:rad 07/09/18 MICROSCOPIC DESCRIPTION Slides are reviewed. GROSS DESCRIPTION Received is one container labeled with the patient's name and not further designated. The specimen consists of multiple minute fragments of light zheng soft tissue that in aggregate measure 1 x 0.3 x <0.1 cm. The specimen is totally submitted in one cassette. / AM:rad 07/06/18 TC:5 CPT: 06032
[2018-07-05 10:33] VITALS: BMI 29.8
[2018-07-13 17:12] LABS: HPV APTIMA, High Risk Negative (Negative)
== END ==
PROVIDERS: Family Provider Family Medicine; PCP Family Medicine; Referring Provider Nurse Practitioner Women's Health; Visit Provider Nurse Practitioner Women's Health
DX: Z12.4 Encounter for screening for malignant neoplasm of cervix (principal); R93.89 Abnormal findings on diagnostic imaging of other specified body structures
CPT/HCPCS: 87624; 88175; 88305; G0145

== ENCOUNTER → 2018-07-25 19:56 | Outpatient (CLI) | payer MEDICARE, OTHER, SELFPAY ==
[2018-07-05 10:33] VITALS: BMI 29.8
[2018-07-25] MEDS: Zolpidem Tartrate 5 MG Tablet PO (21:30)
== END ==
PROVIDERS: Family Provider Family Medicine; PCP Family Medicine; Visit Provider Internal Medicine Critical Care Medicine
DX: G47.33 Obstructive sleep apnea (adult) (pediatric) (principal)
CPT/HCPCS: 95810

== ENCOUNTER → 2018-08-23 20:00 | Outpatient (CLI) | payer MEDICARE, OTHER, SELFPAY ==
[2018-07-05 10:33] VITALS: BMI 29.8
[2018-08-23] MEDS: Zolpidem Tartrate 5 MG Tablet PO (21:30)
== END ==
PROVIDERS: Family Provider Family Medicine; PCP Family Medicine; Referring Provider Nurse Practitioner Acute Care; Visit Provider Nurse Practitioner Acute Care
DX: G47.33 Obstructive sleep apnea (adult) (pediatric) (principal)
CPT/HCPCS: 95811

== ENCOUNTER 2018-08-30 09:50 | Day surgery (SDC) | payer MEDICARE, OTHER, SELFPAY ==
[2018-07-05 10:33] VITALS: BMI 29.8
[2018-08-20 08:19] VITALS: BMI 29.8
--- NOTE | 2018-08-20 09:09 | HP.PCM_ITS ---
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 Is patient in pain?: No Allergies Penicillins Allergy (Severe, Verified 08/20/18 08:18) Hives Sulfa (Sulfonamide Antibiotics) Allergy (Verified 08/20/18 08:18) Unknown Medications Amlodipine [Norvasc] 10 mg PO DAILY 06/04/18 [History Confirmed 08/20/18] Omeprazole [Prilosec] 20 mg PO DAILY PRN 06/04/18 [History Confirmed 08/20/18] buspirone 5 mg tablet 5 mg PO BID 07/05/18 [History Confirmed 08/20/18] cholecalciferol (vitamin D3) 1,000 unit capsule 1,000 unit PO DAILY 07/05/18 [History Confirmed 08/20/18] escitalopram 10 mg tablet 10 mg PO DAILY 07/05/18 [History Confirmed 08/20/18] flaxseed oil 5 ml MISCELLANEOUS BID 07/05/18 [History Confirmed 08/20/18] fluticasone propionate 220 mcg/actuation HFA aerosol inhaler 2 puff INHALATION ONCE PRN g 07/05/18 [History Confirmed 08/20/18] meclizine 12.5 mg tablet 12.5 mg PO BID-TID PRN 07/05/18 [History Confirmed 08/20/18] mometasone 50 mcg/actuation nasal spray 2 spray INTRANASAL DAILY 07/05/18 [History Confirmed 08/20/18] oxybutynin chloride 5 mg tablet 5 mg PO ONCE tab 07/05/18 [History Confirmed 08/20/18] trazodone 50 mg tablet 50 mg PO QHS PRN 07/05/18 [History Confirmed 08/20/18] Is last menstrual period known: No Post menopausal: Yes Patient : No : No PFSH Medical History Reactive airway disease (Chronic) Other malaise and fatigue (Chronic) Acute sinusitis (Chronic) Atypical Spitz nevus (Chronic) Hyperlipidemia (Chronic) Vertigo (Chronic) Osteopenia (Chronic) Depression (Chronic) IBS (irritable bowel syndrome) (Chronic) Hypersomnia (Chronic) Asthma with acute exacerbation in adult (Chronic) Asthma, mild intermittent (Chronic) Shortness of breath on exertion (Chronic) Gall stones (Chronic) BMI 29.0-29.9,adult (Chronic) Fatty liver (Chronic) Insomnia (Chronic) Anxiety (Chronic) Allergic rhinitis (Chronic) Seasonal affective disorder (Chronic) Low back pain potentially associated with radiculopathy (Chronic) Wheezing (Chronic) Accelerated hypertension (Chronic) Carpal tunnel syndrome (Chronic) 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) Sciatica (Chronic) Histoplasmosis (Chronic) Surgical History History of laparoscopic cholecystectomy (Resolved) H/O tubal ligation (Resolved) Family History Mother Hypertension Heart disease Thyroid disorder Father Asthma Social History Smoking Status: Former smoker how long ago did patient quit smokin, 1ppd second hand exposure: No alcohol intake: never substance use type: does not use caffeine: Yes (4/day) what type of physical activity do you participate in: none frequency: daily seatbelt use: always do you feel safe at home: Yes additional social history: -Retired HPI Pre-op: Details: LORENZO TURNER is a 67 year old who presents for preop exam. she had a thickened endometrial lining on CT scn and US and cervical polyp seen on physical exam. normal emb. 11 mm lining. she denies any bleding or pain. Female Reproductive History Menopausal Symptoms: No night sweats Pregancy History 2 Elective abortions Hx Para 2 Spontaneous abortions Hx # Term Pregnancies Ectopic pregnancies Hx # Pregnancies Multiple births # of living children Past Pregnancies Del. Date Name GA/Weeks Outcome Route Bth Weight Gen Labor Lgth Anesthesia Del Locatn Provider FOB Unknown Umer-1973 Unknown Mary-1978 ROS Const Constitutional: Denies fatigue, night sweats, weight gain or weight loss ENT ENT: Reports system reviewed and no additional complaints, except as docu Cardio Card: Denies chest pain Resp Resp: Denies cough or dyspnea GI GI: Reports as per HPI; denies abdominal pain, constipation, nausea or vomiting : Denies nipple discharge, urinary frequency, urinary incontinence, urinary hesitancy, urinary urgency, vaginal discharge, vaginal dryness, vaginal odor or vaginal itching Musc Musc: Denies joint pain, back pain or muscle weakness Skin Skin/Breast: Denies hair loss, change in hair, dry skin, breast lump, breast pain, breast skin changes or nipple discharge Neuro Neuro: Reports system reviewed and no additional complaints, except as docu Psych Psych: Reports system reviewed and no additional complaints, except as docu Endo Endo: Denies cold intolerance, excessive sweating, heat intolerance or increased thirst Naga/Lymph Hematologic/Lymphatic: Denies easy bleeding, Denies easy bruising, Denies enlarged lymph nodes Exam Const General: cooperative, healthy appearing, comfortable, no acute distress, well developed Orientation: alert [facility] Head: normal to inspection, normocephalic Ears: hearing grossly normal bilaterally, external ears normal Nose: external nose normal, nares normal Face and sinus: normal facial exam Neck Neck: normal visual inspection, no lymphadenopathy Thyroid: thyroid normal Chest Chest palpation & inspection: normal inspection of the chest Resp Effort & Inspection: normal respiratory effort Cardio Rate: regular rate Rhythm: regular rhythm GI Inspection: normal to inspection, non-distended Palpation: soft, no hepatosplenomegaly Musc Other: gross motor intact no deficits, full bilateral strength Skin General: no rashes or lesions noted Neuro General: alert, awake, moves all extremities, no focal motor deficits Motor: muscle tone normal throughout Extrem General: normal to inspection, no pedal edema Psych Appearance: grossly normal Mental Status: mental status grossly normal Affect: normal affect Speech and Movement: speech and movement normal Assessment & Plan Problems 1. Thickened endometrium R93.89 d and c hysteroscopy symphion 2. Cervical polyp N84.1 Plan discussed surgical risks including risks of anesthesia, infection, bleeding, injury to bowel, bladder or blood vessels, and patient wishes to proceed with surgery. Coding Level of Care Code No Charge Diagnoses Thickened endometrium R93.89 Cervical polyp N84.1 UPDATE- I have seen the patient and performed any clinically relevant updates to the history and physical exam. Shea Grissom MD
--- NOTE | 2018-08-27 11:25 | EKG12_ITS ---
Test Reason : PRE OP Blood Pressure : / mmHG Vent. Rate : 070 BPM Atrial Rate : 070 BPM P-R Int : 184 ms QRS Dur : 074 ms QT Int : 394 ms P-R-T Axes : 062 -27 053 degrees QTc Int : 425 ms Normal sinus rhythm Low voltage QRS Borderline ECG Confirmed by YASH KIMBROUGH, ELYSSA ([id number]), movie editor JANNET FLORES ([id number]) on 08/28/2018 9:15:56 AM Referred By: Shea Grissom Confirmed By:ELYSSA BERRIOS MD
[2018-08-27 11:47] LABS: Hematocrit 41.9 % (37-47); Hemoglobin 14.5 g/dl (12.0-15.0); Mean Corp Hgb Conc 34.6 g/gl (32-36); Mean Corpuscular Hgb 32.4 pg (27.0-32.0); Mean Corpuscular Volume 93.7 fL (81-99); Mean Platelet Vol. 9.7 fl (6.2-12.0); Platelet Count 201 K/mm3 (150-450); RBC Distribution Width CV 12.3 % (11.6-14.6); RBC Distribution Width SD 41.6 fl (35.1-43.9); Red Blood Count 4.47 M/mm3 (4.2-5.4); Scan Indicated on CBC? Y/N NO; White Blood Count 5.3 K/mm3 (4.4-11.0)
[2018-08-27 12:09] LABS: Anion Gap 2 (5-15); BUN 13 mg/dL (7-18); BUN/Creat Ratio 12.6 RATIO (10-20); Calcium,Total 8.8 mg/dL (8.5-10.1); Chloride 111 mmol/L (98-107); Creatinine, Serum 1.03 mg/dL (0.55-1.02); EST Glomerular Filtration Rate 56 mL/min (>60); Est Glom Filt Rate - Afr Amer 68 mL/min (>60); Glucose 102 mg/dL (74-106); Potassium 4.1 mmol/L (3.5-5.1); Sodium Level 143 mmol/L (136-145)
[2018-08-30] VITALS (8 sets, daily range): BP systolic 108–141; BP diastolic 60–86; PULSE 73–84; RESP 15–16; TEMP 36.1–36.8; O2SAT 90–98; BMI 29.9
--- NOTE | 2018-08-30 | EMB_PTH ---
PATIENT: LORENZO TURNER LOC: [facility] [place] U#:[id number] AGE/SX: 67/F ROOM: RE08/30/[address]: Dr. Shea Grissom MD : 1950 BED: DIS: 08/30/2018 SPEC #: [id number] RECD: 08/31/18 09:10 STATUS: PRATEEK REZaida #: [id number] YAQUELIN: 08/30/18 00:[address]: Shea Grissom DEPT: SURGICAL PATHOLOGY RECD BY: Jimmy Pham ENTERED: 08/31/18 09:11 SP TYPE: ENDOM BX/C OTHR DR: Dr. Umer Prajapati MD Tissues: Endometrium, NOS Procedures: Surgery Specimen Level IV HEADER OPERATION: Hysteroscopy, D & C, Symphion PRE-OP DIAGNOSIS: Thickened endometrium; cervical polyp TISSUE SUBMITTED: Endometrial polyp and curettings MICROSCOPIC DIAGNOSIS Endometrial polyp and curettings: Endometrial polyp - benign endometrial polyp with simple cystic change. Endometrium - polypoid fragments of simple cystic change consistent with atrophy. Fragments of benign myometrial tissue with focal changes suggestive of adenomyosis. AM:rad 09/03/18 MICROSCOPIC DESCRIPTION Slides are reviewed. GROSS DESCRIPTION Received in fixative is one container labeled with the patient's name and designated endometrial polyp and curettings. The specimen consists of a zheng-brown polypoid shaped portion of soft tissue measuring 2 x 0.8 x 0.4 cm. The polyp is entirely submitted in block 1. Also received within the same specimen container are multiple irregular fragments of zheng soft tissue that in aggregate measure 2 x 1.5 x 0.6 cm. The specimen is totally submitted in block 2. / CE:rad 08/31/18 TC:5 CPT: 39032
--- NOTE | 2018-08-30 11:54 | PCM.OPRPT ---
Problem List (1) Cervical polyp Status: Acute (2) Thickened endometrium Status: Acute Comment: d and c hysteroscopy symphion Report of Operation Date of Procedure: 08/30/18 Pre-Operative Diagnosis: Endocervical polyp thickened endometrial lining Post-Operative Diagnosis: Endocervical polyp and thickened endometrial lining Surgery/Procedure Performed:: D&C hysteroscopy resection of endometrial pathology Description of Surgical Findings:: Large endometrial and endocervical polyp Type of Anesthesia:: Local MAC Special Medications: None Specimen's removed: Endometrial and endocervical polyp Drains: None Estimated Blood Loss (mL): Minimal Fluids Replaced: Crystalloid Description of Procedure: Patient was prepped and draped in a normal sterile fashion under MAC anesthesia. A weighted speculum was placed in the vagina and the anterior lip of the cervix was grasped with a single-tooth tenaculum. A paracervical block was placed with 1% lidocaine. Cervix was progressively dilated to allow passage of a 5 mm hysteroscope. The lining was fully visualized and noted to have a large endometrial polyp filling the entire cavity extending down into the cervix. Uterine sounded to 7 cm. Using the symphion device, the entire endometrial polyp was prgoressively removed without complications. Direct visual curettage was performed using the device , and all specimens were sent to pathology. All instruments were removed from the vagina and excellent hemostasis was noted. Patient was awoken and taken to recovery in stable condition. Grafts/Implants Used: None - Complications None
--- NOTE | 2018-08-30 11:55 | DCINST_ITS ---
Discharge Diet: No Restrictions Discharge Activity: Return to Normal Activity, May Shower, May Take a Tub Bath Allergies/Adverse Reactions: Allergies Penicillins Allergy (Severe, Verified 08/30/18 10:09) Hives Sulfa (Sulfonamide Antibiotics) Allergy (Verified 08/30/18 10:09) Unknown Medications to take at Discharge Amlodipine [Norvasc] 10 mg PO DAILY 06/04/18 Omeprazole [Prilosec] 20 mg PO DAILY PRN 06/04/18 buspirone 5 mg tablet 5 mg PO BID 07/05/18 cholecalciferol (vitamin D3) 1,000 unit capsule 1,000 unit PO DAILY 07/05/18 escitalopram 10 mg tablet 10 mg PO DAILY 07/05/18 fluticasone propionate 220 mcg/actuation HFA aerosol inhaler 2 puff INHALATION ONCE PRN g 07/05/18 meclizine 12.5 mg tablet 12.5 mg PO BID-TID PRN 07/05/18 mometasone 50 mcg/actuation nasal spray 2 spray INTRANASAL DAILY PRN 07/05/18 oxybutynin chloride 5 mg tablet 5 mg PO DAILY PRN tab 07/05/18 trazodone 50 mg tablet 50 mg PO QHS PRN 07/05/18 Calcium (Elemental) [Os-Ousmane 500] 500 mg PO DAILY@0800 08/23/18 Flaxseed Oil 1,000 mg PO DAILY 08/23/18 Primary Care Physician: Umer Prajapati MD [Primary Care Provider] - Test Results: Test results from this visit will be discussed in further detail at your follow- up appointment, if applicable. Please Follow Up With: Shea Grissom MD - [phone]
[2018-08-30] MEDS: HYDROcodone Bitartrate/Apap 5/325 Tablet PO (13:43)
== END 2018-08-30 14:26 | disposition home or self-care (01) ==
LOC: SDC 09:51 → AC 09:51
PROVIDERS: Family Provider Family Medicine; PCP Family Medicine; Referring Provider Obstetrics & Gynecology; Visit Provider Obstetrics & Gynecology
PROC: 0UB98ZZ Excision of Uterus, Via Natural or Artificial Opening Endoscopic (ICD-10-PCS; CPT 58558; principal; 2018-08-30 11:15)
DX: N84.0 Polyp of corpus uteri (principal); N80.0 Endometriosis of uterus; R93.89 Abnormal findings on diagnostic imaging of other specified body structures; E78.5 Hyperlipidemia, unspecified; K21.9 Gastro-esophageal reflux disease without esophagitis; N18.3 Chronic kidney disease, stage 3 (moderate); I12.9 Hypertensive chronic kidney disease with stage 1 through stage 4 chronic kidney disease, or unspecified chronic kidney disease; Z88.0 Allergy status to penicillin; Z88.2 Allergy status to sulfonamides; Z87.891 Personal history of nicotine dependence; J45.909 Unspecified asthma, uncomplicated
CPT/HCPCS: 58558; 36415; 80048; 85027; 86850; 86900; 88305; 93005; J7120; J2405

== ENCOUNTER → 2018-11-26 12:14 | Outpatient (CLI) | payer MEDICARE, OTHER, SELFPAY ==
[2018-10-17 09:14] VITALS: BMI 30.6
--- NOTE | 2018-11-26 12:19 | RAD_ITS ---
STUDY: X-RAY - PELVIS AND LEFT HIP REASON FOR EXAM: Female, 68 years old. Left hip pain TECHNIQUE: 3 views of the pelvis and hip. COMPARISON: CT abdomen and pelvis 06/04/2018 FINDINGS: Normal visualized soft tissue structures. Normal bilateral iliac wings, sacroiliac joints and visualized sacrum. Normal bilateral superior and inferior pubic rami. Normal pubic symphysis. Normal bilateral ischial tuberosities. The hip joint is preserved. There are small subchondral geodes within both acetabula and left greater than right. There is minimal osteophyte involving the greater trochanter.. There is moderate colonic fecal load within the rectosigmoid region RAD/HIP, UNI W/ Pelvis 2-3 Views IMPRESSION: There are degenerative changes, small subchondral geodes within bilateral acetabulum left greater than right indicating articular and small osteochondral defects, this can also be associated with labral degeneration and/or tear Minimal left greater trochanteric spur No acute fractures Moderate colonic fecal load within the rectosigmoid region Electronically Signed: Ga Walker, at 7:26 EDT Tel , Service support ,
== END ==
PROVIDERS: Family Provider Family Medicine; PCP Family Medicine; Referring Provider Family Medicine; Visit Provider Family Medicine
DX: M25.552 Pain in left hip (principal)
CPT/HCPCS: 73502

== ENCOUNTER → 2019-01-14 11:50 | Outpatient (CLI) | payer MEDICARE, OTHER, SELFPAY ==
[2018-10-17 09:14] VITALS: BMI 30.6
[2019-01-14 15:22] LABS: Anion Gap 3 (5-15); BUN 18 mg/dL (7-18); BUN/Creat Ratio 17.8 RATIO (10-20); Calcium,Total 8.8 mg/dL (8.5-10.1); Chloride 109 mmol/L (98-107); Creatinine, Serum 1.01 mg/dL (0.55-1.02); EST Glomerular Filtration Rate 58 mL/min (>60); Est Glom Filt Rate - Afr Amer 70 mL/min (>60); Glucose 86 mg/dL (74-106); Potassium 4.1 mmol/L (3.5-5.1); Sodium Level 140 mmol/L (136-145)
== END ==
PROVIDERS: Family Provider Family Medicine; PCP Family Medicine; Referring Provider Family Medicine; Visit Provider Family Medicine
DX: N18.3 Chronic kidney disease, stage 3 (moderate) (principal)
CPT/HCPCS: 36415; 80048

== ENCOUNTER → 2019-02-04 08:39 | Outpatient (CLI) | payer MEDICARE, OTHER, SELFPAY ==
[2018-10-17 09:14] VITALS: BMI 30.6
[2019-02-04 08:43] LABS: Mucous, Urine 0 SEEN /hpf (<or=2+); Red Blood Cells-Urine 0 SEEN /hpf (0-5)
[2019-02-04 10:02] LABS: Absolute Lymphocyte Count 0.85 X10^3/uL (0.83-4.51); Absolute Neutrophil Count 2.5 X10^3/uL (2.0-7.7); Basophil# 0.04 X10^3/uL; Eosinophil# 0.25 X10^3/uL; Eosinophils% 6.2 % (0-5); Hematocrit 40.6 % (37-47); Hemoglobin 13.7 g/dL (12.0-15.0); Lymphocyte # 0.85 X10^3/ul (4.0); Lymphocyte % 21.2 % (19-41); Mean Corp Hgb Conc 33.7 g/dL (32-36); Mean Corpuscular Hgb 32.8 pg (27.0-32.0); Mean Corpuscular Volume 97.1 fL (81-99); Mean Platelet Vol. 9.5 fl (6.2-12.0); Monocyte# 0.41 X10^3/uL; Monocyte% 10.2 % (0-10); NRBC Flagged by Analyzer 0 % (0-5); Neutrophil # 2.45 X10^3/uL (2.7-7.7); Neutrophil % 61.2 % (47-70); Platelet Count 192 K/mm3 (150-450); RBC Distribution Width SD 42.8 fl (35.1-43.9); Red Blood Count 4.18 M/mm3 (4.2-5.4)
[2019-02-04 10:08] LABS: Color, Urine Yellow (Yellow); Glucose, Dipstick Normal (Normal); Ketone-Dipstick Negative (Negative); Leukocyte Esterase-Dipstick 500 /ul (Negative); Nitrite-Dipstick Negative (Negative); Occult Blood-Urine Negative /ul (Negative); Protein-Dipstick Negative (Negative); Specific Gravity, Urine 1.025 (1.002-1.030); Urine Bilirubin Dipstick Negative (Negative); Urine Clarity Sl. Cloudy (Clear); Urine Urobilinogen Normal (Normal)
[2019-02-04 10:15] LABS: Bacteria 1+ /hpf (None Seen); Squamous Epithelial Cells - UA 0-5 SEEN /hpf (5-10); White Blood Cells 25-50 SEEN /hpf (0-5)
[2019-02-04 10:28] LABS: Vitamin D,25 Hydroxy 39.1 ng/mL (29.95-100.01)
[2019-02-04 10:50] LABS: ALB/GLOB Ratio 1.2 RATIO (0.9-2.4); AST(SGOT) 22 U/L (15-37); Alanine Aminotransfer ALT/SGPT 37 U/L (13-56); Albumin, Serum 3.8 g/dL (3.2-5.0); Alkaline Phosphatase 128 U/L (45-117); Anion Gap 7 (5-15); BUN 15 mg/dL (7-18); BUN/Creat Ratio 13.3 RATIO (10-20); Calcium,Total 8.9 mg/dL (8.5-10.1); Chloride 110 mmol/L (98-107); Cholesterol 204 mg/dL (200); Creatinine, Serum 1.13 mg/dL (0.55-1.02); EST Glomerular Filtration Rate 51 mL/min (>60); Est Glom Filt Rate - Afr Amer 61 mL/min (>60); Globulin 3.1 g/dL (2.2-4.2); Glucose 93 mg/dL (74-106); High Density Lipoprotein 55 mg/dL; Phosphorus 3.3 mg/dL (2.5-4.9); Potassium 3.9 mmol/L (3.5-5.1); Protein, Total 6.9 g/dL (6.4-8.2); Sodium Level 143 mmol/L (136-145); Triglycerides 117 mg/dL; Very Low Density Lipoprotein 23 mg/dL (5-40)
== END ==
PROVIDERS: Family Provider Family Medicine; PCP Family Medicine; Referring Provider Family Medicine; Visit Provider Family Medicine
DX: E55.9 Vitamin D deficiency, unspecified (principal); M85.80 Other specified disorders of bone density and structure, unspecified site; N18.3 Chronic kidney disease, stage 3 (moderate); I10 Essential (primary) hypertension
CPT/HCPCS: 36415; 80053; 80061; 81001; 82306; 84100; 85025

== ENCOUNTER → 2019-06-05 13:37 | Outpatient (CLI) | payer MEDICARE, OTHER, SELFPAY ==
[2019-06-05 12:49] VITALS: BMI 30.6
--- NOTE | 2019-06-05 14:00 | RAD_ITS ---
STUDY: X-RAY CHEST REASON FOR EXAM: Female, 68 years old. Chest discomfort TECHNIQUE: PA and lateral views of the chest. COMPARISON: None. FINDINGS: The lungs are clear and expanded. There is no demonstrated pleural abnormality. Normal size heart. Normal mediastinum and kirill. Normal visualized pulmonary arteries. There is atherosclerotic calcification of the aortic arch with tortuosity. There is demineralization of the osseous structures. Normal visualized ribs, clavicles, and shoulders. There is no demonstrated abnormality of the visualized soft tissue structures of the upper abdomen. RAD/Chest PA and Lateral IMPRESSION: No acute abnormality is seen. Electronically Signed: Daniel Medina, at 13:13 EST , Service support ,
[2019-06-05 14:45] LABS: Absolute Lymphocyte Count 1.29 X10^3/uL (0.83-4.51); Basophil# 0.03 X10^3/uL; Basophil% 0.6 % (0-1); Eosinophil# 0.23 X10^3/uL; Eosinophils% 4.6 % (0-5); Hematocrit 37.6 % (37-47); Hemoglobin 12.6 g/dL (12.0-15.0); Lymphocyte # 1.29 X10^3/ul (4.0); Lymphocyte % 25.9 % (19-41); Mean Corp Hgb Conc 33.5 g/dL (32-36); Mean Corpuscular Hgb 32.2 pg (27.0-32.0); Mean Corpuscular Volume 96.2 fL (81-99); Mean Platelet Vol. 9.4 fl (6.2-12.0); Monocyte# 0.42 X10^3/uL; Monocyte% 8.4 % (0-10); NRBC Flagged by Analyzer 0 % (0-5); Neutrophil # 2.99 X10^3/uL (2.7-7.7); Neutrophil % 60.1 % (47-70); Platelet Count 196 K/mm3 (150-450); RBC Distribution Width CV 12.3 % (11.6-14.6); RBC Distribution Width SD 42.8 fl (35.1-43.9); Red Blood Count 3.91 M/mm3 (4.2-5.4)
== END ==
PROVIDERS: Nurse Practitioner Acute Care; PCP Family Medicine; Referring Provider Internal Medicine Critical Care Medicine; Visit Provider Internal Medicine Critical Care Medicine
DX: R09.89 Other specified symptoms and signs involving the circulatory and respiratory systems (principal); R93.89 Abnormal findings on diagnostic imaging of other specified body structures
CPT/HCPCS: 36415; 71046; 85025

== ENCOUNTER → 2019-06-06 08:07 | Outpatient (CLI) | payer MEDICARE, OTHER, SELFPAY ==
[2019-06-05 12:49] VITALS: BMI 30.6
[2019-06-06 08:10] LABS: Bacteria 0 SEEN /hpf (None Seen); Mucous, Urine 0 SEEN /hpf (<or=2+)
[2019-06-06 10:02] LABS: Color, Urine Yellow (Yellow); Glucose, Dipstick Normal (Normal); Ketone-Dipstick Negative (Negative); Leukocyte Esterase-Dipstick 25 /ul (Negative); Nitrite-Dipstick Negative (Negative); Occult Blood-Urine 10 /ul (Negative); Protein-Dipstick Negative (Negative); Urine Bilirubin Dipstick Negative (Negative); Urine Clarity Clear (Clear); Urine Urobilinogen Normal (Normal)
[2019-06-06 10:05] LABS: Absolute Lymphocyte Count 1.04 X10^3/uL (0.83-4.51); Absolute Neutrophil Count 2.1 X10^3/uL (2.0-7.7); Basophil# 0.03 X10^3/uL; Basophil% 0.8 % (0-1); Eosinophil# 0.18 X10^3/uL; Eosinophils% 4.9 % (0-5); Hematocrit 38.4 % (37-47); Hemoglobin 12.9 g/dL (12.0-15.0); Lymphocyte # 1.04 X10^3/ul (4.0); Mean Corp Hgb Conc 33.6 g/dL (32-36); Mean Corpuscular Hgb 32.6 pg (27.0-32.0); Mean Platelet Vol. 9.5 fl (6.2-12.0); Monocyte# 0.34 X10^3/uL; Monocyte% 9.2 % (0-10); NRBC Flagged by Analyzer 0 % (0-5); Neutrophil % 56.6 % (47-70); Platelet Count 188 K/mm3 (150-450); RBC Distribution Width CV 12.1 % (11.6-14.6); RBC Distribution Width SD 42.7 fl (35.1-43.9); Red Blood Count 3.96 M/mm3 (4.2-5.4); White Blood Count 3.7 K/mm3 (4.4-11.0)
[2019-06-06 10:21] LABS: ALB/GLOB Ratio 1.2 RATIO (0.9-2.4); AST(SGOT) 19 U/L (15-37); Alanine Aminotransfer ALT/SGPT 40 U/L (13-56); Albumin, Serum 3.5 g/dL (3.2-5.0); Alkaline Phosphatase 115 U/L (45-117); Anion Gap 4 (5-15); BUN 15 mg/dL (7-18); BUN/Creat Ratio 13.9 RATIO (10-20); Calcium,Total 8.7 mg/dL (8.5-10.1); Chloride 115 mmol/L (98-107); Cholesterol 220 mg/dL (200); Creatinine, Serum 1.08 mg/dL (0.55-1.02); EST Glomerular Filtration Rate 53 mL/min (>60); Est Glom Filt Rate - Afr Amer 64 mL/min (>60); Globulin 2.9 g/dL (2.2-4.2); Glucose 98 mg/dL (74-106); High Density Lipoprotein 53 mg/dL; Phosphorus 2.9 mg/dL (2.5-4.9); Potassium 4.3 mmol/L (3.5-5.1); Protein, Total 6.4 g/dL (6.4-8.2); Sodium Level 145 mmol/L (136-145); Triglycerides 115 mg/dL; Very Low Density Lipoprotein 23 mg/dL (5-40)
[2019-06-06 10:22] LABS: Red Blood Cells-Urine 0-5 SEEN /hpf (0-5); Squamous Epithelial Cells - UA 0-5 SEEN /hpf (5-10); White Blood Cells 0-5 SEEN /hpf (0-5)
[2019-06-06 10:38] LABS: Vitamin D,25 Hydroxy 37.4 ng/mL (29.95-100.01)
== END ==
PROVIDERS: PCP Family Medicine; Referring Provider Family Medicine; Visit Provider Family Medicine
DX: I10 Essential (primary) hypertension (principal); E55.9 Vitamin D deficiency, unspecified; E78.5 Hyperlipidemia, unspecified; M85.80 Other specified disorders of bone density and structure, unspecified site
CPT/HCPCS: 36415; 80053; 80061; 81001; 82306; 84100; 85025

== ENCOUNTER → 2019-10-04 08:02 | Outpatient (CLI) | payer MEDICARE, OTHER, SELFPAY ==
[2019-06-05 12:49] VITALS: BMI 30.6
[2019-10-04 10:20] LABS: Absolute Lymphocyte Count 1.03 X10^3/uL (0.83-4.51); Absolute Neutrophil Count 2.9 X10^3/uL (2.0-7.7); Basophil# 0.03 X10^3/uL; Basophil% 0.7 % (0-1); Eosinophil# 0.26 X10^3/uL; Eosinophils% 5.7 % (0-5); Hematocrit 41.4 % (37-47); Hemoglobin 13.6 g/dL (12.0-15.0); Lymphocyte # 1.03 X10^3/ul (4.0); Lymphocyte % 22.4 % (19-41); Mean Corp Hgb Conc 32.9 g/dL (32-36); Mean Corpuscular Hgb 32.3 pg (27.0-32.0); Mean Corpuscular Volume 98.3 fL (81-99); Mean Platelet Vol. 9.9 fl (6.2-12.0); Monocyte# 0.34 X10^3/uL; Monocyte% 7.4 % (0-10); NRBC Flagged by Analyzer 0 % (0-5); Neutrophil # 2.91 X10^3/uL (2.7-7.7); Neutrophil % 63.4 % (47-70); Platelet Count 200 K/mm3 (150-450); RBC Distribution Width CV 11.4 % (11.6-14.6); RBC Distribution Width SD 41.4 fl (35.1-43.9); Red Blood Count 4.21 M/mm3 (4.2-5.4); White Blood Count 4.6 K/mm3 (4.4-11.0)
[2019-10-04 10:28] LABS: PTHIN 41.4 pg/mL (18.4-80.1)
[2019-10-04 10:31] LABS: Protein, Urine (Random) 6.6 mg/dL (<11.9); Protein:Creat Ratio 54 mg/g CRE (0-200)
[2019-10-04 10:32] LABS: Vitamin D,25 Hydroxy 66.3 ng/mL
[2019-10-04 10:40] LABS: ALB/GLOB Ratio 1.3 RATIO (0.9-2.4); AST(SGOT) 22 U/L (15-37); Alanine Aminotransfer ALT/SGPT 40 U/L (13-56); Albumin, Serum 3.9 g/dL (3.2-5.0); Alkaline Phosphatase 109 U/L (45-117); Anion Gap 5 (5-15); BUN 17 mg/dL (7-18); Calcium,Total 8.9 mg/dL (8.5-10.1); Chloride 111 mmol/L (98-107); Creatinine, Serum 1.06 mg/dL (0.55-1.02); EST Glomerular Filtration Rate 54 mL/min (>60); Est Glom Filt Rate - Afr Amer 66 mL/min (>60); Globulin 2.9 g/dL (2.2-4.2); Glucose 91 mg/dL (74-106); Potassium 4.2 mmol/L (3.5-5.1); Protein, Total 6.8 g/dL (6.4-8.2); Sodium Level 143 mmol/L (136-145)
== END ==
PROVIDERS: PCP Family Medicine; Visit Provider Family Medicine
DX: I12.9 Hypertensive chronic kidney disease with stage 1 through stage 4 chronic kidney disease, or unspecified chronic kidney disease (principal); N18.3 Chronic kidney disease, stage 3 (moderate); E55.9 Vitamin D deficiency, unspecified
CPT/HCPCS: 36415; 80053; 82306; 82570; 83970; 84156; 85025

== ENCOUNTER → 2019-10-09 11:19 | Outpatient (CLI) | payer MEDICARE, OTHER, SELFPAY ==
[2019-06-05 12:49] VITALS: BMI 30.6
[2019-10-09 13:14] LABS: Vitamin B12 443 pg/mL (211-911)
[2019-10-09 13:20] LABS: Thyroid Stim Hormone (TSH) 1.38 uIU/mL (0.358-3.74)
== END ==
PROVIDERS: PCP Family Medicine; Visit Provider Family Medicine
DX: R53.83 Other fatigue (principal)
CPT/HCPCS: 36415; 82607; 84443

== ENCOUNTER → 2019-11-19 23:35 | Outpatient (CLI) | payer MEDICARE, OTHER, SELFPAY ==
[2019-06-05 12:49] VITALS: BMI 30.6
== END ==
PROVIDERS: PCP Family Medicine; Referring Provider Internal Medicine Critical Care Medicine; Visit Provider Internal Medicine Critical Care Medicine
DX: G47.33 Obstructive sleep apnea (adult) (pediatric) (principal)
CPT/HCPCS: 95811

== ENCOUNTER → 2019-11-20 06:00 | Outpatient (CLI) | payer MEDICARE, OTHER, SELFPAY ==
[2019-06-05 12:49] VITALS: BMI 30.6
== END ==
PROVIDERS: PCP Family Medicine; Referring Provider Internal Medicine Critical Care Medicine; Visit Provider Internal Medicine Critical Care Medicine
DX: G47.10 Hypersomnia, unspecified (principal)
CPT/HCPCS: 95805

== ENCOUNTER → 2020-04-23 13:34 | Outpatient (CLI) | payer MEDICARE, OTHER, SELFPAY ==
[2020-01-10 09:00] VITALS: BMI 31.1
--- NOTE | 2020-04-23 13:36 | CT_ITS ---
STUDY: LOW DOSE CT LUNG CANCER SCREENING REASON FOR EXAM: Female, 69 years old. Hx tobacco abuse, smoked 1 pack/day x 20+ years, quit 38 years ago, denies chest pain or SOB. Hx hypertension. RADIATION DOSAGE (If Supplied By Facility): CTDIvol = ( 3.02 ) mGy, DLP = ( 92.14 ) mGycm TECHNIQUE: No contrast was administered. Low dose technique was utilized (average mAS-38 and kVp 120). 1.25 mm axial source images with a slice interval of 1.25-mm were reconstructed in lung windows. 2.5 mm axial source images with a slice interval of 2.5-mm were reconstructed in lung windows. 5.0 mm axial source images with a slice interval of 5.0-mm were reconstructed in soft tissue windows. Nodule measured using lung windows on PACS and/or independent workstation with automated measurement of minimum and maximum diameter. Nodule measurement reported as average diameter rounded to the nearest whole number. Growth is defined as an increase ins size of greater than 1.5 mm. COMPARISON: None. NODULES: No suspicious nodules are seen. Emphysema: Mild degree of diffuse bilateral groundglass appearance although no focal infiltrate is seen. Endobronchial lesion: None Aorta: Atherosclerotic plaque formation of the aortic arch. Coronary arteries: Coronary artery calcification. Heart: Unremarkable Other chest and abdominal findings: CT/Low Dose CT Lung Screening IMPRESSION: Lung-RADS category 2 - Continue annual screening with LDCT in 12 months. IMPORTANT NOTES FOR USE: ACR Lung-RADS Version 1.0 Assessment Categories Release Date: August 12, 2013 Category: Coded 0-4 bases on nodule(s) with highest degree of suspicion. Negative screen is defined as categories 1 and 2; a positive screen is defined as categories 3 and 4. Category 3 and 4A nodules that are unchanged on interval CT should be coded as category 2, and individuals returned to screening in 12 months. Category 4X: Category 3 or 4 nodules with additional imaging findings that increase the suspicion of lung cancer, such as spiculation, GGN that doubles in size in 1 year, enlarged lymph notes, etc. Category Modifiers: S (significant finding unrelated to lung cancer) and C (prior history of treated lung cancer) may be added to the 0-4 Lung-RADS Electronically Signed: Daniel Medina, at 15:14 EST , Service support ,
== END ==
PROVIDERS: PCP Family Medicine; Referring Provider Family Medicine; Visit Provider Family Medicine
DX: Z12.2 Encounter for screening for malignant neoplasm of respiratory organs (principal); Z87.891 Personal history of nicotine dependence
CPT/HCPCS: 71271

== ENCOUNTER 2020-06-03 17:30 | Observation (INO) | payer MEDICARE, OTHER, SELFPAY ==
[2020-01-10 09:00] VITALS: BMI 31.1
[2020-06-03] VITALS (9 sets, daily range): BP systolic 114–145; BP diastolic 67–75; PULSE 68–89; RESP 16–18; TEMP 35.8–36.7; O2SAT 95–98; BMI 31.3; BMI 30.9
--- NOTE | 2020-06-03 18:47 | EKG12_ITS ---
Test Reason : CP ADMIT Blood Pressure : / mmHG Vent. Rate : 068 BPM Atrial Rate : 068 BPM P-R Int : 198 ms QRS Dur : 068 ms QT Int : 400 ms P-R-T Axes : 038 -23 010 degrees QTc Int : 425 ms Sinus rhythm with frequent Premature ventricular complexes Nonspecific T wave abnormality Abnormal ECG When compared with ECG of 03-JUN-2020 17:41, MANUAL COMPARISON REQUIRED, DATA IS UNCONFIRMED Confirmed by YASH KIMBROUGH, ELYSSA ([id number]), editor department KEYON FRANCISCO ([id number]) on 06/05/2020 8:19:31 AM Referred By: DR HERNÁNDEZ Confirmed By:ELYSSA BERRIOS MD
--- NOTE | 2020-06-03 18:47 | ED.DCSUM_ITS ---
History of Present Illness Chief Complaint: Chest Pain Informant: Patient Narrative: 69-year-old female presenting with chest pain which is intermittent for the last 4 days. She describes it as aching in nature. She also states she gets a feeling on her heart is rapidly beating and feels irregular. After the episodes of palpitation she feels fatigued. She denies lightheadedness or dizziness. She states she has not had a cardiac evaluation in years. Denies history of DVT/PE. Past Medical History - Allergies and Home Meds Allergies/Adverse Reactions: Allergies Penicillins Allergy (Severe, Verified 01/10/20 13:06) Hives Sulfa (Sulfonamide Antibiotics) Allergy (Verified 01/10/20 13:06) Unknown Prior records reviewed: Yes Past Medical History: - - Hypertension, hyperlipidemia, depression Lives: Alone Smoking Status: Former smoker Alcohol: None Drugs: None - Family History Maternal Family History: Family History (Last Reviewed 06/03/20 @ 22:[address] Melquiades Laura MD) Mother Hypertension Heart disease Thyroid disorder Father Asthma Review of Systems General: Denies: Chills, Fever, Sweats Eyes: Reports: Visual changes - left ENT: Denies: Rhinorrhea, Sore throat Cardiovascular: Reports: Chest pain, Palpitations, Heart racing Respiratory: Denies: Dyspnea, Cough Gastrointestinal: Denies: Abdominal pain, Nausea Genitourinary: Denies: Dysuria, Hematuria Musculoskeletal: Denies: Myalgias, Arthralgias, Neck pain Skin: Denies: Rash, Abscess Neurological: Denies: Headache, Weakness, Parasthesia Psych: Denies: Depression, Anxiety Physical Exam Vital Signs/Narrative: Vital Signs Temp Pulse Resp BP Pulse Ox 06/03/20 17:33 96.5 F L 82 16 137/67 H 96 06/03/20 17:31 96.5 F L 80 16 137/67 H 96 Inital Vital Signs reviewed: Yes General: Well nourished, No Acute Distress Head: Normocephalic, Atraumatic Eyes: Perrl, EOMI ENT: Moist mucous membranes, No rhinorrhea Cardiovascular: Regular rate, Regular rhythm Respiratory: No distress, CTA bilaterally, Chest nontender Back: Nontender, Normal Inspection Extremities: Nontender, No edema Skin: Normal color, No rash. Negative for: Cyanosis, Diaphoresis Neurological: Alert, Oriented x3, Cranial nerves II-XII grossly intact Psychological: Normal affect, Normal Mood Diagnostic/Tx/Re-eval Clinical Impression(s) from Imaging Studies Chest X-Ray 06/03/20 18:56 IMPRESSION: No acute cardiopulmonary pathology. Electronically Signed: Best Mina MD at 19:17 EST , Service support , Chest CTA 06/03/20 19:37 IMPRESSION: ASHD and old granulomatous disease. No acute abnormalities. No evidence for pulmonary embolus aortic aneurysm periaortic leak or dissection Electronically Signed: Best Mina MD at 20:16 EST , Service support , Laboratory Data 06/03/20 06/03/20 06/03/20 18:20 18:20 18:20 WBC 7.4 RBC 4.13 L Hgb 13.4 Hct 39.5 MCV 95.6 MCH 32.4 H MCHC 33.9 RDW Std Deviation 41.0 RDW Coeff of Zahida 11.9 Plt Count 183 MPV 9.4 Immature Gran % (Auto) 0.400 Neut % (Auto) 72.0 H Lymph % (Auto) 16.4 L [place] % (Auto) 7.4 Eos % (Auto) 3.1 Baso % (Auto) 0.7 Absolute Neuts (auto) 5.4 Absolute Lymphs (auto) 1.22 Nucleated RBC % 0 D-Dimer Quant (PE/DVT) 6.34 H* Sodium 143 Potassium 4.0 Chloride 111 H Carbon Dioxide 28.0 Anion Gap 4 L BUN 21 H Creatinine 1.17 H Estim Creat Clear Calc 33.28 Est GFR (MDRD) Af Amer 59 L Est GFR (MDRD) Non-Af 48 L BUN/Creatinine Ratio 17.9 Glucose 83 Calcium 9.1 Magnesium 2.1 Troponin I < 0.015 - Rhythm Strip Rhythm Strip: Sinus Rhythm Rate: 75 - EKG Initial EKG Interpretation: Sinus Rhythm, No Acute Injury Pattern, - - PVCs - Medical Decision Making 69-year-old female presenting with chest pain which is intermittent for the last 4 days. She states that she gets runs of palpitations as well and then feels fatigued. EKG performed on arrival shows a sinus rhythm 75 bpm with few PVCs without signs of ischemic change as interpreted by myself. Chest x-ray is interpreted by myself shows no acute cardiopulmonary process. Patient CBC shows a stable hemoglobin and no leukocytosis. Patient's renal function is near baseline. Troponin is negative. Patient's D-dimer is higher than 6 and she had CTA of the chest which did not of identify any pulmonary emboli or dissections. Radiologist does see signs of ASHD and old granulomatous disease. Patient's heart score is 5 and I will have her admitted to the hospital for further monitoring and evaluation. Patient was given aspirin prior to admission. Impression: 1. Chest pain 2. Palpitations ED Disposition - Plan for ED Patient:
--- NOTE | 2020-06-03 18:56 | RAD_ITS ---
STUDY: X-RAY CHEST REASON FOR EXAM: Female, 69 years old. STERNAL CHEST PAIN AND PALPITATIONS TECHNIQUE: AP portable COMPARISON: 06/05/2019 FINDINGS: The lungs are clear and expanded. There is no demonstrated pleural abnormality. Normal size heart. Normal mediastinum and kirill. Normal visualized pulmonary arteries. Mildly calcified aortic arch and descending thoracic aorta. Dorsal spine and shoulders demonstrate degenerative change Normal visualized ribs and ribs. There is no demonstrated abnormality of the visualized soft tissue structures of the upper abdomen. No significant change since prior exam RAD/Chest 1 View (Portable) IMPRESSION: No acute cardiopulmonary pathology. Electronically Signed: Best Mina MD at 19:17 EST , Service support ,
[2020-06-03 18:58] LABS: Absolute Lymphocyte Count 1.22 X10^3/uL (0.83-4.51); Absolute Neutrophil Count 5.4 X10^3/uL (2.0-7.7); Basophil# 0.05 X10^3/uL; Basophil% 0.7 % (0-1); Eosinophil# 0.23 X10^3/uL; Eosinophils% 3.1 % (0-5); Hematocrit 39.5 % (37-47); Hemoglobin 13.4 g/dL (12.0-15.0); Lymphocyte # 1.22 X10^3/ul (4.0); Lymphocyte % 16.4 % (19-41); Mean Corp Hgb Conc 33.9 g/dL (32-36); Mean Corpuscular Hgb 32.4 pg (27.0-32.0); Mean Corpuscular Volume 95.6 fL (81-99); Mean Platelet Vol. 9.4 fl (6.2-12.0); Monocyte# 0.55 X10^3/uL; Monocyte% 7.4 % (0-10); NRBC Flagged by Analyzer 0 % (0-5); Neutrophil # 5.35 X10^3/uL (2.7-7.7); Platelet Count 183 K/mm3 (150-450); RBC Distribution Width CV 11.9 % (11.6-14.6); Red Blood Count 4.13 M/mm3 (4.2-5.4); White Blood Count 7.4 K/mm3 (4.4-11.0)
[2020-06-03 19:12] LABS: Anion Gap 4 (5-15); BUN 21 mg/dL (7-18); BUN/Creat Ratio 17.9 RATIO (10-20); Calcium,Total 9.1 mg/dL (8.5-10.1); Chloride 111 mmol/L (98-107); Creatinine, Serum 1.17 mg/dL (0.55-1.02); EST Glomerular Filtration Rate 48 mL/min (>60); Est Glom Filt Rate - Afr Amer 59 mL/min (>60); Estimated Creatinine Clearance 33.28 ml/min; Glucose 83 mg/dL (74-106); Magnesium 2.1 mg/dL (1.6-2.6); Sodium Level 143 mmol/L (136-145)
[2020-06-03] MEDS: Aspirin 81 MG TAB.CHEW 324 MG PO (19:17)
[2020-06-03 19:29] LABS: D-Dimer Quantitative (DVT/PE) 6.34 FEU/ug/m (0.27-0.49)
--- NOTE | 2020-06-03 19:37 | CT_ITS ---
STUDY: CTA CHEST REASON FOR EXAM: Female, 69 years old. CP X 4 DAYS WITH IRREGULAR HEART RATE AT PCP RADIATION DOSAGE (If Supplied By Facility): CTDIvol = ( 12.79 ) mGy, DLP = ( 436.73 ) mGycm TECHNIQUE: The examination was performed with the intravenous administration of IV 75mL Isovue-370. Post-processing of the angiographic images was performed, with multiplanar reformation and 3D reconstruction. Individualized dose optimization techniques were used for this CT. COMPARISON: Chest x-ray 06/03/2020 FINDINGS: Normal enhancement of the main pulmonary artery and right and left pulmonary arteries. Normal enhancement of the bilateral peripheral pulmonary arteries. There is no demonstrated pulmonary embolism. Minor atherosclerotic changes of the aorta without evidence for aneurysm There is no demonstrated aortic dissection. Heart is normal size and there is minor coronary artery calcification Tiny calcified mediastinal nodes.. Tiny calcified right hilar nodes Normal visualized trachea and bronchi. The lungs are well expanded. Normal pulmonary parenchyma. Normal pleura. Normal chest wall structures. Normal osseous structures. Tiny granulomatous calcifications are seen in the normal-sized spleen. CT/CTA Chest W/WO Contrast IMPRESSION: ASHD and old granulomatous disease. No acute abnormalities. No evidence for pulmonary embolus aortic aneurysm periaortic leak or dissection Electronically Signed: Best Mina MD at 20:16 EST , Service support ,
[2020-06-03] MEDS: 0.9% Normal Saline 1,000 ML 999 ML IV (20:15)
--- NOTE | 2020-06-03 21:12 | HP.PCM_ITS ---
Problem List (1) Chest pain Status: Acute (2) SANTIAGO (obstructive sleep apnea) Status: Chronic Comment: AHI 9.7 controlled with BiPAP 13/7 centimeters of water by nasal interface (3) Reactive airway disease Status: Chronic Qualifiers: Asthma severity: mild Asthma persistence: persistent Asthma complication type: uncomplicated Qualified Code(s): J45.30 - Mild persistent asthma, uncomplicated (4) H/O tubal ligation Status: Chronic (5) Other malaise and fatigue Status: Chronic (6) Acute sinusitis Status: Chronic (7) Atypical Spitz nevus Status: Chronic (8) Hyperlipidemia Status: Chronic (9) Vertigo Status: Chronic (10) Osteopenia Status: Chronic (11) Depression Status: Chronic Qualifiers: Depression Type: unspecified Qualified Code(s): F32.9 - Major depressive disorder, single episode, unspecified (12) IBS (irritable bowel syndrome) Status: Chronic (13) Hypersomnia Status: Chronic (14) Asthma with acute exacerbation in adult Status: Chronic (15) Asthma, mild intermittent Status: Chronic Qualifiers: Asthma complication type: uncomplicated Qualified Code(s): J45.20 - Mild intermittent asthma, uncomplicated (16) Shortness of breath on exertion Status: Chronic (17) Gall stones Status: Chronic (18) BMI 29.0-29.9,adult Status: Chronic (19) Fatty liver Status: Chronic (20) Insomnia Status: Chronic (21) Anxiety Status: Chronic (22) Allergic rhinitis Status: Chronic (23) Seasonal affective disorder Status: Chronic (24) Low back pain potentially associated with radiculopathy Status: Chronic (25) Wheezing Status: Chronic (26) Accelerated hypertension Status: Chronic (27) Carpal tunnel syndrome Status: Chronic (28) Other and unspecified disc disorder of lumbar region Status: Chronic (29) Sciatica Status: Chronic History of Present Illness Date of Admission: 06/03/20 Chief Complaint: Chest pain The patient is a 69 year old F with a significant history of asthma variant; anxiety and depression; formal smoker; and obstructive sleep apnea who presents emergency department with 4 to 5 days history of a persistent chest pain. Her chest pain has a constant severity but occasionally the severity increases. There worse severity is 6 on a scale of 1-10. She described the chest pain as dull aching. The chest pain is substernal and it radiates to her bilateral shoulder blades. Associated with her chest pain is palpitations. After the palpitation patient feels weak and fatigue. Patient went to see her PCP who said that patient is having a skipped heartbeat and was referred to the emergency department. Past Medical History Past Medical History (Chronic Problems): Chronic Problems (Last Reviewed 06/03/20 @ 22:[address] Melquiades Laura MD) SANTIAGO (obstructive sleep apnea) (Chronic) AHI 9.7 controlled with BiPAP 13/7 centimeters of water by nasal interface Reactive airway disease (Chronic) H/O tubal ligation (Chronic) Other malaise and fatigue (Chronic) Acute sinusitis (Chronic) Atypical Spitz nevus (Chronic) Hyperlipidemia (Chronic) Vertigo (Chronic) Osteopenia (Chronic) Depression (Chronic) IBS (irritable bowel syndrome) (Chronic) Hypersomnia (Chronic) Asthma with acute exacerbation in adult (Chronic) Asthma, mild intermittent (Chronic) Shortness of breath on exertion (Chronic) Gall stones (Chronic) BMI 29.0-29.9,adult (Chronic) Fatty liver (Chronic) Insomnia (Chronic) Anxiety (Chronic) Allergic rhinitis (Chronic) Seasonal affective disorder (Chronic) Low back pain potentially associated with radiculopathy (Chronic) Wheezing (Chronic) Accelerated hypertension (Chronic) Carpal tunnel syndrome (Chronic) 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) Sciatica (Chronic) Medical History: Medical History (Last Reviewed 06/03/20 @ 22:[address] Melquiades Laura MD) Reactive airway disease (Chronic) J45.909 Other malaise and fatigue (Chronic) R53.81, R53.83 Acute sinusitis (Chronic) J01.90 Atypical Spitz nevus (Chronic) D48.5 Hyperlipidemia (Chronic) E78.5 Vertigo (Chronic) R42 Osteopenia (Chronic) M85.80 Depression (Chronic) F32.9 IBS (irritable bowel syndrome) (Chronic) K58.9 Hypersomnia (Chronic) G47.10 Asthma with acute exacerbation in adult (Chronic) J45.901 Asthma, mild intermittent (Chronic) J45.20 Shortness of breath on exertion (Chronic) R06.02 Gall stones (Chronic) K80.20 BMI 29.0-29.9,adult (Chronic) Z68.29 Fatty liver (Chronic) K76.0 Insomnia (Chronic) G47.00 Anxiety (Chronic) F41.9 Allergic rhinitis (Chronic) J30.9 Seasonal affective disorder (Chronic) F33.9 Low back pain potentially associated with radiculopathy (Chronic) M54.5 Wheezing (Chronic) R06.2 Accelerated hypertension (Chronic) I10 Carpal tunnel syndrome (Chronic) G56.00 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) M51.9 Sciatica (Chronic) M54.30 Histoplasmosis B39.9 Allergies Penicillins Allergy (Severe, Verified 01/10/20 13:06) Hives Sulfa (Sulfonamide Antibiotics) Allergy (Verified 01/10/20 13:06) Unknown Home Medications: Ambulatory Orders Medication Instructions Recorded Amlodipine [Norvasc] 10 mg PO DAILY 06/04/18 buspirone 5 mg tablet 5 mg PO BID 07/05/18 cholecalciferol (vitamin D3) 25 1,000 unit PO DAILY 07/05/18 mcg (1,000 unit) capsule escitalopram oxalate 10 mg tablet 10 mg PO DAILY 07/05/18 fluticasone propionate 220 2 puff INHALATION ONCE PRN g 07/05/18 mcg/actuation HFA aerosol inhaler meclizine 12.5 mg tablet 12.5 mg PO BID-TID PRN 07/05/18 mometasone 50 mcg/actuation nasal 2 spray INTRANASAL DAILY PRN 07/05/18 spray oxybutynin chloride 5 mg tablet 5 mg PO DAILY PRN PRN tab 07/05/18 trazodone 50 mg tablet 50 mg PO QHS PRN 07/05/18 Calcium (Elemental) [Os-Ousmane 500] 500 mg PO DAILY@0800 08/23/18 Flaxseed Oil 1,000 mg PO DAILY 08/23/18 albuterol sulfate 90 mcg/actuation 2 puff INHALATION Q4H PRN #18 g 01/10/20 aerosol inhaler Lisinopril 5 mg PO DAILY 06/03/20 Meloxicam 15 mg PO DAILY 06/03/20 Surgical History: Surgical History (Last Reviewed 06/03/20 @ 22:[address] Melquiades Laura MD) History of laparoscopic cholecystectomy (Inactive) Z98.890, Z90.49 H/O tubal ligation (Chronic) Z98.51 Status post hysteroscopy Onset Date: ~08/30/18 Z98.890 D&C, symphion, polyp negative Lives: Alone Smoking Status: Former smoker Alcohol: None Drugs: None - *Family History Maternal Family History: Family History (Last Reviewed 06/03/20 @ 22:[address] Melquiades Laura MD) Mother Hypertension Heart disease Thyroid disorder Father Asthma Review of Systems Constitutional: Denies: Chills, Fever, Weight Change HEENT: Denies: Head Aches, Sinus Congestion, Sinus Drainage Cardiovascular: Reports: Chest Pain, Palpitations Respiratory: Denies: Cough, Shortness of breath at rest, Sputum production Gastrointestinal: Denies: Abdominal Pain, Nausea, Vomiting Genitourinary: Denies: Dysuria Musculoskeletal: Denies: Joint Pain, Joint Tenderness Skin: Denies: Rash, Wounds Neurological: Denies: Numbness, Tingling, Focal weakness Psychiatric: Reports: Anxiety. Denies: Depression, Homicidal Ideations, Suicidal Ideations Hematologic/ Lymphatic: Denies: Easy Bruising, Easy Bleeding VTE Information - Inpt Only VTE Present on Admission: No VTE Mechan Device Prophylaxis: SCD's VTE Pharm Prophylaxis ordered?: No Patient Problems: Active and Suspected Problems (Last Reviewed 06/03/20 @ 22:[address] Melquiades Laura MD) Chest pain (Acute) - Physical Exam Vitals/I&O's: Vital Signs Temp Pulse Resp BP Pulse Ox 96.5 F L 76 17 145/67 H 98 06/03/20 17:33 06/03/20 20:00 06/03/20 20:00 06/03/20 20:00 06/03/20 20:00 Oxygen Delivery Method Room Air Weight: 75.2 kg Body Mass Index (BMI) 31.3 General: Alert, Oriented x3, Cooperative HEENT: Atraumatic, PERRLA, EOMI, Normocephalic Neck: Supple, No JVD, Negative Carotid Bruits Lungs: Clear to auscultation, Normal air movement Cardiovascular: Regular rate, No murmurs Abdomen: Bowel Sounds Present, Soft, Non Tender Extremities: No edema, Capillary Refill Less than 3 Seconds Skin: No rashes, No breakdown Musculoskeletal: No Tenderness to Palpation of Joints or Extremities Neurological: Cranial nerves II-XII grossly intact Psych/Mental Status: Normal Affect, Appropriate Laboratory Results 06/03/20 18:20: WBC 7.4, RBC 4.13 L, Hgb 13.4, Hct 39.5, MCV 95.6, MCH 32.4 H, MCHC 33.9, RDW Std Deviation 41.0, RDW Coeff of Zahida 11.9, Plt Count 183, MPV 9.4, Immature Gran % (Auto) 0.400, Neut % (Auto) 72.0 H, Lymph % (Auto) 16.4 L, [place] % (Auto) 7.4, Eos % (Auto) 3.1, Baso % (Auto) 0.7, Absolute Neuts (auto) 5.4, Absolute Lymphs (auto) 1.22, Nucleated RBC % 0 06/03/20 18:20: Sodium 143, Potassium 4.0, Chloride 111 H, Carbon Dioxide 28.0, Anion Gap 4 L, BUN 21 H, Creatinine 1.17 H, Estim Creat Clear Calc 33.28, Est GFR (MDRD) Af Amer 59 L, Est GFR (MDRD) Non-Af 48 L, BUN/Creatinine Ratio 17.9, Glucose 83, Calcium 9.1, Magnesium 2.1, Troponin I < 0.015 06/03/20 18:20: D-Dimer Quant (PE/DVT) 6.34 H* Assessment/Plan All Active Problems (Last Reviewed 06/03/20 @ 22:[address] Melquiades Laura MD) Chest pain (Acute) Cervical polyp (Resolved) The patient is a 69 year old F with a significant history of asthma variant; anxiety and depression; formal smoker; and obstructive sleep apnea who presents emergency department with 4 to 5 days history of a persistent chest pain and palpitations. Chest pain Place on a monitored bed at progressive care unit Impression of chest x-ray by radiologist: No acute cardiopulmonary pathology. Actual CXR image was independently visualized. No acute cardiopulmonary process was noted. Actual EKG tracing was independently visualized. EKG tracing showed sinus rhythm with PVCs ASA 81 mg p.o. daily ordered SL NTG 0.4 mg prn as needed for chest pain ordered Morphine as needed for pain ordered Lisinopril continued We will check lipid panel. Serial cardiac enzymes ordered Stat EKG as needed for chest pain Chemical stress test in the AM if the cardiac enzymes are negative. Patient report that because of history of arthritis should not be able to do treadmill stress test. Palpitations EKG sinus rhythm with PVCs Potassium is normal. Check magnesium. Check TSH. Placed on telemetry Hypertension Blood pressure is stable in regards to her age Lisinopril continued. Trend blood pressure and adjust blood pressure medications. Obstructive sleep apnea Home BiPAP continued History of asthma Stable Fluticasone as needed continued. Albuterol inhaler. Continued Arthritis NSAIDs continued Depression anxiety Buspirone continued Citalopram continued Trazodone continued DVT prophylaxis ordered. SCD ordered OBSV E&M: [id number] Initial observation care L2
--- NOTE | 2020-06-03 22:57 | EKG12_ITS ---
Test Reason : CP Blood Pressure : / mmHG Vent. Rate : 075 BPM Atrial Rate : 075 BPM P-R Int : 176 ms QRS Dur : 076 ms QT Int : 382 ms P-R-T Axes : 044 -17 064 degrees QTc Int : 426 ms Sinus rhythm with occasional Premature ventricular complexes Otherwise normal ECG Confirmed by YASH KIMBROUGH, ELYSSA ([id number]), manuscript editor KEYON FRANCISCO ([id number]) on 06/08/2020 10:46:39 AM Referred By: FRANCISCA/KAYLA Confirmed By:ELYSSA BERRIOS MD
[2020-06-04] MEDS: MELATONIN 3 MG TABLET PO (00:11)
[2020-06-04] MEDS: busPIRone 5 MG Tablet PO (00:11)
--- NOTE | 2020-06-04 05:55 | EKG12_ITS ---
Test Reason : AM EKG Blood Pressure : / mmHG Vent. Rate : 068 BPM Atrial Rate : 068 BPM P-R Int : 188 ms QRS Dur : 070 ms QT Int : 378 ms P-R-T Axes : 006 -22 008 degrees QTc Int : 401 ms Sinus rhythm with occasional Premature ventricular complexes Otherwise normal ECG When compared with ECG of 03-JUN-2020 23:35, MANUAL COMPARISON REQUIRED, DATA IS UNCONFIRMED Confirmed by YASH KIMBROUGH, ELYSSA ([id number]), deputy editor in chief KEYON FRANCISCO ([id number]) on 06/05/2020 8:17:42 AM Referred By: DR HERNÁNDEZ Confirmed By:ELYSSA BERRIOS MD
[2020-06-04 06:05] VITALS: BP 123/63; PULSE 69; RESP 16; TEMP 36.7; O2SAT 95
[2020-06-04] MEDS: Lisinopril 5 MG Tablet PO (06:05)
[2020-06-04] MEDS: Aspirin E.C. 81 MG Tablet PO (06:05)
[2020-06-04 06:09] LABS: Absolute Lymphocyte Count 1.16 X10^3/uL (0.83-4.51); Basophil# 0.04 X10^3/uL; Basophil% 0.8 % (0-1); Eosinophil# 0.36 X10^3/uL; Eosinophils% 7.2 % (0-5); Hematocrit 37.2 % (37-47); Hemoglobin 12.5 g/dL (12.0-15.0); Lymphocyte # 1.16 X10^3/ul (4.0); Lymphocyte % 23.2 % (19-41); Mean Corp Hgb Conc 33.6 g/dL (32-36); Mean Corpuscular Hgb 32.2 pg (27.0-32.0); Mean Corpuscular Volume 95.9 fL (81-99); Mean Platelet Vol. 9.6 fl (6.2-12.0); Monocyte# 0.46 X10^3/uL; Monocyte% 9.2 % (0-10); NRBC Flagged by Analyzer 0 % (0-5); Neutrophil # 2.96 X10^3/uL (2.7-7.7); Neutrophil % 59.2 % (47-70); Platelet Count 203 K/mm3 (150-450); RBC Distribution Width CV 11.8 % (11.6-14.6); RBC Distribution Width SD 41.3 fl (35.1-43.9); Red Blood Count 3.88 M/mm3 (4.2-5.4)
[2020-06-04 06:40] LABS: Anion Gap 5 (5-15); BUN 19 mg/dL (7-18); BUN/Creat Ratio 20.6 RATIO (10-20); Calcium,Total 8.5 mg/dL (8.5-10.1); Chloride 114 mmol/L (98-107); Cholesterol 208 mg/dL (200); Creatinine, Serum 0.92 mg/dL (0.55-1.02); EST Glomerular Filtration Rate 64 mL/min (>60); Est Glom Filt Rate - Afr Amer 77 mL/min (>60); Estimated Creatinine Clearance 42.32 ml/min; Glucose 88 mg/dL (74-106); High Density Lipoprotein 46 mg/dL; Magnesium 2.1 mg/dL (1.6-2.6); Potassium 4.1 mmol/L (3.5-5.1); Sodium Level 144 mmol/L (136-145); Thyroid Stim Hormone (TSH) 5.43 uIU/mL (0.358-3.74); Triglycerides 109 mg/dL; Very Low Density Lipoprotein 22 mg/dL (5-40)
[2020-06-04 07:22] VITALS: PULSE 68
--- NOTE | 2020-06-04 09:05 | CPS ---
patient has own bipap, does not want to bring in, hoping to leave today
[2020-06-04 12:05] VITALS: BP 118/60; PULSE 65; RESP 18; TEMP 36.7; O2SAT 97
--- NOTE | 2020-06-04 12:30 | STRESSREP_ITS ---
Stress Test Report Pharmacologic myocardial perfusion stress test. 69-year-old lady with a history of chest pain. Stress protocol: Resting EKG demonstrates normal sinus rhythm with a rate of 73 bpm normal intervals are noted occasional premature ventricular complexes present. Resting blood pressure is 116/70 mmHg. 0.4 mg of regadenoson was infused per usual protocol followed by rapid intravenous saline flush injection continuous EKG monitoring was performed. The maximum heart rate attained was 93 bpm which was 62% of maximum predicted heart rate the maximum workload was 1 metabolic equivalent. At rest there were no ST or T wave changes noted to suggest abnormal flow reserve at peak infusion nonspecific ST-T wave changes were noted. No clinical angina was noted. Myocardial perfusion protocol. 12.0 mCi of technetium 99m sestamibi was injected at rest. 0.4 mg of regadenoson was infused per usual protocol. At peak infusion 33.7 mCi of tech netium 99m sestamibi was injected stress images were obtained stress and rest images were reconstructed and compared in the short axis vertical long horizontal long axis. Gated images were also obtained Perfusion SPECT analysis: Review of the stress images demonstrate normal uptake of tracer noted in all areas of the myocardium the resting images similarly demonstrate normal uptake of tracer noted in all areas of myocardium. No areas of reversibility are noted suggest ischemia no previous infarct is noted. Gated SPECT analysis: The gated ejection fraction is 80%. Conclusion: Normal pharmacologic myocardial perfusion stress test. Preserved ejection fraction.
--- NOTE | 2020-06-04 12:34 | DCINST_ITS ---
- Discharge Diagnoses Current Active Problems: Current Active and Chronic Problems (Last Updated 06/04/20 @ 07:[address] Fortino Almazan MD) SANTIAGO (obstructive sleep apnea) (Chronic) AHI 9.7 controlled with BiPAP 13/7 centimeters of water by nasal interface Chest pain (Acute) Reactive airway disease (Chronic) Hyperlipidemia (Chronic) Vertigo (Chronic) Osteopenia (Chronic) Depression (Chronic) IBS (irritable bowel syndrome) (Chronic) Asthma, mild intermittent (Chronic) Gall stones (Chronic) BMI 29.0-29.9,adult (Chronic) Insomnia (Chronic) Anxiety (Chronic) Seasonal affective disorder (Chronic) Low back pain potentially associated with radiculopathy (Chronic) Accelerated hypertension (Chronic) Carpal tunnel syndrome (Chronic) 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) Sciatica (Chronic) You will use the following diet at home:: Cardiac Your food should be the consistency of: Regular Discharge Activity: Return to Normal Activity Weight Bearing Status: Weight bearing as tolerated Call your doctor if you observe: Fever of 101 or Higher, Shortness of breath, Dizziness, Fainting spells, Chest pain, Increased palpitations (irregular heartbeat), Uncontrolled pain Allergies/Adverse Reactions: Allergies Penicillins Allergy (Severe, Verified 01/10/20 13:06) Hives Sulfa (Sulfonamide Antibiotics) Allergy (Verified 01/10/20 13:06) Unknown Medications to take at Discharge Amlodipine [Norvasc] 10 mg PO DAILY 06/04/18 buspirone 5 mg tablet 5 mg PO BID 07/05/18 cholecalciferol (vitamin D3) 25 mcg (1,000 unit) capsule 1,000 unit PO DAILY 07/05/18 escitalopram oxalate 10 mg tablet 10 mg PO DAILY 07/05/18 fluticasone propionate 220 mcg/actuation HFA aerosol inhaler 2 puff INHALATION ONCE PRN g 07/05/18 meclizine 12.5 mg tablet 12.5 mg PO BID-TID PRN 07/05/18 mometasone 50 mcg/actuation nasal spray 2 spray INTRANASAL DAILY PRN 07/05/18 oxybutynin chloride 5 mg tablet 5 mg PO DAILY PRN PRN tab 07/05/18 trazodone 50 mg tablet 50 mg PO QHS PRN 03/21/19 Calcium (Elemental) [Os-Ousmane 500] 500 mg PO DAILY@0800 08/23/18 Flaxseed Oil 1,000 mg PO DAILY 08/23/18 albuterol sulfate 90 mcg/actuation aerosol inhaler 2 puff INHALATION Q4H PRN #18 g 01/10/20 Lisinopril 5 mg PO DAILY 06/03/20 Meloxicam 15 mg PO DAILY 06/03/20 Pantoprazole Sodium [Protonix] 40 mg PO DAILY #30 tab 06/04/20 The following prescriptions were given: Pantoprazole Sodium [Protonix] 40 mg PO DAILY #30 tab Transmission Status: Pending to [address] Primary Care Physician: Umer Prajapati MD [Primary Care Provider] - Please follow up with your Primary Care Physician in: 2 weeks. Test Results: Test results from this visit will be discussed in further detail at your follow- up appointment, if applicable.
--- NOTE | 2020-06-04 12:35 | PCM.DC.SUM ---
Discharge Date and Diagnosis - Problem List Patient Problems: Active and Suspected Problems (Last Updated 06/04/20 @ 07:[address] Fortino Almazan MD) Chest pain (Acute) Date of Admission: 06/03/20 Date of Discharge: 06/04/20 - Primary Discharge Diagnosis Acute Problems: Active Problems (Last Updated 06/04/20 @ 07:[address] Fortino Almazan MD) Chest pain, ACS ruled out, probable cause is GERD - Secondary Discharge Diagnosis Chronic Problems: Chronic Problems (Last Updated 06/04/20 @ 07:[address] 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 Electronically Signed: Best Mina MD at 19:17 EST , Service support , Chest CTA 06/03/20 19:37 IMPRESSION: ASHD and old granulomatous disease. No acute abnormalities. No evidence for pulmonary embolus aortic aneurysm periaortic leak or dissection Electronically Signed: Best Mina MD at 20:16 EST , Service support , Operations: None Procedures: EKG, Stress test Summary of Care Provided: Patient seen and examined on the day of discharge and appeared to be stable to be discharged home. Chest pain still there, but improved. No shortness of breath, dizziness or lightheadedness. She states that her pain got worse after she was started on meloxicam few days ago. Her vital signs were stable. The patient is a 69 year old F admitted for chest pain for evaluation. In the ED, chest x-ray showed no acute findings. Patient was found to have elevated D-dimer for which CTA chest done and showed no PE or dissection, no infiltrate or consolidation. She denied any respiratory symptoms. Her EKG revealed no evidence of acute ischemic changes. Troponin was negative x4. She underwent nuclear stress test that showed no evidence of stress-induced myocardial ischemia with preserved ejection fraction. ACS ruled out. Patient reported significant heartburn especially after she was started on meloxicam. Her lipid profile revealed cholesterol of 208, LDL cholesterol of 140 and HDL cholesterol of 46. Her TSH was slightly elevated at 5.43 but there is no symptoms of hypothyroidism. Her symptoms is probably due to GERD. Patient discharged home in a stable medical condition, discharged on Protonix 40 mg p.o. daily, counseled to follow low-fat diet as a first step to treat mild hyperlipidemia, continued on her previous home medications as before without changes, recommended to take [place] with food, recommended follow-up with PCP in 2 weeks. Patient Problems: Active and Suspected Problems (Last Updated 06/04/20 @ 07:[address] Fortino Almazan MD) Chest pain (Acute) - Physical Exam Vitals/I&O's: Vital Signs Temp Pulse Resp BP Pulse Ox 98.0 F 65 18 118/60 97 06/04/20 12:05 06/04/20 12:05 06/04/20 12:05 06/04/20 12:05 06/04/20 12:05 Oxygen Delivery Method Room Air Weight: 163 lb 5.8 oz Body Mass Index (BMI) 30.9 Intake and Output for Last 24 Hours 06/02/20 06/03/20 06/04/20 23:59 23:59 23:59 Intake Total 1240 / 1240 480 / 480 Balance 1240 / 1240 480 / 480 General: Alert, Oriented x3, Cooperative, No apparent distress HEENT: Atraumatic, PERRLA, EOMI, Normocephalic Oral: Moist Mucosa, No Gingival or Mucosal Lesions/ Ulcerations Neck: Supple, No JVD, Negative Carotid Bruits, Trachea Midline, Thyroid Normal Size and Texture Lungs: Clear to auscultation, Normal air movement, No rhonchi, No wheeze, No rales Cardiovascular: Regular rate, Regular Rhythm, Normal S1, Normal S2 Abdomen: Bowel Sounds Present, Soft, Non Tender, Non-Distended, No Hepato-splenomegaly, Obese Extremities: No clubbing, No cyanosis, No edema Skin: No rashes, No breakdown Lymphatic: No Cervical, Supraclavicular, or Inguinal Adenopathy Neurological: Cranial nerves II-XII grossly intact, Neuro grossly intact Psych/Mental Status: Normal Affect, Appropriate Laboratory Results 06/03/20 18:20: WBC 7.4, RBC 4.13 L, Hgb 13.4, Hct 39.5, MCV 95.6, MCH 32.4 H, MCHC 33.9, RDW Std Deviation 41.0, RDW Coeff of Zahida 11.9, Plt Count 183, MPV 9.4, Immature Gran % (Auto) 0.400, Neut % (Auto) 72.0 H, Lymph % (Auto) 16.4 L, Andrew % (Auto) 7.4, Eos % (Auto) 3.1, Baso % (Auto) 0.7, Absolute Neuts (auto) 5.4, Absolute Lymphs (auto) 1.22, Nucleated RBC % 0 06/03/20 18:20: Sodium 143, Potassium 4.0, Chloride 111 H, Carbon Dioxide 28.0, Anion Gap 4 L, BUN 21 H, Creatinine 1.17 H, Estim Creat Clear Calc 33.28, Est GFR (MDRD) Af Amer 59 L, Est GFR (MDRD) Non-Af 48 L, BUN/Creatinine Ratio 17.9, Glucose 83, Calcium 9.1, Magnesium 2.1, Troponin I < 0.015 06/03/20 18:20: D-Dimer Quant (PE/DVT) 6.34 H* 06/03/20 23:50: Troponin I < 0.015 06/04/20 01:42: Troponin I < 0.015 06/04/20 05:15: WBC 5.0, RBC 3.88 L, Hgb 12.5, Hct 37.2, MCV 95.9, MCH 32.2 H, MCHC 33.6, RDW Std Deviation 41.3, RDW Coeff of Zahida 11.8, Plt Count 203, MPV 9.6, Immature Gran % (Auto) 0.400, Neut % (Auto) 59.2, Lymph % (Auto) 23.2, Andrew % (Auto) 9.2, Eos % (Auto) 7.2 H, Baso % (Auto) 0.8, Absolute Neuts (auto) 3.0, Absolute Lymphs (auto) 1.16, Nucleated RBC % 0 06/04/20 05:15: Sodium 144, Potassium 4.1, Chloride 114 H, Carbon Dioxide 25.0, Anion Gap 5, BUN 19 H, Creatinine 0.92, Estim Creat Clear Calc 42.32, Est GFR (MDRD) Af Amer 77, Est GFR (MDRD) Non-Af 64, BUN/Creatinine Ratio 20.6 H, Glucose 88, Calcium 8.5, Magnesium 2.1, Troponin I < 0.015, Triglycerides 109, Cholesterol 208 H, LDL Cholesterol 140 H, VLDL Cholesterol 22, HDL Cholesterol 46, TSH 5.43 H Current Medications Acetaminophen (Acetaminophen 325 Mg Tablet) 650 mg PO Q6H PRN PRN PRN Reason: Pain Score 1-10/Temp > 100.7 F Albuterol Sulfate (Albuterol 2.5 Mg/3 Ml Vial.Neb.) 2.5 mg INHALATION Q2H PRN PRN PRN Reason: sob/wheezing Amlodipine Besylate (Amlodipine 10 Mg Tablet) 10 mg PO DAILY [facility] Aspirin (Aspirin E.C. 81 Mg Tablet) 81 mg PO DAILY@0800 [facility] Last Admin: 06/04/20 06:05 Dose: 81 mg Documented by: Budesonide (Budesonide Respules 0.5 Mg/2 Ml Ampul.Neb.) 0.5 mg INHALATION Q12H.RT [facility] Buspirone HCl (Buspirone 5 Mg Tablet) 5 mg PO BID [facility] Last Admin: 06/04/20 00:11 Dose: 5 mg Documented by: Calcium Carbonate (Calcium (Elemental) 500 Mg Tablet) 500 mg PO DAILY@0800 [facility] Cholecalciferol (Cholecalciferol (Vit D3) 1,000 Unit (25mcg)) 1,000 unit PO DAILY [facility] Escitalopram Oxalate (Escitalopram Oxalate 10 Mg Tablet) 10 mg PO DAILY [facility] Fluticasone Propionate (Fluticasone 0.05% 1 [place] Nasal.Sry) 2 spray NASAL DAILY PRN PRN PRN Reason: ALLERGIES Lisinopril (Lisinopril 5 Mg Tablet) 5 mg PO DAILY [facility] Last Admin: 06/04/20 06:05 Dose: 5 mg Documented by: Meclizine HCl (Meclizine 12.5 Mg Tablet) 12.5 mg PO TID PRN PRN PRN Reason: Vertigo Melatonin (Melatonin 3 Mg Tablet) 3 mg PO QHS PRN PRN PRN Reason: INSOMNIA Last Admin: 06/04/20 00:11 Dose: 3 mg Documented by: Meloxicam (Meloxicam 15 Mg Tablet) 15 mg PO DAILY [facility] Morphine Sulfate (Morphine 2 Mg/Ml Syringe) 2 mg IV Q3H PRN PRN PRN Reason: Pain Score 6-10 Nitroglycerin (Nitroglycerin (Inpatient Use) 0.4 Mg Tab.Subl) 0.4 mg SUBLINGUAL Q5M PRN PRN Reason: CARDIAC/CHEST PAIN Ondansetron HCl (Ondansetron 4 Mg/2 Ml Vial) 4 mg IV Q8H PRN PRN PRN Reason: NAUSEA/VOMITING Oxybutynin Chloride (Oxybutynin 5 Mg Tablet) 5 mg PO DAILY PRN PRN PRN Reason: BLADDER SPASM Senna/Docusate Sodium (Senna/Docusate Sodium 1 Tablet) 2 tablet PO BID PRN PRN PRN Reason: Constipation Trazodone HCl (Trazodone 50 Mg Tablet) 50 mg PO QHS PRN PRN Reason: SLEEP/if melatonin ineffective Discharge Activity: Return to Normal Activity Weight Bearing Status: Weight bearing as tolerated Call your doctor if you observe: Fever of 101 or Higher, Shortness of breath, Dizziness, Fainting spells, Chest pain, Increased palpitations (irregular heartbeat), Uncontrolled pain Home Medications: Medications to take at Discharge Amlodipine [Norvasc] 10 mg PO DAILY 06/04/18 buspirone 5 mg tablet 5 mg PO BID 07/05/18 cholecalciferol (vitamin D3) 25 mcg (1,000 unit) capsule 1,000 unit PO DAILY 07/05/18 escitalopram oxalate 10 mg tablet 10 mg PO DAILY 07/05/18 fluticasone propionate 220 mcg/actuation HFA aerosol inhaler 2 puff INHALATION ONCE PRN g 07/05/18 meclizine 12.5 mg tablet 12.5 mg PO BID-TID PRN 07/05/18 mometasone 50 mcg/actuation nasal spray 2 spray INTRANASAL DAILY PRN 07/05/18 oxybutynin chloride 5 mg tablet 5 mg PO DAILY PRN PRN tab 07/05/18 trazodone 50 mg tablet 50 mg PO QHS PRN 07/05/18 Calcium (Elemental) [Os-[place]usmane 500] 500 mg PO DAILY@0800 08/23/18 Flaxseed Oil 1,000 mg PO DAILY 08/23/18 albuterol sulfate 90 mcg/actuation aerosol inhaler 2 puff INHALATION Q4H PRN #18 g 01/10/20 Lisinopril 5 mg PO DAILY 06/03/20 Meloxicam 15 mg PO DAILY 06/03/20 Pantoprazole Sodium [Protonix] 40 mg PO DAILY #30 tab 06/04/20 Following Prescriptions Were Given to Patient: Pantoprazole Sodium [Protonix] 40 mg PO DAILY #30 tab Transmission Status: Received by [facility] [address] Primary Care Physician: Umer Prajapati MD [Primary Care Provider] - Please follow up with your Primary Care Physician in: 2 weeks. Disposition: Home Minutes spent on discharge:: 27 Patient Condition:: Stable Medical Necessity - Tobacco Use Smoking Status: Former smoker Meaningful Use Info Meaningful Use Diagnoses (Choose all that apply): None applicable OBSV E&M: 39790 Observation care discharge
== END 2020-06-04 12:34 | disposition home or self-care (01) ==
LOC: ED 21:11 → PCU 21:44
PROVIDERS: Admitting Provider Hospitalist; Emergency Provider Student in an Organized Health Care Education/Training Program; PCP Family Medicine; Visit Provider Hospitalist
DX: R07.89 Other chest pain (principal); R00.2 Palpitations; R53.83 Other fatigue; I10 Essential (primary) hypertension; E78.5 Hyperlipidemia, unspecified; F32.9 Major depressive disorder, single episode, unspecified; G47.33 Obstructive sleep apnea (adult) (pediatric); J45.30 Mild persistent asthma, uncomplicated; K58.9 Irritable bowel syndrome, unspecified; F41.9 Anxiety disorder, unspecified; K76.0 Fatty (change of) liver, not elsewhere classified; M19.90 Unspecified osteoarthritis, unspecified site; Z87.891 Personal history of nicotine dependence; Z79.899 Other long term (current) drug therapy
CPT/HCPCS: 36415; 71045; 71275; 78452; 80048; 80061; 83735; 84443; 84484; 85025; 85379; 93005; 93017; 96360; 99218; 99285; A9500; J7030; Q9967; A4216; G0378; J2785

== ENCOUNTER → 2020-06-25 14:39 | Outpatient (CLI) | payer MEDICARE, OTHER, SELFPAY ==
[2020-06-03 23:02] VITALS: BMI 30.9
== END ==
PROVIDERS: PCP Family Medicine; Referring Provider Family Medicine; Visit Provider Family Medicine
DX: N39.0 Urinary tract infection, site not specified (principal)
CPT/HCPCS: 87086

== ENCOUNTER 2020-06-25 19:06 | Outpatient (RCR) | payer MEDICARE, OTHER, SELFPAY ==
[2020-06-03 23:02] VITALS: BMI 30.9
[2020-06-25] MEDS: COVID-19 VACC, MRNA(PFIZER)/PF 30 MCG/0.3 ML SYRINGE IM (09:59)
[2020-07-16] MEDS: COVID-19 VACC, MRNA(PFIZER)/PF 30 MCG/0.3 ML SYRINGE IM (09:43)
== END 2020-09-22 23:59 ==
LOC: IMMUN 19:06
PROVIDERS: PCP Family Medicine; Visit Provider Family Medicine
DX: Z23 Encounter for immunization (principal)
CPT/HCPCS: 0001A; 0002A; 91300

== ENCOUNTER → 2020-07-06 09:40 | Outpatient (CLI) | payer MEDICARE, OTHER, SELFPAY ==
[2020-06-03 23:02] VITALS: BMI 30.9
--- NOTE | 2020-07-06 09:43 | RAD_ITS ---
STUDY: X-RAY - ABDOMEN/PELVIS REASON FOR EXAM: Female, 69 years old. Constipation, abd pain TECHNIQUE: COMPARISON: None. FINDINGS: Normal visualized lung bases. There is a moderate amount of colonic fecal material. Calcified splenic granulomas. Normal soft tissue structures. Normal visualized osseous structures. RAD/Abdomen Single View IMPRESSION: Moderate degree of fecal material seen in the colon. Electronically Signed: Daniel Medina MD at 12:09 EDT , Service support ,
== END ==
PROVIDERS: PCP Family Medicine; Referring Provider Urology; Visit Provider Urology
DX: K59.00 Constipation, unspecified (principal); R10.9 Unspecified abdominal pain
CPT/HCPCS: 74018

== ENCOUNTER → 2020-07-29 08:06 | Outpatient (CLI) | payer MEDICARE, OTHER, SELFPAY ==
[2020-06-03 23:02] VITALS: BMI 30.9
[2020-07-29 10:47] LABS: PTHIN 36.2 pg/mL (18.4-80.1); Vitamin D,25 Hydroxy 62.8 ng/mL
[2020-07-29 10:50] LABS: ALB/GLOB Ratio 1.3 RATIO (0.9-2.4); AST(SGOT) 19 U/L (15-37); Alanine Aminotransfer ALT/SGPT 38 U/L (13-56); Alkaline Phosphatase 121 U/L (45-117); Anion Gap 3 (5-15); BUN 17 mg/dL (7-18); BUN/Creat Ratio 14.5 RATIO (10-20); Calcium,Total 9.2 mg/dL (8.5-10.1); Chloride 110 mmol/L (98-107); Cholesterol 224 mg/dL (200); Creatinine, Serum 1.17 mg/dL (0.55-1.02); EST Glomerular Filtration Rate 48 mL/min (>60); Est Glom Filt Rate - Afr Amer 59 mL/min (>60); Glucose 97 mg/dL (74-106); High Density Lipoprotein 56 mg/dL; Phosphorus 3.4 mg/dL (2.5-4.9); Potassium 4.1 mmol/L (3.5-5.1); Sodium Level 141 mmol/L (136-145); Triglycerides 135 mg/dL; Very Low Density Lipoprotein 27 mg/dL (5-40)
[2020-07-29 11:01] LABS: Protein, Urine (Random) 13.5 mg/dL (<11.9); Protein:Creat Ratio 73 mg/g CRE (0-200)
== END ==
PROVIDERS: PCP Family Medicine; Referring Provider Family Medicine; Visit Provider Family Medicine
DX: E55.9 Vitamin D deficiency, unspecified (principal); E78.5 Hyperlipidemia, unspecified; N18.30 Chronic kidney disease, stage 3 unspecified
CPT/HCPCS: 36415; 80053; 80061; 82306; 82570; 83970; 84100; 84156

== ENCOUNTER → 2020-12-02 08:05 | Outpatient (CLI) | payer MEDICARE, OTHER, SELFPAY ==
[2020-06-03 23:02] VITALS: BMI 30.9
[2020-12-02 10:25] LABS: Absolute Lymphocyte Count 0.97 X10^3/uL (0.83-4.51); Absolute Neutrophil Count 2.5 X10^3/uL (2.0-7.7); Basophil# 0.04 X10^3/uL; Basophil% 0.9 % (0-1); Eosinophil# 0.27 X10^3/uL; Eosinophils% 6.4 % (0-5); Hematocrit 41.4 % (37-47); Hemoglobin 14.1 g/dL (12.0-15.0); Lymphocyte # 0.97 X10^3/ul (0.83-4.51); Lymphocyte % 22.9 % (19-41); Mean Corp Hgb Conc 34.1 g/dL (32-36); Mean Corpuscular Hgb 32.9 pg (27.0-32.0); Mean Corpuscular Volume 96.7 fL (81-99); Mean Platelet Vol. 9.5 fl (6.2-12.0); Monocyte# 0.39 X10^3/uL; Monocyte% 9.2 % (0-10); NRBC Flagged by Analyzer 0 % (0-5); Neutrophil # 2.54 X10^3/uL (2.7-7.7); Neutrophil % 60.1 % (47-70); Platelet Count 208 K/mm3 (150-450); RBC Distribution Width CV 11.8 % (11.6-14.6); RBC Distribution Width SD 41.8 fl (35.1-43.9); Red Blood Count 4.28 M/mm3 (4.2-5.4); White Blood Count 4.2 K/mm3 (4.4-11.0)
[2020-12-02 10:45] LABS: ALB/GLOB Ratio 1.3 RATIO (0.9-2.4); AST(SGOT) 21 U/L (15-37); Alanine Aminotransfer ALT/SGPT 40 U/L (13-56); Albumin, Serum 3.9 g/dL (3.2-5.0); Alkaline Phosphatase 121 U/L (45-117); Anion Gap 7 (5-15); BUN 18 mg/dL (7-18); BUN/Creat Ratio 16.8 RATIO (10-20); Chloride 108 mmol/L (98-107); Cholesterol 212 mg/dL (200); Creatinine, Serum 1.07 mg/dL (0.55-1.02); EST Glomerular Filtration Rate 54 mL/min (>60); Est Glom Filt Rate - Afr Amer 65 mL/min (>60); Globulin 2.9 g/dL (2.2-4.2); Glucose 95 mg/dL (74-106); High Density Lipoprotein 47 mg/dL; Potassium 4.1 mmol/L (3.5-5.1); Protein, Total 6.8 g/dL (6.4-8.2); Sodium Level 143 mmol/L (136-145); Triglycerides 132 mg/dL; Very Low Density Lipoprotein 26 mg/dL (5-40)
[2020-12-02 10:47] LABS: Vitamin D,25 Hydroxy 82.6 ng/mL
== END ==
PROVIDERS: PCP Family Medicine; Referring Provider Family Medicine; Visit Provider Family Medicine
DX: E55.9 Vitamin D deficiency, unspecified (principal); I10 Essential (primary) hypertension; E78.5 Hyperlipidemia, unspecified
CPT/HCPCS: 36415; 80053; 80061; 82306; 85025

== ENCOUNTER 2021-06-08 16:47 | Outpatient (CLI) | payer MEDICARE, OTHER, SELFPAY ==
--- NOTE | 2021-06-08 16:52 | RAD_ITS ---
EXAM: XR BILATERAL HIPS WITH PELVIS WHEN PERFORMED, 2 VIEWS CLINICAL INDICATION: HIP PAIN- BOTH TECHNIQUE: Frontal view of the bilateral hips with pelvis when performed. This report was created using [employer] report generation technology. COMPARISON: None. FINDINGS: See Impression. Small rounded vascular calcification projects adjacent to the ischial tuberosity. No suspicious lytic or sclerotic lesions of bone. Stool throughout the colon. RAD/Hips B/L min 2 views w/ Pelvis IMPRESSION: No acute or healing fracture or malalignment. Electronically Signed: Ralph Huff MD at 3:31 EST ,
== END 2021-06-08 23:59 | disposition home or self-care (01) ==
LOC: MTRAD 16:49
PROVIDERS: PCP Family Medicine; Referring Provider Family Medicine; Visit Provider Family Medicine
DX: M25.559 Pain in unspecified hip (principal)
CPT/HCPCS: 73521

== ENCOUNTER → 2021-09-06 | Outpatient (CLI) | payer MEDICARE, OTHER, SELFPAY ==
[2021-09-06 10:03] LABS: Hemoglobin 14.3 g/dL (12.0-15.0); Mean Platelet Vol. 9.9 fl (6.2-12.0); Platelet Count 239 K/mm3 (150-450); RBC Distribution Width CV 11.8 % (11.6-14.6); RBC Distribution Width SD 42.1 fl (35.1-43.9); Red Blood Count 4.33 M/mm3 (4.2-5.4); White Blood Count 4.8 K/mm3 (4.4-11.0)
[2021-09-06 10:16] LABS: ALB/GLOB Ratio 1.2 RATIO (0.9-2.4); AST(SGOT) 25 U/L (15-37); Alanine Aminotransfer ALT/SGPT 39 U/L (13-56); Albumin, Serum 3.8 g/dL (3.2-5.0); Alkaline Phosphatase 114 U/L (45-117); Anion Gap 5 (5-15); BUN 16 mg/dL (7-18); BUN/Creat Ratio 14.2 RATIO (10-20); Calcium,Total 9.2 mg/dL (8.5-10.1); Chloride 111 mmol/L (98-107); Cholesterol 207 mg/dL (200); Creatinine, Serum 1.13 mg/dL (0.55-1.02); EST Glomerular Filtration Rate 50 mL/min (>60); Est Glom Filt Rate - Afr Amer 61 mL/min (>60); Globulin 3.2 g/dL (2.2-4.2); Glucose 109 mg/dL (74-106); High Density Lipoprotein 45 mg/dL; Potassium 4.3 mmol/L (3.5-5.1); Sodium Level 142 mmol/L (136-145); Triglycerides 148 mg/dL; Very Low Density Lipoprotein 30 mg/dL (5-40)
[2021-09-06 10:19] LABS: Vitamin D,25 Hydroxy 73.1 ng/mL
[2021-09-06 10:24] LABS: Microalbumin,Random Urine 18.5 mg/L (NO RANGE EST.)
== END | disposition home or self-care (01) ==
LOC: MFPLAB 08:26
PROVIDERS: Registered Nurse; PCP Family Medicine; Visit Provider Family Medicine
DX: E55.9 Vitamin D deficiency, unspecified (principal); N18.30 Chronic kidney disease, stage 3 unspecified; E78.5 Hyperlipidemia, unspecified
CPT/HCPCS: 36415; 80053; 80061; 82043; 82306; 85027

== ENCOUNTER 2021-09-22 11:00 | Outpatient (RCR) | payer MEDICARE, OTHER, SELFPAY ==
--- NOTE | 2021-08-17 11:36 | HP.PTEVAL_ITS ---
Patient's Visit Information LORENZO TURNER is a 70 year old F referred to Physical Therapy by Dr. Umer Prajapati MD with a diagnosis of Left Hip Pain. Date of Evaluation: 08/17/21 Physical Therapist: Kiki Shepard DPT - Visit Plan Frequency: 2x /Week Duration: 4 Weeks Plan: Aquatics- focus on LE and core strength/stabilization with functional mobility. - Subjective Patient reports that she has a lot of pain in the left hip that radiates to the knee in the both front and back. Started about 2 months- insidious onset. She has always had a kink in the hip but it would work itself out. Once in awhile it would give it on her but this time its gotten really painful and is ?cramping her style?. Pain is located in the groin and radiates to the greater troch and down to the knee. Worst: 6/10 Agg: standing, walking on uneven surfaces. Eases: heat Best: 3/10. Describes the pain as sharp in the groin and then aches down to the knee. Also has sharp pains in the knee. Has had x-rays which were negative. She has lower back pain- comes and goes- depends on the angle- she has had injections (4 years ago last set). No radicular symptoms with her back pain. Sometimes she has tingling in her cifuentes. No right sided symptoms. Sleep: disturbed- side sleeper. No loss or change in bowel or bladder. She use to walk a couple of miles a day and ride a stationary bike but she has stopped due to pain. She is exhausted due to pain. She use to swim as well but is no longer doing it due the pool being cold ([facility]). She was given exercises at the doctors office but they are not helping. Has attempted Tylenol and Advil but nothing helps- she is sleeping with a heating pad on her knees. PMHx/Meds: see list scanned in chart. - Objective Posture: FH, RS- can correct but does not maintain. Gait: antalgic- decreased stance on the left LE- Trendelenburg. Stairs: asc/desc 8 non recip with 2 HR. HR/TR: able. SLS: weight shift but unable to SLS. ROM: Lumbar: WFL with pain in Side bending right and Rotation left. Hip: Flexion: 90 degrees, Extn: 10 degrees, Abd: 50 degrees IR/ER: WFL with pain. Knee/Ankle: WFL. Strength: Core: fair minus, Hip: 4-/5 throughout, Knee: 4+/5, Ankle: 5/5. Flex: HS: severe, Gastroc: severe - Special Tests L/S Slump test left side: Negative L/S Slump test right side: Negative L/S Left Straight Leg Raise: Negative L/S Right Straight Leg Raise: Negative L Hip Scour: Positive L Hip SANDEEP - Intraarticular Pathology: Positive L Hip FADDIR - Labrum: Positive L Hip Trendelenberg - Glut Medius: Positive L Hip Rody - IT Band: Positive - Balance/Special Test Scores Lower Extremity Functional Score: 39 - Goals Goal 1:: Patient will be I with HEP and progression Goal Time Frame: 4-6 Weeks Goal 2:: Patient will ambulate >300 feet with a normalized gait pattern Goal Time Frame: 4-6 Weeks Goal 3:: Patient will asc/desc 8 stairs recip with 1 HR Goal Time Frame: 4-6 Weeks Goal 4:: Patient will report 80% improvement Goal Time Frame: 4-6 Weeks Goal 5:: Patient will maintain proper posture t/o tx session to demo increased core s/s Goal Time Frame: 4-6 Weeks - Rehabilitation Potential Physical Therapy Diagnosis: Patient presents with hypomobility- she has decrease d LE and core strength/stabilization, flex, proprioception and muscular endurance leading to poor posture, abnormal gait and increased pain with ADL's. Rehabilitation Potential: Good - Anticipated Interventions Patient/Client Instruction: Educate patient on: Benefits of Fitness Program Therapeutic Exercise to Include: Strength training, Endurance training, Balance training, Coordination, Agility training, Body mechanics, Postural training, Flexibilty training, Gait and locomotor training, Neuromotor development, In an aquatic setting, Passive ROM, Active ROM, Dynamic Lumbar Stabilization, Scapular Strength/Stabilization For the Purpose of:: To improve muscle performance and motor function Thank you for the opportunity to evaluate your patient. For Medicare and Medicare HMO plans, please review the plan of care and approve it. It will need to be FAXED BACK to us at [phone] for Medicare purposes. For Medicare only, by signing this I certify the plan of care. Please let me know if there are questions or concerns regarding this plan of care. Physician Signature: Date:
--- NOTE | 2021-09-22 11:21 | HP.PTDCSUM_ITS ---
It has been my pleasure to treat LORENZO TRUNER referred by Dr. Umer Prajapati MD, with the diagnosis of Left Hip Pain for a total of 8 visit(s). Discharge Date: Please see the following information for a summary of their discharge status. Subjective: Patient reports that her hip is good. She has just a little bit of pain- but as long as she is doing them consistently. Feels that she is ready for d/c- she is happy with the exercises. She has started taking Magnesium and Calcium, LLE Pain Intensity (Out of 10): 3 Lumbar Spine Pain Intensity (Out of 10): 0 % Improvement: 95 Objective/Function: Posture: fair throughout Gait: no deviation noted Stairs: asc/desc 8 recip with 1 HR but does report discomfort and does not trust her left LE. HR/TR: able. SLS: 5 seconds. ROM: Lumbar: WFL in lumbar and LE Strength: Core: fair, Hip: 4+/5 throughout, Knee: 5/5, Ankle: 5/5. Flex: HS: mod, Gastroc: mod. - Special Tests. L/S Slump test left side: Negative. L/S Slump test right side: Negative. L/S Left Straight Leg Raise: Negative. L/S Right Straight Leg Raise: Negative. L Hip Scour: Positive. L Hip SANDEEP - Intraarticular Pathology: Positive. L Hip FADDIR - Labrum: Positive. L Hip Trendelenberg - Glut Medius: Positive. L Hip Rody - IT Band: Positive Goal 1:: Patient will be I with [facility] and progression Goal Progress: Goal Met Goal 2:: Patient will ambulate >300 feet with a normalized gait pattern Goal Progress: Goal Met Goal 3:: Patient will asc/desc 8 stairs recip with 1 HR Goal Progress: Goal Met Goal 4:: Patient will report 80% improvement Goal 5:: Patient will maintain proper posture t/o tx session to demo increased core s/s Goal Progress: Goal Met Plan: 09/22/21: Discharge to [facility] If there are questions or concerns regarding this patient's physical therapy, please feel free to call me at [phone]. Thank you for the referral of this patient. Sincerely, Kiki Shepard, [place] Balance/Gait/Functional tests - Balance/Special Test Scores Lower Extremity Functional Score: 73
== END 2021-09-22 14:47 | disposition home or self-care (01) ==
LOC: PT 11:00
PROVIDERS: PCP Family Medicine; Referring Provider Family Medicine; Visit Provider Family Medicine
DX: M25.552 Pain in left hip (principal)
CPT/HCPCS: 97113; 97162; 97164

== ENCOUNTER → 2021-11-22 | Outpatient (CLI) | payer MEDICARE, OTHER, SELFPAY ==
--- NOTE | 2021-11-22 14:49 | RAD_ITS ---
STUDY: X-RAY - LEFT KNEE REASON FOR EXAM: Left knee pain, no specific injury. TECHNIQUE: 4 view(s) of the knee. COMPARISON: None. FINDINGS: Normal visualized distal femur. Normal visualized proximal tibia and fibula. Normal proximal tibiofibular articulation. Normal medial femorotibial compartment. Normal lateral femorotibial compartment. Normal patellofemoral articulation. The soft tissue structures are unremarkable. RAD/Knee 4 or More Views IMPRESSION: Unremarkable x-ray examination of the left knee. Electronically Signed: Balta Serra MD at 14:11 EDT ,
--- NOTE | 2021-11-22 14:58 | RAD_ITS ---
STUDY: X-RAY - PELVIS AND LEFT HIP REASON FOR EXAM: Left hip/groin pain, no specific injury. TECHNIQUE: 2 views of the pelvis and hip. COMPARISON: Radiographs 06/08/2021. FINDINGS: Normal visualized soft tissue structures. Normal bilateral iliac wings, sacroiliac joints and visualized sacrum. Normal bilateral superior and inferior pubic rami. Normal pubic symphysis. Normal bilateral ischial tuberosities. Normal visualized femoral head. There is joint space narrowing of the left hip and a small subchondral cyst in the acetabulum. RAD/HIP, UNI W/ Pelvis 2-3 Views IMPRESSION: Left hip arthrosis. Electronically Signed: Balta Serra MD at 14:25 EDT ,
== END | disposition home or self-care (01) ==
LOC: MTRAD 14:48
PROVIDERS: PCP Family Medicine; Referring Provider Family Medicine; Visit Provider Family Medicine
DX: M25.562 Pain in left knee (principal); M25.552 Pain in left hip
CPT/HCPCS: 73502; 73564

== ENCOUNTER → 2022-06-20 | Outpatient (CLI) | payer MEDICARE, OTHER, SELFPAY ==
[2022-06-20 10:12] LABS: Anion Gap 6 (5-15); BUN 25 mg/dL (7-18); BUN/Creat Ratio 20.3 RATIO (10-20); Calcium,Total 9.2 mg/dL (8.5-10.1); Chloride 109 mmol/L (98-107); Creatinine, Serum 1.23 mg/dL (0.55-1.02); EST Glomerular Filtration Rate 45 mL/min (>60); Est Glom Filt Rate - Afr Amer 55 mL/min (>60); Glucose 82 mg/dL (74-106); Potassium 3.7 mmol/L (3.5-5.1); Sodium Level 141 mmol/L (136-145)
[2022-06-20 10:28] LABS: Microalbumin,Random Urine 6.6 mg/L (NO RANGE EST.); Microalbumin:Creatinine Ratio 4.7 mg/g CRE (<30 mg/g CRE)
== END | disposition home or self-care (01) ==
LOC: MFPLAB 08:09
PROVIDERS: Nurse Practitioner Family; PCP Family Medicine; Visit Provider Family Medicine
DX: I10 Essential (primary) hypertension (principal)
CPT/HCPCS: 36415; 80048; 82043; 82570

== ENCOUNTER → 2022-07-13 | Outpatient (CLI) | payer MEDICARE, OTHER, SELFPAY ==
[2022-07-13 09:26] LABS: Mucous, Urine 0 SEEN /hpf (<or=2+); Red Blood Cells-Urine 0 SEEN /hpf (0-5)
[2022-07-13 10:22] LABS: Absolute Lymphocyte Count 0.92 X10^3/uL (0.83-4.51); Absolute Neutrophil Count 2.7 X10^3/uL (2.0-7.7); Basophil# 0.04 X10^3/uL; Basophil% 0.9 % (0-1); Eosinophil# 0.23 X10^3/uL; Eosinophils% 5.1 % (0-5); Hematocrit 42.3 % (37-47); Hemoglobin 14.3 g/dL (12.0-15.0); Lymphocyte # 0.92 X10^3/ul (0.83-4.51); Lymphocyte % 20.6 % (19-41); Mean Corp Hgb Conc 33.8 g/dL (32-36); Mean Corpuscular Hgb 32.9 pg (27.0-32.0); Mean Corpuscular Volume 97.5 fL (81-99); Mean Platelet Vol. 9.6 fl (6.2-12.0); Monocyte# 0.52 X10^3/uL; Monocyte% 11.6 % (0-10); NRBC Flagged by Analyzer 0 % (0-5); Neutrophil # 2.74 X10^3/uL (2.7-7.7); Neutrophil % 61.4 % (47-70); Platelet Count 210 K/mm3 (150-450); RBC Distribution Width CV 11.8 % (11.6-14.6); RBC Distribution Width SD 42.5 fl (35.1-43.9); Red Blood Count 4.34 M/mm3 (4.2-5.4); White Blood Count 4.5 K/mm3 (4.4-11.0)
[2022-07-13 11:00] LABS: Color, Urine Yellow (Yellow); Glucose, Dipstick Normal (Normal); Ketone-Dipstick 5 mg/dl (Negative); Leukocyte Esterase-Dipstick 500 /ul (Negative); Nitrite-Dipstick Negative (Negative); Occult Blood-Urine Negative /ul (Negative); Protein-Dipstick Negative (Negative); Specific Gravity, Urine 1.025 (1.002-1.030); Urine Bilirubin Dipstick Negative (Negative); Urine Clarity Clear (Clear); Urine Urobilinogen 1 mg/dl (Normal)
[2022-07-13 11:03] LABS: PTHIN 37.5 pg/mL (18.4-80.1)
[2022-07-13 11:04] LABS: Protein, Urine (Random) 11.7 mg/dL (<11.9); Protein:Creat Ratio 80 mg/g CRE (0-200); Vitamin D,25 Hydroxy 61.4 ng/mL
[2022-07-13 11:17] LABS: Albumin, Serum 3.7 g/dL (3.2-5.0); BUN 20 mg/dL (7-18); BUN/Creat Ratio 19.8 RATIO (10-20); Creatinine, Serum 1.01 mg/dL (0.55-1.02); EST Glomerular Filtration Rate 57 mL/min (>60); Est Glom Filt Rate - Afr Amer 69 mL/min (>60); Glucose 100 mg/dL (74-106); Protein, Total 6.7 g/dL (6.4-8.2)
[2022-07-13 11:18] LABS: ALB/GLOB Ratio 1.2 RATIO (0.9-2.4); AST(SGOT) 21 U/L (15-37); Alanine Aminotransfer ALT/SGPT 44 U/L (13-56); Alkaline Phosphatase 105 U/L (45-117); Anion Gap 7 (5-15); Calcium,Total 9.3 mg/dL (8.5-10.1); Chloride 107 mmol/L (98-107); Cholesterol 208 mg/dL (200); High Density Lipoprotein 44 mg/dL; Phosphorus 3.2 mg/dL (2.5-4.9); Potassium 4.1 mmol/L (3.5-5.1); Sodium Level 139 mmol/L (136-145); Thyroid Stim Hormone (TSH) 1.79 uIU/mL (0.358-3.74); Triglycerides 185 mg/dL; Very Low Density Lipoprotein 37 mg/dL (5-40)
[2022-07-13 11:22] LABS: Squamous Epithelial Cells - UA 0-5 SEEN /hpf (5-10); White Blood Cells 0-5 SEEN /hpf (0-5)
[2022-07-13 11:23] LABS: Bacteria 1+ /hpf (None Seen)
== END | disposition home or self-care (01) ==
LOC: MFPLAB 09:23
PROVIDERS: PCP Family Medicine; Referring Provider Family Medicine; Visit Provider Family Medicine
DX: I12.9 Hypertensive chronic kidney disease with stage 1 through stage 4 chronic kidney disease, or unspecified chronic kidney disease (principal); N18.30 Chronic kidney disease, stage 3 unspecified; E55.9 Vitamin D deficiency, unspecified
CPT/HCPCS: 36415; 80053; 80061; 81001; 82306; 82570; 83970; 84100; 84156; 84443; 85025

== ENCOUNTER → 2022-07-14 | Outpatient (CLI) | payer MEDICARE, OTHER, SELFPAY ==
--- NOTE | 2022-07-14 09:23 | EKG12_ITS ---
Test Reason : PREOP Blood Pressure : / mmHG Vent. Rate : 093 BPM Atrial Rate : 093 BPM P-R Int : 158 ms QRS Dur : 066 ms QT Int : 344 ms P-R-T Axes : 039 -49 045 degrees QTc Int : 427 ms Normal sinus rhythm Left anterior fascicular block Anterolateral infarct , age undetermined Abnormal ECG Confirmed by ROGELIO KIMBROUGH, JASON ([id number]), slot editor KAYY EPPS ([id number]) on 07/18/2022 10:42:59 AM Referred By: Umer Prajapati Confirmed By:MOY MERCADO MD
== END | disposition home or self-care (01) ==
LOC: PSN 09:20
PROVIDERS: PCP Family Medicine; Referring Provider Family Medicine; Visit Provider Family Medicine
DX: R94.31 Abnormal electrocardiogram [ECG] [EKG] (principal); I10 Essential (primary) hypertension
CPT/HCPCS: 93005

== ENCOUNTER → 2022-07-15 | Outpatient (CLI) | payer MEDICARE, OTHER, SELFPAY ==
--- NOTE | 2022-07-19 15:29 | STRESSREP ---
Stress Test Report Date: 07/15/2022 Procedure: Pharmacologic stress nuclear imaging study Indications: Preoperative evaluation Consent: Per the patient Procedure: The patient underwent pharmacologic (Regadenoson) evaluation with a peak heart rate of 105 beats per minute (71%predicted maximal heart rate) and a peak blood pressure of 120/62 mmHg. The baseline ECG demonstrated normal sinus rhythm. EKG during lexiscan infusion revealed no significant ischemic changes. EKG post infusion revealed no significant ischemic changes [There were no cardiac dysrhythmias pretest, during pharmacologic infusion, or recovery]. [There was no complaint of chest discomfort during pharmacologic infusion or recovery]. The examination was discontinued secondary to completion of protocol. Impression: 1. Lexiscan stress test test is negative for Lexiscan infusion induced EKG changes of ischemia. 2. Lexiscan stress test test is negative for Lexiscan infusion induced chest pain. 3. Results of the nuclear portion of the test is as below Myocardial perfusion imaging study: Technique: The patient was injected with 11.8 millicuries of technetium 99m Cardiolite and subsequently rest SPECT Cardiolite nuclear imaging was obtained in the horizontal long, vertical long, and short axis views. The patient underwent pharmacologic [Regadenoson 0.4mg] evaluation. Please see above for details. The patient was injected with 34.3 millicuries of technetium 99m Cardiolite and subsequently stress SPECT Cardiolite nuclear imaging was obtained in the horizontal long, vertical long, and short axis views. A gated Cardiolite study at peak stress was obtained. Interpretation: Rest and stress SPECT Cardiolite nuclear imaging status post realignment, normalization, and attenuation correction demonstrate normal myocardial radioisotope uptake. Gated images reveal no significant regional wall motion abnormalities. The reported LVEF is greater than 70%. Impression: 1. There is no evidence of significant ischemia or infarction. 2. Estimated ejection fraction is greater than 70%. This note was generated with [employer] software. It may contain incorrect words, spelling, and punctuation that were not noted in checking the note before signing.
== END | disposition home or self-care (01) ==
LOC: CVS 06:06
PROVIDERS: PCP Family Medicine; Visit Provider Family Medicine
DX: R94.31 Abnormal electrocardiogram [ECG] [EKG] (principal); I10 Essential (primary) hypertension
CPT/HCPCS: 78452; 93017; A9500; A4216; J2785

== ENCOUNTER → 2022-10-27 | Outpatient (CLI) | payer MEDICARE, OTHER, SELFPAY ==
[2022-10-27 08:10] LABS: Bacteria 0 SEEN /hpf (None Seen); Mucous, Urine 0 SEEN /hpf (<or=2+); Red Blood Cells-Urine 0 SEEN /hpf (0-5)
[2022-10-27 10:22] LABS: Absolute Lymphocyte Count 0.98 X10^3/uL (0.83-4.51); Basophil# 0.05 X10^3/uL; Basophil% 1.1 % (0-1); Eosinophil# 0.25 X10^3/uL; Eosinophils% 5.3 % (0-5); Hematocrit 42.2 % (37-47); Hemoglobin 14.3 g/dL (12.0-15.0); Lymphocyte # 0.98 X10^3/ul (0.83-4.51); Lymphocyte % 20.9 % (19-41); Mean Corp Hgb Conc 33.9 g/dL (32-36); Mean Corpuscular Hgb 33.8 pg (27.0-32.0); Mean Corpuscular Volume 99.8 fL (81-99); Mean Platelet Vol. 9.9 fl (6.2-12.0); Monocyte# 0.45 X10^3/uL; Monocyte% 9.6 % (0-10); NRBC Flagged by Analyzer 0 % (0-5); Neutrophil # 2.96 X10^3/uL (2.7-7.7); Neutrophil % 62.9 % (47-70); Platelet Count 219 K/mm3 (150-450); RBC Distribution Width CV 11.6 % (11.6-14.6); RBC Distribution Width SD 42.4 fl (35.1-43.9); Red Blood Count 4.23 M/mm3 (4.2-5.4); White Blood Count 4.7 K/mm3 (4.4-11.0)
[2022-10-27 10:23] LABS: Glucose, Dipstick Normal (Normal); Ketone-Dipstick Negative (Negative); Leukocyte Esterase-Dipstick 100 /ul (Negative); Nitrite-Dipstick Negative (Negative); Occult Blood-Urine Negative /ul (Negative); Protein-Dipstick Negative (Negative); Urine Bilirubin Dipstick Negative (Negative); Urine Urobilinogen Normal (Normal)
[2022-10-27 10:28] LABS: Color, Urine Yellow (Yellow); Urine Clarity Clear (Clear)
[2022-10-27 10:34] LABS: PTHIN 45.6 pg/mL (18.4-80.1)
[2022-10-27 10:40] LABS: Vitamin D,25 Hydroxy 65.9 ng/mL
[2022-10-27 10:43] LABS: Squamous Epithelial Cells - UA 0-5 SEEN /hpf (5-10); White Blood Cells 0-5 SEEN /hpf (0-5)
[2022-10-27 10:44] LABS: Transitional Epithelial - Ur 0-5 SEEN /hpf (0-5)
[2022-10-27 11:11] LABS: Protein, Urine (Random) 9.1 mg/dL (<11.9); Protein:Creat Ratio 59 mg/g CRE (0-200)
[2022-10-27 11:26] LABS: ALB/GLOB Ratio 1.2 RATIO (0.9-2.4); AST(SGOT) 19 U/L (15-37); Alanine Aminotransfer ALT/SGPT 42 U/L (13-56); Albumin, Serum 3.8 g/dL (3.2-5.0); Alkaline Phosphatase 127 U/L (45-117); Anion Gap 7 (5-15); BUN 17 mg/dL (7-18); BUN/Creat Ratio 14.9 RATIO (10-20); Calcium,Total 9.3 mg/dL (8.5-10.1); Chloride 111 mmol/L (98-107); Cholesterol 199 mg/dL (200); Creatinine, Serum 1.14 mg/dL (0.55-1.02); EST Glomerular Filtration Rate 50 mL/min (>60); Est Glom Filt Rate - Afr Amer 60 mL/min (>60); Globulin 3.3 g/dL (2.2-4.2); Glucose 108 mg/dL (74-106); High Density Lipoprotein 44 mg/dL; Phosphorus 3.2 mg/dL (2.5-4.9); Potassium 4.2 mmol/L (3.5-5.1); Protein, Total 7.1 g/dL (6.4-8.2); Sodium Level 144 mmol/L (136-145); Thyroid Stim Hormone (TSH) 2.05 uIU/mL (0.358-3.74); Triglycerides 174 mg/dL; Very Low Density Lipoprotein 35 mg/dL (5-40)
== END | disposition home or self-care (01) ==
LOC: MFPLAB 08:07
PROVIDERS: PCP Family Medicine; Visit Provider Family Medicine
DX: I12.9 Hypertensive chronic kidney disease with stage 1 through stage 4 chronic kidney disease, or unspecified chronic kidney disease (principal); N18.30 Chronic kidney disease, stage 3 unspecified; E55.9 Vitamin D deficiency, unspecified; M85.80 Other specified disorders of bone density and structure, unspecified site
CPT/HCPCS: 80053; 80061; 81001; 82306; 82570; 83970; 84100; 84156; 84443; 85025

== ENCOUNTER → 2022-12-05 | Outpatient (CLI) | payer MEDICARE, OTHER, SELFPAY ==
--- NOTE | 2022-12-05 12:34 | RAD_ITS ---
STUDY: X-RAY - RIGHT SHOULDER REASON FOR EXAM: Female, 72 years old. Right shoulder pain. TECHNIQUE: 4 view(s) of the shoulder. COMPARISON: None. FINDINGS: Osteopenia. Mild arthrosis of the glenohumeral joint. Mild arthrosis of the AC joint. Normal acromion. Normal humeral head and visualized proximal humerus. Normal soft tissues. Normal visualized pulmonary apex. RAD/Shoulder min 2 Views IMPRESSION: Osteopenia with mild arthrosis of the glenohumeral and acromioclavicular joints. No acute abnormality or erosive changes. Electronically Signed: Yo Jimenez MD at 13:07 EDT ,
== END | disposition home or self-care (01) ==
LOC: MTRAD 12:33
PROVIDERS: PCP Family Medicine; Referring Provider Nurse Practitioner Family; Visit Provider Nurse Practitioner Family
DX: M25.519 Pain in unspecified shoulder (principal)
CPT/HCPCS: 73030

== ENCOUNTER → 2023-01-26 | Outpatient (CLI) | payer MEDICARE, OTHER, SELFPAY ==
--- NOTE | 2023-01-26 14:00 | BI_ITS ---
MAMMOGRAPHY - BILATERAL SCREENING REASON FOR EXAM: Female, 72 years old. Routine annual screening examination. PERTINENT HISTORY: Non-contributory. TECHNIQUE: Digital bilateral breast mike (3D mammographic acquisition) in the CC and MLO projections. 2-D mediolateral oblique (MLO) and craniocaudad (CC) views of both breasts were obtained. CAD: Full Field Digital Mammography with Computer Added Detection was performed. COMPARISON: Comparison is made with prior study dated July 04, 2018 and May 28, 2015. FINDINGS: Breast Composition: There are scattered areas of fibroglandular density. There are no dominant masses or suspicious calcifications. Stable fat-containing bilateral axillary lymph nodes. No other significant abnormalities are identified. There has been no significant change since the prior study. BI/SCRN MAMM (CAD)W/MIKE BILAT IMPRESSION: Stable bilateral screening mammogram. Yearly follow-up mammogram recommended. (A) ASSESSMENT CATEGORY: BIRADS Category 2: Benign. A letter regarding these results will be sent to the patient by the facility within 30 days. Approximately 10% of breast cancers are not detected by mammography. A normal mammogram should not delay biopsy of a clinically suspicious abnormality. [id number] Electronically Signed: Daniel Medina MD at 15:06 EDT ,
--- NOTE | 2023-01-26 14:13 | BD_ITS ---
STUDY: DUAL ENERGY X-RAY ABSORPTIOMETRY / DXA REASON FOR EXAM: Female, 72 years old. V76.12ScreeningBONE DENSITY REASON FOR EXAM TECHNIQUE: Bone Mineral Density (BMD) measurements of lumbar spine and right hip were obtained. COMPARISON: Comparison is made with prior study dated July 04, 2018. FINDINGS: Lumbar Spine (L1-L4): g/cm2 (0.755) / T-score (-2.7) / Z-score (-0.3) Findings are suggestive of osteoporosis with a high fracture risk. Right Femur Total: g/cm2 (0.800) / T-score (-1.2) / Z-score (0.6) Right Femoral Neck: g/cm2 (0.630) / T-score (-2.0) / Z-score (0.1) The T-Scores on the most recent prior examination were: Lumbar Spine (L1-L4): There has been worsening of bone density since the previous examination. Right Femur Total: which represents a worsening of 3.8%. BD/Dexa Bone Density Study IMPRESSION: The patient is considered osteoporotic as outlined below according to World Stefan Organization (WHO) criteria with a high fracture risk. There has been worsening of bone density since the previous examination. Reference Information: The T-score is the number of standard deviations above or below the standard which is normal for young adults at their peak bone mineral density. The World Health Organization (WHO) interprets the T-scores as follows: Above -1 Normal bone density Between -1 and -2.5 Osteopenia Equal to / or below -2.5 Osteoporosis As a practical clinical guideline, osteopenia may be graded as follows: Mild -1 through -1.5 Moderate -1.6 through -2.0 Severe -2.1 through -2.4 The Z-score is the number of standard deviations above or below age-matched controls. A Z-score of less than -1.5 would be considered abnormal. References: 1. NIH Osteoporosis and Related Bone Diseases www osteo.org 2. International Society for Clinical Densitometry www iscd.org 3. National Osteoporosis Foundation www nof.org Electronically Signed: Daniel Medina MD at 14:24 EDT ,
== END | disposition home or self-care (01) ==
LOC: OPBD 13:58
PROVIDERS: PCP Family Medicine; Referring Provider Family Medicine; Visit Provider Family Medicine
DX: Z12.31 Encounter for screening mammogram for malignant neoplasm of breast (principal); M85.80 Other specified disorders of bone density and structure, unspecified site; Z78.0 Asymptomatic menopausal state
CPT/HCPCS: 77063; 77067; 77080

== ENCOUNTER → 2023-03-02 | Outpatient (CLI) | payer MEDICARE, OTHER, SELFPAY ==
[2023-03-02 18:21] LABS: ALB/GLOB Ratio 1.3 RATIO (0.9-2.4); AST(SGOT) 22 U/L (15-37); Alanine Aminotransfer ALT/SGPT 45 U/L (13-56); Albumin, Serum 3.9 g/dL (3.2-5.0); Alkaline Phosphatase 123 U/L (45-117); Anion Gap 8 (5-15); BUN 23 mg/dL (7-18); Chloride 109 mmol/L (98-107); Creatinine, Serum 1.15 mg/dL (0.55-1.02); EST Glomerular Filtration Rate 49 mL/min (>60); Est Glom Filt Rate - Afr Amer 59 mL/min (>60); Globulin 3.1 g/dL (2.2-4.2); Glucose 118 mg/dL (74-106); Potassium 3.6 mmol/L (3.5-5.1); Sodium Level 142 mmol/L (136-145)
[2023-03-02 18:24] LABS: Vitamin D,25 Hydroxy 70.5 ng/mL
== END | disposition home or self-care (01) ==
LOC: MFPLAB 15:20
PROVIDERS: PCP Family Medicine; Visit Provider Family Medicine
DX: M81.0 Age-related osteoporosis without current pathological fracture (principal)
CPT/HCPCS: 36415; 80053; 82306

== ENCOUNTER 2023-06-27 14:00 | Outpatient (RCR) | payer MEDICARE, OTHER, SELFPAY ==
--- NOTE | 2023-07-04 15:08 | HP.PTDCSUM ---
Discharge Summary D/C summary: It has been my pleasure to treat LORENZO TURNER referred by Dr. Marco Fraga DPM, with the diagnosis of L achilles tendonitis for a total of 6 visit(s). Discharge Date: Please see the following information for a summary of their discharge status. Subjective Subjective: I am ready for discharge Pain L achilles tendonitis: Pain Intensity (Out of 10): 0 Overall Improvement % Improvement: 95 Objective Objective/Function: L heel pain is 0/10 L ankle MMT: DF= 32, PF= 41 #F L ankle ROM: DF= 11 degrees Pt is I with HEP Goals Goal 1:: Decrease L posterior heel pain x 50% to aid with sleep Goal Progress: Goal Met Goal 2:: Increase L ankle DF ROM x 10 degrees to aid with decreasing pain Goal Progress: Goal Met Goal 3:: I with HEP Goal Progress: Goal Met Plan Plan: Discharge to HEP D/C Information d/c sentence: If there are questions or concerns regarding this patient's physical therapy, please feel free to call me at [phone]. Thank you for the referral of this patient. Sincerely, Sumeet Padilla, PT, ATC Balance/Gait/Functional tests Balance/Special Test Scores Lower Extremity Functional Score: 76 Improvement % Improvement: 95
== END 2023-06-27 19:00 | disposition home or self-care (01) ==
LOC: PT 14:00
PROVIDERS: PCP Family Medicine; Referring Provider Student in an Organized Health Care Education/Training Program; Visit Provider Student in an Organized Health Care Education/Training Program
DX: M76.62 Achilles tendinitis, left leg (principal)
CPT/HCPCS: 97110; 97140; 97161

== ENCOUNTER → 2024-02-15 | Outpatient (CLI) | payer MEDICARE, OTHER, SELFPAY ==
--- NOTE | 2024-02-15 16:03 | RAD_ITS ---
INDICATION: bronchitis EXAMINATION/TECHNIQUE: X-RAY - XR Chest 2 Views COMPARISON: Prior study dated: 06/03/2020 FINDINGS: LINES/DEVICES: None. LUNGS: No consolidation, edema or effusion. No pneumothorax. MEDIASTINUM AND CARDIOVASCULAR STRUCTURES: Cardiac silhouette not enlarged. Tortuosity of the thoracic aorta. Central airways and mediastinal contour are unremarkable. BONES AND SOFT TISSUES: Unremarkable. RAD/Chest PA and Lateral IMPRESSION: No radiographic evidence of acute cardiopulmonary disease. Electronically Signed: Rodrigo Gallego MD at 15:35 EDT ,
== END | disposition home or self-care (01) ==
PROVIDERS: PCP Family Medicine; Referring Provider Family Medicine; Visit Provider Family Medicine
DX: J40 Bronchitis, not specified as acute or chronic (principal)
CPT/HCPCS: 71046

== ENCOUNTER → 2024-02-22 | Outpatient (CLI) | payer MEDICARE, OTHER, SELFPAY ==
[2024-02-22 12:42] LABS: Bacteria 0 SEEN /hpf (None Seen); Red Blood Cells-Urine 0 SEEN /hpf (0-5); Squamous Epithelial Cells - UA 0 SEEN /hpf (5-10)
[2024-02-22 14:55] LABS: Absolute Lymphocyte Count 1.35 X10^3/uL (0.83-4.51); Absolute Neutrophil Count 7.7 X10^3/uL (2.0-7.7); Basophil# 0.04 X10^3/uL; Basophil% 0.4 % (0-1); Eosinophil# 0.45 X10^3/uL; Eosinophils% 4.3 % (0-5); Hematocrit 42.3 % (37-47); Hemoglobin 14.3 g/dL (12.0-15.0); Lymphocyte # 1.35 X10^3/ul (0.83-4.51); Lymphocyte % 12.8 % (19-41); Mean Corp Hgb Conc 33.8 g/dL (32-36); Mean Corpuscular Hgb 32.4 pg (27.0-32.0); Mean Corpuscular Volume 95.7 fL (81-99); Mean Platelet Vol. 10.3 fl (6.2-12.0); Monocyte# 0.95 X10^3/uL; NRBC Flagged by Analyzer 0 % (0-5); Platelet Count 201 K/mm3 (150-450); RBC Distribution Width CV 11.4 % (11.6-14.6); RBC Distribution Width SD 40.5 fl (35.1-43.9); Red Blood Count 4.42 M/mm3 (4.2-5.4); White Blood Count 10.5 K/mm3 (4.4-11.0)
[2024-02-22 15:03] LABS: Color, Urine Yellow (Yellow); Glucose, Dipstick Normal (Normal); Ketone-Dipstick Negative (Negative); Leukocyte Esterase-Dipstick 25 /ul (Negative); Nitrite-Dipstick Negative (Negative); Occult Blood-Urine Negative /ul (Negative); Protein-Dipstick Negative (Negative); Specific Gravity, Urine 1.015 (1.002-1.030); Urine Bilirubin Dipstick Negative (Negative); Urine Clarity Clear (Clear); Urine Urobilinogen Normal (Normal)
[2024-02-22 15:44] LABS: Mucous, Urine RARE /hpf (<or=2+); White Blood Cells 0-5 SEEN /hpf (0-5)
[2024-02-22 16:22] LABS: ALB/GLOB Ratio 1.1 RATIO (0.9-2.4); AST(SGOT) 22 U/L (15-37); Alanine Aminotransfer ALT/SGPT 58 U/L (13-56); Albumin, Serum 3.5 g/dL (3.2-5.0); Alkaline Phosphatase 130 U/L (45-117); Anion Gap 5 (5-15); BUN 17 mg/dL (7-18); BUN/Creat Ratio 13.4 RATIO (10-20); Calcium,Total 9.3 mg/dL (8.5-10.1); Chloride 111 mmol/L (98-107); Cholesterol 195 mg/dL (200); Creatinine, Serum 1.27 mg/dL (0.55-1.02); EST Glomerular Filtration Rate 44 mL/min (>60); Est Glom Filt Rate - Afr Amer 53 mL/min (>60); Globulin 3.3 g/dL (2.2-4.2); Glucose 86 mg/dL (74-106); High Density Lipoprotein 37 mg/dL; Magnesium 2.5 mg/dL (1.6-2.6); Potassium 4.2 mmol/L (3.5-5.1); Protein, Total 6.8 g/dL (6.4-8.2); Sodium Level 143 mmol/L (136-145); Triglycerides 306 mg/dL; Very Low Density Lipoprotein 61 mg/dL (5-40)
[2024-02-22 17:55] LABS: Vitamin D,25 Hydroxy 40.4 ng/mL
== END | disposition home or self-care (01) ==
LOC: CVS 13:35
PROVIDERS: PCP Family Medicine; Referring Provider Family Medicine; Visit Provider Family Medicine
DX: I10 Essential (primary) hypertension (principal); M79.605 Pain in left leg; E55.9 Vitamin D deficiency, unspecified
CPT/HCPCS: 36415; 80053; 80061; 81001; 82306; 83735; 84443; 85025; 93970

== ENCOUNTER → 2024-07-30 | Outpatient (CLI) | payer MEDICARE, OTHER, SELFPAY ==
[2024-07-30 08:19] LABS: Red Blood Cells-Urine 0 SEEN /hpf (0-5)
[2024-07-30 10:25] LABS: Absolute Lymphocyte Count 1.06 X10^3/uL (0.83-4.51); Absolute Neutrophil Count 3.2 X10^3/uL (2.0-7.7); Basophil# 0.05 X10^3/uL; Eosinophil# 0.29 X10^3/uL; Eosinophils% 5.8 % (0-5); Hematocrit 42.5 % (37-47); Hemoglobin 14.4 g/dL (12.0-15.0); Lymphocyte # 1.06 X10^3/ul (0.83-4.51); Lymphocyte % 21.2 % (19-41); Mean Corp Hgb Conc 33.9 g/dL (32-36); Mean Corpuscular Hgb 32.7 pg (27.0-32.0); Mean Corpuscular Volume 96.4 fL (81-99); Mean Platelet Vol. 9.8 fl (6.2-12.0); Monocyte# 0.45 X10^3/uL; NRBC Flagged by Analyzer 0 % (0-5); Neutrophil # 3.15 X10^3/uL (2.7-7.7); Neutrophil % 62.8 % (47-70); Platelet Count 228 K/mm3 (150-450); RBC Distribution Width CV 11.9 % (11.6-14.6); RBC Distribution Width SD 42.2 fl (35.1-43.9); Red Blood Count 4.41 M/mm3 (4.2-5.4)
[2024-07-30 11:00] LABS: Color, Urine Yellow (Yellow); Glucose, Dipstick Normal (Normal); Ketone-Dipstick Negative (Negative); Leukocyte Esterase-Dipstick 100 /ul (Negative); Nitrite-Dipstick Negative (Negative); Occult Blood-Urine Negative /ul (Negative); Protein-Dipstick 30 mg/dl (Negative); Specific Gravity, Urine 1.025 (1.002-1.030); Urine Bilirubin Dipstick Negative (Negative); Urine Clarity Sl. Cloudy (Clear); Urine Urobilinogen Normal (Normal)
[2024-07-30 11:01] LABS: ALB/GLOB Ratio 1.7 RATIO (0.9-2.4); AST(SGOT) 24 U/L (<=31); Alanine Aminotransfer ALT/SGPT 32 U/L (<=34); Albumin, Serum 4.3 g/dL (3.4-4.8); Alkaline Phosphatase 107 U/L (35-104); Anion Gap 11 (5-15); BUN 21 mg/dL (4-19); BUN/Creat Ratio 16.9 RATIO (10-20); Calcium,Total 9.5 mg/dL (7.6-11.0); Carbon Dioxide 23.3 mmol/L (21.0-32.0); Chloride 108 mmol/L (98-108); Cholesterol 225 mg/dL (<=200); Creatinine, Serum 1.25 mg/dL (0.70-1.20); EST Glomerular Filtration Rate 45 (>60); Globulin 2.6 g/dL (2.2-4.2); Glucose 106 mg/dL (70-99); High Density Lipoprotein 45 mg/dL; Low Density Lipoprotein Calc. 146 mg/dL; Phosphorus 3.6 mg/dL (2.7-4.5); Potassium 4.4 mmol/L (3.3-5.1); Protein, Total 6.9 g/dL (5.9-8.4); Sodium Level 142 mmol/L (133-145); Total Bilirubin 0.43 mg/dL (0.00-1.30); Triglycerides 169 mg/dL; Very Low Density Lipoprotein 34 mg/dL (5-40); Vitamin D,25 Hydroxy 64.2 ng/mL (30-100); cholesterol:hdl ratio screen 4.96
[2024-07-30 11:05] LABS: Protein, Urine (Random) 9.7 mg/dL (0.0-12.0); Protein:Creat Ratio 52 mg/g CRE (0-200)
[2024-07-30 11:14] LABS: Bacteria 1+ /hpf (None Seen); Mucous, Urine 1+ /hpf (<or=2+); Squamous Epithelial Cells - UA 0-5 SEEN /hpf (5-10); White Blood Cells 0-5 SEEN /hpf (0-5)
[2024-07-30 11:26] LABS: PTHIN 43 pg/mL (11-61)
== END | disposition home or self-care (01) ==
LOC: MFPLAB 08:10
PROVIDERS: PCP Family Medicine; Visit Provider Family Medicine
DX: I12.9 Hypertensive chronic kidney disease with stage 1 through stage 4 chronic kidney disease, or unspecified chronic kidney disease (principal); N18.30 Chronic kidney disease, stage 3 unspecified
CPT/HCPCS: 36415; 80053; 80061; 81001; 82306; 82570; 83970; 84100; 84156; 85025

== ENCOUNTER → 2024-08-19 | Outpatient (CLI) | payer MEDICARE, OTHER, SELFPAY ==
--- NOTE | 2024-08-19 12:36 | BI_ITS ---
EXAM: SCRN MAMM (CAD)W/MIKE BILAT DATE: 08/19/2024 CLINICAL HISTORY: F, Age 73 y/o , SCREENING BREAST CANCER RISK ASSESSMENT: Has not been calculated. TECHNIQUE: Bilateral screening digital breast tomosynthesis with 2D and 3D images. Computer aided detection. COMPARISON: Prior exam(s) dated 01/26/2023 and 07/04/2018. FINDINGS: TISSUE DENSITY: The breast tissue is composed of scattered area of fibroglandular density. Bilateral Breast Mammographic Findings: There are no suspicious masses, suspicious clustered microcalcifications, architectural distortion or secondary signs of malignancy identified in either breast. Benign round microcalcifications and vascular calcifications are seen in both breasts. Stable partially obscured isodense masses are seen in both breast. The overall breast findings are similar when compared to the prior exam. BI/SCRN MAMM (CAD)W/MIKE BILAT IMPRESSION: OVERALL FINAL ASSESSMENT: BIRADS 2 BENIGN FINDING RECOMMENDATION: Routine annual follow-up in 1 Year A letter with findings and recommendations will be mailed to the patient. Reading Location: [id number]
== END | disposition home or self-care (01) ==
PROVIDERS: PCP Family Medicine; Referring Provider Family Medicine; Visit Provider Family Medicine
DX: Z12.31 Encounter for screening mammogram for malignant neoplasm of breast (principal)
CPT/HCPCS: 77063; 77067

== ENCOUNTER → 2025-03-17 | Outpatient (CLI) | payer MEDICARE, OTHER, SELFPAY ==
[2025-03-17 08:04] LABS: Mucous, Urine 0 SEEN /hpf (<or=2+); Red Blood Cells-Urine 0 SEEN /hpf (0-5)
[2025-03-17 10:24] LABS: Color, Urine Yellow (Yellow); Glucose, Dipstick Normal (Normal); Hematocrit 43.2 % (37-47); Hemoglobin 14.4 g/dL (12.0-15.0); Immature Granulocytes Count 0.020 X10^3/uL (0.0-0.0); Ketone-Dipstick Negative (Negative); Leukocyte Esterase-Dipstick 100 /ul (Negative); Mean Corp Hgb Conc 33.3 g/dL (32-36); Mean Corpuscular Volume 96.6 fL (81-99); Mean Platelet Vol. 9.9 fl (6.2-12.0); NRBC Flagged by Analyzer 0 % (0-5); Nitrite-Dipstick Negative (Negative); Occult Blood-Urine Negative /ul (Negative); Platelet Count 208 K/mm3 (150-450); Protein-Dipstick 15 mg/dl (Negative); RBC Distribution Width CV 12.1 % (11.6-14.6); RBC Distribution Width SD 43.4 fl (35.1-43.9); Red Blood Count 4.47 M/mm3 (4.2-5.4); Specific Gravity, Urine 1.025 (1.002-1.030); Urine Bilirubin Dipstick Negative (Negative); White Blood Count 5.3 K/mm3 (4.4-11.0)
[2025-03-17 10:47] LABS: Squamous Epithelial Cells - UA 0-5 SEEN /hpf (5-10)
[2025-03-17 10:49] LABS: Creatinine, Urine (random) 257.00 mg/dL (28.00-217.00); Protein, Urine (Random) 18.1 mg/dL (0.0-12.0); Protein:Creat Ratio 70 mg/g CRE (0-200)
[2025-03-17 11:09] LABS: AST(SGOT) 23 U/L (<=31); Alanine Aminotransfer ALT/SGPT 26 U/L (<=34); Albumin, Serum 4.2 g/dL (3.4-4.8); Alkaline Phosphatase 96 U/L (35-104); Anion Gap 11 (5-15); BUN 18 mg/dL (4-19); BUN/Creat Ratio 13.5 RATIO (10-20); Calcium,Total 9.3 mg/dL (7.6-11.0); Carbon Dioxide 24.2 mmol/L (21.0-32.0); Chloride 107 mmol/L (98-108); Cholesterol 216 mg/dL (<=200); Globulin 2.5 g/dL (2.2-4.2); Glucose 108 mg/dL (70-99); Low Density Lipoprotein Calc. 129 mg/dL; Magnesium 2.2 mg/dL (1.5-2.2); Potassium 3.9 mmol/L (3.3-5.1); Triglycerides 259 mg/dL; Very Low Density Lipoprotein 52 mg/dL (5-40); Vitamin D,25 Hydroxy 58.7 ng/mL (30-100); cholesterol:hdl ratio screen 5.27
== END | disposition home or self-care (01) ==
LOC: MTLAB 07:57
PROVIDERS: PCP Family Medicine; Referring Provider Family Medicine; Visit Provider Family Medicine
DX: I10 Essential (primary) hypertension (principal); E55.9 Vitamin D deficiency, unspecified
CPT/HCPCS: 36415; 80053; 80061; 81001; 82306; 82570; 83735; 84156; 85025